=== PATIENT | male | born 1985 | race Caucasian/White ===

== ENCOUNTER 2023-10-26 07:44 | Emergency (ER) | payer OTHER, SELFPAY ==
[2023-10-26 07:47] VITALS: BP 111/87; PULSE 58; TEMP 36.6; O2SAT 98; BMI 27.1
--- NOTE | 2023-10-26 07:54 | XR_ITS ---
The [address] [address] Patient Name: ROBBIE HERRERA MRN: [id number] date: 1985 Sex: M Assigned Patient Location: ER Current Patient Location: ER Accession/Order Number: [id number] Exam Date: 10/26/2023 08:06 Report Date: 10/26/2023 08:27 At the request of: CAMRYN HAYES Procedure: XR wrist LT min 3V PROCEDURE: XR wrist LT min 3V HISTORY: pain ; radial side of wrist pain COMPARISON: None. FINDINGS: BONES:No fracture, acute abnormality, or significant arthropathy. SOFT TISSUES:No visible soft tissue swelling. EFFUSION:None visible. OTHER: Negative. XR/XR wrist LT min 3V IMPRESSION: 1. No acute abnormality or suspicious findings of the wrist. 2. Small, separate corticated ossification at base of first proximal phalanx suspected represent a remote, ununited fracture fragment. Electronically authenticated by: OVI NEWSOME Date: 10/26/2023 08:27
--- NOTE | 2023-10-26 08:16 | ED_ITS ---
HPI HPI - Extremity Injury (Upper) General Chief Complaint: Extremity Injury, Upper Stated Complaint: UPPER EXTREMITY INJURY Time Seen by Provider: 10/26/23 07:52 Source: patient Mode of arrival: walk-in History of Present Illness HPI narrative: 38-year-old male presents to the emergency department for left wrist pain. About 5 years ago he had a fracture and states he had surgery and hardware placed. About 6 months ago he was doing some push-ups and it started hurting and it has been bothering him to some degree since. Few days ago he was carrying some heavy items in his garden and it started hurting more. It hurts to bend it and the pain is moderate. He is right-handed. He did not fall. Related Data Previous Rx's ?Medication ?Instructions ?Recorded hydrocodone 5 mg-acetaminophen 325 1 tab PO Q6H PRN pain 3 days #12 10/26/23 mg tablet tabs ibuprofen 800 mg tablet 800 mg PO Q8H PRN pain #20 tabs 10/26/23 Allergies Allergy/AdvReac Type Severity Reaction Status Date / Time tramadol Allergy Unknown Vomiting Verified 10/26/23 07:52 Opioid HPI Opioid Management Most Recent Pain and Opioid Data: No Data to Display Review of Systems ROS Narrative A ten point review of systems is negative except as noted above. Exam Narrative Exam Narrative: Nurses note and vital signs reviewed and patient is not hypoxic. General: The patient appears well and in no apparent distress. Patient is resting comfortably on cart. Skin: Warm, dry, no pallor noted. There is no rash noted. Head: Normocephalic, atraumatic Eye: Normal conjunctiva, no drainage Ears, Nose, Mouth, and Throat: oral mucosa is moist. Nares patent. Cardiovascular: Regular Rate and Rhythm Respiratory: Patient is in no distress, no accessory muscle use Back: non-tender GI: Soft and nontender Musculoskeletal: He has no deformity or swelling in the left hand and wrist area. Range of motion of the left wrist causes discomfort but his fingers have full range of motion. Capillary refill brisk. Neurological: A&O, normal speech Psychiatric: Cooperative Constitutional Vital Signs, click to edit/add: Last Vital Signs Temp 98 F 10/26/23 07:47 Pulse 58 L 10/26/23 07:47 Resp 20 10/26/23 07:47 BP 111/87 10/26/23 07:47 Pulse Ox 98 10/26/23 07:47 Course Vital Signs Vital signs: Vital Signs Temperature 98 F 10/26/23 07:47 Pulse Rate 58 L 10/26/23 07:47 Respiratory Rate 20 10/26/23 07:47 Blood Pressure 111/87 10/26/23 07:47 Pulse Oximetry 98 10/26/23 07:47 Temperature 98 F 10/26/23 07:47 Pulse Rate 58 L 10/26/23 07:47 Respiratory Rate 20 10/26/23 07:47 Blood Pressure 111/87 10/26/23 07:47 Pulse Oximetry 98 10/26/23 07:47 MDM - Extremity Injury (Upper) MDM Narrative Medical decision making narrative: X-ray showed no acute findings. Splint applied, application checked by me and found to be appropriate, he is neurovascular intact. He has an established orthopedist with whom he will follow-up. Treatment diagnosis and follow-up were discussed with the patient. Differential Diagnosis Differential diagnosis: Likely sprain and strain of wrist and fracture of wrist Imaging Data wrist: Radiologist's impression: ITS Impressions Wrist X-Ray 10/26/23 07:54 IMPRESSION: 1. No acute abnormality or suspicious findings of the wrist. 2. Small, separate corticated ossification at base of first proximal phalanx suspected represent a remote, ununited fracture fragment. Electronically authenticated by: OVI NEWSOME Date: 10/26/2023 08:27 Discharge Plan Discharge Stand Alone Forms: Portal Instructions Chief Complaint: Extremity Injury, Upper Clinical Impression: Left wrist pain Patient Disposition: Home, Self-Care Time of Disposition Decision: 08:43 Condition: Good Mode of Transportation: Private Vehicle Prescriptions / Home Meds: New ibuprofen 800 mg tablet 800 mg PO Q8H PRN (Reason: pain) Qty: 20 0RF hydrocodone-acetaminophen 5-325 mg tablet 1 tab PO Q6H PRN (Reason: pain) 3 Days Qty: 12 0RF Print Language: Moroccan Instructions: Wrist Injury (ED) Additional Instructions: Follow-up with your established orthopedist in [place] Referrals: Physician,Non-Staff, [Physician] - 1 week
== END 2023-10-26 08:56 | disposition home or self-care (01) ==
PROVIDERS: Emergency Provider Emergency Medicine; PCP Nurse Practitioner Family
DX: M25.532 Pain in left wrist (principal); Z87.81 Personal history of (healed) traumatic fracture
CPT/HCPCS: 73110; 99283

== ENCOUNTER 2024-07-10 10:47 | Emergency (ER) | payer OTHER, SELFPAY ==
[2024-07-10 10:51] VITALS: BP 146/87; PULSE 73; TEMP 36.8; O2SAT 100; BMI 23.7
--- NOTE | 2024-07-10 11:01 | ECG_ITS ---
The [facility] Test Date: 2024-07-10 Pat Name: ROBBIE HERRERA Department: Room: - Gender: Male [employer]: : 1985 Requested By: ELLA RAMIREZ Order Number: [id number] Yue MD: JAMES WIN M.D. Measurements Intervals [employer] Rate: 78 P: 64 MO: 210 QRS: 83 QRSD: 86 T: 69 QT: 364 QTc: 397 Interpretive Statements 1100 Sinus rhythm 2231 First degree AV block 9150 abnormal ECG No previous ECG available for comparison Electronically Signed On 07-10-2024 17:29:47 EDT by JAMES WIN M.D.
[2024-07-10 11:06] VITALS: PULSE 70; O2SAT 99
[2024-07-10 11:08] LABS: Basophils Absolute Auto 0.1 10^3/uL (0.0-0.1); Basophils Percent Auto 1.2 % (0.2-2.0); Eosinophils Absolute Auto 0.1 10^3/uL (0.0-0.7); Eosinophils Percent Auto 1.4 % (0.9-7.0); Hematocrit 42.1 % (42.0-54.0); Hemoglobin 14.4 g/dL (14.0-18.0); Immature Granulocytes Abs Auto 0.01 10^3/uL (0.00-0.03); Immature Granulocytes Pct Auto 0.2 % (0.0-0.5); Lymphocytes Absolute Auto 2.4 10^3/uL (1.2-3.8); Lymphocytes Percent Auto 35.9 % (20.5-60.0); Mean Corpuscular HGB Conc 34.2 g/dL (29.9-35.2); Mean Corpuscular Volume 84.9 fL (80.0-94.0); Mean Platelet Volume 9.5 fL (9.5-13.5); Monocytes Absolute Auto 0.4 10^3/uL (0.3-0.8); Monocytes Percent Auto 6.1 % (1.7-12.0); Neutrophils Absolute Auto 3.7 10^3/uL (1.4-6.5); Neutrophils Percent Auto 55.2 % (43.0-75.0); Platelet Count 333 10^3/uL (150-450); Red Blood Count 4.96 10^6/uL (4.70-6.10); White Blood Count 6.6 10^3/uL (4.0-11.0)
--- NOTE | 2024-07-10 11:14 | ED_ITS ---
HPI - Chest Pain General Chief Complaint: Chest Pain Stated Complaint: CHEST PAIN Time Seen by Provider: 07/10/24 10:50 Mode of arrival: walk-in History of Present Illness HPI narrative: 38-year-old male to the emergency department chief complaint of intermittent episodes of chest discomfort. Reports he is under an increasing amount of stress recently. He reports he has been having episodes where he feels panicked, has pain in his chest, feels short of breath and feels numb and tingly. Related Data Previous Rx's ?Medication ?Instructions ?Recorded hydroxyzine HCl 25 mg tablet 25 mg PO Q8H PRN anxiety #30 tabs 07/10/24 Allergies Allergy/AdvReac Type Severity Reaction Status Date / Time tramadol Allergy Unknown Vomiting Verified 10/26/23 07:52 Review of Systems ROS Status of ROS 10 or more systems reviewed and unremark able except as noted in history and below PFSH PFSH Social History Little interest or pleasure in doing things: not at all Feeling down, depressed, or hopeless: not at all Exam Narrative Exam Narrative: VITALS: I have reviewed the triage vital signs. GENERAL: Well developed, well appearing adult in no acute distress. NEURO: Alert and oriented. Moves all extremities. Face is symmetric and expressive. EYES: PERRL. No scleral icterus or conjunctival injection. No discharge. HENT: Normocephalic, atraumatic. Hearing is grossly intact. Nares grossly patent and without discharge. Mucous membranes moist. NECK: No JVD. Patient moves neck without restriction. CARDIO: Rhythm regular. Normal rate. No murmur, rub, or gallop. Pulses equal bilaterally in the upper and lower extremity. No lower extremity edema. PULM: Lungs clear to auscultation in all monique. No wheezes, rales, or rhonchi. No conversational dyspnea. No splinting, stridor, or accessory muscle use. GI/: Abdomen is soft and non-tender. Normoactive bowel sounds. EXTREMITIES: Symmetric muscle bulk. No joint swelling. No clubbing, cyanosis, or deformity. SKIN: Warm and dry. Normal turgor. No rash or lesions appreciated. PSYCH: Mood, affect, and interaction is appropriate to the setting. Constitutional Vital Signs, click to edit/add: Last Vital Signs Temp 98.2 F 07/10/24 10:51 Pulse 73 07/10/24 10:51 Resp 18 07/10/24 10:51 BP 146/87 H 07/10/24 10:51 Pulse Ox 99 07/10/24 11:06 O2 Del Method Room Air 07/10/24 11:06 Course Vital Signs Vital signs: Vital Signs Temperature 98.2 F 07/10/24 10:51 Pulse Rate 73 07/10/24 10:51 Respiratory Rate 18 07/10/24 10:51 Blood Pressure 146/87 H 07/10/24 10:51 Pulse Oximetry 100 07/10/24 10:51 Oxygen Delivery Method Room Air 07/10/24 10:51 Temperature 98.2 F 07/10/24 10:51 Pulse Rate 73 07/10/24 10:51 Respiratory Rate 18 07/10/24 10:51 Blood Pressure 146/87 H 07/10/24 10:51 Pulse Oximetry 99 07/10/24 11:06 Oxygen Delivery Method Room Air 07/10/24 11:06 MDM - Chest Pain MDM Narrative Medical decision making narrative: Well-appearing 38-year-old male to the emergency department chief complaint of intermittent episodes of panic, chest pain, shortness of breath. Vital stable, the patient is afebrile. He has no cardiac history. Chest pain workup is initiated with chest x-ray, basic labs, troponin, EKG. Chest x-ray without acute findings. EKG is without acute ischemic pattern. Lab work is unremarkable. His troponin is low. Patient is low risk by heart score. Discussed findings with the patient. He reports that hydroxyzine worked well for him in the past when he had symptoms like this. Will be prescribed again. He is instructed follow-up with his PCP. Return precautions were discussed. All questions were answered. The patient was discharged home. Heart Score for Major Cardiac Event History: Example factors for history - pattern of chest pain, onset, duration, relation with exercise, stress or cold, localization, concomitant symptoms. reaction to sublingual nitrates, [] Highly suspicious +2 [] Moderately suspicious +1 [x] Slightly suspicious 0 EKG: [] Significant ST-Depression +2 [] Non specific repolarization disturbance +1 [x] Normal 0 Age: [] >= 65 +2 [] 45-65 + 1 [x] <45 0 Risk Factors: (HLD, HTN, DM, Cigarette Smoking, Pos Family Hx, Obesity) [] >3 risk factors or hx of atherosclerotic disease + 2 [x] 1-2 risk factors + 1 [] No risk factors known 0 Troponin: [] >= 3X normal + 2 [] 1-3X normal + 1 [x] <= Normal 0 [x] 0-3 Points 0.9 - 1.7% risk of major adverse cardiac event in 6 weeks [] 4-6 Points 12-16.6% risk of major adverse cardiac event in 6 weeks [] 7-10 Points 50-65% risk of major adverse cardiac event in 6 weeks [] 0-3 Points with 2 sets of negative cardiac markers <1% risk of major adverse cardiac event in 30 days. Medical Records Data Attestation: I reviewed the patient's medical records. Lab Data Attestation: I reviewed the patient's lab results. Labs: Lab Results 07/10/24 Range/Units 10:58 WBC 6.6 (4.0-11.0) 10^3/uL RBC 4.96 (4.70-6.10) 10^6/uL Hgb 14.4 (14.0-18.0) g/dL Hct 42.1 (42.0-54.0) % MCV 84.9 (80.0-94.0) fL MCH 29.0 (25.9-34.0) pg MCHC 34.2 (29.9-35.2) g/dL RDW 13.0 (11.0-15.0) % Plt Count 333 (150-450) 10^3/uL MPV 9.5 (9.5-13.5) fL Neut % (Auto) 55.2 (43.0-75.0) % Lymph % (Auto) 35.9 (20.5-60.0) % Mcdonough % (Auto) 6.1 (1.7-12.0) % Eos % (Auto) 1.4 (0.9-7.0) % Baso % (Auto) 1.2 (0.2-2.0) % Neut # (Auto) 3.7 (1.4-6.5) 10^3/uL Lymph # (Auto) 2.4 (1.2-3.8) 10^3/uL Mcdonough # (Auto) 0.4 (0.3-0.8) 10^3/uL Eos # (Auto) 0.1 (0.0-0.7) 10^3/uL Baso # (Auto) 0.1 (0.0-0.1) 10^3/uL Abs Immat Gran (auto) 0.01 (0.00-0.03) 10^3/uL Imm/Tot Granulo (auto) 0.2 (0.0-0.5) % Sodium 139 (136-145) mmol/L Potassium 3.7 (3.5-5.1) mmol/L Chloride 103 (98-107) mmol/L Carbon Dioxide 29.0 (21.0-32.0) mmol/L Anion Gap 10.7 BUN 17.0 (7.0-18.0) mg/dL Creatinine 0.95 (0.70-1.30) mg/dL Est GFR ( Amer) >60 (>=60 mL/min/1.73m^2) Est GFR (Non-Af Amer) >60 (>=60 mL/min/1.73m^2) BUN/Creatinine Ratio 17.9 Glucose 98 (74-106) mg/dL Calcium 9.7 (8.5-10.1) mg/dL Troponin I High Sens 4.7 (4.0-76.1) pg/mL Imaging Data Chest x-ray: Attestation: I personally reviewed and interpreted this imaging study as follows: My impression: No acute cardiopulmonary process ECG Data Attestation: I personally reviewed and interpreted this ECG as follows: (Normal sinus rhythm. No STEMI. Normal QTc) Discharge Plan Discharge Chief Complaint: Chest Pain Clinical Impression: Chest pain, Stress response Patient Disposition: Home, Self-Care Time of Disposition Decision: 12:09 Condition: Good Mode of Transportation: Private Vehicle Prescriptions / Home Meds: New hydroxyzine HCl 25 mg tablet 25 mg PO Q8H PRN (Reason: anxiety) Qty: 30 0RF Print Language: Iranian Instructions: Chest Pain (ED), Stress (ED), Panic Attack (ED) Additional Instructions: Call the office of your primary care doctor to arrange for follow-up within the above-stated timeframe. Your ED visit was focused on your acute issue and does not replace primary care. You should review your labs, imaging, and diagnoses from this ED visit with your primary care physician. There may be non-emergent/ incidental findings that need further evaluation. You should review your vital signs including blood pressure with your PCP. If you were prescribed medications you should discuss possible side-effects and drug interactions with your pharmacist. Call 911 or go to the nearest Emergency Department if you develop any new or worsening symptoms. Seek immediate medical attention if you develop: worsening chest pain, new chest pain, nausea, vomiting, weakness, numbness, tingling, excessive sweating, shortness of breath, difficulty breathing, loss of motion in your arms or legs, or any new or worsening symptoms. Referrals: ELLA RAMIREZ [Primary Care Provider] - 1 week
[2024-07-10 11:24] LABS: Anion Gap 10.7; BUN Creatinine Ratio 17.9; Calcium 9.7 mg/dL (8.5-10.1); Chloride 103 mmol/L (98-107); Estimated GFR (African America >60 (>=60 mL/min/1.73m^2); Estimated GFR (Non-African Ame >60 (>=60 mL/min/1.73m^2); Glucose 98 mg/dL (74-106); Potassium 3.7 mmol/L (3.5-5.1); Sodium 139 mmol/L (136-145); Troponin I High Sensitivity 4.7 pg/mL (4.0-76.1)
[2024-07-10 12:29] VITALS: BP 132/75; PULSE 68; O2SAT 98
== END 2024-07-10 12:30 | disposition home or self-care (01) ==
PROVIDERS: Emergency Provider Student in an Organized Health Care Education/Training Program; PCP Nurse Practitioner Family
DX: R07.9 Chest pain, unspecified (principal); F43.9 Reaction to severe stress, unspecified
CPT/HCPCS: 36415; 71045; 80048; 84484; 85025; 93005; 99285

== ENCOUNTER 2024-08-25 20:17 | Emergency (ER) | payer OTHER, BC, SELFPAY ==
[2024-08-25 20:27] VITALS: BP 122/69; PULSE 75; TEMP 36.7; O2SAT 96; BMI 21.7
--- NOTE | 2024-08-27 17:13 | ED.DENTAL1 ---
HPI - Dental/Oral General Chief complaint: Dental/Oral Stated complaint: DENTAL Source: patient Mode of arrival: walk-in History of Present Illness HPI Narrative: Left Before being seen after only a few minutes of waiting. The patient returned 5 hours later for assessment. Related Data Previous Rx's ?Medication ?Instructions ?Recorded hydrocodone 5 mg-acetaminophen 325 1 tab PO QID PRN pain #10 tabs 08/26/24 mg tablet penicillin V potassium 500 mg 500 mg PO BID 10 days #20 tabs 08/26/24 tablet Allergies Allergy/AdvReac Type Severity Reaction Status Date / Time tramadol Allergy Unknown Vomiting Verified 08/26/24 01:09 [facility] Social History Little interest or pleasure in doing things: not at all Feeling down, depressed, or hopeless: not at all Exam Narrative Exam Narrative: LWBS Constitutional Vital Signs, click to edit/add: Last Vital Signs Temp 98.0 F 08/25/24 20:27 Pulse 75 08/25/24 20:27 Resp 18 08/25/24 20:27 BP 122/69 08/25/24 20:27 Pulse Ox 96 08/25/24 20:27 O2 Del Method Room Air 08/25/24 20:27 Course Vital Signs Vital signs: Vital Signs Temperature 98.0 F 08/25/24 20:27 Pulse Rate 75 08/25/24 20:27 Respiratory Rate 18 08/25/24 20:27 Blood Pressure 122/69 08/25/24 20:27 Pulse Oximetry 96 08/25/24 20:27 Oxygen Delivery Method Room Air 08/25/24 20:27 Temperature 98.0 F 08/25/24 20:27 Pulse Rate 75 08/25/24 20:27 Respiratory Rate 18 08/25/24 20:27 Blood Pressure 122/69 08/25/24 20:27 Pulse Oximetry 96 08/25/24 20:27 Oxygen Delivery Method Room Air 08/25/24 20:27 MDM - Dental/Oral MDM Narrative Medical decision making narrative: LWBS Discharge Plan Discharge Patient Disposition: Left Without Being Seen Discharge Date/Time: 08/25/24 20:34
== END 2024-08-25 20:34 | disposition left against medical advice (07) ==
LOC: ER 20:25
PROVIDERS: Emergency Provider Emergency Medicine; PCP Nurse Practitioner Family
DX: Z53.21 Procedure and treatment not carried out due to patient leaving prior to being seen by health care provider (principal)

== ENCOUNTER 2024-08-26 01:03 | Emergency (ER) | payer BC, OTHER, SELFPAY ==
[2024-08-26 01:06] VITALS: BP 115/81; PULSE 64; TEMP 36.4; O2SAT 96; BMI 21.7
--- NOTE | 2024-08-26 01:08 | ED_ITS ---
HPI - Dental/Oral General Chief complaint: Dental/Oral Stated complaint: tooth pain Time Seen by Provider: 08/26/24 01:07 History of Present Illness HPI Narrative: You to the emergency department secondary to dental pain. Patient has dental pain both in the upper and lower teeth on the right side. He is an impacted wisdom teeth that are pressing on his molars and breaking his teeth. Patient states that he has an appointment mid September for the dentist but cannot get in any sooner. Pain is an 8-9 out of 10. He is not able to sleep. Over a month but it is gradually gotten worse. Patient states over the last couple of days it has been intolerable. Patient states that he has been trying to take Tylenol and ibuprofen for analgesic management and it is not helping. Right ear and right temporal area. He has a mild headache. Eating and drinking make it worse. Nothing makes it better. Teeth map: 2 1. 2. wisdom tooth about 50% impacted Related Data Previous Rx's ?Medication ?Instructions ?Recorded hydrocodone 5 mg-acetaminophen 325 1 tab PO QID PRN pa in #10 tabs 08/26/24 mg tablet penicillin V potassium 500 mg 500 mg PO BID 10 days #2 0 tabs 08/26/24 tablet Allergies Allergy/AdvReac Type Severity Reaction Status Date / Time tramadol Allergy Unknown Vomiting Verified 08/26/24 01:09 Review of Systems 2 ROS0 Narrative 10 Systems were reviewed, and unless not ed in the HPI, all other systems are reviewed, unremarkable, or noncontributory. PFS PFS Social History Little interest or pleasure in doing things: not at all Feeling down, depressed, or hopeless: not at all Exam Narrative Exam Narrative: Prior to examining the patient, I have washed with hospital approved and provided Antiseptic Hand Optical Instrument Repairer and have also applied gloves.? Prior to touching the patient, I asked for consent to examine the patient.? General: Alert and oriented, well nourished, mild distress. Eye: PERRL, EOMI, normal conjunctiva. HENT: Normocephalic, normal hearing, moist oral mucosa, no scleral icterus, 1, 2, 31 and 32 are significantly painful. 32 is more than 50% impacted. Soft sublingual early and submentally. TM are not red, dull, or bulging. Neck: Supple, non-tender, no carotid bruits, no JVD, no lymphadenopathy. Lungs: Clear to auscultation and percussion, non-labored respiration. Heart: Normal rate, regular rhythm, no murmur, gallop or edema. Musculoskeletal: Normal range of motion and strength, no tenderness or swelling. Skin: Skin is warm, dry and pink, no rashes or lesions. Neurologic: Awake, alert, and oriented X3, CN II-XII intact. Psychiatric: Cooperative, appropriate mood and affect.? Following the conclusion of the examination, I have washed my hands thoroughly after removing examination gloves. Constitutional Vital Signs, click to edit/add: Last Vital Signs Temp 97.5 F L 08/26/24 01:06 Pulse 64 08/26/24 01:06 Resp 16 08/26/24 01:06 BP 115/81 08/26/24 01:06 Pulse Ox 96 08/26/24 01:06 O2 Del Method Room Air 08/26/24 01:06 Course Course Hospital Course: Patient given first dose of antibiotic therapy and two intraoral injections. Vital Signs Vital signs: Vital Signs Temperature 97.5 F L 08/26/24 01:06 Pulse Rate 64 08/26/24 01:06 Respiratory Rate 16 08/26/24 01:06 Blood Pressure 115/81 08/26/24 01:06 Pulse Oximetry 96 08/26/24 01:06 Oxygen Delivery Method Room Air 08/26/24 01:06 Temperature 97.5 F L 08/26/24 01:06 Pulse Rate 64 08/26/24 01:06 Respiratory Rate 16 08/26/24 01:06 Blood Pressure 115/81 08/26/24 01:06 Pulse Oximetry 96 08/26/24 01:06 Oxygen Delivery Method Room Air 08/26/24 01:06 MDM - Dental/Oral MDM Narrative Medical decision making narrative: We did the patient very carefully. It was imperative that I rule out acute necrotizing ulcerative gingivitis as well as Antelmo's angina. Those are 2 life- threatening conditions. At this time I think the patient has likely periapical abscess associated with dental pain. There is nothing that requires emergent intervention or transfer at this time. Differential Diagnosis Differential diagnosis: Likely gingival abscess, dental caries, toothache, dental abscess and fracture of tooth Medical Records Attestation: I reviewed the patient's medical records. Discharge Plan Discharge Chief Complaint: Dental/Oral Clinical Impression: Pain, dental Patient Disposition: Home, Self-Care Time of Disposition Decision: 01:20 Condition: Good Mode of Transportation: Private Vehicle Prescriptions / Home Meds: New penicillin V potassium 500 mg tablet 500 mg PO BID 10 Days Qty: 20 0RF hydrocodone-acetaminophen 5-325 mg tablet 1 tab PO QID PRN (Reason: pain) Qty: 10 0RF Print Language: Macedonian Instructions: Toothache (ED) Additional Instructions: Establish care with a dentist. Return if you are having difficulty breathing or swallowing. Referrals: ELLA RAMIREZ [Primary Care Provider, Family Practice] - 1 week Discharge Date/Time: 08/26/24 01:48 Procedures ED Nerve Block Nerve Block Nerve Block 1: Time out performed: Yes Local anesthetic used: lidocaine 2% Location of anesthetic used: Maxillary N. Block at the second molar buccal gingival junction Intraoral nerve block: other Procedure successful: Yes Patient tolerated procedure: well and no complications Complications: none Nerve Block 2: Time out performed: Yes Local anesthetic used: lidocaine 2% Intraoral nerve block: inferior alveolar Procedure successful: Yes Patient tolerated procedure: well and no complications Complications: none
[2024-08-26] MEDS: LIDOCAINE HCL 2% 400 MG/20 ML MDV 5 ML INJ (01:41)
[2024-08-26] MEDS: PENICILLIN V POTASSIUM 250 MG TABLET 500 MG PO (01:45)
== END 2024-08-26 01:48 | disposition home or self-care (01) ==
PROVIDERS: Emergency Provider Emergency Medicine; PCP Nurse Practitioner Family
DX: K08.89 Other specified disorders of teeth and supporting structures (principal); K01.1 Impacted teeth
CPT/HCPCS: 64450; 99283

== ENCOUNTER 2024-11-01 11:57 | Outpatient (OUT) | payer BC, OTHER, SELFPAY ==
--- OUTSIDE RECORDS SUMMARY | 2023-10-01 06:30 | XMS_ITS ---
Author Organization [facility] [place] Address [address] [place] [address] Care Team Providers Care Program Professional Name Role Phone Sanjana James Primary Care Provider SANJANA JAMES Unavailable [phone] Allergies Allergen (clinical drug ingredient) Drug/Non Drug Allergy documented on EMR Reaction Allergy Type Onset Date Status tramadol traMADol HCl Unknown Drug Allergy Acti ve Reason For Referral Reason abdominal pain, N ,V Diagnosis 1 Abdominal pain (R10. 9) Referral [facility]upe Referring Provider First Name SANJANA Referring Provider Last Name ASHLEY Referring Provider Speciality Family Med icichristopher Referred Provider Yan Swenson Referred Provider Specialty Gastroentero logy Referral Priority Routine REASON FOR VISIT new patient, previous pcp mary pardo, patient is c/o stomach pain, n/v everyday Medications Medication SIG (Take, Route, Frequency, Duration) Notes Start Date End Date Status Ibuprofen 600 MG 1 tablet with food o r milk as needed Orally Three times a day for 14 days Not-Taking HYDROcodone-Acetaminophen 5-325 MG 1 tablet as needed Orally every 8 hrs for 7 days Not-Taking tiZANidine HCl 2 MG 1 tablet as needed Orally Three times a day for 14 days 11/04/2020 Not-Taking Famotidine 20 MG 1 tablet as needed Orally Once a day Not-Taking Cyclobenzaprine HCl 5 MG 1 tablet at bed time as needed Orally Once a day Not-Taking Ondansetron HCl 4 MG 1 tablet Orally Onc e a day as needed for 30 days 10/01/2023 Active Social History Tobacco Use: Social History Observation Description Date Details (start date - stop date) Current Smoker NA - NA Tobacco Use/Smoking Question Answer Notes Patient is a current smoker AUDIT-C (Standard) Question Answer Notes Did you have a drink containing alcohol in the p ast year? No Points 0 Interpretation Negative Problems Problem Type SNOMED Code ICD Code Onset Dates Problem Status W/U Status Risk Notes Problem Marijuana abuse, continuous (F12.10) Active confirmed Vital Signs Weight 195.8 lbs 10/01/2023 Height 72 in 10/01/2023 Blood pressure systolic 122 mm Hg 10/01/19 24 Blood pressure diastolic 80 mm Hg 024 BMI 26.55 kg/m2 10/01/2023 Encounters Encounter Location Date Provider Diagnosis [facility] [address] [facility] [place] [address] 10/01/2023 SANJANA JAMES Nausea & vomiting R11.2 and Abdominal pain R10.9 Assessments Encounter Date Diagnosis (ICD Code) Assessment Notes Treatment Notes Treatment Clinical Notes Section Notes 10/01/2023 Nausea & vomiting (ICD-10 - R11.2) discussed marijuana use 10/01/2023 Abdominal pain (ICD-10 - R10.9) discussed hx discussed IBS requesting GI referral Plan Of Treatment Medication Medication Name Sig Start Date Stop Date Notes Ondansetron HCl 4 MG 1 tablet Orally Onc e a day as needed for 30 days 10/01/2023 Treatment Notes Assessment Notes Nausea & vomiting discussed marijuana use Abdominal pain discussed hx discussed IBS requesting GI referral Referrals Referral Date Details 10/01/2023 10/01/2023, abdomina l pain, N ,V, Yan Swenson Next Appt Details Follow Up: prn,1 Year, Reaso n: Progress Notes * Tirso FINNEY ADOB:1985 (38 yo M)Acc No.[id number]:10/01/2023 New Patient Patient: Tirso FINK Provider: See James CNP :1985 A ge:38 Y S ex:Male Date:10/01/2023 Address:[address] [place] [address] Pcp:Sanjana James CNP Check In:10:16 AM ESTCheck O ut:10:50 AM EST Subjective: * Chief Complaints: * N ew patient, previous pcp mary pardo, patient is c/o stomach pain, n/v everyday * HPI: G eneral: stomach pain , nausea , vomiting since teen intermittent 1-2 times a day nausea, throws up 3-4 times a day stomach cramps and pain all over loose stools most of time has been told stomach virus bad acid reflux 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 * ROS: G eneral/Constitutional: Fever d enies. H eadache d enies. W eight loss?denies. O phthalmologic: Discharge d enies. E ye Pain d enies. I tching and redness d enies. E NT: Nasal discharge d enies. N patrice congestion d enies.?Sore throat d enies. C ardiovascular: Chest tightness/ heavy pressure d enies. R apid heart rate d enies. S welling of extremities d enies. C hest pain d enies. ? R espiratory: Productive cough d enies. C hest pain d enies. C ough d enies. S hortness of breath d enies. W heezing d enies. ? G astrointestinal: Abdominal pain a dmits and cramping , sometimes, aggravated with food. C onstipation d enies. D ecreased appetite d enies. D iarrhea l oose stools pretty consistent. N ausea a dmits daily. V omiting a dmits several days a week. G enitourinary: Urinary incontinence d enies. P ainful urination d enies. M usculoskeletal: Back pain d enies. N ольга pain d enies. M uscle aches d enies. S kin: Rash d enies. S kin lesion(s) d enies. ? 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 M other: alive. B rother(s): alive. S ister(s): alive. 4 brother(s) , 2 sister(s) . 2 son(s) , 6 daughter(s) - healthy. . * Social History: T obacco Use: T obacco Use/Smoking P atient is a c urrent smoker D rug/Alcohol: A ANA LUISA-C (Standard) D id you have a drink containing alcohol in the past year? N o P oints 0 I nterpretation N egative * Medications: N ot-Taking/PRNCyclobenzaprine HCl 5 MG Tablet 1 tablet at bedtime as needed Orally Once a day Famotidine 20 MG Tablet 1 tablet as needed Orally Once a day HYDROcodone-Acetaminophen 5-325 MG Tablet 1 tablet as needed Orally every 8 hrs Ibuprofen 600 MG Tablet 1 tablet with food or milk as needed Orally Three times a day tiZANidine HCl 2 MG Tablet 1 tablet as needed Orally Three times a day Medication List reviewed and reconciled with the patientNot-Taking/PRN Cyclobenzaprine HCl 5 MG Tablet 1 tablet at bedtime as needed Orally Once a day Not-Taking/PRN Famotidine 20 MG Tablet 1 tablet as needed Orally Once a day Not-Taking/PRN HYDROcodone-Acetaminophen 5-325 MG Tablet 1 tablet as needed Orally every 8 hrs Not-Taking/PRN Ibuprofen 600 MG Tablet 1 tablet with food or milk as needed Orally Three times a day Not-Taking/PRN tiZANidine HCl 2 MG Tablet 1 tablet as needed Orally Three times a day Medication List reviewed and reconciled with the patient * Allergies: t raMADol HClno[Allergies Verified] Objective: * Vitals: W t:195.8lbs, Ht: 72 in, BP:122/80mm Hg, BMI:26.55Index, Ht-cm: 182.88 cm, Wt-k.81 kg. * Examination: G eneral Examinations: GENERAL APPEARANCE: a lert and oriented, i n no acute distress. EYES: c onjunctiva normal, sclera non-icteric. NOSE: n ormal external appearance. LUNGS: c lear to auscultation bilaterally. CARDIO: r egular rate and rhythm, S1, S2 normal, no murmurs, no edema. ABDOMEN: s oft,, active bowel sounds, mild generalized tenderness with palpation. MUSCULOSKELETAL G ait and station normal. SKIN: w arm and dry. Assessment: * Assessment: 1. N ausea & vomiting - R11.2 (Primary) 2 . A bdominal pain - R10.9 Plan: * Treatment: 2. A bdominal pain Notes: discussed hx discussed IBS requesting GI referral Referral To:[facility] Reason:abdominal pain, N ,V * Procedure Codes: * Preventive Medicine: Screenings/Counseling: B MD ACTION PLAN Above Normal BMI Follow-up D ietary management education, guidance, and counseling T OBACCO ACTION PLAN Patient counselled on the dangers of tobacco use and urged to quit. . * Follow Up: p rn,1 Year * * Sign off status: Completed Visit Status: C HK (Check Out) true * Provider: See James CNP Date: 0 10/01/2023 Generated for Artie de jesus/oDra/eTransmitting on: 0 11/01/2024 12:02 PM EDT History and Physical Notes * Examination Category Sub-Category Detail Notes Category Not es General Examinations GENERAL APPEARANCE: alert a nd oriented, in no acute distress EYES: conjunctiva normal, sclera non-icteric EARS: NOSE: normal external appe arance THROAT: CARDIO: regular rate and rhy thm, S1, S2 normal, no murmurs, no edema LUNGS: clear to auscultatio n bilaterally ABDOMEN: soft,, active bowel sounds, mild generalized tenderness with palpation SKIN: warm and dry BACK: MUSCULOSKELETAL: Gait and station nor mal LYMPH NODES: Consultation Request Notes Referral Date Referring Provider Referred Provider Not es 10/01/2023 SANJANA JAMES Cameron abdominal p ain, N ,V
--- OUTSIDE RECORDS SUMMARY | 2024-10-16 11:30 | XMS_ITS ---
Author Organization The [facility] in [place] Address [address] [place] [address] Care Team Providers Care Extrusion Press Operator Name Role Phone Sanjana James Primary Care Provider [phone] REASON FOR VISIT colon issues Encounters Encounter Location Date Provider Diagnosis [place] [address] [place] [address] 10/16/2024 Sanjana James Plan Of Treatment No Information Progress Notes * LUZ MARINATirso Anaya ADOB:1985 (39 yo M)Acc No.[id number]:10/16/2024 UNLOCKED PROGRESS NOTE Progress Note Patient: Tirso FINK Provider: See James CNP (TTC) :1985 A ge:39 Y S ex:Male Date:10/16/2024 Address:[address] [place], [place] [id number] Subjective: * Chief Complaints: * 1 . Colon issues. * Medical History: Objective: * Vitals: Assessment: Plan: * Treatment: * * Electronic signature of Ludivina Mccollum NP, LAST CLEANER.SOFTWARE APPLICATIONS [id number] on 11/01/2024 at 12:01 PM EDT Sign off status: Pending Visit Status: C ANCPHONE (Cancelled Phone) * Provider: See James CNP (TTC) Date: 10/16/2024 Generated for Printi ng/Faxing/eTransmitting on: 11/01/2024 12:01 PM EDT
--- OUTSIDE RECORDS SUMMARY | 2024-11-01 07:30 | XMS_ITS ---
Author Organization [facility] in [place] Address [address] [place] [address] Care Team Providers Care Pipe Installer Name Role Phone Sanjana James Primary Care Provider [phone] Allergies Allergen (clinical drug ingredient) Drug/Non Drug Allergy documented on EMR Reaction Allergy Type Onset Date Status tramadol traMADol HCl projectile vomiting Drug Allergy Active REASON FOR VISIT Presents to office with [...] Status W/U Status Risk Notes Problem Anxiety (39643040) Anxiety (F41.9) Active confirmed Vital Signs Weight 158.6 lbs 11/01/2024 Height 72 in 11/01/2024 Blood pressure systolic 128 mm Hg 11/02/19 25 Blood pressure diastolic 62 mm Hg 025 BMI 21.51 kg/m2 11/01/2024 Procedures Procedure Date Ordered Date Performed Result Body Sit e CARDIO Stress Test - Treadmill Exercise 11/01/2024 N/A Holter Monitor - 3 days up to 14 days 11/01/2024 N/A Encounters Encounter Location Date Provider Diagnosis [facility] [address] [place] [address] 11/01/2024 Sanjana James Wellness examination Z00.00 ; Loss of consciousness R40.20 ; Intermittent chest pain R07.9 and Anxiety F41.9 Assessments Encounter Date Diagnosis (ICD Code) Assessment Notes Treatment Notes Treatment Clinical Notes Section Notes 11/01/2024 Wellness examination (ICD-10 - Z00.00) 11/01/2024 Loss of consciousness (ICD-10 - R40.20) requesting neurology referral 11/01/2024 Intermittent chest pain (ICD-10 - R07.9) requesting cardiology referral 11/01/2024 Anxiety (ICD-10 - F41.9) Plan Of Treatment Treatment Notes Assessment Notes Loss of consciousness requesting neurolo gy referral Intermittent chest pain requesting cardi ology referral Pending Test Test Name Order Date HEMOGLOBIN A1C (GLYCO) 11/01/2024 INSULIN, TOTAL 11/01/2024 LIPID PANEL (CHOL/TRIG/HDL/LDL) 11/02/19 25 URIC ACID 11/01/2024 VITAMIN D, 25 LEVEL (TOTAL) 11/01/2024 CARDIO Stress Test - Treadmill Exercise 11/01/2024 THYROID PANEL (T4/TSH/FREE T3) Holter Monitor - 3 days up to 14 days PSA, SCREENING 11/01/2024 CMP (COMP MET HATCH) w/eGFR CKD-EPI 2024 CBC WITH DIFF 11/01/2024 Progress Notes * Tirso FINNEY ADOB:1985 (39 yo M)Acc No.[id number]:11/01/2024 UNLOCKED PROGRESS NOTE Progress Note Patient: Tirso FINK Provider: See James ([facility]), PEDIATRIC GENETICIST :1985 A ge:39 Y S ex:Male Date:11/01/2024 Address:[address] [place] [address] Check In:11:22 AM ESTCheck O ut:11:49 AM [...] diagnosed in past marijuana [facility] cardiology, neurology lily. * Medical History: P neumonia, Sinus infection, Depression, Marijuana abuse, continuous. * Surgical History: F ibula repair 2017, Fractured Left hand 2019, C5-6 total disc arthroplasty 10/30/20. * Hospitalization/Major Diagno stic Procedure: n ольга injury- Yolis Guidry 2020. * Family History: F ather: alive, [...] Hg, BMI:21.51Index, Ht-cm: 182.88 cm, Wt-k.94 kg. Assessment: * Assessment: 1. W ellness examination - Z00.00 (Primary) 2 . L oss of consciousness - R40.20 3 . I ntermittent chest pain - R07.9 4 . A nxiety - F41.9 Plan: * Treatment: 2. L oss of consciousness Notes: requesting neurology referral 3. I ntermittent chest pain P rocedure: CARDIO Stress Test - Treadmill Exercise P rocedure: Holter Monitor - 3 days up to 14 days Notes: requesting cardiology referral?? * * Electronic signature of Ludivina Mccollum , AGUILAR, ICING MACHINE OPERATOR.[email or web address] on 11/01/2024 at 12:02 PM EDT Sign off status: Pending Visit Status: C HK (Check Out) * Provider: See James ([facility]C), PEDIATRIC GENETICIST Date: 11/01/2024 Generated for Artie de jesus/Dora/eTransmitting on: 11/01/2024 12:02 PM EDT History and Physical Notes * HPI (History of Present Illness) Category Sub-Category Detail Notes Category Not es General CP has been in hospital, Holter monitor and stress test in past pain last hours left side daily cervical spine surgery in 2019, helped back pain depression, anxiety has been diagnosed in past marijuana [facility] cardiology, neurology lily
--- OUTSIDE RECORDS SUMMARY | 2024-11-01 12:01 | XMS_ITS | Encounter Summary ---
Author Organization [facility] Address [address] [place] [address] Care Team Providers Care Geneticist Name Role Phone KaurXiomara cam Christina WAREHOUSE RECEIVING CLERK - DEBT MANAGEMENT COUNSELOR Primary Care Provide r Encounter Details Date Type Department Care Team (Late st Contact Info) Description 08/08/2020 Transcribe Orders [facility] [address] [place], [place] [id number] Kem Sapp MD Social History Tobacco Use Types Packs/Day Years Used Date Smoking Tobacco: Every Day Cigarettes 1 19.5 Started: 2005 Smokeless Tobacco: Never Alcohol Use Standard Drinks/Week Comments Yes 2 (1 standard drink = 0.6 oz pur e alcohol) Overall Financial Resource Strain (CARDIA) Answe r Date Recorded Difficulty of Paying Living Expenses Not hard at all 08/08/2020 PHQ-2 Answer Date Recorded PHQ-9 Total Score 13 08/08/2020 Hunger Vital Sign Answer Date Recorded Worried About Running Out of Food in the Last Ye ar Never true 08/08/2020 Ran Out of Food in the Last Year Never true 08/08/2020 PRAPARE - Transportation Answer Date Re corded In the past 12 months, has l ack of transportation kept you from medical appointments or from getting medications? No 07/25 In the past 12 months, has l ack of transportation kept you from meetings, work, or from getting things needed for daily living? No 08/08/2020 Sex and Gender Information Value Date Recorded Sex Assigned at Not on file Legal Sex Male 2:10 PM EST Gender Identity Not on file Sexual Orientation Not on file COVID-19 Exposure Response Date Recorded In the last month, have you been in contact with someone who was confirmed or suspected to have Coronavirus / COVID-19? No / Unsure 08/05/2020 12:37 PM EDT documented as of this encounter Plan of Treatment Not on file documented as of this encounter Visit Diagnoses Not on filedocumented in this encounter Additional Health Concerns Infection Onset Date Last Indicated Resolved Time C-diff Rule Out 09/17/2020 09/17/2020 09/18/2020 1 2:56 PM EDT COVID-19 04/14/2021 04/14/2021 04/28/2021 9:27 PM EST COVID-19 (Rule Out) 07/18/2021 07/18/2021 07/19/19 12:26 PM EDT COVID-19 (Rule Out) 11/13/2021 11/13/2021 11/14/19 22 9:27 AM EDT COVID-19 (Rule Out) 11/13/2021 11/13/2021 11/14/19 22 9:46 AM EDT COVID-19 (Rule Out) 03/17/2022 03/17/2022 03/17/20 22 8:32 AM EST COVID-19 03/17/2022 03/17/2022 03/31/2022 9:26 PM EST documented as of this encounter Care Teams Geneticist Relationship Specialty Start Date End Date Xiomara Kaur, WAREHOUSE RECEIVING CLERK - DEBT MANAGEMENT COUNSELOR [facility] Simone MAX [address] [place], [place] [id number] PCP - General Family Nurse Practitioner 05/05/22 documented as of this encounter
--- OUTSIDE RECORDS SUMMARY | 2024-11-01 12:01 | XMS_ITS | Patient Health Record ---
[facility] Address [address] [place] [address] Care Team Providers Care Telecommunication Engineer Name Role Phone Samantha Borges Primary Care Provider [phone] Dr. José Manuel Kwok Unavailable [phone] Reason For Referral No Information Encounters Encounter Location Date Provider Diagnosis [facility] [place] [place] [address] 10/06/2024 José Manuel Johnson [facility] [place] [place] [address] 10/06/2024 Samantha Borges [address] [place] [address] 09/26/2024 José Manuel [place] Encounter for dental examination and cleaning with abnormal findings Z01.21 ; Other dental procedure status Z98.818 ; Disturbances in tooth eruption K00.6 ; Dental caries on pit and fissure surface penetrating into dentin K02.52 ; Cracked tooth K03.81 and Partial loss of teeth, unspecified cause, class I K08.401 Assessments Encounter Date Diagnosis (ICD Code) Assessment Notes Treatment Notes Treatment Clinical Notes Section Notes 09/26/2024 Encounter for dental examination and cleaning with abnormal findings (ICD-10 - Z01.21) 09/26/2024 Other dental procedure status (ICD-10 - Z98.818) 09/26/2024 Disturbances in tooth eruption (ICD-10 - K00.6) 09/26/2024 Dental caries on pit and fissure surface penetrating into dentin (ICD-10 - K02.52) 09/26/2024 Cracked tooth (ICD-10 - K03.81) 09/26/2024 Partial loss of teeth, unspecified cause, class I (ICD-10 - K08.401) Plan Of Treatment Next Appt Details Provider Name:José Manuel [place], 0 01/12/2025 02:45:00 PM, [address], [place], [address], Provider Name:José Manuel [place], 0 01/15/2025 01:00:00 PM, [address], [place], [address], Provider Name:José Manuel [place], 0 01/16/2025 03:45:00 PM, [address], [place], [address], Insurance Providers Payer Name Payer Address Payer Phone Subscriber Number Group Number Insured Name Patient Relationship to Insured Coverage Start Date Coverage End Date [facility] [employer] [address] [address] [place] [address] [id number] ROBBIE HERRERA Self - patient is the insured 3 [employer] [facility] [address] [place] [address] [id number] ROBBIE HERRERA Self - patient is the insured 3
--- OUTSIDE RECORDS SUMMARY | 2024-11-01 12:01 | XMS_ITS | Patient Health Record ---
Author Organization [facility] in [place] Address [address] [place] [address] Care Team Providers Care Acquisitions Librarian Name Role Phone Sanjana James Primary Care Provider Allergies Allergen (clinical drug ingredient) Drug/Non Drug Allergy documented on EMR Reaction Allergy Type Onset Date Status tramadol traMADol HCl projectile vomiting Drug Allergy Active Results Component Value Reference Range Notes ECG 12 lead Reviewed date:07/11/2024 08:29:30 AM Interpretation: Performing Lab: Notes/Report: Source Facility: [place] [address] Electrocardiograph Report Signed Patient: ROBBIE FINNEY MR#: [id number] : 1985 Acct:[id number] Age/Sex: 38 / M ADM Date: 07/10/24 Loc: ER Attending Dr: Ordering Physician: Robbie Del Toro Date of Service: 07/10/24 Procedure(s): ECG 12 lead Accession Number(s): [id number] cc: [facility] Test Date: 2024-07-10 Pat Name: ROBBIE FINNEY Department: Room: - Gender: Male Ict Programmer: : 1985 Requested By: SANJANA JAMES Order Number: [id number] Yue MD: JAMES WIN M.D. Measurements Intervals [place] Rate: 78 P: 64 ME: 210 QRS: 83 QRSD: 86 T: 69 QT: 364 QTc: 397 Interpretive Statements 1100 Sinus rhythm 2231 First degree AV block 9150 abnormal ECG No previous ECG available for comparison Electronically Signed On 07-10-2024 17:29:47 EDT by JAMES WIN M.D. Dictated By: JAMES WIN Signed By: 07/10/241729 DD/ 53 TD/TT: Softball Winder: [place] [address] Electrocardiograph Report Signed Patient: ROBBIE FINNEY MR#: [id number] : 1985 Acct:[id number] Age/Sex: 38 / M ADM Date: 07/10/24 Loc: ER Attending Dr: Ordering Physician: Robbie Del Toro Date of Service: 07/10/24 Procedure(s): ECG 12 lead Accession Number(s): [id number] cc: [facility] Test Date: 2024-07-10 Pat Name: ROBBIE FINNEY Department: 74 Room: - Gender: Male Ict Programmer: : 1985 Requ ested By: SANJANA JAMES Order Number: [id number] Reading MD: JAMES WIN M.D. Measurements Intervals [place] Rate: 78 P: 64 ME: 210 QRS: 83 QRSD: 86 T: 69 QT: 364 QTc: 397 Interpretive Statements 1100 Sinus rhythm 2231 First degree AV block 9150 abnormal ECG No previous ECG avai lable for comparison Electronically Elizabeth d On 07-10-2024 17:29:47 EDT by JAMES WIN M.D. Dictated By: JAMES WIN Signed By: 07/10/241729 DD/ 53 TD/TT: Softball Winder: CBC AUTO DIFF Reviewed date:07/10/2024 01:10:02 PM Interpretation: Performing Lab: Notes/Report: [facility] , White Blood Count 6.6 4.0-11.0 10 3/uL Red Blood Count 4.96 4.70-6.10 10 6/uL Hemoglobin 14.4 14.0-18.0 g/dL Hematocrit 42.1 42.0-54.0 % Mean Corpuscular Volume 84.9 80.0-94.0 fL Mean Corpuscular Hemoglobin 29.0 25.9-34.0 pg Mean Corpuscular HGB Conc 34.2 29.9-35.2 g/dL Red Cell Distribution Width 13.0 11.0-15.0 % Platelet Count 333 150-450 10 3/uL Mean Platelet Volume 9.5 9.5-13.5 fL Neutrophils Percent Auto 55.2 43.0-75.0 % Lymphocytes Percent Auto 35.9 20.5-60.0 % Monocytes Percent Auto 6.1 1.7-12.0 % Eosinophils Percent Auto 1.4 0.9-7.0 % Basophils Percent Auto 1.2 0.2-2.0 % Immature Granulocytes Pct Auto 0.2 0.0-0.5 % Neutrophils Absolute Auto 3.7 1.4-6.5 10 3/uL Lymphocytes Absolute Auto 2.4 1.2-3.8 10 3/uL Monocytes Absolute Auto 0.4 0.3-0.8 10 3/uL Eosinophils Absolute Auto 0.1 0.0-0.7 10 3/uL Basophils Absolute Auto 0.1 0.0-0.1 10 3/uL Immature Granulocytes Abs Auto 0.01 0.00-0.03 10 3/uL Performing Lab: see note ML - [facility] LB Troponin I High Sensitivity Reviewed date:07/10/2024 01:10:02 PM Interpretation: Performing Lab: Notes/Report: [facility] , Troponin I High Sensitivity 4.7 4.0-76.1 pg/mL USED IN ISOLATION BUT SHOULD BE INTERPRETED IN CONJUNCTION WITH OTHER DIAGNOSTIC AND CLINICAL INFORMATION. CUT-OFF POINTS HAVE BEEN ESTABLISHED BASED ON THE FOURTH UNIVERSAL DEFINITION OF MYOCARDIAL INFARCTION. THE UPPER DIAGNOSIS. PERCENTILE OF cTnI DISTRIBUTION IN A REFERENCE POPULATION, REFERENCE LIMIT (URL) OF TROPONIN, DEFINED THE 99TH 99TH PERCENTILE = 76.2 PG/ML HAS BEEN CONFIRMED THE DECISION THRESHOLD FOR NE NOTE: HIGH-SENSITIVITY TROPONIN ASSAY IS NOT INTENDED TO BE Performing Lab: see note ML - [facility] LB PROF CHEM 8 (BAS METB) Reviewed date:07/10/2024 01:10:02 PM Interpretation: Performing Lab: Notes/Report: [facility] , Sodium 139 136-145 mmol/L Potassium 3.7 3.5-5.1 mmol/L Chloride 103 98-107 mmol/L Carbon Dioxide 29.0 21.0-32.0 mmol/L Anion Gap 10.7 Glucose 98 74-106 mg/dL Blood Urea Nitrogen 17.0 7.0-18.0 mg/dL Creatinine 0.95 0.70-1.30 mg/dL Estimated GFR ( Hillary >60 >=60 mL/min/1.73m 2 Estimated GFR (Non- Marva >60 >=60 mL/min/1.73m 2 BUN Creatinine Ratio 17.9 Calcium 9.7 8.5-10.1 mg/dL Performing Lab: see note ML - [facility] Reason For Referral No Information Social History Tobacco Use: Social History Observation [...] Problem Status W/U Status Risk Notes Problem [id number] Cervical disc herniation (M50.20) Active confirmed Problem 277314080 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 Problem Marijuana abuse, continuous (F12.10) Active confirmed Problem Anxiety (23213238) Anxiety (F41.9) Active confirmed Vital Signs Blood pressure diastolic 62 mm Hg 11/01/2024 Height 72 in 11/01/2024 Blood pressure systolic 128 mm Hg 11/01/2024 Weight 158.6 lbs 11/01/2024 BMI 21.51 kg/m2 11/01/2024 Procedures Procedure Date Ordered Date Performed Result Body Sit e CARDIO Stress Test - Treadmill Exercise 11/01/2024 N/A Holter Monitor - 3 days up to 14 days 11/01/2024 N/A Encounters Encounter Location Date Provider Diagnosis [facility] [address] [place] [address] 11/01/2024 Sanjana James Wellness examination Z00.00 ; [...] Anxiety (ICD-10 - F41.9) Plan Of Treatment Pending Test Test Name Order Date HEMOGLOBIN A1C (GLYCO) 11/01/2024 INSULIN, TOTAL 11/01/2024 LIPID PANEL (CHOL/TRIG/HDL/LDL) 11/02/19 25 URIC ACID 11/01/2024 VITAMIN D, 25 LEVEL (TOTAL) 11/01/2024 CARDIO Stress Test - Treadmill Exercise 11/01/2024 MRI Spine Cervical w/o Contrast 03/13/20 21 THYROID PANEL (T4/TSH/FREE T3) Holter Monitor - 3 days up to 14 days PSA, SCREENING 11/01/2024 CMP (COMP MET HATCH) w/eGFR CKD-EPI 2024 CBC WITH DIFF 11/01/2024 Insurance Providers Payer Name Payer Address Payer Phone Subscriber Number Group Number Insured Name Patient Relationship to Insured Coverage Start Date Coverage End Date [facility] [address] [place] [address] [id number] Robbie Finney Self - patient is the insured Medical (General) History Medical History History ICD Code pneumonia sinus infection depression Marijuana abuse, continuous F12.10 Surgical History Surgery Date(Month/Year) C5-6 total disc arthroplasty 10/30/20 Fractured Left hand 2018 Fibula repair 2017 Hospitalization History Reason Date(Month/Year) neck injury- Yolis Guidry 2020
--- OUTSIDE RECORDS SUMMARY | 2024-11-01 12:02 | XMS_ITS | Encounter Summary ---
Author Organization [facility] Address [address] [place] [address] Care Team Providers Care Mapping Supervisor Name Role Phone Xiomara Kaur EMBEDDED SYSTEMS DESIGNER - MANAGER DISTRIBUTION Primary Care Provide r Encounter Details Date Type Department Care Team (Late st Contact Info) Description 03/13/2021 Transcribe Orders Flynn Pre Access [address] [place] [address] Carlos Del Toor MD [address] [place] [address] Social History Tobacco Use Types Packs/Day Years Used Date Smoking Tobacco: Former Cigarettes 1 19.5 S tarted: 2005 Smokeless Tobacco: Never Alcohol Use Standard Drinks/Week Comments Yes 2 (1 standard drink = 0.6 oz pur e alcohol) Overall Financial Resource Strain (CARDIA) Answe r Date Recorded How hard is it for you to pa y for the very basics like food, housing, medical care, and heating? Not hard at all 09/16/2020 PHQ-2 Answer Date Recorded PHQ-9 Total Score 13 08/08/2020 Hunger Vital Sign Answer Date Recorded Within the past 12 months, y ou worried that your food would run out before you got the money to buy more. Never true 09/17/19 21 Within the past 12 months, t he food you bought just didn't last and you didn't have money to get more. Never true 09/16/2020 PRAPARE - Transportation Answer Date Re corded [...] have Coronavirus / COVID-19? No / Unsure 03/07/2021 12:09 PM EST documented as of this encounter Plan of Treatment Not on file documented as of this encounter Visit Diagnoses Not on filedocumented in this encounter Additional Health Concerns Infection Onset Date Last Indicated Resolved Time COVID-19 04/14/2021 04/14/2021 04/28/2021 9:27 PM EST COVID-19 (Rule Out) 07/18/2021 07/18/2021 07/19/19 12:26 PM EDT COVID-19 (Rule Out) 11/13/2021 11/13/2021 11/14/19 22 9:27 AM EDT COVID-19 (Rule Out) 11/13/2021 11/13/2021 11/14/19 22 9:46 AM EDT COVID-19 (Rule Out) 03/17/2022 03/17/2022 03/17/20 8:32 AM EST COVID-19 03/17/2022 03/17/2022 03/31/2022 9:26 PM EST documented as of this encounter Care Teams Mapping Supervisor Relationship Specialty Start Date End Date Xiomara Kaur, EMBEDDED SYSTEMS DESIGNER - MANAGER DISTRIBUTION [address] [place] [address] [facility] [address] [place] [address] PCP - General Family Nurse Practitioner 05/05/22 documented as of this encounter
--- OUTSIDE RECORDS SUMMARY | 2024-11-01 12:02 | XMS_ITS | Clinical Summary ---
Author Organization [facility] Address [address] [place] [address] Care Team Providers Care Houseperson Name Role Phone Xiomara Kaur FOOD PREPARATION WORKER - PELT DROPPER Primary Care Provide r Allergies Active Allergy Reactions Criticality Noted Date Comments Tramadol Nausea And Vomiting Low 10/24/2015 Medications dicyclomine (BENTYL) 10 MG capsule Take 1 capsule by mouth 4 times daily (before meals and nightly) 20 capsule 3 2 Active sildenafil (VIAGRA) 50 MG tabletIndications:E rectile dysfunction, unspecified erectile dysfunction type Take 1 tablet 30 minutes prior to sexual activity. Do not exceed more than 1 dose in 24 hours. 10 tablet 2 Active pantoprazole (PROTONIX) 40 MG tabletIndications:G astroesophageal reflux disease, unspecified whether esophagitis present Take 1 tablet by mouth every morning (before breakfast) 90 tablet 2 Active naproxen (NAPROSYN) 500 MG tablet Take 0.5 tablets by mouth 2 times daily (with meals) for 5 days 5 tablet 2 Active albuterol sulfate HFA (PROVENTIL HFA) 108 (90 Base) MCG/ACT inhaler Inhale 2 puffs into the lungs every 4 hours as needed for Wheezing or Shortness of Breath (Space out to every 6 hours as symptoms improve) Space out to every 6 hours as symptoms improve. 18 g 2 Active Sertraline HCl 150 MG CAPS TAKE 1 CAPSULE BY MOUTH ONCE DAILY 2 Active QUEtiapine (SEROQUEL) 50 MG tablet TAKE 1 TABLET BY MOUTH EVERY DAY AT BEDTIME 2 Active traZODone (DESYREL) 50 MG tablet TAKE 1 TO 2 TABLETS BY MOUTH AT BEDTIME NEEDED FOR SLEEP 2 Active hydrOXYzine HCl (ATARAX) 50 MG tablet 2 Active divalproex (DEPAKOTE ER) 250 MG extended release tablet 2 Active azithromycin (ZITHROMAX Z-SALVADOR) 250 MG tabletIndications:C ough, unspecified type Take 2 tablets (500mg) by mouth once daily on day 1. Take 1 tablet (250mg) by mouth once daily on days 2 - 5. 6 tablet 2 Active ondansetron (ZOFRAN-ODT) 4 MG disintegrating tabletIndications:V iral gastroenteritis Take 1 tablet by mouth every 8 hours as needed for Nausea or Vomiting 15 tablet 3 Active Active Problems Problem Noted Date Diagnosed Date Erectile dysfunction 11/13/2021 RUQ pain 11/13/2021 Dysphagia 11/13/2021 Nausea 11/13/2021 Acute COVID-19 11/13/2021 COVID-19 ruled out 11/13/2021 GERD (gastroesophageal reflux disease) Pneumonia Acute bronchitis Resolved Problems Problem Noted Date Diagnosed Date Resolved Date Lipid screening 11/13/2021 12/13/2021 Immunizations Immunization Administration Dates Next Due TDaP, ADACEL (age 10y-64y), BOOSTRIX (age 10y+), IM, 0.5mL 03/31/2020 Family History Medical History Relation Name Comments Cancer Father Heart Disease Father Heart Disease Sister Obesity Sister Relation Name Status Comments Father Alive Mother Alive Sister Alive Social History Tobacco Use Types Packs/Day Years Used Date Smoking Tobacco: Former Cigarettes 1 19.5 S tarted: 2006 Smokeless Tobacco: Never Tobacco Cessation:Counseling Given: Not Answered Alcohol Use Standard Drinks/Week Comments Yes 2 (1 standard drink = 0.6 oz pur e alcohol) AUDIT-C Answer Date Recorded Q1: How often do you have a drink containing alcohol? Never 03/17/2022 Q2: How many drinks containi ng alcohol do you have on a typical day when you are drinking? Patient does not drink 2 Q3: How often do you have si x or more drinks on one occasion? Never 03/17/2022 Overall Financial Resource Strain (CARDIA) Answe r Date Recorded How hard is it for you to pa y for the very basics like food, housing, medical care, and heating? Not hard at all 11/13/2021 PHQ-2 Answer Date Recorded PHQ-9 Total Score 0 08/06/2021 Hunger Vital Sign Answer Date Recorded Within the past 12 months, y ou worried that your food would run out before you got the money to buy more. Never true 11/14/19 22 Within the past 12 months, t he food you bought just didn't last and you didn't have money to get more. Never true 11/13/2021 PRAPARE - Transportation Answer Date Re corded [...] on file Sexual Orientation Not on file Last Filed Vital Signs Vital Sign Reading Time Taken Comments Blood Pressure 110/70 03/24/2022 11:37 AM EST Pulse 86 08/17/2022 9:48 AM EDT Temperature 36.8 C (98.2 F) 08/17/2022 9:48 AM EDT Respiratory Rate 18 03/24/2022 11:37 AM EST Oxygen Saturation 97% 08/17/2022 9:48 AM EDT Inhaled Oxygen Concentration - - Weight 95.3 kg (210 lb) 08/17/2022 9:48 AM EDT Height 182.9 cm (6') 08/17/2022 9:48 AM EDT Body Mass Index 28.48 08/17/2022 9:48 AM EDT Plan of Treatment Health Maintenance Due Date Last Done Comments Depression Screen 1998 Varicella vaccine (1 of 2 - 13+ 2-dose series) 09/02/1999 HIV screen 2001 Hepatitis C screen 2004 Hepatitis B vaccine (1 of 3 - 19+ 3-dose series) 2005 COVID-19 Vaccine (2023-2 5 season) 2023 Flu vaccine (#1) 11/24/2024 DTaP/Tdap/Td vaccine (2 - Td or Tdap) 03/31/2030 03/31/2020 Diabetes screen Discontinued 07/08/2023 HPV vaccine Aged Out No longer eligi ble based on patient's age to complete this topic Hepatitis A vaccine Aged Out No longe r eligible based on patient's age to complete this topic Hib vaccine Aged Out No longer eligi ble based on patient's age to complete this topic Meningococcal (ACWY) vaccine Aged Out No longer eligible based on patient's age to complete this topic Meningococcal B vaccine Aged Out No l onger eligible based on patient's age to complete this topic Pneumococcal 0-49 years Vaccine Aged Out No longer eligible based on patient's age to complete this topic Polio vaccine Aged Out No longer elig ible based on patient's age to complete this topic Procedures Procedure Name Priority Date/Time Associated Diagnosis Comments HEMOGLOBIN A1C Routine 07/08/2023 11:00 AM EDT from Last 3 Months or Most Recently Relevant to Health Maintenance Results * Hemoglobin A1C (07/08/2023 11:00 AM EDT) Hemoglobin A1C 5.5 4.0 - 6.0 % 07/08/2023 11:00 AM EDT [facility] Estimated Avg Glucose 111 mg/dL 07/08/2023 11:00 AM EDT Stellar Comment: The ADA and AACC recommend providing the estimated average glucose result to permit better patient understanding of their HBA1c result. 07/08/2023 11:0 0 AM EDT 07/08/2023 11:28 AM EDT Lucy Sloan FOOD PREPARATION WORKER - PELT DROPPER CHEMISTRY ORDERABLES Final Result [facility] [address] [id number], [facility] [phone] from Last 3 Months or Most Recently Relevant to Health Maintenance Insurance [facility] Member Subscriber Plan / Payer (Ef fective 2021-Present) Name:Tirso Finneyw Relation to Subscriber:Self Name:Tirso Finney Payer ID:Not on file Group ID:Not on file Type:Not on file Address: [address] Care Teams Houseperson Relationship Specialty Start Date End Date Xiomara Kaur, FOOD PREPARATION WORKER - PELT DROPPER [address] [place] [phone] PCP - General Family Nurse Practitioner 05/05/22
--- OUTSIDE RECORDS SUMMARY | 2024-11-01 12:02 | XMS_ITS | Encounter Summary ---
Author Organization [facility] Address [address] [place] [address] Care Team Providers Care Salvage Repairer Name Role Phone Xiomara Kaur HOGSHEAD WEIGHER - ONLINE HEALTH AND FITNESS COACH Primary Care Provide r Reason for Referral * Imaging (Routine) - Closed Specialty Diagnoses / Procedures Referred By Kadyac t Referred To Contact Radiology Diagnoses Radiculopathy, cervical region Procedures MRI CERVICAL SPINE WO CONTRAST Carlos Del Toro MD Phone: tel: fax: [address] [address] Phone: tel: Referral ID Status Reason Start Date Expiration Date Visits Re quested Visits Authorized [id number] Closed 03/19/2021 04/18/2021 1 1 * Imaging (Routine) - Closed Specialty Diagnoses / Procedures Referred By Contac t Referred To Contact Radiology Diagnoses Radiculopathy, unspecified spinal region Procedures MRI BRAIN WO CONTRAST Carlos Del Toro MD Phone: tel: fax: Referral ID Status Reason Start Date Expiration Date Visits Re quested Visits Authorized [id number] Closed 03/13/2021 03/13/2022 1 1 Encounter Details Date Type Department Care Team (Late st Contact Info) Description 03/13/2021 Transcribe Orders [facility] [address] [place] [id number] Carlos Del Toro MD [address] [place] [address] Radiculopathy, unspecified spinal region (Primary Dx) Social History Tobacco Use Types Packs/Day Years [...] as of this encounter Plan of Treatment Scheduled Orders Name Type Priority Associated Diagnoses Orde r Schedule MRI BRAIN WO CONTRAST Imaging Routine Radiculopathy, unspecified spinal region Expected: 03/13/2021, Expires: 03/13/2022 MRI CERVICAL SPINE WO CONTRAST Imaging Routine Radiculopathy, unspecified spinal region Expected: 03/13/2021, Expires: 03/13/2022 documented as of this encounter Visit Diagnoses Diagnosis Radiculopathy, unspecified spinal region- Primary documented in this encounter Additional Health Concerns Infection Onset Date Last Indicated Resolved Time COVID-19 04/14/2021 04/14/2021 04/28/2021 9:27 PM EST COVID-19 (Rule Out) 07/18/2021 07/18/2021 07/19/19 12:26 PM EDT COVID-19 (Rule Out) 11/13/2021 11/13/2021 11/14/19 9:27 AM EDT COVID-19 (Rule Out) 11/13/2021 11/13/2021 11/14/19 9:46 AM EDT COVID-19 (Rule Out) 03/17/2022 03/17/2022 03/17/20 8:32 AM EST COVID-19 03/17/2022 03/17/2022 03/31/2022 9:26 PM EST documented as of this encounter Care Teams Salvage Repairer Relationship Specialty Start Date End Date Xiomara Kaur, HOGSHEAD WEIGHER - ONLINE HEALTH AND FITNESS COACH [address] [place] [id number] PCP - General Family Nurse Practitioner 05/05/22 documented as of this encounter
[2024-11-01 12:22] LABS: Hematocrit 42.7 % (42.0-54.0); Hemoglobin 14.6 g/dL (14.0-18.0); Immature Granulocytes Abs Auto 0.01 10^3/uL (0.00-0.03); Immature Granulocytes Pct Auto 0.2 % (0.0-0.5); Lymphocytes Absolute Auto 1.8 10^3/uL (1.2-3.8); Mean Corpuscular HGB Conc 34.2 g/dL (29.9-35.2); Mean Corpuscular Hemoglobin 29.0 pg (25.9-34.0); Mean Corpuscular Volume 84.9 fL (80.0-94.0); Platelet Count 327 10^3/uL (150-450); Red Blood Count 5.03 10^6/uL (4.70-6.10); White Blood Count 6.3 10^3/uL (4.0-11.0)
[2024-11-01 12:49] LABS: Alanine Aminotransferase 40 U/L (16-63); Albumin Globulin Ratio 1.3; Albumin Level 4.0 g/dL (3.4-5.0); Alkaline Phosphatase 72 U/L (46-116); Anion Gap 13.6; Aspartate Amino Transferase 22 U/L (15-37); Blood Urea Nitrogen 12.0 mg/dL (7.0-18.0); Calcium 9.4 mg/dL (8.5-10.1); Carbon Dioxide 26.1 mmol/L (21.0-32.0); Chloride 106 mmol/L (98-107); Cholesterol 190 mg/dL (<=200); Estimated GFR (African America >60 (>=60 mL/min/1.73m^2); Estimated GFR (Non-African Ame >60 (>=60 mL/min/1.73m^2); Free T3 3.15 pg/mL (2.18-3.98); Globulin 3.2 g/dL; Glucose 111 mg/dL (74-106); HDL Cholesterol 54 mg/dL (40-60); Potassium 3.7 mmol/L (3.5-5.1); Sodium 142 mmol/L (136-145); Thyroid Stimulating Hormone 0.311 uIU/mL (0.358-3.740); Total Protein 7.2 g/dL (6.4-8.2); Triglycerides 59 mg/dL (<=150); Uric Acid 5.1 mg/dL (3.5-7.2); VLDL CHOLESTEROL 11.8 mg/dL
== END 2024-11-01 11:58 | disposition home or self-care (01) ==
PROVIDERS: PCP Nurse Practitioner Family; Visit Provider Nurse Practitioner Family
DX: Z00.00 Encounter for general adult medical examination without abnormal findings (principal)
CPT/HCPCS: 36415; 80053; 80061; 82306; 83036; 83525; 84436; 84443; 84481; 84550; 85025; G0103

== ENCOUNTER 2024-11-03 11:03 | Outpatient (REF) | payer BC, OTHER, SELFPAY ==
--- OUTSIDE RECORDS SUMMARY | 2024-10-16 11:30 | XMS_ITS ---
Author Organization The [facility] in [place] Address [address] [place] [address] Care Team Providers Care Obstetrical Anesthesiologist Name Role Phone Sanjana James Primary Care Provider [phone] REASON FOR VISIT colon issues Encounters Encounter Location Date Provider Diagnosis [place] [address] [place] [address] 10/16/2024 Sanjana James Plan Of Treatment No Information Progress Notes * LUZ MARINATirso Anaya ADOB:1985 (39 yo M)Acc No.[id number]:10/16/2024 UNLOCKED PROGRESS NOTE Progress Note Patient: Tirso FINK Provider: See James CNP (TTC) :1985 A ge:39 Y S ex:Male Date:10/16/2024 Address:[address] [place], [place] [id number] Subjective: * Chief Complaints: * 1 . Colon issues. * Medical History: Objective: * Vitals: Assessment: Plan: * Treatment: * * Electronic signature of Ludivina Mccollum NP, CREW MESS ATTENDANT.STATISTICAL [id number] on 11/03/2024 at 11:06 AM EDT Sign off status: Pending Visit Status: C ANCPHONE (Cancelled Phone) * Provider: See James CNP (TTC) Date: 0 10/16/2024 Generated for Printi ng/Faxing/eTransmitting on: 0 11/03/2024 11:06 AM EDT
--- OUTSIDE RECORDS SUMMARY | 2024-11-01 07:30 | XMS_ITS ---
Author Organization The [facility] in [place] Address [address] [place] [address] Care Team Providers Care Wafer Fab Technician Name Role Phone Sanjana James Primary Care Provider Allergies Allergen (clinical drug ingredient) Drug/Non Drug Allergy documented on EMR Reaction Allergy Type Onset Date Status tramadol traMADol HCl projectile vomiting Drug Allergy Active Reason For Referral Reason syncope, near syncop e Diagnosis 1 Loss of consciousnes s (R40.20) Referral Organization [facility] Referring Provider First Name Sanjana Referring Provider Last Name Erika Referring Provider Speciality [facility] markell Referred Provider Gloria Valle Referred Provider Specialty Neurology Referral Priority Routine Reason intermittent chest p ain Diagnosis 1 Intermittent chest p ain (R07.9) Referral Organization [facility] Referring Provider First Name Sanjana Referring Provider Last Name Erika Referring Provider Speciality [facility] markell Referred Provider Leodan Cruz Referred Provider Specialty Cardiovascul ar Disease Referral Priority Routine REASON FOR VISIT Presents to office with life with a entire page of complaints Social History Tobacco Use: Social History Observation [...] Problem Status W/U Status Risk Notes Problem Anxiety (70899862) Anxiety (F41.9) Active confirmed Problem Cannabis dependence (14460374) Marijuana dependence (F12.20) Active confirmed Vital Signs Blood pressure systolic 128 mm Hg 11/02/19 25 Blood pressure diastolic 62 mm Hg 025 Height 72 in 11/01/2024 Weight 158.6 lbs 11/01/2024 BMI 21.51 kg/m2 11/01/2024 Procedures Procedure Date Ordered Date Performed Result Body Sit e CARDIO Stress Test - Treadmill Exercise 11/01/2024 N/A Holter Monitor - 3 days up to 14 days 11/01/2024 N/A Encounters Encounter Location Date Provider Diagnosis [facility] [address] [place] [address] 11/01/2024 Sanjana James Intermittent chest p ain R07.9 ; Loss of consciousness R40.20 ; Anxiety F41.9 ; Marijuana dependence F12.20 and Wellness examination Z00.00 Assessments Encounter Date Diagnosis (ICD Code) Assessment Notes Treatment Notes Treatment Clinical Notes Section Notes 11/01/2024 Intermittent chest pain (ICD-10 - R07.9) requesting cardiology referral 11/01/2024 Loss of consciousness (ICD-10 - R40.20) requesting neurology referral 11/01/2024 Anxiety (ICD-10 - F41.9) significant mental health history has been on many meds in past, took himself off everything, partly due to [employer] concerns encouraged counseling, psych fu referral sheet given 11/01/2024 Marijuana dependence (ICD-10 - F12.20) discussed holding marijuana, may be having negative effects on mental health etc 11/01/2024 Wellness examination (ICD-10 - Z00.00) ROS done exam done Plan Of Treatment Treatment Notes Assessment Notes Intermittent chest pain requesting cardi ology referral Loss of consciousness requesting neurolo gy referral Anxiety significant mental health history has been on many meds in past, took himself off everything, partly due to [employer] concerns encouraged counseling, psych fu referral sheet given Marijuana dependence discussed holding m arijuana, may be having negative effects on mental health etc Wellness examination ROS done exam done Pending Test Test Name Order Date HEMOGLOBIN A1C (GLYCO) 11/01/2024 INSULIN, TOTAL 11/01/2024 LIPID PANEL (CHOL/TRIG/HDL/LDL) 11/02/19 25 URIC ACID 11/01/2024 VITAMIN D, 25 LEVEL (TOTAL) 11/01/2024 CARDIO Stress Test - Treadmill Exercise 11/01/2024 STOOL OCCULT BLOOD 11/01/2024 THYROID PANEL (T4/TSH/FREE T3) Holter Monitor - 3 days up to 14 days PSA, SCREENING 11/01/2024 CMP (COMP MET HATCH) w/eGFR CKD-EPI 2024 CBC WITH DIFF 11/01/2024 Referrals Referral Date Details 11/02/2024 11/02/2024, syncope, near syncope, Gloria Valle 11/02/2024 11/02/2024, intermit tent chest pain, Leodan Cruz Next Appt Details Follow Up: 2 Weeks,prn, Reas on: Progress Notes * Tirso FINNEY ADOB:1985 (39 yo M)Acc No.[id number]:11/01/2024 Progress Note Patient: Tirso FINK Provider: See James ([facility]), FRINGE WEAVER :1985 A ge:39 Y S ex:Male Date:11/01/2024 Address:[address] [place] [address] Check In:11:22 AM ESTCheck O ut:11:49 AM EST Subjective: * Chief Complaints: * 1 . Presents to office with life with a entire page of complaints. * HPI: G eneral: CP has been in hospital, Holter monitor and stress test in past pain last hours left side daily cervical spine surgery in 2019, helped back pain depression, anxiety has been diagnosed in past marijuana [facility] cardiology, neurology lily. * ROS: G eneral/Constitutional: Weakness A dmits. F atigue a dmits. A nxiety a dmits. S ignificant change in weight a dmits, loss. C hronic Pain A dmits. D izziness A dmits. F atigue a dmits. F eeling Poorly a dmits. . .. c oncentration issues, syncope, near syncope, fear, confusione, distortion of reality, etc. F ever d enies. H eadache d enies. W eight loss d enies. ? O phthalmologic: Discharge d enies. E ye [...] Productive cough d enies. C hest pain a dmits, intermittent, daily. C ough d enies. S hortness of breath d enies. W heezing d enies. G astrointestinal: Patient complaining of B RBPR. A norexia a dmits, no appetite. A bdominal pain a dmits. C onstipation d enies. D ecreased appetite d enies. D iarrhea d enies.?Nausea d enies. V omiting d enies. G enitourinary: Urinary incontinence d enies. P ainful urination d enies. M usculoskeletal: Patient complaining of e ntire body pain daily. B ack pain d enies. N ольга pain d enies. M uscle aches d enies. S kin: Rash d enies. S kin lesion(s) d enies. ? 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 * Surgical History: F ibula repair 2017, Fractured Left hand 2019, C5-6 total disc arthroplasty 10/30/20. * Hospitalization/Major Diagno stic Procedure: n ольга injury- [facility] 2020. * Family History: F ather: alive, diagnosed with Other malignant neoplasm of unspecified site. M other: alive. B rother(s): alive. S [...] 0 I nterpretation N egative * Medications: D iscontinued Cyclobenzaprine HCl 5 MG Tablet 1 tablet at bedtime as needed Orally Once a day , Discontinued Famotidine 20 MG Tablet 1 tablet as needed Orally Once a day , Discontinued HYDROcodone-Acetaminophen 5-325 MG Tablet 1 tablet as needed Orally every 8 hrs , Discontinued Ibuprofen 600 MG Tablet 1 tablet with food or milk as needed Orally Three times a day , Discontinued Ondansetron HCl 4 MG Tablet 1 tablet Orally Once a day as needed , Discontinued tiZANidine HCl 2 MG Tablet 1 tablet as needed Orally Three times a day , Medication List reviewed and reconciled with the patient * Allergies: t raMADol HCl: projectile vomiting. Objective: * Vitals: W t:158.6lbs, Ht: 72 in, BP:128/62mm Hg, BMI:21.51Index, Ht-cm: 182.88 cm, Wt-k.94 kg. * Examination: G eneral Examinations: GENERAL APPEARANCE: a lert and oriented, i n no acute distress, anxious. EYES: c onjunctiva normal, sclera non-icteric. NOSE: n ormal external appearance. LUNGS: c lear to auscultation bilaterally. CARDIO: r egular rate and rhythm, S1, S2 normal. ABDOMEN: s oft, nontender. MUSCULOSKELETAL: G ait and station normal. SKIN: w arm and dry. Assessment: * Assessment: 1. I ntermittent chest pain - R07.9 (Primary) 2 . L oss of consciousness - R40.20 3 . A nxiety - F41.9 4 . M arijuana dependence - F12.20 5 . W ellness examination - Z00.00 Plan: * Treatment: Notes: requesting cardiology referral? Referral To:Leodan Cruz??Cardiovascular Disease ?Reason:intermittent chest pain 2.?Loss of consciousness? Notes: requesting neurology referral? Referral To:Gloria Valle??Neurology ?Reason:syncope,near syncope 3.?Anxiety? Notes: significant mental health history has been on many meds in past, took himself off everything, partly due to big [employer] concerns encouraged counseling, psych fu referral sheet given??4.?Marijuana dependence? Notes: discussed holding marijuana, may be having negative effects on mental health etc??5.?Wellness examination?LAB: HEMOGLOBIN A1C (GLYCO) ?LAB: INSULIN, TOTAL ?LAB: LIPID PANEL (CHOL/TRIG/HDL/LDL) ?LAB: URIC ACID ?LAB: VITAMIN D, 25 LEVEL (TOTAL) ?LAB: STOOL OCCULT BLOOD ?LAB: THYROID PANEL (T4/TSH/FREE T3) ?LAB: PSA, SCREENING ?LAB: CMP (COMP MET HATCH) w/eGFR CKD-EPI ?LAB: CBC WITH DIFF Notes: ROS done exam done ?? * Follow Up: 2 Weeks,prn * * Sign off status: Completed Visit Status: C HK (Check Out) true * Provider: See James ([facility]), FRINGE WEAVER Date: 11/01/2024 Generated for Artie de jesus/Dora/eTransmitting on: 0 11/03/2024 11:06 AM EDT History and Physical Notes * HPI (History of Present Illness) Category Sub-Category Detail Notes Category Not es General CP has been in hospital, Holter monitor and stress test in past pain last hours left side daily cervical spine surgery in 2019, helped back pain depression, anxiety has been diagnosed in past marijuana [place] cardiology, neurology lily Examination Category Sub-Category Detail Notes Category Not es General Examinations GENERAL APPEARANCE: alert a nd oriented, in no acute distress, anxious EYES: conjunctiva normal, sclera non-icteric EARS: NOSE: normal external appe arance THROAT: CARDIO: regular rate and rhy thm, S1, S2 normal LUNGS: clear to auscultatio n bilaterally ABDOMEN: soft, nontender SKIN: warm and dry BACK: MUSCULOSKELETAL: Gait and station nor mal LYMPH NODES: Consultation Request Notes Referral Date Referring Provider Referred Provider Not es 11/02/2024 Sanjana James Nicole syncope, ne ar syncope 11/02/2024 Sanjana James Paul intermittent chest pain
--- OUTSIDE RECORDS SUMMARY | 2024-11-03 11:06 | XMS_ITS | Clinical Summary ---
Author Organization [facility] Address [address] [place] [address] Care Team Providers Care Plasterer Tender Name Role Phone Unavailable Primary Care Provider Unavailabl e Social History Tobacco Use Types Packs/Day Years Used Date Smoking Tobacco: Never Assessed Sex and Gender Information Value Date Recorded Sex Assigned at Not on file Legal Sex Male 1:40 PM EDT Gender Identity Not on file Sexual Orientation Not on file Plan of Treatment Upcoming Encounters Date Type Department Care Team (Late st Contact Info) Description 11/03/2024 1:00 PM EDT Office Visit [facility] [address] [place] [address] Deangelo Amaro MD [address] [place] [address] Health Maintenance Due Date Last Done Comments Depression Screening 1998 Varicella Vaccines (1 of 2 - 13+ 2-dose series) 09/02/1999 Hepatitis B Vaccines (1 of 3 - 19+ 3-dose series) 2005 Influenza Vaccine (#1) 2024 Adult Tetanus 03/31/2030 03/31/2020 Zoster Vaccines (1 of 2) 2036 HIB Vaccines Aged Out No longer eligi ble based on patient's age to complete this topic HPV Vaccines Aged Out No longer eligi ble based on patient's age to complete this topic IPV Vaccines Aged Out No longer eligi ble based on patient's age to complete this topic Meningococcal B Vaccine Aged Out No l onger eligible based on patient's age to complete this topic Meningococcal Vaccine Aged Out No sony rory eligible based on patient's age to complete this topic Pneumococcal Vaccine: Pediat rics (0 to 5 Years) and At-Risk Patients (6 to 64 Years) Aged Out No longer eligi ble based on patient's age to complete this topic Rotavirus Vaccines Aged Out No longer eligible based on patient's age to complete this topic
--- OUTSIDE RECORDS SUMMARY | 2024-11-03 11:06 | XMS_ITS | Patient Health Record ---
Author Organization [facility] [place] Address [address] [place] [address] Care Team Providers Care Open Soaper Tender Name Role Phone Sanjana James Primary Care Provider Allergies Allergen (clinical drug ingredient) Drug/Non Drug Allergy documented on EMR Reaction Allergy Type Onset Date Status tramadol traMADol HCl projectile vomiting Drug Allergy Active Results Component Value Reference Range Notes CBC AUTO DIFF Reviewed date:07/10/2024 01:10:02 PM Interpretation: Performing Lab: Notes/Report: [facility] , White Blood Count 6.6 4.0-11.0 10 [...] Performing Lab: see note ML - [facility] LB ECG 12 lead Reviewed date:07/11/2024 08:29:30 AM Interpretation: Performing Lab: Notes/Report: Source Facility: [facility]-[address] [place] [address] [place] [address] Electrocardiograph Report Signed Patient: ROBBIE FINNEY MR#: [id number] : 1985 Acct:[id number] Age/Sex: 38 / M ADM Date: 07/10/24 Loc: ER Attending Dr: Ordering Physician: Robbie Del Toro Date of Service: 07/10/24 Procedure(s): ECG 12 lead Accession Number(s): [id number] cc: [facility] Test Date: 2024-07-10 Pat Name: ROBBIE FINNEY Department: Room: - Gender: Male Surgical Brace Maker: : 1985 Requested By: SANJANA JAMES Order Number: [id number] Yue MD: JAMES WIN M.D. Measurements Intervals [place] Rate: 78 P: 64 KS: 210 QRS: 83 QRSD: 86 T: 69 QT: 364 QTc: 397 Interpretive Statements 1100 Sinus rhythm 2231 First degree AV block 9150 abnormal ECG No previous ECG available for comparison Electronically Signed On 07-10-2024 17:29:47 EDT by JAMES WIN M.D. Dictated By: JAMES WIN Signed By: 07/10/24 1730 DD/ 1054 TD/TT: Customer Service Officer: [place] [address] Electrocardiograph Report Signed Patient: ROBBIE FINNEY MR#: [id number] : 1985 Acct:[id number] Age/Sex: 38 / M ADM Date: 07/10/24 Loc: ER Attending Dr: Ordering Physician: Robbie Del Toro Date of Service: 07/10/24 Procedure(s): ECG 12 lead Accession Number(s): [id number] cc: [facility] Test Date: 2024-07-10 Pat Name: ROBBIE FINNEY Department: 74 Room: - Gender: Male Surgical Brace Maker: : 1985 Requ ested By: SANJANA JAMES Order Number: [id number] Reading MD: JAMES WIN M.D. Measurements Intervals [place] Rate: 78 P: 64 KS: 210 QRS: 83 QRSD: 86 T: 69 QT: 364 QTc: 397 Interpretive Statements 1100 Sinus rhythm 2231 First degree AV block 9150 abnormal ECG No previous ECG avai lable for comparison Electronically Elizabeth d On 07-10-2024 17:29:47 EDT by JAEMS WIN M.D. Dictated By: JAMES WIN Signed By: 07/10/24 1730 DD/ 1054 TD/TT: Customer Service Officer: CBC AUTO DIFF Reviewed date:11/02/2024 10:39:37 AM Interpretation: Performing Lab: Notes/Report: [facility] , White Blood Count 6.3 4.0-11.0 10 3/uL Red Blood Count 5.03 4.70-6.10 10 6/uL Hemoglobin 14.6 14.0-18.0 g/dL Hematocrit 42.7 42.0-54.0 % Mean Corpuscular Volume 84.9 80.0-94.0 fL Mean Corpuscular Hemoglobin 29.0 25.9-34.0 pg Mean Corpuscular HGB Conc 34.2 29.9-35.2 g/dL Red Cell Distribution Width 13.6 11.0-15.0 % Platelet Count 327 150-450 10 3/uL Mean Platelet Volume 9.3 9.5-13.5 fL Neutrophils Percent Auto 63.2 43.0-75.0 % Lymphocytes Percent Auto 28.5 20.5-60.0 % Monocytes Percent Auto 6.5 1.7-12.0 % Eosinophils Percent Auto 0.8 0.9-7.0 % Basophils Percent Auto 0.8 0.2-2.0 % Immature Granulocytes Pct Auto 0.2 0.0-0.5 % Neutrophils Absolute Auto 4.0 1.4-6.5 10 3/uL Lymphocytes Absolute Auto 1.8 1.2-3.8 10 3/uL Monocytes Absolute Auto 0.4 0.3-0.8 10 3/uL Eosinophils Absolute Auto 0.1 0.0-0.7 10 3/uL Basophils Absolute Auto 0.1 0.0-0.1 10 3/uL Immature Granulocytes Abs Auto 0.01 0.00-0.03 10 3/uL Performing Lab: see note ML - [facility] FREE T3 Reviewed date:11/02/2024 10:39:37 AM Interpretation: Performing Lab: Notes/Report: [facility] , Free T3 3.15 2.18-3.98 pg/mL Performing Lab: see note - [facility] GLYCOHEMOGLOBIN A1C Reviewed date:11/02/2024 10:39:37 AM Interpretation: Performing Lab: Notes/Report: [facility] , Glycohemoglobin A1C 5.3 4.5-6.2 % ACTION SUGGESTED > 7.0 ADA RECOMMENDED LIMIT 4.0 - 6.0 ADA THERAPEUTIC TARGET < 7.0 Estimated Average Glucose 105 Performing Lab: see note - [facility] INSULIN Reviewed date:11/02/2024 10:37:51 AM Interpretation: Performing Lab: Notes/Report: [facility] , Insulin 4.9 2.6-24.9 uIU/mL Office Automation Clerk: [place] PhD, Phone: [phone] Performed at: [facility] [address] [phone] Performing Lab: see note - [facility] LB LIPID PROFILE Reviewed date:11/02/2024 10:39:37 AM Interpretation: Performing Lab: Notes/Report: [facility] , Triglycerides 59 <=150 mg/dL Cholesterol 190 <=200 mg/dL HDL Cholesterol 54 40-60 mg/dL > or =60 mg/dl - LOW CARDIOVASCULAR RISK <40 mg/dl - HIGH CARDIOVASCULAR RISK LDL Cholesterol Calculated 124.2 130-159 mg/dl BORDERLINE HIGH 100-129 mg/dl NEAR OR ABOVE OPTIMAL 160-189 mg/dl HIGH >190 mg/dl VERY HIGH <100 mg/dl OPTIMAL VLDL CHOLESTEROL 11.8 Chol HDL Ratio 3.5 3.3 - 4.4 LOW RISK >11.0 HIGH RISK 4.4 - 7.1 AVERAGE RISK 7.1 - 11.0 MODERATE RISK Performing Lab: see note ML - [facility] PROF 14(COMP METB) Reviewed date:11/02/2024 10:39:37 AM Interpretation: Performing Lab: Notes/Report: [facility] , Sodium 142 136-145 mmol/L Potassium 3.7 3.5-5.1 mmol/L Chloride 106 98-107 mmol/L Carbon Dioxide 26.1 21.0-32.0 mmol/L Anion Gap 13.6 Glucose 111 74-106 mg/dL Blood Urea Nitrogen 12.0 7.0-18.0 mg/dL Creatinine 0.61 0.70-1.30 mg/dL Estimated GFR ( Hillary >60 >=60 mL/min/1.73m 2 Estimated GFR (Non- Marva >60 >=60 mL/min/1.73m 2 BUN Creatinine Ratio 19.7 Calcium 9.4 8.5-10.1 mg/dL Bilirubin Total 0.6 0.2-1.0 mg/dL Aspartate Amino Transferase 22 15-37 U/L Alanine Aminotransferase 40 16-63 U/L Alkaline Phosphatase 72 46-116 U/L Total Protein 7.2 6.4-8.2 g/dL Albumin Level 4.0 3.4-5.0 g/dL Globulin 3.2 Albumin Globulin Ratio 1.3 Performing Lab: see note ML - [facility] LB PSA SCREENING Reviewed date:11/02/2024 10:39:37 AM Interpretation: Performing Lab: Notes/Report: [facility] , Prostate Specific Antigen Scrn 1.30 <=4.00 ng/mL Performing Lab: see note ML - [facility] LB T4 Reviewed date:11/02/2024 10:39:37 AM Interpretation: Performing Lab: Notes/Report: [facility] , T4 Thyroxine 8.00 4.50-12.10 ug/dL Performing Lab: see note ML - [facility] LB TSH Reviewed date:11/02/2024 10:39:37 AM Interpretation: Performing Lab: Notes/Report: [facility] , Thyroid Stimulating Hormone 0.311 0.358-3.740 uIU/mL Performing Lab: see note ML - [facility] LB URIC ACID SERUM Reviewed date:11/02/2024 10:39:37 AM Interpretation: Performing Lab: Notes/Report: [facility] , Uric Acid 5.1 3.5-7.2 mg/dL Performing Lab: see note ML - [facility] LB VITAMIN D 25 [place] Reviewed date:11/02/2024 10:39:37 AM Interpretation: Performing Lab: Notes/Report: [facility] , Vitamin D 32.7 30-100 ng/mL Vit D sufficient 20-<30 ng/mL Vit D insufficient <20 ng/mL Vit D deficient >100 ng/mL Potential Toxicity Performing Lab: see note ML - [facility] LB Troponin I High Sensitivity Reviewed date:07/10/2024 01:10:02 PM Interpretation: Performing Lab: Notes/Report: [facility] , Troponin I High Sensitivity 4.7 4.0-76.1 pg/mL CUT-OFF POINTS HAVE BEEN ESTABLISHED BASED ON THE FOURTH WITH OTHER DIAGNOSTIC AND CLINICAL INFORMATION. UNIVERSAL DEFINITION OF MYOCARDIAL INFARCTION. THE UPPER USED IN ISOLATION BUT SHOULD BE INTERPRETED IN CONJUNCTION DIAGNOSIS. PERCENTILE OF cTnI DISTRIBUTION IN A REFERENCE POPULATION, REFERENCE LIMIT (URL) OF TROPONIN, DEFINED THE 99TH 99TH PERCENTILE = 76.2 PG/ML HAS BEEN CONFIRMED THE DECISION THRESHOLD FOR ME NOTE: HIGH-SENSITIVITY TROPONIN ASSAY IS NOT INTENDED TO BE Performing Lab: see note ML - [facility] LB PROF CHEM 8 (BAS METB) Reviewed date:07/10/2024 01:10:02 PM Interpretation: Performing Lab: Notes/Report: [facility] , Sodium 139 136-145 mmol/L Potassium 3.7 [...] mg/dL Performing Lab: see note ML - [facility] LB Reason For Referral Reason syncope, near syncop e Diagnosis 1 Loss of consciousnes s (R40.20) Referral Organization [facility] Referring Provider First Name Sanjana Referring Provider Last Name Erika Referring Provider [facility] markell Referred Provider Gloria Valle Referred Provider Specialty Neurology Referral Priority Routine Reason intermittent chest p ain Diagnosis 1 Intermittent chest p ain (R07.9) Referral Organization [facility] Referring Provider First Name Sanjana Referring Provider Last Name Erika Referring Provider [facility] markell Referred Provider Leodan Cruz Referred Provider Specialty Cardiovascul ar Disease Referral Priority Routine Social History Tobacco Use: Social History Observation [...] Problem Status W/U Status Risk Notes Problem 068477582 Cervical disc herniation (M50.20) Active confirmed Problem 659508307 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 Problem Cannabis dependence (07213051) Marijuana dependence (F12.20) Active confirmed Problem Cannabis abuse (97688001) Marijuana abuse, continuous (F12.10) Active confirmed Problem Anxiety (68070934) Anxiety (F41.9) Active confirmed Vital Signs Blood [...] Encounters Encounter Location Date Provider Diagnosis [facility] [address] [place] [address] 11/02/2024 Sanjana James Abnormal TSH R94.6 a nd Screening for colon cancer Z12.11 [facility] [address] [place] [address] 11/01/2024 Sanjana James Intermittent chest p ain R07.9 ; Loss of consciousness R40.20 ; Anxiety F41.9 ; Marijuana dependence F12.20 and Wellness examination Z00.00 Assessments Encounter Date Diagnosis (ICD Code) Assessment Notes Treatment Notes Treatment Clinical Notes Section Notes 11/01/2024 Intermittent chest pain (ICD-10 - R07.9) requesting cardiology referral 11/01/2024 Loss of consciousness (ICD-10 - R40.20) requesting neurology referral 11/02/2024 Abnormal TSH (ICD-10 - R94.6) 11/02/2024 Screening for colon cancer (ICD-10 - Z12.11) 11/01/2024 Anxiety (ICD-10 - F41.9) significant mental [...] ROS done exam done Plan Of Treatment Pending Test Test Name Order Date HEMOGLOBIN A1C (GLYCO) 11/01/2024 INSULIN, TOTAL 11/01/2024 LIPID PANEL (CHOL/TRIG/HDL/LDL) 11/02/19 25 URIC ACID 11/01/2024 VITAMIN D, 25 LEVEL (TOTAL) 11/01/2024 FECAL OCCULT BLOOD 11/02/2024 CARDIO Stress Test - Treadmill Exercise 11/01/2024 MRI Spine Cervical w/o Contrast 03/13/20 21 STOOL OCCULT BLOOD 11/01/2024 THYROID PANEL (T4/TSH/FREE T3) 5 THYROID PANEL (T4/TSH/FREE T3) 5 Holter Monitor - 3 days up to 14 days PSA, SCREENING 11/01/2024 CMP (COMP MET HATCH) w/eGFR CKD-EPI 2024 CBC WITH DIFF 11/01/2024 Insurance Providers Payer Name Payer Address Payer Phone Subscriber Number Group Number Insured Name Patient Relationship to Insured Coverage Start Date Coverage End Date [employer] [place] [employer] [address] [facility] [place] [address] [id number] Sharmin Robbie Self - patient is the insured Medical (General) History Medical History History ICD Code pneumonia sinus infection depression Marijuana abuse, continuous F12.10 Surgical History Surgery Date(Month/Year) Fractured Left hand 2018 Fibula repair 2016 C5-6 total disc arthroplasty 10/30/20 Hospitalization History Reason Date(Month/Year) neck injury- [facility] 2020
--- OUTSIDE RECORDS SUMMARY | 2024-11-03 11:06 | XMS_ITS | Encounter Summary ---
Author Organization [facility] Address [address] [place] [address] Care Team Providers Care Analyst Name Role Phone KaurXiomara cam Christina MANAGER SERVICES - ATTENDING AMBULATORY CARE Primary Care Provide r Encounter Details Date Type Department Care Team (Late st Contact Info) Description 08/08/2020 Transcribe Orders [facility] Pre Access [address] [place], [place] [id number] Kem Sapp MD Social History Tobacco Use [...] documented as of this encounter Care Teams Analyst Relationship Specialty Start Date End Date Xiomara Kaur, MANAGER SERVICES - ATTENDING AMBULATORY CARE [facility] Simone MAX [address] [place], [place] [id number] PCP - General Family Nurse Practitioner 05/05/22 documented as of this encounter
--- OUTSIDE RECORDS SUMMARY | 2024-11-03 11:06 | XMS_ITS | Patient Health Record ---
Author Organization [facility] es Address [address] [place] [address] Care Team Providers Care Fixing Machine Operator Name Role Phone Samantha Borges Primary Care Provider [phone] Dr. José Manuel Kwok Unavailable [phone] Reason For Referral No Information Encounters Encounter Location Date Provider Diagnosis [address] [place] [address] 09/26/2024 José Manuel Johnson Encounter for dental examination and cleaning with abnormal findings Z01.21 ; Other dental procedure status Z98.818 ; Disturbances in tooth eruption K00.6 ; Dental caries on pit and fissure surface penetrating into dentin K02.52 ; Cracked tooth K03.81 and Partial loss of teeth, unspecified cause, class I K08.401 [facility] [address] [place] [address] 10/06/2024 José Manuel Johnson [place] [address] [place] [address] 10/06/2024 Samantha Borges Assessments Encounter Date Diagnosis (ICD Code) Assessment [...] 02:45:00 PM, [address] [place], [place], [address], Provider Name:José Manuel Johnson, 0 01/15/2025 01:00:00 PM, [address] [place], [place], [address], Provider Name:José Manuel Johnson, 0 01/16/2025 03:45:00 PM, [address], [place], [address], Insurance Providers Payer Name Payer Address Payer Phone Subscriber Number Group Number Insured Name Patient Relationship to Insured Coverage Start Date Coverage End Date [facility] [place] [employer] [address] [address] [place] [address] [id number] ROBBIE HERRERA Self - patient is the insured 3 Dental Wrap [facility] [place] [address] [place] [address] [id number] ROBBIE HERRERA Self - patient is the insured 3
--- OUTSIDE RECORDS SUMMARY | 2024-11-03 11:07 | XMS_ITS | Encounter Summary ---
Author Organization [facility] Address [address] [place] [address] Care Team Providers Care Special Education Preschool Teacher Name Role Phone Xiomara Kaur DIRECT MARKETING MANAGER - DRIVER LICENSE REVIEWING OFFICER Primary Care Provide r Reason for Referral * Imaging (Routine) - Closed Specialty Diagnoses / Procedures Referred By Kadyac t Referred To Contact Radiology Diagnoses Radiculopathy, cervical region Procedures MRI CERVICAL SPINE WO CONTRAST Carlos Del Toro MD Phone: tel: fax: [address] [address] Phone: tel: Referral ID Status Reason Start Date Expiration Date Visits Re quested Visits Authorized [id number] Closed 03/19/2021 04/18/2021 1 1 * Imaging (Routine) - Closed Specialty Diagnoses / Procedures Referred By Contac t Referred To Contact Radiology Diagnoses Radiculopathy, unspecified spinal region Procedures MRI BRAIN WO CONTRAST Carlos Del Toro MD Phone: tel: fax: Referral ID Status Reason Start Date Expiration Date Visits Re quested Visits Authorized [id number] Closed 03/13/2021 03/13/2022 1 1 Encounter Details Date Type Department Care Team (Late st Contact Info) Description 03/13/2021 Transcribe Orders [facility] Pre Access [address] [place] [address] Carlos Del Toro MD [address] [place] [address] Radiculopathy, unspecified spinal region (Primary Dx) Social [...] documented as of this encounter Care Teams Special Education Preschool Teacher Relationship Specialty Start Date End Date Xiomara Kaur, DIRECT MARKETING MANAGER - DRIVER LICENSE REVIEWING OFFICER [address] [place] [address] PCP - General Family Nurse Practitioner 05/05/22 documented as of this encounter
--- OUTSIDE RECORDS SUMMARY | 2024-11-03 11:07 | XMS_ITS | Clinical Summary ---
Author Organization [facility] Address [address] [place] [address] Care Team Providers Care Lathe Operator Contact Lens Name Role Phone Xiomara Kaur FOREIGN LANGUAGES DEPARTMENT CHAIR - AIR BREAKER OPERATOR Primary Care Provide r Allergies Active Allergy [...] - 6.0 % 07/08/2023 11:00 AM EDT [facility] Estimated Avg Glucose 111 mg/dL 07/08/2023 11:00 AM EDT [facility] Comment: The ADA and AACC recommend providing the estimated average glucose result to permit better patient understanding of their HBA1c result. 07/08/2023 11:0 0 AM EDT 07/08/2023 11:28 AM EDT Lucy Sloan FOREIGN LANGUAGES DEPARTMENT CHAIR - AIR BREAKER OPERATOR CHEMISTRY ORDERABLES Final Result [facility] [address] [id number], [facility] [phone] from Last 3 Months or Most Recently Relevant to Health Maintenance Insurance [facility] Member Subscriber Plan / Payer (Ef fective 2021-Present) Name:Tirso Finneyw Relation to Subscriber:Self Name:Tirso Finney Payer ID:Not on file Group ID:Not on file Type:Not on file Address: [address] Care Teams Lathe Operator Contact Lens Relationship Specialty Start Date End Date Xiomara Kaur, FOREIGN LANGUAGES DEPARTMENT CHAIR - AIR BREAKER OPERATOR [address] [facility] [place] [phone] PCP - General Family Nurse Practitioner 05/05/22
--- OUTSIDE RECORDS SUMMARY | 2024-11-03 11:07 | XMS_ITS | Encounter Summary ---
Author Organization [facility] Address [address] [place] [address] Care Team Providers Care Track Template Maker Name Role Phone Xiomara Kaur PRESS OFFBEARER - RENTAL REPRESENTATIVE Primary Care Provide r Encounter Details Date Type Department Care Team (Late st Contact Info) Description 03/13/2021 Transcribe Orders Flynn Pre Access [address] [place] [address] Carlos Del Toro MD [address] [place] [address] Social History Tobacco Use Types Packs/Day Years [...] documented as of this encounter Care Teams Track Template Maker Relationship Specialty Start Date End Date Xiomara Kaur, PRESS OFFBEARER - RENTAL REPRESENTATIVE [address] [place] [address] [facility] [address] [place] [address] PCP - General Family Nurse Practitioner 05/05/22 documented as of this encounter
== END 2024-11-03 11:04 | disposition home or self-care (01) ==
LOC: LAB 11:03
PROVIDERS: PCP Nurse Practitioner Family; Visit Provider Nurse Practitioner Family
DX: Z00.00 Encounter for general adult medical examination without abnormal findings (principal)
CPT/HCPCS: G0328

== ENCOUNTER 2025-01-09 12:09 | Emergency (ER) | payer OTHER, SELFPAY ==
--- OUTSIDE RECORDS SUMMARY | 2024-10-16 11:30 | XMS_ITS ---
Author Organization The [facility] in [place] Address [address] [place] [address] Care Team Providers Care Surface Miner Name Role Phone None, Unknown or Primary Care Provider Unavailab Sanjana Roe Unavailable [phone] REASON FOR VISIT colon issues Encounters Encounter Location Date Provider Diagnosis [facility] [address] [place] [address] 10/16/2024 Sanjana James Plan Of Treatment No Information Progress Notes * Tirso FINNEY ADOB:1985 (39 yo M)Acc No.[id number]:10/16/2024 UNLOCKED PROGRESS NOTE Progress Note Patient: Tirso FINK Provider: See James CNP (TTC) :1985 A ge:39 Y S ex:Male Date:10/16/2024 Address:[address] [place], [place] [id number] Pcp:Unknown or None Subjective: * Chief Complaints: * 1 . Colon issues. * Medical History: Objective: * Vitals: Assessment: Plan: * Treatment: * * Electronic signature of Ludivina Mccollum NP, INSTRUMENT REPAIR TECHNICIAN.[email or web address] [id number] on 01/09/2025 at 12:14 PM EDT Sign off status: Pending Visit Status: C ANCPHONE (Cancelled Phone) * Provider: See James CNP (TTC) Date: 0 10/16/2024 Generated for Printi ng/Fabatoolg/eTransmitting on: 0 01/09/2025 12:14 PM EDT
--- OUTSIDE RECORDS SUMMARY | 2025-01-09 12:14 | XMS_ITS | Clinical Summary ---
Author Organization [facility] Address [address] [facility], [address] [place] [address] Care Team Providers Care Program Review Director Name Role Phone KaurXiomara cam Christina TRANSIT SPECIALIST - EDGER FEEDER Primary Care Provide r Allergies Active Allergy [...] Used Date Smoking Tobacco: Former Cigarettes 1 19.7 S tarted: 2006 Smokeless Tobacco: Never Tobacco [...] of 3 - 19+ 3-dose series) 2005 Flu vaccine (#1) 11/24/2024 COVID-19 Vaccine (1 - 2023-2 5 season) 2024 DTaP/Tdap/Td vaccine (2 - Td or Tdap) 03/31/2030 03/31/2020 Diabetes screen Discontinued 07/08/2023 HPV vaccine (No Doses Required) Completed Hepatitis A vaccine Aged Out No longe [...] - 6.0 % 07/08/2023 11:00 AM EDT [facility] Estimated Avg Glucose 111 mg/dL 07/08/2023 11:00 AM EDT [facility] Comment: The ADA and AACC recommend providing the estimated average glucose result to permit better patient understanding of their HBA1c result. 07/08/2023 11:0 0 AM EDT 07/08/2023 11:28 AM EDT us Lucy Sloan TRANSIT SPECIALIST - EDGER FEEDER CHEMISTRY ORDERABLES Final Result [facility] [address] [place] [address], [facility] [phone] from Last 3 Months or Most Recently Relevant to Health Maintenance Insurance [facility] Member Subscriber Plan / Payer (Ef fective 2021-Present) Name:Tirso Finney Relation to Subscriber:Self Name:Tirso Finney Payer ID:[id number] (NAIC) Group ID:Not on file Type:Not on file Address: [address] Care Teams Program Review Director Relationship Specialty Start Date End Date Xiomara Kaur, TRANSIT SPECIALIST - EDGER FEEDER [address] [facility] [address] [place] [address] PCP - General Family Nurse Practitioner 05/05/22
--- OUTSIDE RECORDS SUMMARY | 2025-01-09 12:14 | XMS_ITS | Encounter Summary ---
Author Organization [facility] Address [address] [facility], [address] [place] [address] Care Team Providers Care Taper/Finisher Name Role Phone Xiomara Kaur TEST PREPARATION TUTOR - MULTINEEDLE SHIRRER Primary Care Provide r Encounter Details Date Type Department Care Team (Late st Contact Info) Description 08/08/2020 Transcribe Orders Flynn Pre Access [address] [place] [phone] Kem Sapp MD Social History Tobacco Use Types Packs/Day Years Used Date Smoking Tobacco: Every Day Cigarettes 1 19.7 Started: 2005 Smokeless Tobacco: Never Alcohol Use [...] documented as of this encounter Care Teams Taper/Finisher Relationship Specialty Start Date End Date Xiomara Kaur, TEST PREPARATION TUTOR - MULTINEEDLE SHIRRER [address] [place], [place] [phone] PCP - General Family Nurse Practitioner 05/05/22 documented as of this encounter
--- OUTSIDE RECORDS SUMMARY | 2025-01-09 12:14 | XMS_ITS | Patient Health Record ---
Author Organization [facility] Address [address] [place] [address] Care Team Providers Care Ophthalmic Technologist Name Role Phone Samantha Borges Primary Care Provider [phone] Dr. José Manuel Kwok Unavailable [phone] Reason For Referral No Information Encounters Encounter Location Date Provider Diagnosis [facility] [place] [place] [address] 10/06/2024 José Manuel Johnson [facility] [place] [place] [address] 10/06/2024 Samantha Borges [address] [place] [address] 09/26/2024 José Manuel Johnson Encounter for dental [...] Name:José Manuel Johnson, 0 01/12/2025 02:45:00 PM, [address] [place], [address], Provider Name:José Manuel Johnson, 0 01/15/2025 01:00:00 PM, [address] [place] [place], [address], Provider Name:José Manuel Johnson, 0 01/16/2025 03:45:00 PM, [address] [place], [address], Insurance Providers Payer Name Payer Address Payer Phone Subscriber Number Group Number Insured Name Patient Relationship to Insured Coverage Start Date Coverage End Date [facility] [place] [employer] [address] [address] [place] [address] [id number] ROBBIE HERRERA Self - patient is the insured 3 [employer] [facility] [place] [address] [place] [address] [id number] ROBBIE HERRERA Self - patient is the insured 3
--- OUTSIDE RECORDS SUMMARY | 2025-01-09 12:14 | XMS_ITS | Encounter Summary ---
Author Organization [facility] Address [address] [facility], [address] [place] [address] Care Team Providers Care Specialty Foods Cook Name Role Phone KaurXiomara Christina LOANS OFFICER - VAN DRIVER Primary Care Provide r Encounter Details Date Type Department Care Team (Late st Contact Info) Description 03/13/2021 Transcribe Orders [facility] Pre Access [address] [place] [phone] Carlos Del Toro MD [address] [place] [address] Social History Tobacco Use Types Packs/Day Years Used Date Smoking Tobacco: Former Cigarettes 1 19.7 S tarted: 2005 Smokeless Tobacco: Never Alcohol [...] documented as of this encounter Care Teams Specialty Foods Cook Relationship Specialty Start Date End Date Xiomara Kaur, LOANS OFFICER - VAN DRIVER [address] [place] [address] [place] [address] PCP - General Family Nurse Practitioner 05/05/22 documented as of this encounter
--- OUTSIDE RECORDS SUMMARY | 2025-01-09 12:14 | XMS_ITS | Encounter Summary ---
Author Organization Andrew [facility] Address [address] [facility], [address] [place] [address] Care Team Providers Care Marketing Consultant Name Role Phone Vincent Xiomara M MOTORCYCLE DESIGNER - GASOLINE TRACTOR OPERATOR Primary Care Provide r Reason for Referral * Imaging (Routine) - Closed Specialty Diagnoses / Procedures Referred By Contac t Referred To Contact Radiology Diagnoses Radiculopathy, cervical region Procedures MRI CERVICAL SPINE WO CONTRAST Carlos Del Toro MD Phone: tel: fax: [address] [address] Phone: tel: Referral ID Status Reason Start Date Expiration Date Visits Re quested Visits Authorized [id number] Closed 03/19/2021 04/18/2021 1 1 * Imaging (Routine) - Closed Specialty Diagnoses / Procedures Referred By Contac t Referred To Contact Radiology Diagnoses Radiculopathy, unspecified spinal region Procedures MRI BRAIN WO CONTRAST Carlos Del Toro MD Phone: tel: fax: Referral ID Status Reason Start Date Expiration Date Visits Re quested Visits Authorized [id number] Closed 03/13/2021 03/13/2022 1 1 Encounter Details Date Type Department Care Team (Late st Contact Info) Description 03/13/2021 Transcribe Orders Flynn Pre Access [address] [place] [address] Carlos Del Toro MD [address] [facility] [address] [facility] [place] [address] Radiculopathy, unspecified spinal region (Primary Dx) Social History Tobacco Use Types Packs/Day Years Used Date Smoking Tobacco: Former Cigarettes 1 19.7 S tarted: 2006 Smokeless Tobacco: Never Alcohol Use Standard Drinks/Week [...] documented as of this encounter Care Teams Marketing Consultant Relationship Specialty Start Date End Date Xiomara Kaur, MOTORCYCLE DESIGNER - GASOLINE TRACTOR OPERATOR [address] [place], [place] [phone] PCP - General Family Nurse Practitioner 05/05/22 documented as of this encounter
--- OUTSIDE RECORDS SUMMARY | 2025-01-09 12:14 | XMS_ITS | Clinical Summary ---
Author Organization [facility] Address [address] [place] [address] Care Team Providers Care Commercial Teller Name Role Phone Sanjana James ALVIN Primary Care Provider [phone] Allergies Active Allergy Reactions Criticality Noted Date Comments Tramadol Nausea And Vomiting Low 10/24/2015 Medications No known medications Active Problems Problem Noted Date Diagnosed Date Chest pain 11/05/2024 Syncope and collapse 11/05/2024 Pure hypercholesterolemia 11/05/2024 Cigarette nicotine dependence without complicati on 11/05/2024 Acute bronchitis 11/03/2024 GERD (gastroesophageal reflux disease) Pneumonia 11/03/2024 Acute COVID-19 11/13/2021 COVID-19 ruled out 11/13/2021 Dysphagia 11/13/2021 Erectile dysfunction 11/13/2021 Nausea 11/13/2021 RUQ pain 11/13/2021 Encounters Date Type Department Care Team Description 11/28/2024 Orders Only [facility] [address] [place] [address] Jennifer Jackson MA Other chest pain (Primary Dx) 11/03/2024 1:00 PM EDT Office Visit [facility] [address] [place] [address] Deangelo Amaro MD Chest pain, unspecified type (Primary Dx); Syncope and collapse; Pure hypercholesterolemia; Cigarette nicotine dependence without complication from Last 3 Months Family History Medical History Relation Name Comments Coronary artery disease Father Hypertension Father Relation Name Status Comments Father Social History Tobacco Use Types Packs/Day Years Used Date Smoking Tobacco: Every Day Cigars Started: 2019 Smokeless Tobacco: Former Comments:To smoke 2 to 3 pac ks/day, quit 5 years ago Alcohol Use Standard Drinks/Week Comments Not Currently 0 (1 standard drink = 0.6 oz pur e alcohol) Quit 2 years ago Sex and Gender Information Value Date Recorded Sex Assigned at Not on file Legal Sex Male 1:40 PM EDT Gender Identity Not on file Sexual Orientation Not on file Last Filed Vital Signs Vital Sign Reading Time Taken Comments Blood Pressure 123/85 11/03/2024 1:26 PM EDT Pulse 80 11/03/2024 1:26 PM EDT Temperature - - Respiratory Rate - - Oxygen Saturation - - Inhaled Oxygen Concentration - - Weight 71.2 kg (157 lb) 11/03/2024 1:10 PM EDT Height 182.9 cm (6') 11/03/2024 1:10 PM EDT Body Mass Index 21.29 11/03/2024 1:10 PM EDT Plan of Treatment Health Maintenance Due Date Last Done Comments Depression Screening 1998 Varicella Vaccines (1 of 2 - 13+ 2-dose series) 09/02/1999 Hepatitis B Vaccines (1 of 3 - 19+ 3-dose series) 2005 Pneumococcal Vaccine: Pediat rics (0 to 5 Years) and At-Risk Patients (6 to 64 Years) (1 of 2 - PCV) 2005 COVID-19 Vaccine ( - 2023-2 5 season) 2024 Influenza Vaccine (#1) 2024 Adult Tetanus 03/31/2030 [...] Procedure Name Priority Date/Time Associated Diagnosis Comments ECG 12-LEAD Routine 11/03/2024 5:51 PM EDT Chest pain, unspecified type ECG 12 LEAD UNIT PERFORMED Routine 11/03/2024 1:09 PM EDT Chest pain, unspecified type from Last 3 Months Results * ECG 12 lead (11/03/2024 5:51 PM EDT) Narrative Deangelo Amaro MD - 11/03/2024 5:51 PM EDT normal sinus rhythm, heart rate 75 bpm, normal EKG Deangelo Amaro MD ECG ORDERABLES Final Result * ECG 12 lead unit performed (11/03/2024 1:09 PM EDT) Deangelo Amaro MD ECG ORDERABLES Final Result from Last 3 Months Insurance [employer] MED[employer] [facility] Care Teams Commercial Teller Relationship Specialty Start Date End Date Sanjana James CNP [address] [place] [address] PCP - General Family Medicine 11/03/24
--- OUTSIDE RECORDS SUMMARY | 2025-01-09 12:14 | XMS_ITS | Patient Health Record ---
Author Organization [facility] in [place] Address [address] [place] [address] Care Team Providers Care Prop Attendant Name Role Phone None, Unknown or Primary Care Provider Unavailab Sanjana Roe Unavailable [phone] Allergies Allergen (clinical drug ingredient) Drug/Non Drug Allergy documented on EMR Reaction Allergy Type Onset Date Status tramadol traMADol HCl projectile vomiting Drug Allergy Active Results Component Value Reference Range Notes CBC AUTO DIFF Reviewed date:07/10/2024 01:10:02 PM Interpretation: Performing Lab: Notes/Report: [facility] , White Blood Count 6.6 4.0-11.0 10 [...] Performing Lab: see note ML - [facility] LB ECG 12 lead Reviewed date:07/11/2024 08:29:30 AM Interpretation: Performing Lab: Notes/Report: Source Facility: [place] [address] [place] [address] Electrocardiograph Report Signed Patient: ROBBIE FINNEY MR#: [id number] : 1985 Acct:[id number] Age/Sex: 38 / M ADM Date: 07/10/24 Loc: ER Attending Dr: Ordering Physician: Robbie Del Toro Date of Service: 07/10/24 Procedure(s): ECG 12 lead Accession Number(s): [id number] cc: [facility] Test Date: 2024-07-10 Pat Name: ROBBIE FINNEY Department: Room: - Gender: Male Processing Associate: : 1985 Requested By: SANJANA RAMIREZ Order Number: [id number] Reading MD: JAMES WIN M.D. Measurements Intervals [place] Rate: 78 P: 64 UT: 210 QRS: 83 QRSD: 86 T: 69 QT: 364 QTc: 397 Interpretive Statements 1100 Sinus rhythm 2231 First degree AV block 9150 abnormal ECG No previous ECG available for comparison Electronically Signed On 07-10-2024 17:29:47 EDT by JAMES WIN M.D. Dictated By: JAMES WIN Signed By: 07/10/24 1730 DD/ 1054 TD/TT: Public Safety Director: LIPID PROFILE Reviewed date:11/02/2024 10:39:37 AM Interpretation: Performing Lab: Notes/Report: [facility] , Triglycerides 59 <=150 mg/dL Cholesterol 190 <=200 mg/dL HDL Cholesterol 54 40-60 mg/dL > or =60 mg/dl - LOW CARDIOVASCULAR RISK <40 mg/dl - HIGH CARDIOVASCULAR RISK LDL Cholesterol Calculated 124.2 <100 mg/dl OPTIMAL 100-129 mg/dl NEAR OR ABOVE OPTIMAL 130-159 mg/dl BORDERLINE HIGH 160-189 mg/dl HIGH >190 mg/dl VERY HIGH VLDL CHOLESTEROL 11.8 Chol HDL Ratio 3.5 3.3 - 4.4 LOW RISK 4.4 - 7.1 AVERAGE RISK 7.1 - 11.0 MODERATE RISK >11.0 HIGH RISK Performing Lab: see note - [facility] PROF 14(COMP METB) Reviewed date:11/02/2024 10:39:37 AM Interpretation: Performing Lab: Notes/Report: [facility] , Sodium 142 136-145 mmol/L Potassium 3.7 [...] Globulin Ratio 1.3 Performing Lab: see note - [facility] LB T4 Reviewed date:11/02/2024 10:39:37 AM Interpretation: Performing Lab: Notes/Report: [facility] , T4 Thyroxine 8.00 4.50-12.10 ug/dL Performing Lab: see note ML - [facility] LB TSH Reviewed date:11/02/2024 10:39:37 AM Interpretation: Performing Lab: Notes/Report: [facility] , Thyroid Stimulating Hormone 0.311 0.358-3.740 u IU/mL Performing Lab: see note - [facility] LB URIC ACID SERUM Reviewed date:11/02/2024 10:39:37 AM Interpretation: Performing Lab: Notes/Report: [facility] , Uric Acid 5.1 3.5-7.2 mg/dL Performing Lab: see note - [facility] LB VITAMIN D 25 [place] Reviewed date:11/02/2024 10:39:37 AM Interpretation: Performing Lab: Notes/Report: [facility] , Vitamin D 32.7 <20 ng/mL Vit D deficient 20-<30 ng/mL Vit D insufficient 30-100 ng/mL Vit D sufficient >100 ng/mL Potential Toxicity Performing Lab: see note - [facility] LB Occult Blood* Reviewed date:11/03/2024 01:32:57 PM Interpretation: Performing Lab: Notes/Report: [facility] , Occult Blood Negative Performing Lab: see note - [facility] PSA SCREENING Reviewed date:11/02/2024 10:39:37 AM Interpretation: Performing Lab: Notes/Report: [facility] , Prostate Specific Antigen Scrn 1.30 <=4.00 ng/mL Performing Lab: see note - [facility] INSULIN Reviewed date:11/02/2024 10:37:51 AM Interpretation: Performing Lab: Notes/Report: [facility] , Insulin 4.9 2.6-24.9 uIU/mL Performed at: - [facility] [address] [id number] Work Distributor: [place] PhD, Phone: [phone] Performing Lab: see note - [facility] LB GLYCOHEMOGLOBIN A1C Reviewed date:11/02/2024 10:39:37 AM Interpretation: Performing Lab: Notes/Report: [facility] , Glycohemoglobin A1C 5.3 4.5-6.2 % ADA RECOMMENDED LIMIT 4.0 - 6.0 ADA THERAPEUTIC TARGET < 7.0 ACTION SUGGESTED > 7.0 Estimated Average Glucose 105 Performing Lab: see note - [facility] LB FREE T3 Reviewed date:11/02/2024 10:39:37 AM Interpretation: Performing Lab: Notes/Report: [facility] , Free T3 3.15 2.18-3.98 pg/mL Performing Lab: see note ML - [facility] LB CBC AUTO DIFF Reviewed date:11/02/2024 10:39:37 AM Interpretation: Performing Lab: Notes/Report: [facility] , White Blood Count 6.3 4.0-11.0 10 [...] Performing Lab: see note ML - [facility] LB Troponin I High Sensitivity Reviewed date:07/10/2024 01:10:02 PM Interpretation: Performing Lab: Notes/Report: [facility] , Troponin I High Sensitivity 4.7 4.0-76.1 pg/m L CUT-OFF POINTS HAVE BEEN ESTABLISHED BASED ON THE FOURTH UNIVERSAL DEFINITION OF MYOCARDIAL INFARCTION. THE UPPER REFERENCE LIMIT (URL) OF TROPONIN, DEFINED THE 99TH PERCENTILE OF cTnI DISTRIBUTION IN A REFERENCE POPULATION, HAS BEEN CONFIRMED THE DECISION THRESHOLD FOR DC DIAGNOSIS. 99TH PERCENTILE = 76.2 PG/ML NOTE: HIGH-SENSITIVITY TROPONIN ASSAY IS NOT INTENDED TO BE USED IN ISOLATION BUT SHOULD BE INTERPRETED IN CONJUNCTION WITH OTHER DIAGNOSTIC AND CLINICAL INFORMATION. Performing Lab: see note ML - [facility] PROF CHEM 8 (BAS METB) Reviewed date:07/10/2024 01:10:02 PM Interpretation: Performing Lab: Notes/Report: [facility] , Sodium 139 136-145 mmol/L Potassium 3.7 [...] Performing Lab: see note ML - [facility] Reason For Referral Reason syncope, near syncop e Diagnosis 1 Loss of consciousnes s (R40.20) Referral Organization [facility] Referring Provider First Name Sanjana Referring Provider Last Name Erika Referring Provider [facility] Referred Provider Gloria Valle Referred Provider Specialty Neurology Referral Priority Routine Reason intermittent chest p ain Diagnosis 1 Intermittent chest p ain (R07.9) Referral Organization [facility] Referring Provider First Name Sanjana Referring Provider Last Name Erika [facility] Leodan Cruz Referred Provider Specialty Cardiovascul ar Disease Referral Priority Routine Diagnosis 1 Abdominal pain (R10. 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 Problem Cannabis dependence (71246388) Marijuana dependence (F12.20) Active confirmed Problem Cannabis abuse (97094998) Marijuana abuse, continuous (F12.10) Active confirmed Problem Anxiety (97566719) Anxiety (F41.9) Active confirmed Vital Signs Blood [...] N/A Encounters Encounter Location Date Provider Diagnosis [address] [address] 11/01/2024 Sanjana Erika Intermittent chest p ain R07.9 ; Loss of consciousness R40.20 ; Anxiety F41.9 ; Marijuana dependence F12.20 and Wellness examination Z00.[address] [address] 11/02/2024 Sanjana Erika Abnormal TSH R94.6 a nd Screening for colon cancer Z12.[address] [address] 11/03/2024 Sanjana Erika Abdominal pain R10.[address] [address] 11/27/2024 Sanjana Erika Abnormal TSH R94.6 Assessments Encounter Date Diagnosis (ICD Code) Assessment Notes Treatment Notes Treatment Clinical Notes Section Notes 11/01/2024 Intermittent chest pain (ICD-10 - R07.9) requesting cardiology referral 11/01/2024 Loss of consciousness (ICD-10 - R40.20) requesting neurology referral 11/02/2024 Screening for colon cancer (ICD-10 - Z12.11) 11/02/2024 Abnormal TSH (ICD-10 - R94.6) 11/03/2024 Abdominal pain (ICD-10 - R10.9) 11/27/2024 Abnormal TSH (ICD-10 - R94.6) 11/01/2024 Anxiety (ICD-10 - F41.9) significant mental [...] T3) 5 THYROID PANEL (T4/TSH/FREE T3) 5 THYROID PANEL (T4/TSH/FREE T3) Holter Monitor - 3 days up to 14 days PSA, SCREENING 11/01/2024 CMP (COMP MET HATCH) w/eGFR CKD-EPI 2024 CBC WITH DIFF 11/01/2024 Insurance Providers Payer Name Payer Address Payer Phone Subscriber Number Group Number Insured Name Patient Relationship to Insured Coverage Start Date Coverage End Date [employer] [place] [employer] [address] [place] [phone] [id number] Robbie Finney Self - patient is the insured Medical (General) History Medical History History ICD Code pneumonia sinus infection depression Marijuana abuse, continuous F12.10 Surgical History Surgery Date(Month/Year) Fractured Left hand 2018 Fibula repair 2016 C5-6 total disc arthroplasty 10/30/20 Hospitalization History Reason Date(Month/Year) neck injury- [facility] 2020
[2025-01-09 12:16] VITALS: BP 133/81; PULSE 107; TEMP 36.9; O2SAT 97; BMI 21.7
--- NOTE | 2025-01-09 12:44 | CT_ITS ---
[address] [address] Patient Name: ROBBIE HERRERA MRN: [id number] date: 1985 Sex: M Assigned Patient Location: ER Current Patient Location: ER Accession/Order Number: [id number] Exam Date: 01/09/2025 13:06 Report Date: 01/09/2025 13:45 At the request of: TIFFANIE JAIMES MD Procedure: CT lumbar spine wo con CT CERVICAL, THORACIC AND LUMBAR SPINE WITHOUT CONTRAST WITH 3-D RECONSTRUCTIONS CLINICAL DATA: Patient awoke with severe low back pain. History of compression fracture and recent riding lawnmower. COMPARISON: None Spiral images were obtained through the cervical, thoracic and lumbar spine without contrast. Sagittal, coronal and 3-D volume rendered reconstructions were reviewed. This CT exam was performed using one or more following dose reduction techniques: Automated exposure control, adjustment of the mA and/or kV according to patient size, or use of iterative reconstruction technique. CERVICAL: There is slight dextroscoliotic curvature. There is also straightening of the normal cervical lordosis. There is an artificial disc at C5-6 with some associated streak artifact. There is also minor hypertrophy at that level. No acute compression fractures or displacement are seen. The remaining disc spaces are uniform. There is no additional hypertrophy or significant central or foraminal stenosis. The atlantoaxial relationship is maintained. There is no prevertebral soft tissue swelling. There are multiple small shotty cervical lymph nodes. THORACIC: There is subtle upper thoracic reverse S-shaped scoliotic curvature. Alignment is maintained on the sagittal reconstructions. There are no acute compression fractures. The disc spaces are uniform. There is no prominent endplate spurring. The imaged ribs are intact. There are a few small mediastinal lymph nodes in the field of view. There is obstructive lung disease with airspace lucencies and subpleural blebs. There is no consolidation, pleural effusion, pneumothorax or nodularity in the field of view. LUMBAR: There is subtle levoscoliotic curvature. Alignment is maintained on the sagittal reconstructions. No acute compression fractures are seen. The disc spaces are uniform. There is minimal endplate spurring. No significant disc disease or stenosis is identified. The imaged pelvic bones and sacrum are intact. The SI joints are maintained. There are no paraspinal soft tissue abnormalities. There is no evidence of hydronephrosis within the ghzdd-gj-egxt. The urinary bladder wall appears slightly thickened however this is not fully distended. CT/CT thoracic spine wo con IMPRESSION: SUBTLE SCOLIOSIS AND MINOR DEGENERATIVE CHANGES. CERVICAL ARTIFICIAL DISC. NO ACUTE COMPRESSION FRACTURES. INCIDENTAL OBSTRUCTIVE LUNG DISEASE. Impression dictated by: Fatou Stack M.D. 01/09/2025 1:45 PM Dictation Location: [place] [address] Electronically authenticated by: [id number] Y Date: 01/09/2025 13:45
--- NOTE | 2025-01-09 12:44 | CT_ITS ---
[address] [address] Patient Name: ROBBIE HERRERA MRN: [id number] date: 1985 Sex: M Assigned Patient Location: ER Current Patient Location: ER Accession/Order Number: [id number] Exam Date: 01/09/2025 13:06 Report Date: 01/09/2025 13:45 At the request of: TIFFANIE JAIMES MD Procedure: CT lumbar spine wo con CT CERVICAL, THORACIC AND LUMBAR SPINE WITHOUT CONTRAST WITH 3-D RECONSTRUCTIONS CLINICAL DATA: Patient awoke with severe low back pain. History of compression fracture and recent riding lawnmower. COMPARISON: None Spiral images were obtained through the cervical, thoracic and lumbar spine without contrast. Sagittal, coronal and 3-D volume rendered reconstructions were reviewed. This CT exam was performed using one or more following dose reduction techniques: Automated exposure control, adjustment of the mA and/or kV according to patient size, or use of iterative reconstruction technique. CERVICAL: There is slight dextroscoliotic curvature. There is also straightening of the normal cervical lordosis. There is an artificial disc at C5-6 with some associated streak artifact. There is also minor hypertrophy at that level. No acute compression fractures or displacement are seen. The remaining disc spaces are uniform. There is no additional hypertrophy or significant central or foraminal stenosis. The atlantoaxial relationship is maintained. There is no prevertebral soft tissue swelling. There are multiple small shotty cervical lymph nodes. THORACIC: There is subtle upper thoracic reverse S-shaped scoliotic curvature. Alignment is maintained on the sagittal reconstructions. There are no acute compression fractures. The disc spaces are uniform. There is no prominent endplate spurring. The imaged ribs are intact. There are a few small mediastinal lymph nodes in the field of view. There is obstructive lung disease with airspace lucencies and subpleural blebs. There is no consolidation, pleural effusion, pneumothorax or nodularity in the field of view. LUMBAR: There is subtle levoscoliotic curvature. Alignment is maintained on the sagittal reconstructions. No acute compression fractures are seen. The disc spaces are uniform. There is minimal endplate spurring. No significant disc disease or stenosis is identified. The imaged pelvic bones and sacrum are intact. The SI joints are maintained. There are no paraspinal soft tissue abnormalities. There is no evidence of hydronephrosis within the gerwt-sy-fhly. The urinary bladder wall appears slightly thickened however this is not fully distended. CT/CT cervical spine wo con IMPRESSION: SUBTLE SCOLIOSIS AND MINOR DEGENERATIVE CHANGES. CERVICAL ARTIFICIAL DISC. NO ACUTE COMPRESSION FRACTURES. INCIDENTAL OBSTRUCTIVE LUNG DISEASE. Impression dictated by: Fatou Stack M.D. 01/09/2025 1:45 PM Dictation Location: [place] [address] Electronically authenticated by: [id number] Y Date: 01/09/2025 13:45
--- NOTE | 2025-01-09 12:45 | CT_ITS ---
[address] [address] Patient Name: ROBBIE HERRERA MRN: [id number] date: 1985 Sex: M Assigned Patient Location: ER Current Patient Location: ER Accession/Order Number: [id number] Exam Date: 01/09/2025 13:06 Report Date: 01/09/2025 13:45 At the request of: TIFFANIE JAIMES MD Procedure: CT lumbar spine wo con CT CERVICAL, THORACIC AND LUMBAR SPINE WITHOUT CONTRAST WITH 3-D RECONSTRUCTIONS CLINICAL DATA: Patient awoke with severe low back pain. History of compression fracture and recent riding lawnmower. COMPARISON: None Spiral images were obtained through the cervical, thoracic and lumbar spine without contrast. Sagittal, coronal and 3-D volume rendered reconstructions were reviewed. This CT exam was performed using one or more following dose reduction techniques: Automated exposure control, adjustment of the mA and/or kV according to patient size, or use of iterative reconstruction technique. CERVICAL: There is slight dextroscoliotic curvature. There is also straightening of the normal cervical lordosis. There is an artificial disc at C5-6 with some associated streak artifact. There is also minor hypertrophy at that level. No acute compression fractures or displacement are seen. The remaining disc spaces are uniform. There is no additional hypertrophy or significant central or foraminal stenosis. The atlantoaxial relationship is maintained. There is no prevertebral soft tissue swelling. There are multiple small shotty cervical lymph nodes. THORACIC: There is subtle upper thoracic reverse S-shaped scoliotic curvature. Alignment is maintained on the sagittal reconstructions. There are no acute compression fractures. The disc spaces are uniform. There is no prominent endplate spurring. The imaged ribs are intact. There are a few small mediastinal lymph nodes in the field of view. There is obstructive lung disease with airspace lucencies and subpleural blebs. There is no consolidation, pleural effusion, pneumothorax or nodularity in the field of view. LUMBAR: There is subtle levoscoliotic curvature. Alignment is maintained on the sagittal reconstructions. No acute compression fractures are seen. The disc spaces are uniform. There is minimal endplate spurring. No significant disc disease or stenosis is identified. The imaged pelvic bones and sacrum are intact. The SI joints are maintained. There are no paraspinal soft tissue abnormalities. There is no evidence of hydronephrosis within the olcjl-oh-tmvy. The urinary bladder wall appears slightly thickened however this is not fully distended. CT/CT lumbar spine wo con IMPRESSION: SUBTLE SCOLIOSIS AND MINOR DEGENERATIVE CHANGES. CERVICAL ARTIFICIAL DISC. NO ACUTE COMPRESSION FRACTURES. INCIDENTAL OBSTRUCTIVE LUNG DISEASE. Impression dictated by: Fatou Stack M.D. 01/09/2025 1:45 PM Dictation Location: [place] [address] Electronically authenticated by: [id number] Y Date: 01/09/2025 13:45
--- OUTSIDE RECORDS SUMMARY | 2025-01-09 13:00 | XMS_ITS | CCD ---
Author Organization [facility] Care Team Providers Care Buckle Sewer Machine Name Role Phone Robert Moreira Attending Unavailable Katie Wells Primary Care Unavail able Unavailable Unavailable Unavailable Unavailable Primary Care Provider Unavailabl e Unavailable Primary Care Provider Unavailabl e Vincent RUFFIN - Xiomara ESQUIVEL Primary Care Provide r Vincent RUFFIN [place] ESQUIVEL Primary Care Provide r Vincent RUFFIN [place]ara ESQUIVEL Primary Care Provide r Vincent RUFFIN Coco ESQUIVELh Christina Primary Care Provide r Suzi Vázquez CNP Primary Care Provider [phone] Suzi Vázquez CNP Primary Care Provider KATIE WELLS Referring Unavailable XIOMARA BARNETT Primary Care Unavailable KATIE WELLS Referring Unavailable XIOMARA BARNETT Primary Care Unavailable XIOMARA BARNETT Primary Care Unavailable GAB, ESTELA U Attending Unavailable KATIE WELLS Referring Unavailable XIOMARA BARNETT Primary Care Unavailable LUCY MIRANDA Referring Unavailable XIOMARA BARNETT Primary Care Unavailable Jesus Manuel Arias Attending Unavailab Jesus Manuel Lopez Admitting Unavailab RUBI Osborn Attending Unavailable ELLA RAMIREZ Primary Care Physician [phone] Mariah Gordon Admitting Unavailable Mariah Gordon Referring Unavailable Mariah Gordon Attending Unavailable Mariah Gordon Attending Unavailable Mariah Gordon Admitting Unavailable Mariah Gordon Referring Unavailable Mariah Gordon Attending Unavailable Allergies Allergy Classification Reported Allergen(s) Allergy Type Date of Onset Reaction(s) Facility Opioid Agonists (7 sources) traMADol Drug Allergy 6 Nausea And Vomiting [facility] (1 source) Naproxen; Translations: [naproxen] Drug Allergy [facility] Repository (20 sources) traMADol; Translations: [traMADol] Drug Allergy 6 Nausea And Vomiting, Vomiting (disorder) [facility] Repository Medications Current Medications Medication Drug Class(es) Dates Sig (Normalized) Sig (Original) acetaminophen 500 mg oral tablet (3 sources) Start: 03-07-2021 End: 07-18-2021 take 1 tablet by mouth every six hours as needed for pain acetaminophen (TYLENOL) 500 MG tablet Take 1 tablet by mouth every 6 hours as needed for Pain 30 tablet 0 03/07/2021 07/18/2021 Discontinued (LIST CLEANUP) take 1 tablet by fatuma th every six hours as needed for pain acetaminophen (TYLENOL) 500 MG tablet Ta ke 500 mg by mouth every 6 hours as needed for Pain 0 Active acetaminophen 325 mg / HYDROcodone bitartrate 5 mg oral tablet (3 sources) Opioid Agonist Start: 01-09-2022 End: 01-12-2022 HYDROcodone-acetaminophen (NORCO) 5-325 MG per tablet Indications: Left wrist sprain, initial encounter Take 1 tablet by mouth every 6 hours as needed for Pain for up to 3 days. Intended supply: 3 days. Take lowest dose possible to manage pain 12 tablet 0 01/09/2022 01/12/2022 Active Start: 08-04-2020 End: 08-04-2020 HYDROcodone-acetaminophen (N ORCO) 5-325 MG per tablet 2 tablet Start: 03-31-2020 End: 03-31-2020 HYDROcodone-acetaminophen (N ORCO) 5-325 MG per tablet 1 tablet amoxicillin 875 mg / clavulanate 125 mg oral tablet (1 source) Penicillin-class Antibacterial Start: 09-18-2020 End: 09-28-2020 take 1 tablet by mouth twice daily amoxicillin-clavulanate (AUGMENTIN) 875-125 MG per tablet Take 1 tablet by mouth 2 times daily for 10 days 20 tablet 0 09/18/2020 09/28/2020 Active aspirin 325 mg oral tablet (3 sources) Platelet Aggregation Inhibitor, Nonsteroidal Anti-inflammatory Drug End: 07-18-2021 take 1 tablet by mouth once daily aspirin 325 MG tablet Take 325 mg by mouth daily 0 07/18/2021 Discontinued (LIST CLEANUP) cyclobenzaprine hydrochloride 10 mg oral tablet (2 sources) Muscle Relaxant Start: 01-09-2022 End: 01-19-2022 take 1 tablet by mouth once daily as needed for muscle spasms cyclobenzaprine (FLEXERIL) 10 MG tablet Take 1 tablet by mouth nightly as needed for Muscle spasms 10 tablet 0 01/09/2022 01/19/2022 Active Start: 10-19-2019 End: 10-29-2019 take 1 tablet by mouth twice daily as needed for muscle spasms cyclobenzaprine (FLEXERIL) 5 MG tablet Take 1 tablet by mouth 2 times daily as needed for Muscle spasms 10 tablet 0 10/19/2019 10/29/2019 Active dicyclomine hydrochloride 10 mg oral capsule (6 sources) Anticholinergic Start: 08-05-2021 take 1 capsule by mouth four times daily before mealtime dicyclomine (BENTYL) 10 MG capsule Take 1 capsule by mouth 4 times daily (before meals and nightly) 20 capsule 3 08/05/2021 Active Start: 07-18-2021 End: 07-18-2021 dicyclomine (BENTYL) injecti on 20 mg lidocaine 0.05 mg/mg medicated patch (4 sources) Antiarrhythmic, Amide Local Anesthetic Start: 08-04-2020 End: 08-14-2020 lidocaine (LIDODERM) 5 % Place 1 patch onto the skin daily for 10 days 12 hours on, 12 hours off. 10 patch 0 08/04/2020 08/14/2020 Active Start: 04-10-2020 lidocaine visc ous hcl (XYLOCAINE) 2 % SOLN solution Take 15 mLs by mouth as needed for Dental Pain 200 mL 0 04/10/2020 Active Start: 04-10-2020 lidocaine visc ous hcl (XYLOCAINE) 2 % solution 15 mL methylPREDNISolone 4 mg oral tablet (3 sources) Corticosteroid Start: 10-01-2020 End: 10-07-2020 methylPREDNISolone (MEDROL, SALVADOR,) 4 MG tablet Take by mouth. 1 kit 0 10/01/2020 10/07/2020 Active Start: 08-06-2020 End: 08-12-2020 methylPREDNISolone (MEDROL, SALVADOR,) 4 MG tablet Take daily as directed until complete first dose 08/06/2020 21 tablet 0 08/06/2020 08/12/2020 Active Start: 08-05-2020 End: 08-05-2020 methylPREDNISolone sodium (S PAULINE-MEDROL) injection 125 mg ondansetron 4 mg oral tablet (15 sources) Serotonin-3 Receptor Antagonist Start: 05-04-2023 End: 05-27-2023 Ondansetron HCl 4 MG Oral Tablet 05/27/2023 Provider: Suzi Vázquez CNP Start: 11-13-2021 take 1 tablet by fatuma th every eight hours as needed for nausea ondansetron (ZOFRAN ODT) 4 MG disintegrating tablet Indications: Nausea Take 1 tablet by mouth every 8 hours as needed for Nausea or Vomiting 42 tablet 1 11/13/2021 Active Start: 07-18-2021 take 1 tablet by fatuma th every eight hours as needed for nausea ondansetron (ZOFRAN ODT) 4 MG disintegrating tablet Take 1 tablet by mouth every 8 hours as needed for Nausea or Vomiting 12 tablet 0 07/18/2021 Active Start: 07-18-2021 End: 07-18-2021 ondansetron (ZOFRAN) injecti on 4 mg Start: 09-16-2020 End: 09-19-2020 take 1 tablet by mouth three times daily as needed for nausea ondansetron (ZOFRAN-ODT) 4 MG disintegrating tablet Take 1 tablet by mouth 3 times daily as needed for Nausea or Vomiting 21 tablet 0 09/16/2020 09/19/2020 Discontinued (Therapy completed) pantoprazole 40 mg delayed release oral tablet (10 sources) Proton Pump Inhibitor Start: 09-04-2022 End: 05-27-2023 Pantoprazole Sodium 40 MG Oral Tablet Delayed Release 05/27/2023 Provider: Suzi Vázquez CNP Start: 11-13-2021 take 1 tablet by fatuma th once daily before breakfast pantoprazole (PROTONIX) 40 MG tablet Indications: Gastroesophageal reflux disease, unspecified whether esophagitis present Take 1 tablet by mouth every morning (before breakfast) 90 tablet 0 11/13/2021 Active predniSONE 50 mg oral tablet (2 sources) Start: 01-09-2022 End: 01-14-2022 take 1 tablet by mouth once daily predniSONE (DELTASONE) 50 MG tablet Take 1 tablet by mouth daily for 5 days 5 tablet 0 01/09/2022 01/14/2022 Active Start: 09-19-2020 End: 09-24-2020 take 1 tablet by mouth once daily predniSONE (DELTASONE) 20 MG tablet Take 1 tablet by mouth daily for 5 days 5 tablet 0 09/19/2020 09/24/2020 Active promethazine hydrochloride 12.5 mg oral tablet (2 sources) Phenothiazine Start: 08-05-2021 End: 08-12-2021 take 1 tablet by mouth four times daily as needed for nausea promethazine (PHENERGAN) 12.5 MG tablet Take 1 tablet by mouth 4 times daily as needed for Nausea 20 tablet 0 08/05/2021 08/12/2021 Active Start: 08-05-2021 End: 08-05-2021 promethazine (PHENERGAN) tab let 25 mg sildenafil 50 mg oral tablet (4 sources) Phosphodiesterase 5 Inhibitor Start: 11-13-2021 sildenafil (VIAGRA) 50 MG tablet Indications: Erectile dysfunction, unspecified erectile dysfunction type Take 1 tablet 30 minutes prior to sexual activity. Do not exceed more than 1 dose in 24 hours. 10 tablet 0 11/13/2021 Active Completed/Discontinued Medications Medication Drug Class(es) Dates Sig (Normalized) Sig (Original) acetaminophen 300 mg / codeine phosphate 30 mg oral tablet (3 sources) Opioid Agonist Start: 06-29-2022 End: 09-04-2022 Acetaminophen-Co deine 300-30 MG Oral Tablet 06/29/2022 - 09/04/2022 Provider: Ruby Daniel DMD Acetaminophen / Dextromethorphan / Pseudoephedrine (7 sources) alpha-Adrenergic Agonist, Uncompetitive R-ebwtqm-D-aspartat e Receptor Antagonist, Sigma-1 Agonist Start: 07-13-2019 End: 05-04-2022 Tylenol Cold Max 10-5-325 MG Oral Tablet 07/13/2019 - 05/04/2022 Provider: Start: 07-13-2019 Tylenol Cold M ax 10-5-325 MG Oral Tablet 07/13/2019 Provider: acetaminophen 325 mg / oxyCODONE hydrochloride 10 mg oral tablet (3 sources) Opioid Agonist Start: 10-01-2020 End: 10-01-2020 oxyCODONE-acetaminophen (PERCOCET) 10-325 MG per tablet 1 tablet Start: 10-01-2020 End: 10-04-2020 take 1 tablet by mouth every six hours as needed for pain oxyCODONE-acetaminophen (PERCOCET) 5-325 MG per tablet Indications: Cervical radiculopathy at C5 , Pain in right arm , Cervical disc herniation Take 1 tablet by mouth every 6 hours as needed for Pain for up to 3 days. 10 tablet 0 10/01/2020 10/04/2020 Active Start: 04-10-2020 End: 04-10-2020 oxyCODONE-acetaminophen (PER COCET) 5-325 MG per tablet 1 tablet Acetaminophen Extra Strength 500 MG Oral Tablet (3 sources) Start: 07-22-2022 End: 09-04-2022 Acetaminophen Extra Strength 500 MG Oral Tablet 07/22/2022 - 09/04/2022 Provider: Dante Benson DDS amoxicillin 500 mg oral capsule (20 sources) Penicillin-class Antibacterial Start: 06-25-2022 End: 09-04-2022 Amoxicillin 500 MG Oral Capsule 06/25/2022 - 09/04/2022 Provider: Suzi Vázquez CNP Start: 04-10-2020 End: 04-10-2020 amoxicillin (AMOXIL) capsule 1,000 mg Start: 02-15-2020 End: 05-04-2022 Amoxicillin 500 MG Oral Tabl et 04/23/2020 - 05/04/2022 Provider: Júnior Ibarra DDS Start: 07-13-2019 End: 05-04-2022 Amoxicillin 875 MG Oral Tabl et 07/13/2019 - 05/04/2022 Provider: Suzi Vázquez CNP calcium chloride 0.0014 meq/ml / potassium chloride 0.004 meq/ml / sodium chloride 0.103 meq/ml / sodium lactate 0.028 meq/ml injectable solution (1 source) Start: 07-18-2021 End: 07-18-2021 lactated ringers infusion 1,000 mL celecoxib 100 mg oral capsule (6 sources) Nonsteroidal Anti-inflammatory Drug Start: 08-08-2020 End: 09-19-2020 take 1 capsule by mouth twice daily celecoxib (CELEBREX) 100 MG capsule Indications: Acute midline low back pain with right-sided sciatica Take 1 capsule by mouth 2 times daily 30 capsule 1 08/08/2020 09/19/2020 Discontinued (Therapy completed) chlorhexidine gluconate 1.2 mg/ml mouthwash (3 sources) Start: 06-29-2022 End: 09-04-2022 Chlorhexidine Gluconate 0.12% Mouth/Throat Solution 06/29/2022 - 09/04/2022 Provider: Ruby Daniel DMD clindamycin 300 mg oral capsule (3 sources) Lincosamide Antibacterial Start: 06-29-2022 End: 09-04-2022 Clindamycin HCl 300 MG Oral Capsule 06/29/2022 - 09/04/2022 Provider: Ruby Daniel DMD dexamethasone phosphate 10 mg/ml injectable solution (2 sources) Corticosteroid Start: 10-01-2020 End: 10-01-2020 dexamethasone (DECADRON) injection 10 mg Start: 09-19-2020 End: 09-19-2020 dexamethasone (DECADRON) inj ection 8 mg diazePAM 5 mg oral tablet (1 source) Benzodiazepine Start: 08-05-2020 End: 08-05-2020 diazePAM (VALIUM) tablet 5 mg famotidine 20 mg oral tablet (10 sources) Histamine-2 Receptor Antagonist End: 09-19-2020 take 1 tablet by mouth twice daily as needed famotidine (PEPCID) 20 MG tablet Take 20 mg by mouth 2 times daily as needed 0 09/19/2020 Discontinued (Therapy completed) 12 hr guaiFENesin 600 mg extended release oral tablet (4 sources) Start: 09-16-2020 End: 10-01-2020 take 1 tablet by mouth twice daily guaiFENesin (MUCINEX) 600 MG extended release tablet Take 1 tablet by mouth 2 times daily for 15 days 30 tablet 0 09/16/2020 09/19/2020 Discontinued (Therapy completed) hydrOXYzine hydrochloride 50 mg oral tablet (20 sources) Antihistamine Start: 05-04-2022 End: 05-27-2023 hydrOXYzine HCl 50 MG Oral Tablet 06/25/2022 - 09/04/2022 Provider: Suzi Vázquez CNP ibuprofen 800 mg oral tablet (18 sources) Nonsteroidal Anti-inflammatory Drug Start: 06-25-2022 End: 05-04-2023 Ibuprofen 800 MG Oral Tablet 06/25/2022 - 05/04/2023 Provider: Suzi Vázquez CNP Start: 12-11-2021 End: 12-11-2021 ibuprofen (ADVIL;MOTRIN) tab let 400 mg Start: 07-18-2021 ibuprofen (ADV IL;MOTRIN) tablet 400 mg Start: 02-15-2020 End: 05-04-2022 Ibuprofen 800 MG Oral Tablet 02/15/2020 - 05/04/2022 Provider: Júnior Ibarra DDS Start: 02-15-2020 End: 05-04-2022 take 1 tablet by mouth every six hours as needed for pain ibuprofen (ADVIL;MOTRIN) 800 MG tablet Take 1 tablet by mouth every 6 hours as needed for Pain 30 tablet 0 03/07/2021 07/18/2021 Discontinued (LIST CLEANUP) Start: 07-11-2019 End: 07-11-2019 ibuprofen (ADVIL;MOTRIN) tab let 600 mg End: 10-19-2019 take 1 tablet by mouth every six hours as needed for pain ibuprofen (ADVIL;MOTRIN) 200 MG tablet Take 200 mg by mouth every 6 hours as needed for Pain 0 10/19/2019 Discontinued (Therapy completed) iopamidol (ISOVUE-370) 76 % injection 75 mL (2 sources) Start: 08-05-2021 End: 08-05-2021 iopamidol (ISOVUE-370) 76 % injection 75 mL Start: 09-19-2020 End: 09-19-2020 iopamidol (ISOVUE-370) 76 % injection 75 mL 1 ml ketorolac tromethamine 15 mg/ml cartridge (2 sources) Nonsteroidal Anti-inflammatory Drug, Cyclooxygenase Inhibitor Start: 08-05-2021 End: 08-05-2021 ketorolac (TORADOL) injection 30 mg Start: 09-19-2020 End: 09-19-2020 ketorolac (TORADOL) injectio n 30 mg loratadine 10 mg oral tablet (12 sources) End: 09-19-2020 take 1 tablet by mouth once daily as needed loratadine (CLARITIN) 10 MG tablet Take 10 mg by mouth daily as needed 0 09/19/2020 Discontinued (Therapy completed) naproxen 500 mg oral tablet (11 sources) Nonsteroidal Anti-inflammatory Drug Start: 08-04-2020 End: 09-19-2020 take 1 tablet by mouth twice daily at mealtime naproxen (NAPROSYN) 500 MG tablet Take 1 tablet by mouth 2 times daily (with meals) for 30 doses 60 tablet 0 08/04/2020 09/19/2020 Discontinued (Therapy completed) Start: 12-10-2019 take 1 tablet by fatuma th twice daily naproxen (NAPROSYN) 500 MG tablet Take 1 tablet by mouth 2 times daily 14 tablet 0 12/10/2019 Active Start: 07-24-2018 End: 10-19-2019 take 1 tablet by mouth twice daily naproxen (NAPROSYN) 500 MG tablet Take 1 tablet by mouth 2 times daily 15 tablet 0 07/24/2018 10/19/2019 Discontinued (Therapy completed) 2 ml orphenadrine citrate 30 mg/ml injection (2 sources) Muscle Relaxant Start: 08-04-2020 End: 08-04-2020 orphenadrine (NORFLEX) injection 60 mg Start: 10-19-2019 End: 10-19-2019 orphenadrine (NORFLEX) injec tion 60 mg QUEtiapine 50 mg oral tablet (19 sources) Atypical Antipsychotic Start: 05-04-2022 End: 05-27-2023 QUEtiapine Fumarate 50 MG Oral Tablet 06/25/2022 - 09/04/2022 Provider: Suzi Vázquez CNP sertraline 100 mg oral tablet (19 sources) Serotonin Reuptake Inhibitor Start: 05-04-2022 End: 05-27-2023 Sertraline HCl 100 MG Oral Tablet 06/25/2022 - 09/04/2022 Provider: Suzi Vázquez CNP Start: 05-04-2022 End: 05-04-2023 Sertraline HCl 150 MG Oral C apsule 05/04/2022 - 05/04/2023 Provider: 50 ml sodium chloride 9 mg/m l injection (2 sources) Start: 08-05-2021 End: 08-05-2021 0.9 % sodium chloride bolus Start: 09-19-2020 End: 09-19-2020 0.9 % sodium chloride bolus tiZANidine 4 mg oral tablet (8 sources) Central alpha-2 Adrenergic Agonist Start: 08-04-2020 End: 09-19-2020 take 1 tablet by mouth every eight hours as needed for pain tiZANidine (ZANAFLEX) 4 MG tablet Take 1 tablet by mouth every 8 hours as needed (Back pain) 12 tablet 0 08/04/2020 09/19/2020 Discontinued (Therapy completed) traZODone hydrochloride 50 mg oral tablet (19 sources) Serotonin Reuptake Inhibitor Start: 05-04-2022 End: 05-27-2023 traZODone HCl 50 MG Oral Tablet 06/25/2022 - 09/04/2022 Provider: Suzi Vázquez CNP 24 hr divalproex sodium 250 mg extended release oral tablet (18 sources) Mood Stabilizer, Anti-epileptic Agent Start: 05-04-2022 End: 05-04-2023 take 1 tablet by mouth every twenty-four hours Depakote ER 250 MG Oral Tablet Extended Release 24 Hour 06/25/2022 - 09/04/2022 Provider: Suzi Vázquez CNP Problems Active Problems Problem Classification Problem Date Documented Da te Episodic/Chronic Abdominal pain (8 sources) Chronic abdominal pain; Translations: [Unspecified abdominal pain] Onset: 2 Episodic Acute bronchitis (14 sources) Acute bronchitis; Translations: [Acute bronchitis, unspecified] 08-08-2020 Episodic Adjustment disorders (12 sources) Adjustment disorder with anxious mood; Translations: [Adjustment disorder with anxiety] Onset: 0 07-13-2019 Chronic Anxiety disorders (6 sources) Generalized anxiety disorder; Translations: [Generalized anxiety disorder] Onset: 4 05-04-2023 Chronic Blindness and vision defects (1 source) Sudden visual loss, left eye; Translations: [Sudden visual loss of left eye] Episodic Conditions associated with dizziness or vertigo (2 sources) Lightheadedness; Translations: [Dizziness and giddiness] Episodic Disorders of teeth and jaw (5 sources) Infection of tooth; Translations: [Toothache] Onset: 0 Episodic Esophageal disorders (14 sources) Gastroesophageal reflux disease; Translations: [Gastro-esophageal reflux disease without esophagitis] 08-08-2020 Chronic Fever of unknown origin (1 source) Fever; Translations: [Fever, unspecified] Episodic Gastrointestinal hemorrhage (4 sources) Hematochezia; Translations: [Melena] Onset: 3 Episodic Immunizations and screening for infectious disease (5 sources) Contact with or exposure to other viral diseases; Translations: [COVID-19 ruled out] Onset: 2 Episodic Miscellaneous mental health disorders (2 sources) Psychosomatic factor in physical condition; Translations: [Psychological and behavioral factors associated with disorders or diseases classified elsewhere] Onset: 5 Chronic Mood disorders (11 sources) Bipolar disorder; Translations: [Bipolar disorder, unspecified] Onset: 3 05-04-2023 Chronic Nausea and vomiting (7 sources) Nausea, vomiting and diarrhea; Translations: [Nausea with vomiting, unspecified] Onset: 2 Episodic Nonspecific chest pain (2 sources) Chest pain, unspecified; Translations: [Chest pain, unspecified] Onset: 5 Episodic Open wounds of extremities (1 source) Laceration of lower limb; Translations: [Laceration of right lower extremity, initial encounter] Episodic Other aftercare (2 sources) Other medical terminologist (current) drug therapy; Translations: [Other detention (current) drug therapy] Onset: 4 Episodic Other connective tissue disease (1 source) Pain in right arm; Translations: [Pain in right arm] Episodic Other gastrointestinal disorders (1 source) Diarrhea; Translations: [Diarrhea, unspecified] Episodic Other gastrointestinal disorders (4 sources) Dysphagia; Translations: [Dysphagia, unspecified] Onset: 2 11-13-2021 Episodic Other liver diseases (2 sources) Elevated liver enzymes level; Translations: [Abnormal levels of other serum enzymes] Episodic Other male genital disorders (4 sources) Male erectile dysfunction, unspecified; Translations: [Impotence of organic origin] Onset: 2 11-13-2021 Chronic Other nutritional; endocrine; and metabolic disorders (9 sources) Finding of body mass index; Translations: [Body mass index (observable entity)] Onset: 3 Episodic Other screening for suspected conditions (not mental disorders or infectious disease) (10 sources) Clinical finding absent; Translations: [Suspected ingested foreign body not found after observation] Onset: 2 Resolved: 2 Episodic Other skin disorders (1 source) Disorder of skin pigmentation; Translations: [Other specified disorders of pigmentation] Onset: 5 Episodic Other skin disorders (1 source) Decorative tattoo 11-15-2024 Episodic Other upper respiratory disease (1 source) Vocal cords swelling; Translations: [Other diseases of vocal cords] Episodic Pneumonia (except that caused by tuberculosis or sexually transmitted disease) (14 sources) Pneumonia; Translations: [Pneumonia, unspecified organism] 08-08-2020 Episodic Residual codes; unclassified (1 source) Tobacco user 11-15-2024 Episodic Spondylosis; intervertebral disc disorders; other back problems (1 source) Prolapsed cervical intervertebral disc; Translations: [Other cervical disc displacement, unspecified cervical region] Chronic Spondylosis; intervertebral disc disorders; other back problems (2 sources) Cervical radiculopathy; Translations: [Radiculopathy, cervical region] Episodic Sprains and strains (4 sources) Sprain of ligament of elbow; Translations: [Low back strain] Episodic Substance-related disorders (2 sources) Cannabis dependence; Translations: [Cannabis dependence, uncomplicated] Onset: 5 Chronic Suicide and intentional self-inflicted injury (1 source) Suicidal thoughts; Translations: [Suicidal ideations] Episodic Superficial injury; contusion (1 source) Contusion of neck; Translations: [Contusion of unspecified part of neck, initial encounter] Episodic Syncope (4 sources) Syncope; Translations: [Syncope and collapse] Onset: 5 Episodic Unclassified (1 source) Contusion of left knee; Translations: [Contusion of left knee, initial encounter] Unclassified (1 source) Contusion of right knee; Translations: [Contusion of right knee, initial encounter] Unclassified (2 sources) Generalized Body Aches; Translations: [Generalized Body Aches] Onset: 2 Viral infection (6 sources) Viral disease; Translations: [Disease caused by 2019-nCoV] Onset: 2 Episodic Past or Other Problems Problem Classification Problem Date Documented Da te Episodic/Chronic Other lower respiratory disease (3 sources) Cough; Translations: [Cough] Onset: 03-17-2022 Episodic Other non-traumatic joint disorders (2 sources) Pain in elbow; Translations: [Elbow Pain] Onset: 03-17-2022 Episodic Other upper respiratory infections (5 sources) Upper respiratory infection; Translations: [Pharyngitis] Onset: 07-13-2019 Episodic Unclassified (3 sources) Finding of body mass index; Translations: [Body Mass Index] Onset: 07-13-2019 Unclassified (3 sources) History AND physical examination; Translations: [Routine History and Physical] Onset: 07-13-2019 Results Test Name Value Interpretation Reference Range Facility Reminderson 12-19-2024 Reminders Reminders From: Matilda Cordoba To: [facility] - Reminders/Recalls; Sent: 12/19/2024 15:23:00 EDT Show up: 11/03/2034 15:22:00 EDT Subject: Ambulatory Reminder- colonoscopy 10 years Due Date/Time: 12/04/2034 15:22:00 EDT Reminder/Recall Colonoscopy 12/04/24 Dr Gordon 10 year recall Normal [facility] Result Letter Officeon 12-19 Result Letter Office Result Letter Offic e December 19, 2024 TIRSO FINNEY [address] [place] [id number] : 1985 Below is a summary of the results of your recent colonoscopy. Your results have been sent to Reno Ramirez CNP along with recommendations on when the procedure should be repeated. Type of polyp no polyps identified Based on your results we are recommending you repeat the procedure in 10 years You will be placed in our reminder system and will receive a reminder letter prior to your next due date. EGD results: - hiatal hernia - Reflux esophagitis Protonix 40 mg #30 with 2 refills was sent to [facility]. Please contact the office with any further questions or concerns or if you wish to make an appointment to follow up with Dr Gordon. [facility] [phone] Normal [facility] Surgical Pathology Reporton 12-11-2024 Surgical Pathology Report [address] [id number]- Surgical Pathology Report Collected Date/Time: 12/05/2024 11:11 EDT Pathologist: Merritt GIL PhD, Evejuan r Conde Received Date/Time: 12/05/2024 12:11 EDT Evan GIL, Mariah Gordon MD, Mariah Mariano Surgical Pathology Report - 12/11/2024 13:27 EDT - Auth (Verified) Final Diagnosis A: STOMACH, BIOPSY: - MILD CHRONIC ANTRITIS, NONSPECIFIC. - NO H. PYLORI MICROORGANISMS IDENTIFIED WITH IMMUNOSTAIN. B: DUODENUM, BIOPSY: - DUODENAL MUCOSA WITHIN NORMAL LIMITS. (Electronic Signature) Arturo Bang MD PhD 12/11/2024 13:27 Clinical Information Abdominal pain, BRBPR Pre-Op Diagnosis: Abdominal pain, BRBPR Procedure: EGD Post-Op Diagnosis: 1. Hiatal hernia 2. Reflux esophagitis 3. Erosive gastropathy Specimen(s) Received A.Gastric biopsy B.Duodenal biopsy Gross Description A: Received in formalin labeled with patient name, number, and gastric biopsy are two fragments of joseph/pink tissue measuring 0.2 and 0.4 cm. The specimen is entirely submitted in one cassette. B: Received in formalin labeled with patient name, number, and duodenal biopsy are four fragments of joseph/pink tissue ranging from less than 0.1 cm up to 0.5 cm in greatest dimension. Specimen is entirely submitted in one cassette. (DC) DC:MCA Microscopic Description The use of one or more reagents in the above tests is regulated as an analyte specific reagent (ASR). The test or tests are ordered following initial H&E microscopic examination. The performance characteristics were determined by the [facility]. They have not been cleared or approved by the US Food and Drug Administration. The FDA has determined that such clearance or approval is not necessary. These tests are used for clinical purposes. They should not be regarded as investigational or for research. Appropriate positive and negative controls are performed and are acceptable. This report was transcribed using voice recognition technology and might contain unintended computerized unit support representative errors. Microscopic examination performed unless gross only specified. Quality was accessed and acceptable. Normal [facility] Comment on above: Performed By: #### [id number] #### [facility] Laboratory [address] [place] [id number] Main OR Intraoperative Recor don 12-08-2024 Main OR Intraoperative Record Main OR Intraoperative Record IntraOp Document Type FT Summary Primary Physician: Mariah Gordon MD Finalized Date/Time: 12/08/24 08:22:09 Pt. Name: TIRSO FINNEY /Sex: 1985 Male Med Rec #: [id number] Physician: Mariah Gordon MD Financial #: [id number] Pt. Type: O Room/Bed: / Admit/Disch: 12/05/24 10:02:37 - 12/05/24 23:59:59 Institution: Case Times FT Entry 1 Patient Times In Room 12/05/24 11:00:00 Out Room 12/05/24 11:22:00 Procedure Times Start 12/05/24 11:04:00 Stop 12/05/24 11:19:00 Anesthesia Times Start 12/05/24 11:00:00 Stop 12/05/24 11:22:00 Time at Cecum 12/05/24 11:11:00 Last Modified By: Boston MENJIVAR, Sandra Sullivan 12/05/24 11:22:04 General Comments: EGD end time at 1107./GABYRN Colonoscopy start time at 1109./GABY,RN Case Attendance FT Entry 1 Entry 2 Entry 3 Case Attendee Padma GONZALEZ, Dennis Mead RN, Elida Zuniga Role Performed Anesthesiologist School Psychology Specialist - Primary Staff - Other Carton Forming Machine Helper Time In 12/05/24 11:00:00 12/05/24 11:00:00 12/05/24 11:00:00 Time Out 12/05/24 11:22:00 12/05/24 11:22:00 12/05/24 11:22:00 Procedure EGD AND COLONOSCOPY(.) EGD AND COLONOSCOPY(.) EGD AND COLONOSCOPY(.) Comments Dr. Wolfe is supervising Last Modified By: Boston MENJIVAR, Sandra Mead RN, Sandra Silva RN 12/05/24 11:22:09 12/05/24 11:22:09 12/05/24 11:22:09 Entry 4 Entry 5 Case Attendee Ron LAU, Dina Gordon MD, Mariah Vasquez Role Performed Scrub - Primary Surgeon - Primary Time In 12/05/24 11:00:00 12/05/24 11:00:00 Time Out 12/05/24 11:22:00 12/05/24 11:22:00 Procedure EGD AND COLONOSCOPY(.) EGD AND COLONOSCOPY(.) Comments Last Modified By: Sandra Mead RN, RN, Kristin N 12/05/24 11:22:09 12/05/24 11:22:09 Perioperative Protocols FT Pre-Care Text: Implements protective measures prior to operative or invasive procedure, confirms identity before the operative or invasive procedure, verifies operative procedure, surgical site, and laterality Entry 1 Procedure(s) EGD AND COLONOSCOPY(.) Patient Identity Birthday, ID Band Verified (select at Check, Patient least 2): Participation Consents / H and P Anesthesia Consent, Operative Site N/A Verified H&P, Surgery/Procedure Marking Verified Consent Surgical Site Yes Laterality Verified n/a Verified Procedure Verified Yes Correct Patient Yes Position Verified Availability Equipment, Medication Prep Dry n/a Verified (If Applicable) PreOp Antibiotic No Time Out Dennis Thomas Given Participants Boston Gonzalez RN, Kristin N, Elida Altamirano Mouchli MD, Ron Diamond CST, Alexandria M Time Out Complete 12/05/24 11:01:00 Outcomes Met? Yes Last Modified By: Sandra Mead RN 12/05/24 11:22:25 Post-Care Text: The patient is free from signs and symptoms of injury caused by extraneous objects Allergy Information FT Pre-Care Text: Verifies allergies Entry 1 Allergies Reviewed? Yes Allergies Reviewed Self/Patient With Outcomes Met? Yes Last Modified By: Sandra Mead RN 12/05/24 11:02:12 Post-Care Text: The patient received appropriate medication(s) safely administered during the perioperative period Surgical Procedures FT Entry 1 Procedure Description Procedure EGD AND COLONOSCOPY Modifiers . Surgeon Description EGD with esophagitis, hiatal hernia, gastropathy, inlet patches. Colonoscopy Primary Procedure Yes Primary Surgeon Mariah Gordon MD Start 12/05/24 11:04:00 Stop 12/05/24 11:19:00 Anesthesia Type General Surgical Service Gastroenterology Wound Class 2 - Clean-Contaminated Last Modified By: Sandra Mead RN 12/05/24 11:20:22 General Case Data FT Pre-Care Text: Classifies surgical wound, implements aseptic technique, initiates traffic control Entry 1 Case Information OR ENDO 1 FT Case Level Level 2 Wound Class 2 - Clean-Contaminated Specialty Gastroenterology ASA Class 2 Preop Diagnosis Abdominal pain, BRBPR Postop Same As Preop No Postop Diagnosis EGD- Erosive Outcomes Met? Yes gastropathy, hiatal hernia, esophagitis. Colonoscopy- hemmoroids. Last Modified By: Sandra Mead RN 12/05/24 11:22:55 Post-Care Text: The patient is free from signs and symptoms of infection Skin Assessment (Pre Procedure) FT Pre-Care Text: Implements protective measures to prevent skin/ tissue injury due to thermal or mechanical sources Evaluates for signs and symptoms of physical injury to skin and tissue Entry 1 Skin Integrity Intact, Banning, Warm, & Skin Abnormality No Dry Outcomes Met? Yes Last Modified By: Sandra Mead RN 12/05/24 11:02:44 Post-Care Text: The patient is free from signs and symptoms of injury caused by extraneous objects Patient Positioning FT Pre-Care Text: Identifies physical alterations that require additional precautions for procedure-specific positioning, verifies presence (more content not included)... Normal [facility] Discharge Instructionson Discharge Instructions Discharge Instructions MEAGANJason TIRSO A :1985 Visit Date:12/05/2024 Inpatient Discharge Instructions Your Care Team Admitting Physician - Mariah Gordon MD. Referring Physician - Mariah Gordon MD. Reason for Your Visit ABDOMINAL PAIN, BRBPR Your Diagnosis Erosive gastropathy Gastropathy Hemorrhoids, internal Hernia, hiatal Tests Performed Pathology Tissue Exam -- Results Pending -- Please visit your patient portal for your results or contact your primary care physician. This Is Your Medications List pantoprazole (Pantoprazole [address] Tab) Procedure History Colonoscopy (12/05/2024), Esophagogastroduodenoscopy (12/05/2024). What to do next Instructions From Your Doctor No qualifying data available. New Follow Up Appointments after Discharge Follow Up with Evan GIL, DON Diamond, MED When: Comments: Call for any problems. Call the office in about one week to schedule a follow up appointment to go over results. Where: [address], [address] [place] [phone] Medications What How Much When Instructions Next Dose New pantoprazole (Pantoprazole [address] Tab) 1 Tablets By Mouth Every day Refills: 2 Pickup at [facility]/pharmacy #[id number] Pharmacy Information [facility]/pharmacy #[id number]: [address], [place] [phone] Test Results No qualifying data available. Allergies traMADol (Vomiting) Problems Ongoing - Any problem that you are currently receiving treatment for. Nausea Stress-related physiological response affecting medical condition Syncope Tattoo Tetrahydrocannabinol (THC) dependence Education Materials Hiatal Hernia A hiatal hernia occurs when part of the stomach slides above the muscle that separates the abdomen from the chest (diaphragm). A person can be born with a hiatal hernia (congenital), or it may develop over time. In almost all cases of hiatal hernia, only the top part of the stomach pushes through the diaphragm. Many people have a hiatal hernia with no symptoms. The larger the hernia, the more likely it is that you will have symptoms. In some cases, a hiatal hernia allows stomach acid to flow back into the tube that carries food from your mouth to your stomach (esophagus). This may cause heartburn symptoms. The development of heartburn symptoms may mean that you have a condition called gastroesophageal reflux disease (GERD). What are the causes? This condition is caused by a weakness in the opening (hiatus) where the esophagus passes through the diaphragm to attach to the upper part of the stomach. A person may be born with a weakness in the hiatus, or a weakness can develop over time. What increases the risk? This condition is more likely to develop in: ??? Older people. Age is a major risk factor for a hiatal hernia, especially if you are over the age of 50. ??? women. ??? People who are overweight. ??? People who have frequent constipation. What are the signs or symptoms? Symptoms of this condition usually develop in the form of GERD symptoms. Symptoms include: ??? Heartburn. ??? Upset stomach (indigestion). ??? Trouble swallowing. ??? Coughing or wheezing. Wheezing is making high-pitched whistling sounds when you breathe. ??? Sore throat. ??? Chest pain. ??? Nausea and vomiting. How is this diagnosed? This condition may be diagnosed during testing for GERD. Tests that may be done include: ??? X-rays of your stomach or chest. ??? An upper gastrointestinal (GI) series. This is an X-ray exam of your GI tract that is taken after you swallow a chalky liquid that shows up clearly on the X-ray. ??? Endoscopy. This is a procedure to look into your stomach using a thin, flexible tube that has a tiny camera and light on the end of it. How is this treated? This condition may be treated by: ??? Dietary and lifestyle changes to help reduce GERD symptoms. ??? Medicines. These may include: ? Puie-big-jvutfbc antacids. ? Medicines that make your stomach empty more quickly. ? Medicines that block the production of stomach acid (H2 blockers). ? Stronger medicines to reduce stomach acid (proton pump inhibitors). ??? Surgery to repair the hernia, if other treatments are not helping. If you have no symptoms, you may not need treatment. Follow these instructions at home: Lifestyle and activity ??? Do not use any products that contain nicotine or tobacco. These products include cigarettes, chewing tobacco, and vaping devices, such as e-cigarettes. If you need help quitting, ask your health care provider. ??? Try to achieve and maintain a healthy body weight. ??? Avoid putting pressure on your abdomen. Anything that puts pressure on your abdomen increases the amount of acid that may be pushed up into your esophagus. ? Avoid bending over, especially after eating. ? Raise the head o (more content not included)... Normal [facility] Comment on above: Result Comment: Samantha paiz Signed By: Xiomara Mccormick I\.andrei\Date and Time Signed: 12/05/24 11:30 EDT H&P Updateon 12-05-2024 H&P Update H&P Update Patient: TIRSO FINNEY Age: 39 years Sex: Male : 1985 Associated Diagnoses: None Author: Mariah Gordon MD Preoperative Information Chief compliant/Indication for procedure: Abdominal pain, nausea, bleeding Chief Complaint as above Review of Systems All systems reviewed, negative except as mentioned above Health Status Allergies: Allergic Reactions (Selected) Severity Not Documented TraMADol- Vomiting. Current medications: (Selected) Inpatient Medications Ordered Sodium Chloride 0.9% IV Luisa 1000 mL 1,000 mL: 1,000 mL, IV, 20 mL/hr, Routine, Start date 12/05/24 10:24:00 EDT, 50 hour(s), Total volume (mL): 1,000, 70.9 kg, 1.9, m2 Problem list: All Problems Nausea / SNOMED CT 4767296690 / Confirmed Stress-related physiological response affecting medical condition / SNOMED CT 81586674 / Confirmed Syncope / SNOMED CT 506268411 / Confirmed Tattoo / SNOMED CT 0462550137 / Confirmed Tetrahydrocannabinol (THC) dependence / SNOMED CT 941828688 / Confirmed Tobacco use / SNOMED CT 5214396379 / Confirmed, Active Problems (6) Nausea Stress-related physiological response affecting medical condition Syncope Tattoo Tetrahydrocannabinol (THC) dependence Tobacco use Histories Past Medical History: No active or resolved past medical history items have been selected or recorded. Family History: No family history items have been selected or recorded. Procedure history: No active procedure history items have been selected or recorded. Physical Examination Vital Signs (last 24 hrs) Last Charted Temp Temporal 36.7 DegC (DEC 05:) Heart Rate Monitored 63 bpm (DEC 05:) SBP 99 mmHg (DEC 05:) DBP L 57 mmHg (DEC 05:) General: in Nad Abdomen: Soft, NTND Impression and Plan Diagnosis: Abdominal pain, nausea, bleeding -EGD and colonoscopy Normal [facility] Comment on above: Result Comment: Elec tronically Signed By: Evan GIL, Mariah Gunter\.br\Date and Time Signed: 12/05/24 10:29 EDT Main OR PACU I Recordon 11-24 Main OR PACU I Record Main OR PACU I Record PACU Phase I Document Type FT Summary Primary Physician: Mariah Gordon MD Finalized Date/Time: 12/05/24 11:54:12 Pt. Name: TIRSO FINNEY Rima Knapp/Sex: 1985 Male Med Rec #: [id number] Physician: Mariah Gordon MD Financial #: [id number] Pt. Type: O Room/Bed: / Admit/Disch: 12/05/24 10:02:37 - Institution: Case Times PACU I FT Pre-Care Text: Identifies barriers to communication and implements measures to provide psychological support Develops individualized plan of care, and ensures continuity of care Maintains patient's dignity and privacy, and maintains patient confidentiality Identifies and reports philosophical, cultural, and spiritual beliefs and values Identifies individual values and wishes concerning care Implements aseptic technique, and administers prescribed antibiotic therapy and immunizing agents as ordered Evaluates postoperative tissue perfusion Implements thermoregulation measures, and monitors body temperature Evaluates postoperative respiratory status Evaluates postoperative cardiac status Evaluates postoperative neurological status Assesses pain control, collaborated in initiating patient-controlled analgesia and implements alternative methods of pain control Verifies allergies, administers prescribed medications and solutions, evaluates response to medications Entry 1 In PACU I 12/05/24 11:25:00 Discharge from PACU 12/05/24 11:50:00 I Outcomes Met? Yes Last Modified By: Xiomara Mccormick I 12/05/24 11:53:46 Post-Care Text: The patient demonstrates knowledge of the expected response to the operative or invasive procedure The patient's care is consistent with the individualized perioperative plan of care The patient's right to privacy is maintained The patient's value system, lifestyle, ethnicity, and culture are considered, respected, and incorporated into the perioperative plan of care The patient participates in decisions affecting his or her perioperative plan of care The patient is free from signs and symptoms of infection The patient has wound/tissue perfusion consistent with or improved from baseline levels established preoperatively The patient is at or returning to normothermia at the conclusion of the immediate postoperative period The patient's respiratory function is consistent with or improved from baseline levels established preoperatively The patient's cardiovascular status is consistent with or improved from baseline levels established preoperatively The patient's cardiovascular status is consistent with or improved from baseline levels established preoperatively The patient demonstrates and/or reports adequate pain control throughout the perioperative period The patient received appropriate medication(s), safely administered during the perioperative period Acuity Level PACU I FT Entry 1 Start Time 12/05/24 11:25:00 Stop Time 12/05/24 11:50:00 Acuity Level Acuity Level I Last Modified By: Xiomara Mccormick I 12/05/24 11:53:56 Finalized By: Xiomara Mccormick I Document Signatures Signed By: Xiomara Mccormick I 12/05/24 11:54 Normal [facility] Main OR Preoperative Recordo n 12-05-2024 Main OR Preoperative Record Main OR Preoperative Record Holding Area Document Type FT Summary Primary Physician: Mariah Gordon MD Finalized Date/Time: 12/05/24 10:23:52 Pt. Name: JAVIERTIRSO/Sex: 1985 Male Med Rec #: [id number] Physician: Mariah Gordon MD Financial #: [id number] Pt. Type: O Room/Bed: / Admit/Disch: 12/05/24 10:02:37 - Institution: Case Times Holding FT Pre-Care Text: Verifies consent for planned procedure, identifies individual values and wishes concerning care, includes family members in perioperative teaching Secures patient's records' belongings, and valuables, maintains patient's dignity and privacy, and maintains patient confidentiality Entry 1 In Holding 12/05/24 10:22:00 Outcomes Met? Yes Last Modified By: Gia Strange RN 12/05/24 10:22:09 Post-Care Text: The patient participates in decisions affecting his or her perioperative plan of care The patient's right to privacy is maintained Surgery Checklist FT Entry 1 Patient Birthday, ID Band Procedure History and Physical, Identification: Check, Patient Verification: Surgical Consent, With Participation Patient NPO after Midnight: No Date/Time: 12/05/24 03:00:00 Personal Items right fibula metal Limitations: none Comment: Complaints of Pain: No Pain Comment: denies Operative Site n/a Availability Equipment Marking: Verified: Does Patient Smoke Yes If Yes to Smoking. vapes daily Cigars or Cigarettes. How much per day? Patient states Yes Comment - Adult Eunice postop adult Supervision supervision available Case Cancelled in No Holding Area see comments below for reason Last Modified By: Gia Strange RN 12/05/24 10:23:47 General Comments: PT. NPO since bowel prep finished at 0300/AW RN Finalized By: Gia Strange RN Document Signatures Signed By: Gia Strange RN 12/05/24 10:23 Normal [facility] Operative Reporton Operative Report Operative Report Patient: TIRSO FINNEY Age: 39 years Sex: Male : 1985 Associated Diagnoses: None Author: Mariah Gordon MD Pre-Procedure Procedure Date 12/05/2024 11:23:00 . Procedure Type: Colonoscopy. Procedure provider Performed by Mariah Gordon MD. Current history and physical Documented on chart. No active procedure history items have been selected or recorded.. Past Medical History No active or resolved past medical history items have been selected or recorded.. Family History No family history items have been selected or recorded.. Procedure History No active procedure history items have been selected or recorded.. Colorectal neoplasm risk assessment Average risk. Informed Consent After discussing the rationale, risks and benefits, and alternatives to this procedure, the patient provided signed consent for the procedure. Pre-procedure diagnosis: Diagnostic: Abdominal pain. Medications (Selected) Inpatient Medications Ordered Lactated Ringers IV Luisa 1000 mL 1,000 mL: 1,000 mL, IV, 100 mL/hr, Routine, Start date 12/05/24 10:29:00 EDT, 10 hour(s), Total volume (mL): 1,000, 70.9 kg, 1.9, m2 Sodium Chloride 0.9% IV Luisa 1000 mL 1,000 mL: 1,000 mL, IV, 20 mL/hr, Routine, Start date 12/05/24 10:24:00 EDT, 50 hour(s), Total volume (mL): 1,000, 70.9 kg, 1.9, m2 Zofran 4 mg/2 mL Injection: 4 mg = 2 mL, Injection, IV Push, Once PRN Nausea/Vomiting, Routine, Start date 12/05/24 10:29:00 EDT, 12/05/24 10:29:00 EDT promethazine additive 12.5 mg + Sodium Chloride 0.9% IV Luisa 50 mL (INT) 50 mL: Injection, IV Piggyback, Once PRN Nausea/Vomiting, Routine, Start date 12/05/24 10:29:00 EDT, 151.5 mL/hr, Infuse over 20 minute(s) ASA Classification: Class II. . Monitoring: See anesthesia record. . Procedure The procedure was performed in the hospital. See anesthesia record for sedation given during procedure. The patient was positioned starting in the left lateral decubitus position. Endoscope type used was a pediatric-size. The endoscope was lubricated then introduced through the anus. The scope was advanced to the terminal ileum. No difficulties encountered during the procedure. The bowel preparation quality was good and was adequate (see polyps greater than or equal to 6 millimeters). The patient tolerated the procedure well. Time to Cecum: 2 min Withdrawal time: 8 min Findings 1. Small internal hemorrhoids 2. Normal colon 3. Normal terminal ileum Images Procedure images: [id number]__[id number]__[id number]_[id number]__[id number]__[id number] [id number]__[id number].jpg . Post-Procedure Complications: none. Estimated blood loss: none. Specimens: none. Devices/ implants: none left in place. Impression and Plan small hemorrhoids Recommendations: Repeat colonoscopy:: In 10 years. Follow-up:: in clinic as scheduled. Diet:: Previous. Medication resumption:: Continue current medications, Avoid NSAIDs. Return to activities:: After 24 hours. Education and Follow-up: Counseled: Patient, Family. Jeane [facility] Comment on above: Result Comment: Elec tronically Signed By: Mariah Gordon MD\.br\Date and Time Signed: 12/05/24 11:23 EDT Other Comment: Edwina de jesus Attachment - attachment storage system not supported [id number] Can be viewed in source systemMissing Attachment - attachment storage system not supported [id number] Can be viewed in source systemMissing Attachment - attachment storage system not supported [id number] Can be viewed in source systemMissing Attachment - attachment storage system not supported [id number] Can be viewed in source systemMissing Attachment - attachment storage system not supported [id number] Can be viewed in source systemMissing Attachment - attachment storage system not supported [id number] Can be viewed in source system Operative Report Operative Report Patient: TIRSO FINNEY Age: 39 years Sex: Male : 1985 Associated Diagnoses: None Author: Mariah Gordon MD Pre-Procedure Procedure Date 12/05/2024 11:21:00 . Procedure Type: Esophagogastroduodenoscopy with biopsy. Procedure provider Performed by Mariah Gordon MD. Current history and physical Documented on chart. Informed Consent After discussing the rationale, risks and benefits, and alternatives to this procedure, the patient provided signed consent for the procedure. Pre-procedure diagnosis: Abdominal pain Nausea. Medications (Selected) Inpatient Medications Ordered Lactated Ringers IV Luisa 1000 mL 1,000 mL: 1,000 mL, IV, 100 mL/hr, Routine, Start date 12/05/24 10:29:00 EDT, 10 hour(s), Total volume (mL): 1,000, 70.9 kg, 1.9, m2 Sodium Chloride 0.9% IV Luisa 1000 mL 1,000 mL: 1,000 mL, IV, 20 mL/hr, Routine, Start date 12/05/24 10:24:00 EDT, 50 hour(s), Total volume (mL): 1,000, 70.9 kg, 1.9, m2 Zofran 4 mg/2 mL Injection: 4 mg = 2 mL, Injection, IV Push, Once PRN Nausea/Vomiting, Routine, Start date 12/05/24 10:29:00 EDT, 12/05/24 10:29:00 EDT promethazine additive 12.5 mg + Sodium Chloride 0.9% IV Luisa 50 mL (INT) 50 mL: Injection, IV Piggyback, Once PRN Nausea/Vomiting, Routine, Start date 12/05/24 10:29:00 EDT, 151.5 mL/hr, Infuse over 20 minute(s) Anticoagulant/antiplatelet None. ASA Classification: Class II. . Monitoring: See anesthesia record. . Procedure The procedure was performed in the hospital. See anesthesia record for sedation given during procedure. The patient was positioned starting in the left lateral decubitus position and with safety measures. Endoscope type used was an adult-size, introduced orally, advanced to the 2nd portion of the duodenum. No difficulty was encountered during the procedure. Views were excellent. The patient tolerated the procedure well. Findings 1. Normal esophagus. Hiatal hernia. Reflux esophagitis. 2. Erythema in the antrum, mild patchy with scattered erosions. Otherwise normal stomach. Biopsies of the stomach were taken to rule out H. pylori. 3. Normal duodenum. Biopsies obtained Images Procedure images: [id number]_hd_video_2024__T10 [id number].jpg Rec1_hd_video__T10 [id number].jpg Rec1_hd_video__T10 _[id number].jpg Rec1_hd_video__T10 _[id number].jpg Rec1_hd_video__T10 _[id number].jpg Rec1_hd_video__T10 _[id number].jpg Rec1_hd_video__0 _[id number].jpg . Post-Procedure Complications: none. Estimated blood loss: minimal. Specimens: sent to pathology. Devices/ implants: none left in place. Impression and Plan hiatal hernia Reflux esophagitis Erosive gastropathy Recommendations: -Resume previous diet -Resume home medications -Protonix 40 mg daily -Await pathology results, follow in GI clinic in 1-2 after discharge Normal [facility] Comment on above: Result Comment: Elec tronically Signed By: Evan GIL, Mariah Gunter\.br\Date and Time Signed: 12/05/24 11:22 EDT Other Comment: Edwina de jesus Attachment - attachment storage system not supported [id number] Can be viewed in source systemMissing Attachment - attachment storage system not supported [id number] Can be viewed in source systemMissing Attachment - attachment storage system not supported [id number] Can be viewed in source systemMissing Attachment - attachment storage system not supported [id number] Can be viewed in source systemMissing Attachment - attachment storage system not supported [id number] Can be viewed in source systemMissing Attachment - attachment storage system not supported [id number] Can be viewed in source systemMissing Attachment - attachment storage system not supported [id number] Can be viewed in source system Ambulatory Visit Summaryon 0 11-15-2024 Ambulatory Visit Summary Ambulatory Visit Summary TIRSO FINNEY :1985 Visit Date:11/15/2024 Ambulatory Visit Instructions Your Diagnosis Abdominal pain BRBPR (bright red blood per rectum) Nausea Tattoo Tetrahydrocannabinol (THC) dependence Syncope Stress-related physiological response affecting medical condition Your Care Team Attending Physician - Mariah Gordon MD Primary Care Physician - ELLA RAMIREZ CNP Discharge Vitals Heart Rate (Peripheral) 68 Respiratory Rate 16 Blood Pressure 118/82 Height 184 cm Height 72 in Weight 70.9 kg Weight 156.308 lb BMI 20.94 Allergies traMADol (Vomiting) Problems Ongoing - Any problem that you are currently receiving treatment for. Nausea Stress-related physiological response affecting medical condition Syncope Tattoo Tetrahydrocannabinol (THC) dependence Patient Survey You may receive a survey via text or e-mail asking about your office visit. Please share your experience with us by completing your survey. We appreciate your feedback and thank you for choosing us for your care. Patient Portal You may access all of your results and other medical record information on our secure patient portal. If you are not signed up for this yet, please contact [employer] Management at [phone] to get signed up today. Language Information Language assistance services are available as needed. Jeane Ansari [facility] Gastroenterology Office/Clin ic Noteon 11-15-2024 Gastroenterology Office/Clinic Note Gastroenterology Office/Clinic Note Chief Complaint ref by socorro- abd pain and BRBPR HPI Staff NEW, 39 year old male who presents today for a referral by Socorro for complaints of abdominal pain and BRBPR. Denies Blood Thinners Denies GLP-1 Agonists Denies Family history of colon cancer Abdominal pain: When did you first have this pain: on going Quality (sharp, dull): cramping, sharp Constant or comes or go: comes and goes location and radiation: generalized Relation to food: no Improving or worsening factors factors: Zofran was helping Rectal bleeding: Onset of symptoms: few years ago Bright red or dark red? varies Every BM or less often? sometimes on toilet paper and sometimes in stool Hx hemorrhoids? yes Associated symptoms: occasional constipation Improving/worsening factors: sometimes last 2 weeks Labs 11/01/24 CBC/CMP normal Occult Blood negative History of Present Illness I have reviewed HPI staff note, most recent labs and imaging, I agree with the above documentation with the following additions/exceptions : pt with abd pain all over of abd since he was born was put on Zofran and gas pills Zofran helped but got chest pain from it bowel movements are mushy mushy x 2 years some incomplete evacuation 4 time today started to have rectal bleeding 4 years ago on toilet paper and in the stool JAZMIN did not show hemorrhoids no anal pain nausea but no vomiting - used to vomit daily bloating flatulence THC smokes but not every day CT scan in 2019 Stress Syncopal episode not too long ago Review of Systems PHQ Score Initial Depression Screen Score: 0 SCORE All systems reviewed, negative except as mentioned above Physical Exam Vitals & Measurements HR: 68(Peripheral) RR: 16 BP: 118/82 HT: 72 in HT: 184 cm WT: 156.308 lb WT: 70.9 kg BMI: 20.94 General: alert, no acute distress HEENT: atraumatic normocephalic Cardiovascular: regular rate and rhythm, normal peripheral perfusion Respiratory: Lungs CTA, respirations non labored Extremities: no deformity, no trauma Abdomen: Benign, soft, tender nondistended groin : no pain in both sides Assessment/Plan 1. Abdominal pain (R10.9: Unspecified abdominal pain) Ordered: Colonoscopy (Hospital Procedure) EGD Endoscopy (Hospital Procedure) 2. BRBPR (bright red blood per rectum) (K62.5: Hemorrhage of anus and rectum) Ordered: Colonoscopy (Hospital Procedure) EGD Endoscopy (Hospital Procedure) 3. Nausea (R11.0: Nausea) 4. Tattoo (L81.8: Other specified disorders of pigmentation) 5. Tetrahydrocannabinol (THC) dependence (F12.20: Cannabis dependence, uncomplicated) 6. Syncope (R55: Syncope and collapse) 7. Stress-related physiological response affecting medical condition (F54: Psychological and behavioral factors associated with disorders or diseases classified elsewhere) Schedule upper endoscopy to evaluate chronic nausea and abdominal pain Schedule colonoscopy to evaluate lower abdominal pain and rectal bleeding Might benefit from vasovagal reflexes evaluation and neurology evaluation Might benefit from neuromodulator Advised to keep stress under good control Advised to avoid NSAIDs and take Tylenol if needed since cardiology recommended starting NSAIDs for abdominal pain Follow-up No qualifying data available Problem List/Past Medical History Ongoing Nausea Stress-related physiological response affecting medical condition Syncope Tattoo Tetrahydrocannabinol (THC) dependence Historical No qualifying data Medications No active medications Allergies traMADol (Vomiting) Social History Tobacco Cigars or pipes daily within last 30 days Tobacco Use:. Current vaping or e-cigarette use Smokeless Tobacco Use:., 11/15/2024 [facility] Comment on above: Result Comment: Elec tronically Signed By: Evan GIL, Mariah Gunter\.br\Date and Time Signed: 11/15/24 14:19 EDT Provider Letteron 11-15-2024 Provider Letter Provider Letter November 15, 2024 [address]SO [address]NEY [address] [place] [id number] : 1985 To Whom It May Concern, Please excuse above patient from work. Date of Illness: From: 11/15/24 To: 11/15/24 May Return to Work On: 11/16/24 Comments: If there are any questions, concern or any issues feel free to contact our office at [phone] Sincerely, Mariah Gordon MD [facility] Normal [facility] Office Visiton 11-03-2024 Follow-up visit [id number] Tirso Finney 1985 M Date Provider Department Center 11/03/2024 [id number] COLLAZO Family History Problem Relation Age of Onset Coronary artery disease Father Hypertension Father Family Status - Relation Status Age at Father Level of Service:42091 [place] OFFICE/OUTPATIENT NEW MODERATE MDM 45 MINUTES Reason for Visit and Comments: Chest Pain [815691] - Says chest pain radiates to his left arm and back. He describes it as a burning . He states episodes are becoming longer and more frequent. Had exercise stress test in 2018. Echo was done in 2020. Syncope [506] - Admits to syncopal episode 2 days ago. Dizziness [346354] Normal [facility] Bilirubin, Directon 07-08-19 24 Bilirubin.indirect [Mass/Vol] mg/dL Normal 0.00-0.30 [facility] Comment on above: Performed By: #### L IPRF, TSH, VALPC, GLYHGB, CDP, CP, DBILI #### [employer] [address] [place] [address] [phone] Youth Care Specialist: Gus Cazares MD CBC with Diffon 07-08-2023 Abs. Basophil 0.07 k/uL Normal 0.00-0.20 [facility] Comment on above: Performed By: #### L IPRF, TSH, VALPC, GLYHGB, CDP, CP, DBILI #### [facility] [place] [address] Youth Care Specialist: Gus Cazares MD Abs.Imm.Granulocyte 0.08 k/uL Normal 0.00-0.30 [facility] Comment on above: Performed By: #### L IPRF, TSH, VALPC, GLYHGB, CDP, CP, DBILI #### [facility] [address] [place] [address] Youth Care Specialist: Gus Cazares MD Abs.Neutrophil (Seg) 3.99 k/uL Normal 1.50-8.10 [facility] Comment on above: Performed By: #### L IPRF, TSH, VALPC, GLYHGB, CDP, CP, DBILI #### [address] [address] Youth Care Specialist: Gus Cazaers MD Basophils/100 WBC (Bld) 1 % Normal 0-2 [facility] Comment on above: Performed By: #### L IPRF, TSH, VALPC, GLYHGB, CDP, CP, DBILI #### [place] [address] Youth Care Specialist: Gus Cazares MD Eosinophils (Bld) [#/Vol] 0.05 10*3/uL Normal 0.00-0.44 [facility] Comment on above: Performed By: #### L IPRF, TSH, VALPC, GLYHGB, CDP, CP, DBILI #### [place] [address] Youth Care Specialist: Gus Cazares MD Eosinophils/100 WBC (Bld) 1 % Normal 1-4 [facility] Comment on above: Performed By: #### L IPRF, TSH, VALPC, GLYHGB, CDP, CP, DBILI #### [place] [address] Youth Care Specialist: Gus Cazares MD Erythrocyte distribution width (RBC) [Ratio] 15.0 % High 11.8-14.4 [facility] Comment on above: Performed By: #### L IPRF, TSH, VALPC, GLYHGB, CDP, CP, DBILI #### [facility] [address] [place] [address] Youth Care Specialist: Gus Cazares MD Hematocrit (Bld) [Volume fraction] 44.7 % Normal 40.7-50.3 [facility] Comment on above: Performed By: #### L IPRF, TSH, VALPC, GLYHGB, CDP, CP, DBILI #### [address] [address] Youth Care Specialist: Gus Cazares MD Hemoglobin (Bld) [Mass/Vol] 14.4 g/dL Normal 13.0-17.0 [facility] Comment on above: Performed By: #### L IPRF, TSH, VALPC, GLYHGB, CDP, CP, DBILI #### [address] [address] Youth Care Specialist: Gus Cazares MD Immature granulocytes/100 WBC (Bld) 1 % High 0 [facility] Comment on above: Performed By: #### L IPRF, TSH, VALPC, GLYHGB, CDP, CP, DBILI #### [address] [address] Youth Care Specialist: Gus Cazares MD Lymphocytes (Bld) [#/Vol] 1.37 10*3/uL Normal 1.10-3.70 [facility] Comment on above: Performed By: #### L IPRF, TSH, VALPC, GLYHGB, CDP, CP, DBILI #### [address] [address] Youth Care Specialist: Gus Cazares MD Lymphocytes/100 WBC (Bld) 23 % Low 24-43 [facility] Comment on above: Performed By: #### L IPRF, TSH, VALPC, GLYHGB, CDP, CP, DBILI #### [facility] [address] [place] [id number] Youth Care Specialist: Gus Cazares MD MCH (RBC) [Entitic mass] 28.1 pg Normal 25.2-33.5 [facility] Comment on above: Performed By: #### L IPRF, TSH, VALPC, GLYHGB, CDP, CP, DBILI #### [address] [address] Youth Care Specialist: Gus Cazares MD MCHC (RBC) [Mass/Vol] 32.2 g/dL Normal 28.4-34.8 [facility] Comment on above: Performed By: #### L IPRF, TSH, VALPC, GLYHGB, CDP, CP, DBILI #### [address] [address] Youth Care Specialist: Gus Cazares MD MCV (RBC) [Entitic vol] 87.1 fL Normal 82.6-102.9 [facility] Comment on above: Performed By: #### L IPRF, TSH, VALPC, GLYHGB, CDP, CP, DBILI #### [address] [address] Youth Care Specialist: Gus Cazares MD Monocytes (Bld) [#/Vol] 0.49 10*3/uL Normal 0.10-1.20 [facility] Comment on above: Performed By: #### L IPRF, TSH, VALPC, GLYHGB, CDP, CP, DBILI #### [address] [address] Youth Care Specialist: Gus Cazares MD Monocytes/100 WBC (Bld) 8 % Normal 3-12 [facility] Comment on above: Performed By: #### L IPRF, TSH, VALPC, GLYHGB, CDP, CP, DBILI #### [address] [address] Youth Care Specialist: Gus Cazares MD Neutrophil (Seg) 66 % High 36-65 [facility] Comment on above: Performed By: #### L IPRF, TSH, VALPC, GLYHGB, CDP, CP, DBILI #### [address] [address] Youth Care Specialist: Gus Cazares MD NRBC Automated 0.0 per 100 WBC Normal 0.0 [facility] Comment on above: Performed By: #### L IPRF, TSH, VALPC, GLYHGB, CDP, CP, DBILI #### [address] [address] Youth Care Specialist: Gus Cazares MD Platelet mean volume (Bld) [Entitic vol] 10.5 fL Normal 8.1-13.5 [facility] Comment on above: Performed By: #### L IPRF, TSH, VALPC, GLYHGB, CDP, CP, DBILI #### [address] [address] Youth Care Specialist: Gus Cazares MD Platelets (Bld) [#/Vol] 326 10*3/uL Normal 138-453 [facility] Comment on above: Performed By: #### L IPRF, TSH, VALPC, GLYHGB, CDP, CP, DBILI #### [place] [address] Youth Care Specialist: Gus Cazares MD RBC (Bld) [#/Vol] 5.13 10*6/uL Normal 4.21-5.77 [facility] Comment on above: Performed By: #### L IPRF, TSH, VALPC, GLYHGB, CDP, CP, DBILI #### [address] [address] Youth Care Specialist: Gus Cazares MD RBC morphology finding Nom (Bld) ANISOCYTOSIS PRESENT Normal [facility] Comment on above: Performed By: #### L IPRF, TSH, VALPC, GLYHGB, CDP, CP, DBILI #### [address] [address] Youth Care Specialist: Gus Cazares MD WBC (Bld) [#/Vol] 6.1 10*3/uL Normal 3.5-11.3 [facility] Comment on above: Performed By: #### L IPRF, TSH, VALPC, GLYHGB, CDP, CP, DBILI #### [address] [address] Youth Care Specialist: Gus Cazares MD Comp Metabolic Profon 2023 Albumin [Mass/Vol] 4.6 g/dL Normal 3.5-5.2 [facility] Comment on above: Performed By: #### L IPRF, TSH, VALPC, GLYHGB, CDP, CP, DBILI #### [address] [address] Youth Care Specialist: Gus Cazares MD Albumin/Glob Ratio 2.0 Normal 1.0-2.5 [facility] Comment on above: Performed By: #### L IPRF, TSH, VALPC, GLYHGB, CDP, CP, DBILI #### [address] [address] Youth Care Specialist: Gus Cazares MD Alkaline Phos 70 U/L Normal 40-129 [facility] Comment on above: Performed By: #### L IPRF, TSH, VALPC, GLYHGB, CDP, CP, DBILI #### [address] [address] Youth Care Specialist: Gus Cazares MD ALT [Catalytic activity/Vol] 25 U/L Normal 10-50 [facility] Comment on above: Performed By: #### L IPRF, TSH, VALPC, GLYHGB, CDP, CP, DBILI #### [address] [address] Youth Care Specialist: Gus Cazares MD Anion gap [Moles/Vol] 12 mmol/L Normal 9-16 [facility] Comment on above: Performed By: #### L IPRF, TSH, VALPC, GLYHGB, CDP, CP, DBILI #### [address] [address] Youth Care Specialist: Gus Cazares MD AST [Catalytic activity/Vol] 27 U/L Normal 10-50 [facility] Comment on above: Performed By: #### L IPRF, TSH, VALPC, GLYHGB, CDP, CP, DBILI #### [address] [address] Youth Care Specialist: Gus Cazares MD Bilirubin [Mass/Vol] 0.2 mg/dL Normal 0.00-1.20 [facility] Comment on above: Performed By: #### L IPRF, TSH, VALPC, GLYHGB, CDP, CP, DBILI #### [address] [address] Youth Care Specialist: Gus Cazares MD Calcium [Mass/Vol] 9.7 mg/dL Normal 8.6-10.4 [facility] Comment on above: Performed By: #### L IPRF, TSH, VALPC, GLYHGB, CDP, CP, DBILI #### [address] [address] Youth Care Specialist: Gus Cazares MD Chloride [Moles/Vol] 104 mmol/L Normal 98-107 [facility] Comment on above: Performed By: #### L IPRF, TSH, VALPC, GLYHGB, CDP, CP, DBILI #### [address] [address] Youth Care Specialist: Gus Cazares MD CO2 [Moles/Vol] 25 mmol/L Normal 20-31 [facility] Comment on above: Performed By: #### L IPRF, TSH, VALPC, GLYHGB, CDP, CP, DBILI #### [address] [address] Youth Care Specialist: Gus Cazares MD Creatinine [Mass/Vol] 0.6 mg/dL Low 0.70-1.20 [facility] Comment on above: Performed By: #### L IPRF, TSH, VALPC, GLYHGB, CDP, CP, DBILI #### [employer] [address] [place] [address] [phone] Youth Care Specialist: Gus Cazares MD GFR/1.73 sq M.predicted among non-blacks MDRD (S/P/Bld) [Vol rate/Area] mL/min/{1.73_m2} Normal >60 [facility] Comment on above: Result Comment: These results are not intended for use in patients <18 years of age. eGFR results are calculated without a race factor using the 2020 CKD-EPI equation. Careful clinical correlation is recommended, particularly when comparing to results calculated using previous equations. The CKD-EPI equation is less accurate in patients with extremes of muscle mass, extra-renal metabolism of creatine, excessive creatine ingestion, or following therapy that affects renal tubular secretion. Performed By: #### L IPRF, TSH, VALPC, GLYHGB, CDP, CP, DBILI #### [employer] [address] [place] [address] [phone] Youth Care Specialist: Gus Cazares MD Glucose [Mass/Vol] 126 mg/dL High 74-99 [facility] Comment on above: Performed By: #### L IPRF, TSH, VALPC, GLYHGB, CDP, CP, DBILI #### [employer] [address] [place] [address] [phone] Youth Care Specialist: Gus Cazares MD Potassium [Moles/Vol] 4.2 mmol/L Normal 3.7-5.3 [facility] Comment on above: Performed By: #### L IPRF, TSH, VALPC, GLYHGB, CDP, CP, DBILI #### [employer] [address] [place] [phone] Youth Care Specialist: Gus Cazares MD Protein [Mass/Vol] 7.4 g/dL Normal 6.6-8.7 [facility] Comment on above: Performed By: #### L IPRF, TSH, VALPC, GLYHGB, CDP, CP, DBILI #### [employer] [address] [place] [address] Youth Care Specialist: Gus Cazares MD Sodium [Moles/Vol] 141 mmol/L Normal 136-145 [facility] Comment on above: Performed By: #### L IPRF, TSH, VALPC, GLYHGB, CDP, CP, DBILI #### [address] [address] Youth Care Specialist: Gus Cazares MD Urea nitrogen [Mass/Vol] 16 mg/dL Normal 6-20 [facility] Comment on above: Performed By: #### L IPRF, TSH, VALPC, GLYHGB, CDP, CP, DBILI #### [facility] [address] [place] [phone] Youth Care Specialist: Gus Cazares MD Hemoglobin A1Con 07-08-2023 Glucose [Mass/Vol] 111 mg/dL Normal [facility] Comment on above: Result Comment: The ADA and AACC recommend providing the estimated average glucose result to permit better patient understanding of their HBA1c result. Performed By: #### L IPRF, TSH, VALPC, GLYHGB, CDP, CP, DBILI #### [address] [address] Youth Care Specialist: Gus Cazares MD HbA1c (Bld) [Mass fraction] 5.5 % Normal 4.0-6.0 [facility] Comment on above: Performed By: #### L IPRF, TSH, VALPC, GLYHGB, CDP, CP, DBILI #### [facility] [address] [place] [address] Youth Care Specialist: Gus Cazares MD Lipid Prof, Fastingon 2023 Cholesterol [Mass/Vol] 233 mg/dL High 0-199 [facility] Comment on above: Result Comment: Cholesterol Guidelines: <200 Desirable 200-240 Borderline >240 Undesirable Performed By: #### L IPRF, TSH, VALPC, GLYHGB, CDP, CP, DBILI #### [facility] [address] [place] [phone] Youth Care Specialist: Gus Cazares MD Cholesterol in HDL [Mass/Vol] 37 mg/dL Low >40 [facility] Comment on above: Result Comment: HDL Guidelines: <40 Undesirable 40-59 Borderline >59 Desirable Performed By: #### L IPRF, TSH, VALPC, GLYHGB, CDP, CP, DBILI #### [address] [address] Youth Care Specialist: Gus Cazares MD Cholesterol in LDL [Mass/Vol] 158 mg/dL High 0-100 [facility] Comment on above: Result Comment: LDL Guidelines: <100 Desirable 100-129 Near to/above Desirable 130-159 Borderline >159 Undesirable Direct (measured) LDL and calculated LDL are not interchangeable tests. Performed By: #### L IPRF, TSH, VALPC, GLYHGB, CDP, CP, DBILI #### [facility] [address] [place] [address] Youth Care Specialist: Gus Cazares MD Cholesterol in VLDL [Mass/Vol] 37 mg/dL Normal [facility] Comment on above: Performed By: #### L IPRF, TSH, VALPC, GLYHGB, CDP, CP, DBILI #### [address] [address] Youth Care Specialist: Gus Cazares MD Cholesterol.total/Ch olesterol in HDL [Mass ratio] 6.0 {ratio} Normal [facility] Comment on above: Performed By: #### L IPRF, TSH, VALPC, GLYHGB, CDP, CP, DBILI #### [address] [address] Youth Care Specialist: Gus Cazares MD Triglyceride,Fasting 187 mg/dL High 0-149 [facility] Comment on above: Result Comment: Triglyceride Guidelines: <150 Desirable 150-199 Borderline 200-499 High >499 Very high Based on AHA Guidelines for fasting triglyceride, January 2012. Performed By: #### L IPRF, TSH, VALPC, GLYHGB, CDP, CP, DBILI #### [facility] [address] [place] [phone] Youth Care Specialist: Gus Cazares MD Thyroid Stim. Horm.on 2023 Thyroid Stim. Horm. 0.61 uIU/mL Normal 0.27-4.20 [facility] Comment on above: Performed By: #### L IPRF, TSH, VALPC, GLYHGB, CDP, CP, DBILI #### [facility] [address] [place] [phone] Youth Care Specialist: Gus Cazares MD Valproic Acidon 07-08-2023 Valproic Acid 57 ug/mL Normal 50-125 [facility] Comment on above: Performed By: #### L IPRF, TSH, VALPC, GLYHGB, CDP, CP, DBILI #### [facility] [address] [place] [phone] Youth Care Specialist: Gus Cazares MD Date last dose, .URINE Normal [facility] Comment on above: Performed By: #### L IPRF, TSH, VALPC, GLYHGB, CDP, CP, DBILI #### [facility] [address] [place] [phone] Youth Care Specialist: Gus Cazares MD Dose amount .URINE Normal [facility] Comment on above: Performed By: #### L IPRF, TSH, VALPC, GLYHGB, CDP, CP, DBILI #### [facility] [address] [place] [phone] Youth Care Specialist: Gus Cazares MD Time last dose, .URINE Normal [facility] Comment on above: Performed By: #### L IPRF, TSH, VALPC, GLYHGB, CDP, CP, DBILI #### [facility] [address] [place] [phone] Youth Care Specialist: Gus Cazares MD CBCon 03-11-2023 Erythrocyte distribution width (RBC) [Ratio] 13.2 % Normal 11.8-14.4 [facility] Comment on above: Performed By: #### C BC #### [address] [place], [place] [phone] Youth Care Specialist: Carlos Ng MD Hematocrit (Bld) [Volume fraction] 41.2 % Normal 40.7-50.3 [facility] Comment on above: Performed By: #### C BC #### [address] [place], [place] [phone] Youth Care Specialist: Carlos Ng MD Hemoglobin (Bld) [Mass/Vol] 13.6 g/dL Normal 13.0-17.0 [facility] Comment on above: Performed By: #### C BC #### [address] [place], [place] [phone] Youth Care Specialist: Carlos Ng MD MCH (RBC) [Entitic mass] 28.0 pg Normal 25.2-33.5 [facility] Comment on above: Performed By: #### C BC #### [address] [place], [place] [id number] Youth Care Specialist: Carlos Ng MD MCHC (RBC) [Mass/Vol] 33.0 g/dL Normal 28.4-34.8 [facility] Comment on above: Performed By: #### C BC #### [address] [place], [place] 1060883 Youth Care Specialist: Carlos Ng MD MCV (RBC) [Entitic vol] 84.8 fL Normal 82.6-102.9 [facility] Comment on above: Performed By: #### C BC #### [address] [place], [place] 0109683 Youth Care Specialist: Carlos Ng MD NRBC Automated 0.0 per 100 WBC Normal 0.0 [facility] Comment on above: Performed By: #### C BC #### [facility] [address] [place] [address] Youth Care Specialist: Carlos Ng MD Platelet mean volume (Bld) [Entitic vol] 9.6 fL Normal 8.1-13.5 [facility] Comment on above: Performed By: #### C BC #### [facility] [address] [place] [address] Youth Care Specialist: Carlos Ng MD Platelets (Bld) [#/Vol] 283 10*3/uL Normal 138-453 [facility] Comment on above: Performed By: #### C BC #### [facility] [address] [place], [place] [id number] Youth Care Specialist: Carlos Ng MD RBC (Bld) [#/Vol] 4.86 10*6/uL Normal 4.21-5.77 [facility] Comment on above: Performed By: #### C BC #### [facility] [address] [place] [phone] Youth Care Specialist: Carlos Ng MD WBC (Bld) [#/Vol] 6.4 10*3/uL Normal 3.5-11.3 [facility] Comment on above: Performed By: #### C BC #### [facility] [address] [place], [facility]83 Youth Care Specialist: Carlos Ng MD Chlamydia/GC DNA, Uron 02-01 Chlamydia Probe, Ur Negative Normal NEG [facility] Comment on above: Result Comment: CHLA MYDIA TRACHOMATIS DNA not detected by nucleic acid amplification. This test is intended for medical purposes only and is not valid for the evaluation of suspected sexual abuse or for other forensic purposes. In certain contexts, culture may be required to meet applicable laws and regulations for diagnosis of C. trachomatis and N. gonorrhoeae infections. Per 2014 CDC recommendations, this test does not include confirmation of positive results by an alternative nucleic acid target. Performed By: #### U CGP #### [facility] [address] [place], [place] [id number] Youth Care Specialist: Gus Cazares MD #### UAMIC #### [facility] [address] [place] [address] Youth Care Specialist: Carlos Ng MD Gonorrhea Probe, Ur Negative Normal NEG [facility] Comment on above: Result Comment: NEIS SERIA GONORRHOEAE DNA not detected by nucleic acid amplification. This test is intended for medical purposes only and is not valid for the evaluation of suspected sexual abuse or for other forensic purposes. In certain contexts, culture may be required to meet applicable laws and regulations for diagnosis of C. trachomatis and N. gonorrhoeae infections. Per 2014 CDC recommendations, this test does not include confirmation of positive results by an alternative nucleic acid target. Performed By: #### U CGP #### [place] [address] [place] [address] Youth Care Specialist: Gus Cazares MD #### UAMIC #### [address] [place] [address] Youth Care Specialist: Carlos Ng MD Basic Metabolic Profon 01-30 Anion gap [Moles/Vol] 10 mmol/L Normal 9-17 [facility] Comment on above: Performed By: #### C DP, BMP #### [facility] [address] [place], [facility]83 Youth Care Specialist: Carlos Ng MD BUN/CRE Ratio 11 Normal 9-20 [facility] Comment on above: Performed By: #### C DP, BMP #### [facility] [address] [place] [address] Youth Care Specialist: Carlos Ng MD Calcium [Mass/Vol] 9.8 mg/dL Normal 8.6-10.4 [facility] Comment on above: Performed By: #### C DP, BMP #### [facility] [address] [place] [address] Youth Care Specialist: Carlos Ng MD Chloride [Moles/Vol] 100 mmol/L Normal 98-107 [facility] Comment on above: Performed By: #### C DP, BMP #### [facility] [address] [place], [place] 1946383 Youth Care Specialist: Carlos Ng MD CO2 [Moles/Vol] 28 mmol/L Normal 20-31 [facility] Comment on above: Performed By: #### C DP, BMP #### [facility] [address] [place] [address] Youth Care Specialist: Carlos Ng MD Creatinine [Mass/Vol] 0.9 mg/dL Normal 0.7-1.2 [facility] Comment on above: Performed By: #### C DP, BMP #### [facility] [address] [place] [address] Youth Care Specialist: Carlos Ng MD GFR/1.73 sq M.predicted among non-blacks MDRD (S/P/Bld) [Vol rate/Area] mL/min/{1.73_m2} Normal >60 [facility] Comment on above: Result Comment: These results are not intended for use in patients <18 years of age. eGFR results are calculated without a race factor using the 2020 CKD-EPI equation. Careful clinical correlation is recommended, particularly when comparing to results calculated using previous equations. The CKD-EPI equation is less accurate in patients with extremes of muscle mass, extra-renal metabolism of creatine, excessive creatine ingestion, or following therapy that affects renal tubular secretion. Performed By: #### C DP, BMP #### [facility] [address] [place] [address] Youth Care Specialist: Carlos Ng MD Glucose [Mass/Vol] 146 mg/dL High 70-99 [facility] Comment on above: Performed By: #### C DP, BMP #### [facility] [address] [place] 9[address]83 Youth Care Specialist: Carlos Ng MD Potassium [Moles/Vol] 3.9 mmol/L Normal 3.7-5.3 [facility] Comment on above: Performed By: #### C DP, BMP #### [facility] [address] [place], [place] 4440783 Youth Care Specialist: Carlos Ng MD Sodium [Moles/Vol] 138 mmol/L Normal 135-144 [facility] Comment on above: Performed By: #### C DP, BMP #### [facility] [address] [place], [place] 6776583 Youth Care Specialist: Carlos Ng MD Urea nitrogen [Mass/Vol] 10 mg/dL Normal 6-20 [facility] Comment on above: Performed By: #### C DP, BMP #### [facility] [address] [place], [place] 8112183 Youth Care Specialist: Carlos Ng MD CBC with Diffon 01-30-2023 Abs. Basophil 0.07 k/uL Normal 0.00-0.20 [facility] Comment on above: Performed By: #### C DP, BMP #### [address] [place], [place] 6417083 Youth Care Specialist: Carlos Ng MD Abs.Imm.Granulocyte 0.10 k/uL Normal 0.00-0.30 [facility] Comment on above: Performed By: #### C DP, BMP #### [facility] [address] [place], [place] 865[address]83 Youth Care Specialist: Carlos Ng MD Abs.Neutrophil (Seg) 3.27 k/uL Normal 1.50-8.10 [facility] Comment on above: Performed By: #### C DP, BMP #### [facility] [address] [place], [place] 098[address]83 Youth Care Specialist: Carlos Ng MD Basophils/100 WBC (Bld) 1 % Normal 0-2 [facility] Comment on above: Performed By: #### C DP, BMP #### [address] [place] [address] Youth Care Specialist: Carlos Ng MD Eosinophils (Bld) [#/Vol] 0.08 10*3/uL Normal 0.00-0.44 [facility] Comment on above: Performed By: #### C DP, BMP #### [address] [place], [place] 6547283 Youth Care Specialist: Carlos Ng MD Eosinophils/100 WBC (Bld) 1 % Normal 1-4 [facility] Comment on above: Performed By: #### C DP, BMP #### [address] [place] [address]83 Youth Care Specialist: Carlos Ng MD Erythrocyte distribution width (RBC) [Ratio] 13.3 % Normal 11.8-14.4 [facility] Comment on above: Performed By: #### C DP, BMP #### [address] [place] [address]83 Youth Care Specialist: Carlos Ng MD Hematocrit (Bld) [Volume fraction] 40.3 % Low 40.7-50.3 [facility] Comment on above: Performed By: #### C DP, BMP #### [address] [place], [facility]83 Youth Care Specialist: Carlos Ng MD Hemoglobin (Bld) [Mass/Vol] 13.6 g/dL Normal 13.0-17.0 [facility] Comment on above: Performed By: #### C DP, BMP #### [address] [place], [place] 7613[address] Youth Care Specialist: Carlos Ng MD Immature granulocytes/100 WBC (Bld) 2 % High 0 [facility] Comment on above: Performed By: #### C DP, BMP #### [facility] [address] [place], [facility]83 Youth Care Specialist: Carlos Ng MD Lymphocytes (Bld) [#/Vol] 2.51 10*3/uL Normal 1.10-3.70 [facility] Comment on above: Performed By: #### C DP, BMP #### [address] [place], [facility]83 Youth Care Specialist: Carlos Ng MD Lymphocytes/100 WBC (Bld) 38 % Normal 24-43 [facility] Comment on above: Performed By: #### C DP, BMP #### [address] [place], [facility]83 Youth Care Specialist: Carlos Ng MD MCH (RBC) [Entitic mass] 28.2 pg Normal 25.2-33.5 [facility] Comment on above: Performed By: #### C DP, BMP #### [address] [place], [facility]83 Youth Care Specialist: Carlos gN MD MCHC (RBC) [Mass/Vol] 33.7 g/dL Normal 28.4-34.8 [facility] Comment on above: Performed By: #### C DP, BMP #### [address] [place], [facility]83 Youth Care Specialist: Carlos Ng MD MCV (RBC) [Entitic vol] 83.4 fL Normal 82.6-102.9 [facility] Comment on above: Performed By: #### C DP, BMP #### [address] [place] [address] Youth Care Specialist: Carlos Ng MD Monocytes (Bld) [#/Vol] 0.54 10*3/uL Normal 0.10-1.20 [facility] Comment on above: Performed By: #### C DP, BMP #### [address] [place], [place] 9449383 Youth Care Specialist: Carlos Ng MD Monocytes/100 WBC (Bld) 8 % Normal 3-12 [facility] Comment on above: Performed By: #### C DP, BMP #### [facility] [address] [place], [place] [address] Youth Care Specialist: Carlos Ng MD Neutrophil (Seg) 50 % Normal 36-65 [facility] Comment on above: Performed By: #### C DP, BMP #### [facility] [address] [place], [place] 8362683 Youth Care Specialist: Carlos Ng MD NRBC Automated 0.0 per 100 WBC Normal 0.0 [facility] Comment on above: Performed By: #### C DP, BMP #### [address] [place], [place] [phone] Youth Care Specialist: Carlos Ng MD Platelet mean volume (Bld) [Entitic vol] 9.1 fL Normal 8.1-13.5 [facility] Comment on above: Performed By: #### C DP, BMP #### [address] [place], [place] 9539583 Youth Care Specialist: Carlos Ng MD Platelets (Bld) [#/Vol] 291 10*3/uL Normal 138-453 [facility] Comment on above: Performed By: #### C DP, BMP #### [address] [place], [place] 9773983 Youth Care Specialist: Carlos Ng MD RBC (Bld) [#/Vol] 4.83 10*6/uL Normal 4.21-5.77 [facility] Comment on above: Performed By: #### C DP, BMP #### [address] [place], [place] [phone] Youth Care Specialist: Carlos Ng MD WBC (Bld) [#/Vol] 6.6 10*3/uL Normal 3.5-11.3 [facility] Comment on above: Performed By: #### C DP, BMP #### [facility] [address] [place], [place] 2040983 Youth Care Specialist: Carlos Ng MD Cult,Urineon 01-30-2023 Cult,Urine Specimen Description .VOIDED URINE Culture NO GROWTH Report Status FINAL 01/30/2023 Normal [facility] Comment on above: Performed By: #### U RC #### [place] [address] [place], [place] 8205808 Youth Care Specialist: Gus Cazares MD [facility] [address] [place] [address] [place] [address] Youth Care Specialist: Carlos Ng MD Specimen Rejectionon 023 Reason for rejection Unable to perform t esting: Specimen clotted. Normal [facility] Comment on above: Performed By: #### C DP, BMP #### [facility] [address] [place], [place] 504[address]83 Youth Care Specialist: Carlos Ng MD Source of sample .BLOOD Normal [facility] Comment on above: Performed By: #### C DP, BMP #### [address] [place], [place] 6485683 Youth Care Specialist: Carlos Ng MD Test ordered ALL TESTS Normal [facility] Comment on above: Performed By: #### C DP, BMP #### [facility] [address] [place], [place] 0328483 Youth Care Specialist: Carlos Ng MD Urinalysis w/ Microon 2022 Bilirubin, SemiQt,Ur Negative Normal NEG [facility] Comment on above: Performed By: #### U CGP #### [facility] [address] [place], [place] 5114308 Youth Care Specialist: Gus Cazares MD #### UAMIC #### [facility] [address] [place] [address] [address] [place], [place] 6480783 Youth Care Specialist: Carlos Ng MD Blood, Urine Negative Normal NEG [facility] Comment on above: Performed By: #### U CGP #### [address] [address] Youth Care Specialist: Gus Cazares MD #### UAMIC #### [address] [place], [place] 577[address]83 Youth Care Specialist: Carlos Ng MD Clarity (U) Clear Normal CLEAR [facility] Comment on above: Performed By: #### U CGP #### [address] [address] Youth Care Specialist: Gus Cazares MD #### UAMIC #### [address] [place], [place] 1448583 Youth Care Specialist: Carlos Ng MD Color (U) Yellow Normal YEL [facility] Comment on above: Performed By: #### U CGP #### [address] [address] Youth Care Specialist: Gus Cazares MD #### UAMIC #### [address] [place], [place] 8856883 Youth Care Specialist: Carlos Ng MD Epithelial cells LM Ql (Urine sed) 0 TO 2 Normal 0-5 [facility] Comment on above: Performed By: #### U CGP #### [address] [address] Youth Care Specialist: Gus Cazares MD #### UAMIC #### [address] [place], [place] 2712[address] Youth Care Specialist: Carlos Ng MD Glucose Ql (U) Negative Normal NEG [facility] Comment on above: Performed By: #### U CGP #### [address] [address] Youth Care Specialist: Gus Cazares MD #### UAMIC #### [address] [place], [place] 4405983 Youth Care Specialist: Carlos Ng MD Ketones Ql (U) Negative Normal NEG [facility] Comment on above: Performed By: #### U CGP #### [address] [address] Youth Care Specialist: Gus Cazares MD #### UAMIC #### [address] [place], [place] 092[address]83 Youth Care Specialist: Carlos Ng MD Leukocyte esterase Test strip Ql (U) Negative Normal NEG [facility] Comment on above: Performed By: #### U CGP #### [address] [address] Youth Care Specialist: Gus Cazares MD #### UAMIC #### [address] [place] [address] Youth Care Specialist: Carlos Ng MD Nitrite,Ur Negative Normal NEG [facility] Comment on above: Performed By: #### U CGP #### [address] [address] Youth Care Specialist: Gus Cazares MD #### UAMIC #### [address] [place], [place] 6707883 Youth Care Specialist: Carlos Ng MD PH,Ur 8.0 Normal 5.0-9.0 [facility] Comment on above: Performed By: #### U CGP #### [address] [address] Youth Care Specialist: Gus Cazares MD #### UAMIC #### [address] [place] [phone] Youth Care Specialist: Carlos Ng MD Protein Ql (U) Negative Normal NEG [facility] Comment on above: Performed By: #### U CGP #### [address] [place] [place] [address] Youth Care Specialist: Gus Cazares MD #### UAMIC #### [facility] [address] [place] [address] [address]. [place] [phone] Youth Care Specialist: Carlos Ng MD Spec. Manito,Ur 1.010 Normal 1.010-1.02 0 [facility] Comment on above: Performed By: #### U CGP #### [address] [address] Youth Care Specialist: Gus Cazares MD #### UAMIC #### [facility] [address] [place] [address] [place] [phone] Youth Care Specialist: Carlos Ng MD Urine RBC's 0 TO 2 Normal 0-2 [facility] Comment on above: Performed By: #### U CGP #### [address] [address] Youth Care Specialist: Gus Cazares MD #### UAMIC #### [address] [place] [phone] Youth Care Specialist: Carlos Ng MD Urine WBC's 0 TO 2 Normal 0-5 [facility] Comment on above: Performed By: #### U CGP #### [address] [address] Youth Care Specialist: Gus Cazares MD #### UAMIC #### [address] [place] [phone] Youth Care Specialist: Carlos Ng MD Urobilinogen,Ur Normal Normal 0.0-1.0 [facility] Comment on above: Performed By: #### U CGP #### [facility] [address] [facility], [place] 9[address] Youth Care Specialist: Gus Cazares MD #### UAMIC #### [facility] [address] [place], [place] 2835183 Youth Care Specialist: Carlos Ng MD Flu A/B Ag Detectionon 03-17 Flu A Ag Detection Negative Normal NEG [facility] Comment on above: Result Comment: for Influenza A Antigen Performed By: #### F LUABA #### [address] [place] [address] Youth Care Specialist: Carlos Ng MD Flu B Ag Detection Negative Normal NEG [facility] Comment on above: Result Comment: for Influenza B Antigen. Performed By: #### F LUABA #### [address] [place] [address] Youth Care Specialist: Carlos Ng MD [id number] 03-17-2022 SARS-CoV-2 (COVID-19) RNA WIL+probe Ql (Unsp spec) Detected Abnormal NOTDET [facility] Comment on above: Result Comment: Rapid NAAT: The specimen is POSITIVE for SARS-Cov-2, the novel coronavirus associated with COVID-19. This test has been authorized by the FDA under an Emergency Use Authorization (EUA) for use by authorized laboratories. The ID NOW COVID-19 assay is designed to detect the virus that causes COVID-19 in patients with signs and symptoms of infection who are suspected of COVID-19. An individual without symptoms of COVID-19 and who is not shedding SARS-CoV-2 virus would expect to have a negative (not detected) result in this assay. Fact sheet for Healthcare Providers: https://www.fda.gov/media/400501/download Fact sheet for Patients: https://www.fda.gov/media/230108/download Methodology: Isothermal Nucleic Acid Amplification Results reported to the appropriate Health Department Performed By: #### C OVRB #### [address] [place] [address] Youth Care Specialist: Carlos Ng MD XR CHEST PORTABLEon 03-17-20 XR CHEST PORTABLE EXAMINATION: THREE XRAY VIEWS OF THE LEFT ELBOW; ONE XRAY VIEW OF THE CHEST 03/17/2022 8:46 am COMPARISON: None. HISTORY: ORDERING SYSTEM PROVIDED HISTORY: pain TECHNOLOGIST PROVIDED HISTORY: pain 36-year-old male with pain FINDINGS: Chest: AP portable upright view of the chest Trachea midline. No pneumothorax. No acute focal airspace consolidation or pleural effusions. Cardiac and mediastinal contours within normal limits. No acute osseous abnormality identified. Left elbow: Osseous alignment is normal. Joint spaces are well maintained. No acute fracture or gross dislocation is seen. The radial head and radial neck appear intact. Mild distal triceps tendon enthesopathy at the olecranon. There is no significant elevation of the posterior fat pad or sail sign to suggest a joint effusion. IMPRESSION: Chest: No acute focal airspace consolidation. Left elbow: No acute fracture or dislocation. Interpreted by: Tr Burdick MD Signed by: Tr Burdick MD 03/17/22 Final result Normal [facility] XR ELBOW LEFT (MIN 3 VIEWS)o n 03-17-2022 XR ELBOW LEFT (MIN 3 VIEWS) EXAMINATION: THREE XRAY VIEWS OF THE LEFT ELBOW; ONE XRAY VIEW OF THE CHEST 03/17/2022 8:46 am COMPARISON: None. HISTORY: ORDERING SYSTEM PROVIDED HISTORY: pain TECHNOLOGIST PROVIDED HISTORY: pain 36-year-old male with pain FINDINGS: Chest: AP portable upright view of the chest Trachea midline. No pneumothorax. No acute focal airspace consolidation or pleural effusions. Cardiac and mediastinal contours within normal limits. No acute osseous abnormality identified. Left elbow: Osseous alignment is normal. Joint spaces are well maintained. No acute fracture or gross dislocation is seen. The radial head and radial neck appear intact. Mild distal triceps tendon enthesopathy at the olecranon. There is no significant elevation of the posterior fat pad or sail sign to suggest a joint effusion. IMPRESSION: Chest: No acute focal airspace consolidation. Left elbow: No acute fracture or dislocation. Interpreted by: Tr Burdick MD Signed by: Tr Burdick MD 03/17/22 Final result Normal [facility] Valproic Acid Level, Totalon 01-29-2022 Valproic Acid Lvl 53 ug/mL 50 - 125 ug/mL [facility] [employer] No Panel Informationon 01-09 No acute osseous abnormality identified in the hand or wrist. [facility] EXAMINATION: 3 XRAY VIEWS OF THE LEFT WRIST; THREE XRAY VIEWS OF THE LEFT HAND 01/09/2022 3:36 pm COMPARISON: None. HISTORY: ORDERING SYSTEM PROVIDED HISTORY: pain TECHNOLOGIST PROVIDED HISTORY: pain FINDINGS: HAND: No fracture or malalignment identified. The joint spaces are maintained. No discrete soft tissue abnormality identified. WRIST: No fracture or malalignment identified. The joint spaces are maintained. No discrete soft tissue abnormality identified. [facility] Kem Wilks MD - 01/09/2022 EXAMINATION: 3 XRAY VIEWS OF THE LEFT WRIST; THREE XRAY VIEWS OF THE LEFT HAND 01/09/2022 3:36 pm COMPARISON: None. HISTORY: ORDERING SYSTEM PROVIDED HISTORY: pain TECHNOLOGIST PROVIDED HISTORY: pain FINDINGS: HAND: No fracture or malalignment identified. The joint spaces are maintained. No discrete soft tissue abnormality identified. WRIST: No fracture or malalignment identified. The joint spaces are maintained. No discrete soft tissue abnormality identified. IMPRESSION: No acute osseous abnormality identified in the hand or wrist. [facility] [employer] Work Phone: No Panel InformationOrdered By: Kem Wilks on 01-09-2022 [facility] [employer] Work Phone: XR HAND LEFT (MIN 3 VIEWS)on 01-09-2022 Radiology Study observation (narrative) [facility] [employer] Work Phone: XR WRIST LEFT (MIN 3 VIEWS)o n 01-09-2022 Radiology Study observation (narrative) [facility] [employer] Work Phone: CBC with Auto Differentialon 12-11-2021 Absolute Eos # [facility] [employer] Absolute Immature Granulocyte 0.06 [facility] [employer] Absolute Lymph # 1.17 [facility] [employer] Absolute Sublette # 0.53 [facility] [employer] Basophils (Bld) [#/Vol] 0.08 10*3/uL [facility] Basophils/100 WBC (Bld) 1 % 0 - 2 % [facility] Eosinophils/100 WBC (Bld) 0 % Low 1 - 4 % [facility] Hematocrit (Bld) [Volume fraction] 44.4 % 40.7 - 50.3 % [facility] Hemoglobin (Bld) [Mass/Vol] 14.6 g/dL 13 - 17 g/dL [facility] Immature granulocytes/100 WBC (Bld) 1 % High 0 [facility] Interpretation and review of laboratory results Abnormal [facility] Lymphocytes/100 WBC (Bld) 11 % Low 24 - 43 % [facility] MCH (RBC) [Entitic mass] 28.7 pg 25.2 - 33.5 pg [facility] MCHC (RBC) [Mass/Vol] 32.9 g/dL 28.4 - 34.8 g/dL [facility] MCV (RBC) [Entitic vol] 87.2 fL 82.6 - 102.9 fL [facility] Monocytes/100 WBC (Bld) 5 % 3 - 12 % [facility] NRBC Automated 0.0 0.0 per 100 WBC [facility] Platelet distribution width (Bld) [Ratio] 12.9 % 11.8 - 14.4 % [facility] Platelet mean volume (Bld) [Entitic vol] 9.3 fL 8.1 - 13.5 fL [facility] Platelets (Bld) [#/Vol] 287 10*3/uL [facility] RBC (Bld) [#/Vol] 5.09 10*6/uL 4.21 - 5.77 m/uL [facility] Segmented neutrophils/100 WBC (Bld) 82 % High 36 - 65 % [facility] Segs Absolute 9.08 High [facility] WBC (Bld) [#/Vol] 10.9 10*3/uL [facility] CMPon 12-11-2021 Albumin [Mass/Vol] 5.1 g/dL 3.5 - 5.2 g/dL [facility] Albumin/Globulin [Mass ratio] 2.1 {ratio} 1 - 2.5 [facility] ALP (Bld) [Catalytic activity/Vol] 72 U/L 40 - 129 U/L [facility] ALT [Catalytic activity/Vol] 37 U/L 5 - 41 U/L [facility] Anion gap [Moles/Vol] 11 mmol/L 9 - 17 mmol/L [facility] AST [Catalytic activity/Vol] 30 U/L NINF - 40 U/L [facility] Bilirubin [Mass/Vol] 0.33 mg/dL 0.3 - 1 .2 mg/dL [facility] Calcium [Mass/Vol] 10.2 mg/dL 8.6 - 10. 4 mg/dL [facility] Chloride [Moles/Vol] 100 mmol/L 98 - 10 7 mmol/L [facility] CO2 [Moles/Vol] 28 mmol/L 20 - 31 mmol/L [facility] Creatinine [Mass/Vol] 0.83 mg/dL 0.7 - 1.2 mg/dL [facility] Free PSA/Total PSA [Mass fraction] 7.5 g/dL 6.4 - 8.3 g/dL [facility] GFR >60 60 - PI NF mL/min [facility] GFR Non- >60 60 - PINF mL/min [facility] Glucose [Mass/Vol] 109 mg/dL High 70 - 99 mg/dL [facility] Interpretation and review of laboratory results Abnormal [facility] Potassium [Moles/Vol] 4.2 mmol/L 3.7 - 5.3 mmol/L [facility] Sodium [Moles/Vol] 139 mmol/L 135 - 144 mmol/L [facility] Urea nitrogen (BldV) [Mass/Vol] 14 mg/dL 6 - 20 mg/dL [facility] Urea nitrogen/Creatinine (Bld) [Mass ratio] 17 9 - 20 [facility] COVID-19, Rapidon 12-11-2021 SARS-CoV-2 (COVID-19) RNA WIL+probe Ql (Unsp spec) Not detected Not Detected [facility] Comment on above: Rapid NAAT: The specimen is NEGATIVE for SARS-CoV-2, the novel coronavirus associated with COVID-19. The ID NOW COVID-19 assay is designed to detect the virus that causes COVID-19 in patients with signs and symptoms of infection who are suspected of COVID-19. An individual without symptoms of COVID-19 and who is not shedding SARS-CoV-2 virus would expect to have a negative (not detected) result in this assay. Negative results should be treated as presumptive and, if inconsistent with clinical signs and symptoms or necessary for patient management, should be tested with an alternative molecular assay. Negative results do not preclude SARS-CoV-2 infection and should not be used as the sole basis for patient management decisions. Fact sheet for Healthcare Providers: https://www.fda.gov/media/431934/download Fact sheet for Patients: https://www.fda.gov/media/042134/download Methodology: Isothermal Nucleic Acid Amplification Specimen Description .NASOPHARYNGEAL SWAB [facility] Drug screen multi urineon Amphetamine Screen, Ur Negative NEGATIVE [facility] Barbiturate Screen, Ur Negative NEGATIVE [facility] Benzodiazepine Screen, Urine Negative NEGATIVE [facility] Buprenorphine Urine Negative NEGATIVE [facility] Cannabinoid Scrn, Ur Positive Abnormal NEGATIVE [facility] Cocaine Metabolite, Urine Negative NEGATIVE [facility] Interpretation and review of laboratory results Abnormal [facility] Methadone Screen, Urine Negative NEGATIVE [facility] Methamphetamine, Urine Negative NEGATIVE [facility] Opiates, Urine Negative NEGATIVE [facility] Oxycodone Screen, Ur Negative NEGATIVE [facility] Phencyclidine, Urine Negative NEGATIVE [facility] Propoxyphene, Urine Negative NEGATIVE [facility] Tricyclic Antidepressants, Urine Negative NEGATIVE [facility] Comment on above: Drug screen results are to be used for medical purposes only. All positive results are unconfirmed. Testing for employment or legal uses should be sent to a reference laboratory for confirmation. [facility] ETOHon 12-11-2021 Ethanol [Mass/Vol] mg/dL NINF - 10 mg/dL [facility] Ethanol percent <0.010 NINF - 0.010 % [facility] Laboratory - Chemistry and C hemistry - challengeon 12-11-2021 GFR/1.73 sq M.predicted MDRD (S/P/Bld) [Vol rate/Area] [facility] Comment on above: Average GFR for 30-3 9 years old: 107 mL/min/1.73sq m Chronic Kidney Disease: <60 mL/min/1.73sq m Kidney failure: <15 mL/min/1.73sq m eGFR calculated using average adult body mass. Additional eGFR calculator available at: http://www.Dryad/multiple_crcl_2012.htm Stage 1: Some kidney damage normal GFR Stage 2: Mild kidney damage GFR 60-89 Stage 3: Moderate kidney damage GFR 30-59 Stage 4: Severe kidney damage GFR 15-29 Stage 5: Severe kidney damage GFR <15 ESRD - chronic treatment by dialysis or transplant COVID-19, Rapidon 11-13-2021 SARS-CoV-2 (COVID-19) RNA WIL+probe Ql (Unsp spec) Not detected Not Detected [facility] Comment on above: Rapid NAAT: The specimen is NEGATIVE for SARS-CoV-2, the novel coronavirus associated with COVID-19. The ID NOW COVID-19 assay is designed to detect the virus that causes COVID-19 in patients with signs and symptoms of infection who are suspected of COVID-19. An individual without symptoms of COVID-19 and who is not shedding SARS-CoV-2 virus would expect to have a negative (not detected) result in this assay. Negative results should be treated as presumptive and, if inconsistent with clinical signs and symptoms or necessary for patient management, should be tested with an alternative molecular assay. Negative results do not preclude SARS-CoV-2 infection and should not be used as the sole basis for patient management decisions. Fact sheet for Healthcare Providers: https://www.fda.gov/media/635741/download Fact sheet for Patients: https://www.fda.gov/media/598242/download Methodology: Isothermal Nucleic Acid Amplification Specimen Description .NASOPHARYNGEAL SWAB [facility] CBC with Auto Differentialon 08-05-2021 Absolute Eos # 0.08 [facility] Absolute Immature Granulocyte 0.04 [facility] Absolute Lymph # 1.39 [facility] alth Absolute Sublette [facility] Basophils (Bld) [#/Vol] 0.09 10*3/uL [facility] Basophils/100 WBC (Bld) 1 % 0 - 2 % [facility] Eosinophils/100 WBC (Bld) 1 % 1 - 4 % [facility] Hematocrit (Bld) [Volume fraction] 43.3 % 40.7 - 50.3 % [facility] Hemoglobin.gastroint estinal spec 1 Ql (Stl) 14.2 g/dL 13.0 - 17.0 g/dL [facility] Immature granulocytes/100 WBC (Bld) 1 % High 0 [facility] Interpretation and review of laboratory results Abnormal [facility] Lymphocytes/100 WBC (Bld) 21 % Low 24 - 43 % [facility] MCH (RBC) [Entitic mass] 29.5 pg 25.2 - 33.5 pg [facility] MCHC (RBC) [Mass/Vol] 32.8 g/dL 28.4 - 34.8 g/dL [facility] MCV (RBC) [Entitic vol] 89.8 fL 82.6 - 102.9 fL [facility] Monocytes/100 WBC (Bld) 7 % 3 - 12 % [facility] NRBC Automated 0.0 0.0 per 100 WBC [facility] Platelet distribution width (Bld) [Ratio] 12.9 % 11.8 - 14.4 % [facility] Platelet mean volume (Bld) [Entitic vol] 9.3 fL 8.1 - 13.5 fL [facility] Platelets (Bld) [#/Vol] 307 10*3/uL [facility] RBC (Bld) [#/Vol] 4.82 10*6/uL 4.21 - 5.77 m/uL [facility] Segmented neutrophils/100 WBC (Bld) 69 % High 36 - 65 % [facility] Segs Absolute 4.[address] [facility] h WBC (Bld) [#/Vol] 6.6 10*3/uL [facility] CT ABDOMEN PELVIS W IV CONTR AST Additional Contrast? Noneon 08-05-[address] evidence for a cute intra-or pelvic pathology. [facility] RIS CONSOLIDATED EXAMINATION: CT OF THE ABDOMEN AND PELVIS WITH CONTRAST 08/05/2021 10:43 am TECHNIQUE: CT of the abdomen and pelvis was performed with the administration of intravenous contrast. Multiplanar reformatted images are provided for review. Dose modulation, iterative reconstruction, and/or weight based adjustment of the mA/kV was utilized to reduce the radiation dose to as low as reasonably achievable. COMPARISON: None. HISTORY: ORDERING SYSTEM PROVIDED HISTORY: LLQ pain TECHNOLOGIST PROVIDED HISTORY: LLQ pain Decision Support Exception - unselect if not a suspected or confirmed emergency medical condition->Emergency Medical Condition (MA) FINDINGS: Lower Chest: Clear Organs: The pancreas, adrenal glands, kidneys, spleen, gallbladder are normal. There is a tiny low-density area in the right lobe of the liver measuring 8 mm. This is too small to characterize but statistically likely represents a small cyst or hemangioma GI/Bowel: No dilated large or small bowel loops are seen in the appendix is normal Pelvis: The bladder is unremarkable in appearance there is no evidence for free air or free fluid Peritoneum/Retroperitoneum: Negative for aneurysm Bones/Soft Tissues: No acute abnormality [facility] RIS CONSOLIDATED Troy Mercedes MD - 08/05/2021 EXAMINATION: CT OF THE ABDOMEN AND PELVIS WITH CONTRAST 08/05/2021 10:43 am TECHNIQUE: CT of the abdomen and pelvis was performed with the administration of intravenous contrast. Multiplanar reformatted images are provided for review. Dose modulation, iterative reconstruction, and/or weight based adjustment of the mA/kV was utilized to reduce the radiation dose to as low as reasonably achievable. COMPARISON: None. HISTORY: ORDERING SYSTEM PROVIDED HISTORY: [facility] pain TECHNOLOGIST PROVIDED HISTORY: LLQ pain Decision Support Exception - unselect if not a suspected or confirmed emergency medical condition->Emergency Medical Condition (MA) FINDINGS: Lower Chest: Clear Organs: The pancreas, adrenal glands, kidneys, spleen, gallbladder are normal. There is a tiny low-density area in the right lobe of the liver measuring 8 mm. This is too small to characterize but statistically likely represents a small cyst or hemangioma GI/Bowel: No dilated large or small bowel loops are seen in the appendix is normal Pelvis: The bladder is unremarkable in appearance there is no evidence for free air or free fluid Peritoneum/Retroperitoneum: Negative for aneurysm Bones/Soft Tissues: No acute abnormality IMPRESSION: No CT evidence for acute intra-or pelvic pathology. [facility] Phone: Radiology Study observation (narrative) [facility] Phone: CT ABDOMEN PELVIS W IV CONTR AST Additional Contrast? NoneOrdered By: Troy Mercedes on 08-05-2021 [facility]: Comprehensive Metabolic Pane sony 08-05-2021 Albumin [Mass/Vol] 4.9 g/dL 3.5 - 5.2 g/dL [facility] Albumin/Globulin [Mass ratio] 2.2 {ratio} [facility] ALP (Bld) [Catalytic activity/Vol] 81 U/L 40 - 129 U/L [facility] ALT [Catalytic activity/Vol] 102 U/L High 5 - 41 U/L [facility] Anion gap [Moles/Vol] 9 mmol/L 9 - 17 mmol/L [facility] AST [Catalytic activity/Vol] 65 U/L High <40 [facility] Bilirubin [Mass/Vol] 0.28 mg/dL Low 0.3 - 1 .2 mg/dL [facility] Calcium [Mass/Vol] 9.9 mg/dL 8.6 - 10. 4 mg/dL [facility] Chloride [Moles/Vol] 105 mmol/L 98 - 10 7 mmol/L [facility] CO2 [Moles/Vol] 27 mmol/L 20 - 31 mmol/L [facility] Creatinine [Mass/Vol] 0.66 mg/dL Low 0.70 - 1.20 mg/dL [facility] Free PSA/Total PSA [Mass fraction] 7.1 g/dL 6.4 - 8.3 g/dL [facility] GFR >60 >60 mL/min [facility] GFR Non- >60 >60 mL/min [facility] Glucose [Mass/Vol] 107 mg/dL High 70 - 99 mg/dL [facility] Interpretation and review of laboratory results Abnormal [facility] Potassium [Moles/Vol] 4.2 mmol/L 3.7 - 5.3 mmol/L [facility] Sodium [Moles/Vol] 141 mmol/L 135 - 144 mmol/L [facility] Urea nitrogen (BldV) [Mass/Vol] 14 mg/dL 6 - 20 mg/dL [facility] Urea nitrogen/Creatinine (Bld) [Mass ratio] 21 High [facility] Laboratory - Chemistry and C hemistry - challengeon 08-05-2021 GFR/1.73 sq M.predicted MDRD (S/P/Bld) [Vol rate/Area] [facility] Comment on above: Average GFR for 30-3 9 years old: 107 mL/min/1.73sq m Chronic Kidney Disease: <60 mL/min/1.73sq m Kidney failure: <15 mL/min/1.73sq m eGFR calculated using average adult body mass. Additional eGFR calculator available at: http://www.Dryad/multiple_crcl_2012.htm Stage 1: Some kidney damage normal GFR Stage 2: Mild kidney damage GFR 60-89 Stage 3: Moderate kidney damage GFR 30-59 Stage 4: Severe kidney damage GFR 15-29 Stage 5: Severe kidney damage GFR <15 ESRD - chronic treatment by dialysis or transplant Lactic Acidon 08-05-2021 Lactate [Moles/Vol] 1 mmol/L 0.5 - 2. 2 mmol/L [facility] Lipaseon 08-05-2021 Lipase [Catalytic activity/Vol] 30 U/L 13 - 60 U/L [facility] No Panel Informationon 08-05 [facility] POCT occult blood stoolOrder ed By: Belkys Watson on 08-05-2021 Hemoglobin.gastroint estinal Ql (Stl) Negative [facility] Interpretation and review of laboratory results Normal [facility] Urinalysis with Microscopico n 08-05-2021 - [facility] Bilirubin Urine Negative NEGATIVE [facility] lth Color, UA Yellow Yellow [facility] Epithelial Cells UA None [facility] Glucose, Ur Negative NEGATIVE [facility] Ketones Ql (U) Negative NEGATIVE [facility] th Leukocyte esterase Test strip Ql (U) Negative NEGATIVE [facility] Nitrite, Urine Negative NEGATIVE [facility] th pH, UA 7.5 [facility] Protein, UA Negative NEGATIVE [facility] RBC, UA None [facility] Specific [place], UA 1.015 [facility] Turbidity UA Clear Clear [facility] Urine Hgb Negative NEGATIVE [facility] Urobilinogen, Urine Normal Normal [facility] WBC, UA None [facility] XR ANKLE RIGHT (MIN 3 VIEWS) on 08-05-2021 Postsurgical changes . PN RIS CONSOLIDATED EXAMINATION: THREE XRAY VIEWS OF THE RIGHT ANKLE 08/05/2021 11:02 am COMPARISON: None. HISTORY: ORDERING SYSTEM PROVIDED HISTORY: post operative pain TECHNOLOGIST PROVIDED HISTORY: post operative pain FINDINGS: Fusion demonstrated of the distal fibula with a single screw fixating the fibula and tibia, the hardware is intact. There is no fracture or dislocation. There are minimal degenerative changes. [facility] RIS CONSOLIDATED Andrzej Osborne MD - 08/05/2021 EXAMINATION: THREE XRAY VIEWS OF THE RIGHT ANKLE 08/05/2021 11:02 am COMPARISON: None. HISTORY: ORDERING SYSTEM PROVIDED HISTORY: post operative pain TECHNOLOGIST PROVIDED HISTORY: post operative pain FINDINGS: Fusion demonstrated of the distal fibula with a single screw fixating the fibula and tibia, the hardware is intact. There is no fracture or dislocation. There are minimal degenerative changes. IMPRESSION: Postsurgical changes. [facility]: Radiology Study observation (narrative) [facility]: XR ANKLE RIGHT (MIN 3 VIEWS) Ordered By: Andrzej Osborne on 08-05-2021 [facility]: COVID-19, Rapidon 07-18-2021 SARS-CoV-2 (COVID-19) RNA WIL+probe Ql (Unsp spec) Not detected Not Detected [facility] Comment on above: Rapid NAAT: The specimen is NEGATIVE for SARS-CoV-2, the novel coronavirus associated with COVID-19. The ID NOW COVID-19 assay is designed to detect the virus that causes COVID-19 in patients with signs and symptoms of infection who are suspected of COVID-19. An individual without symptoms of COVID-19 and who is not shedding SARS-CoV-2 virus would expect to have a negative (not detected) result in this assay. Negative results should be treated as presumptive and, if inconsistent with clinical signs and symptoms or necessary for patient management, should be tested with an alternative molecular assay. Negative results do not preclude SARS-CoV-2 infection and should not be used as the sole basis for patient management decisions. Fact sheet for Healthcare Providers: https://www.fda.gov/media/228620/download Fact sheet for Patients: https://www.[place].gov/media/624509/download Methodology: Isothermal Nucleic Acid Amplification Specimen Description .NASOPHARYNGEAL SWAB [facility] Comprehensive Metabolic Pane l w/ Reflex to MGon 07-18-2021 Albumin [Mass/Vol] 4.9 g/dL 3.5 - 5.2 g/dL [facility] Albumin/Globulin [Mass ratio] 2.0 {ratio} [facility] ALP (Bld) [Catalytic activity/Vol] 85 U/L 40 - 129 U/L [facility] ALT [Catalytic activity/Vol] 211 U/L High 5 - 41 U/L [facility] Anion gap [Moles/Vol] 7 mmol/L Low 9 - 17 mmol/L [facility] AST [Catalytic activity/Vol] 92 U/L High <40 [facility] Bilirubin [Mass/Vol] 0.48 mg/dL 0.3 - 1 .2 mg/dL [facility] Calcium [Mass/Vol] 10.0 mg/dL 8.6 - 10. 4 mg/dL [facility] Chloride [Moles/Vol] 104 mmol/L 98 - 10 7 mmol/L [facility] CO2 [Moles/Vol] 28 mmol/L 20 - 31 mmol/L [facility] Creatinine [Mass/Vol] 0.73 mg/dL 0.70 - 1.20 mg/dL [facility] Free PSA/Total PSA [Mass fraction] 7.4 g/dL 6.4 - 8.3 g/dL [facility] GFR >60 >60 mL/min [facility] GFR Non- >60 >60 mL/min [facility] Glucose [Mass/Vol] 110 mg/dL High 70 - 99 mg/dL [facility] Interpretation and review of laboratory results Abnormal [facility] Potassium [Moles/Vol] 4.4 mmol/L 3.7 - 5.3 mmol/L [facility] Sodium [Moles/Vol] 139 mmol/L 135 - 144 mmol/L [facility] Urea nitrogen (BldV) [Mass/Vol] 12 mg/dL 6 - 20 mg/dL [facility] Urea nitrogen/Creatinine (Bld) [Mass ratio] 16 [facility] Laboratory - Chemistry and C hemistry - challengeon 07-18-2021 GFR/1.73 sq M.predicted MDRD (S/P/Bld) [Vol rate/Area] [facility] Comment on above: Average GFR for 30-3 9 years old: 107 mL/min/1.73sq m Chronic Kidney Disease: <60 mL/min/1.73sq m Kidney failure: <15 mL/min/1.73sq m eGFR calculated using average adult body mass. Additional eGFR calculator available at: http://www.Dryad/multiple_crcl_2012.htm Stage 1: Some kidney damage normal GFR Stage 2: Mild kidney damage GFR 60-89 Stage 3: Moderate kidney damage GFR 30-59 Stage 4: Severe kidney damage GFR 15-29 Stage 5: Severe kidney damage GFR <15 ESRD - chronic treatment by dialysis or transplant COVID-19, Rapidon 04-14-2021 Interpretation and review of laboratory results Abnormal [facility] SARS-CoV-2 (COVID-19) RNA WIL+probe Ql (Unsp spec) Detected Abnormal Not Detected [facility] Comment on above: Rapid NAAT: The specimen is POSITIVE for SARS-Cov-2, the novel coronavirus associated with COVID-19. This test has been authorized by the FDA under an Emergency Use Authorization (EUA) for use by authorized laboratories. The ID NOW COVID-19 assay is designed to detect the virus that causes COVID-19 in patients with signs and symptoms of infection who are suspected of COVID-19. An individual without symptoms of COVID-19 and who is not shedding SARS-CoV-2 virus would expect to have a negative (not detected) result in this assay. Fact sheet for Healthcare Providers: https://www.fda.gov/media/222481/download Fact sheet for Patients: https://www.fda.gov/media/909276/download Methodology: Isothermal Nucleic Acid Amplification Results reported to the appropriate Health Department Specimen Description .NASOPHARYNGEAL SWAB [facility] No Panel Informationon 04-14 Negative chest and a bdomen. [facility] RIS CONSOLIDATED EXAMINATION: TWO XRAY VIEWS OF THE ABDOMEN; ONE XRAY VIEW OF THE CHEST 04/14/2021 4:42 am COMPARISON: None. HISTORY: ORDERING SYSTEM PROVIDED HISTORY: possible foreign body TECHNOLOGIST PROVIDED HISTORY: Please obtain AP and Lateral possible foreign body FINDINGS: Heart size and pulmonary vasculature are normal. The lungs are clear and normally expanded. No pneumothorax or pleural effusion. Surrounding osseous and soft tissue structures show no acute or concerning abnormality. No radiopaque foreign body. AP and lateral supine views of the abdomen show normal bowel gas pattern and soft tissue planes. Surrounding osseous and soft tissue structures are unremarkable. No radiopaque foreign body. [facility] RIS Curt Barrera - 04/14/2021 EXAMINATION: TWO XRAY VIEWS OF THE ABDOMEN; ONE XRAY VIEW OF THE CHEST 04/14/2021 4:42 am COMPARISON: None. HISTORY: ORDERING SYSTEM PROVIDED HISTORY: possible foreign body TECHNOLOGIST PROVIDED HISTORY: Please obtain AP and Lateral possible foreign body FINDINGS: Heart size and pulmonary vasculature are normal. The lungs are clear and normally expanded. No pneumothorax or pleural effusion. Surrounding osseous and soft tissue structures show no acute or concerning abnormality. No radiopaque foreign body. AP and lateral supine views of the abdomen show normal bowel gas pattern and soft tissue planes. Surrounding osseous and soft tissue structures are unremarkable. No radiopaque foreign body. IMPRESSION: Negative chest and abdomen. [facility] Phone: No Panel InformationOrdered By: Curt Becerril on 04-14-2021 [facility]: XR ABDOMEN (2 VIEWS)on 04-14 Radiology Study observation (narrative) [facility]: XR CHEST PORTABLEon 04-14-20 Radiology Study observation (narrative) [facility] Phone: MRI CERVICAL SPINE WO CONTRA STOrdered By: Sharif He on 10-01-2020 Right lateralized di sc herniation with extrusion of disc material superiorly to the behind the C5 vertebral body. There is cord impingement on the right and posterior displacement the cord. No signal abnormality in the cord substance. High likelihood of impingement on the exiting C6 nerve root compression. no other abnormality noted on MRI of the cervical spine [facility]: EXAMINATION: MRI OF THE CERVICAL SPINE WITHOUT CONTRAST 10/01/2020 2:31 pm TECHNIQUE: Multiplanar multisequence MRI of the cervical spine was performed without the administration of intravenous contrast. COMPARISON: None. HISTORY: ORDERING SYSTEM PROVIDED HISTORY: tingling - numbness, weakness TECHNOLOGIST PROVIDED HISTORY: tingling - numbness, weakness Decision Support Exception - unselect if not a suspected or confirmed emergency medical condition->Emergency Medical Condition (MA) FINDINGS: BONES/ALIGNMENT: There is normal alignment of the spine. The vertebral body heights are maintained. The bone marrow signal appears unremarkable. SPINAL CORD: No abnormal cord signal is seen. SOFT TISSUES: No paraspinal mass identified. C2-C3: There is no significant disc protrusion, spinal canal stenosis or neural foraminal narrowing. C3-C4: There is no significant disc protrusion, spinal canal stenosis or neural foraminal narrowing. C4-C5: There is no significant disc protrusion, spinal canal stenosis or neural foraminal narrowing. C5-C6: Right lateralized disc herniation with impingement on the right side of the cord posterior displacement of the cord. There is extrusion superiorly with disc material posterior to the C 5 vertebral body. There is severe effacement of the foraminal zone and subarticular zone with minimal effacement of the central canal. There is severe effacement neural foramina high likelihood of impingement on the exiting right C6 nerve root. No signal abnormality noted in the cord substance. C6-C7: There is no significant disc protrusion, spinal canal stenosis or neural foraminal narrowing. C7-T1: There is no significant disc protrusion, spinal canal stenosis or neural foraminal narrowing. [employer] Work Phone: Peter, Mhpn Incoming R adiant Results From [employer]/[facility] - 10/01/2020 3:25 PM EDT EXAMINATION: MRI OF THE CERVICAL SPINE WITHOUT CONTRAST 10/01/2020 2:31 pm TECHNIQUE: Multiplanar multisequence MRI of the cervical spine was performed without the administration of intravenous contrast. COMPARISON: None. HISTORY: ORDERING SYSTEM PROVIDED HISTORY: tingling - numbness, weakness TECHNOLOGIST PROVIDED HISTORY: tingling - numbness, weakness Decision Support Exception - unselect if not a suspected or confirmed emergency medical condition->Emergency Medical Condition (MA) FINDINGS: BONES/ALIGNMENT: There is normal alignment of the spine. The vertebral body heights are maintained. The bone marrow signal appears unremarkable. SPINAL CORD: No abnormal cord signal is seen. SOFT TISSUES: No paraspinal mass identified. C2-C3: There is no significant disc protrusion, spinal canal stenosis or neural foraminal narrowing. C3-C4: There is no significant disc protrusion, spinal canal stenosis or neural foraminal narrowing. C4-C5: There is no significant disc protrusion, spinal canal stenosis or neural foraminal narrowing. C5-C6: Right lateralized disc herniation with impingement on the right side of the cord posterior displacement of the cord. There is extrusion superiorly with disc material posterior to the C 5 vertebral body. There is severe effacement of the foraminal zone and subarticular zone with minimal effacement of the central canal. There is severe effacement neural foramina high likelihood of impingement on the exiting right C6 nerve root. No signal abnormality noted in the cord substance. C6-C7: There is no significant disc protrusion, spinal canal stenosis or neural foraminal narrowing. C7-T1: There is no significant disc protrusion, spinal canal stenosis or neural foraminal narrowing. IMPRESSION: Right lateralized disc herniation with extrusion of disc material superiorly to the behind the C5 vertebral body. There is cord impingement on the right and posterior displacement the cord. No signal abnormality in the cord substance. High likelihood of impingement on the exiting C6 nerve root compression. no other abnormality noted on MRI of the cervical spine [facility]rence Phone: Acc[facility]rence Phone: Basic Metabolic Panel w/ Ref pepper to MGOrdered By: Kolton Ty on 09-19-2020 Anion gap [Moles/Vol] 10 mmol/L 9 - 17 mmol/L [employer] Phone: Calcium [Mass/Vol] 9.8 mg/dL 8.6 - 10. 4 mg/dL [employer] Phone: Chloride [Moles/Vol] 105 mmol/L 98 - 10 7 mmol/L [employer] Phone: CO2 [Moles/Vol] 27 mmol/L 20 - 31 mmol/L [employer] Phone: Creatinine [Mass/Vol] 0.92 mg/dL 0.70 - 1.20 mg/dL [employer] Phone: GFR >60 >60 mL/min [employer] Work Phone: GFR Non- >60 >60 mL/min [employer] Work Phone: Glucose [Mass/Vol] 104 mg/dL High 70 - 99 mg/dL [employer] Work Phone: Interpretation and review of laboratory results Abnormal [employer] Work Phone: Potassium [Moles/Vol] 3.9 mmol/L 3.7 - 5.3 mmol/L [employer] Work Phone: Sodium [Moles/Vol] 142 mmol/L 135 - 144 mmol/L [employer] Work Phone: Urea nitrogen (BldV) [Mass/Vol] 11 mg/dL 6 - 20 mg/dL [employer] Work Phone: Urea nitrogen/Creatinine (Bld) [Mass ratio] 12 [employer] Work Phone: [employer] Work Phone: CBC Auto DifferentialOrdered By: Kolton Ty on 09-19-2020 Absolute Eos # 0.13 [employer] [facility] Work Phone: Absolute Immature Granulocyte 0.04 [employer] Work Phone: Absolute Lymph # 2.69 [employer] Work Phone: Absolute Sublette # 0.97 [employer] [facility] Work Phone: Basophils (Bld) [#/Vol] 0.10 10*3/uL [employer] Work Phone: Basophils/100 WBC (Bld) 1 % 0 - 2 % [employer] Work Phone: Differential Type NOT REPORTED [employer] Work Phone: Eosinophils/100 WBC (Bld) 1 % 1 - 4 % [employer] Work Phone: Hematocrit (Bld) [Volume fraction] 45.8 % 40.7 - 50.3 % [employer] Phone: Hemoglobin.gastroint estinal spec 1 Ql (Stl) 15.5 g/dL 13.0 - 17.0 g/dL [employer] Phone: Immature granulocytes/100 WBC (Bld) 0 % 0 [employer] Phone: Interpretation and review of laboratory results Abnormal [employer] Phone: Lymphocytes/100 WBC (Bld) 23 % Low 24 - 43 % [employer] Phone: MCH (RBC) [Entitic mass] 29.7 pg 25.2 - 33.5 pg [employer] Phone: MCHC (RBC) [Mass/Vol] 33.8 g/dL 28.4 - 34.8 g/dL [employer] Phone: MCV (RBC) [Entitic vol] 87.7 fL 82.6 - 102.9 fL [employer] Phone: Monocytes/100 WBC (Bld) 8 % 3 - 12 % [employer] Phone: NRBC Automated 0.0 0.0 per 100 WBC [employer] Phone: Platelet distribution width (Bld) [Ratio] 14.0 % 11.8 - 14.4 % [employer] Phone: Platelet Estimate NOT REPORTED [employer] Phone: Platelet mean volume (Bld) [Entitic vol] 9.3 fL 8.1 - 13.5 fL [employer] Phone: Platelets (Bld) [#/Vol] 311 10*3/uL [employer] Phone: RBC (Bld) [#/Vol] 5.22 10*6/uL 4.21 - 5.77 m/uL [employer] Phone: RBC (Bld) [#/Vol] NOT REPORTED [employer] Phone: Segmented neutrophils/100 WBC (Bld) 67 % High 36 - 65 % [employer] Work Phone: Segs [email or web address] Work Phone: WBC (Bld) [#/Vol] 11.9 10*3/uL High [employer] Work Phone: WBC (Bld) [#/Vol] NOT REPORTED [employer] Phone: [employer] Work Phone: CT SOFT TISSUE NECK W CONTRA STOrdered By: Kolton Ty on 09-19-2020 The larynx has an ir regular and asymmetric appearance with thickening of the right aryepiglottic fold and medialization of right true cord and asymmetric enlargement of right piriform sinus. These findings are usually suggestive of right-sided true cord paralysis but for this patient it may also be secondary to reported trauma. No discrete evidence of laryngeal fracture is noted. Clinical correlation and if appropriate direct visualization is recommended. No mass lesion or abnormal collection or vascular injury. Neck nodes are much more numerous than expected. However none of them meet criteria for pathologic enlargement. Findings may be reactive to infectious/inflammatory etiology. [employer] Phone: EXAMINATION: CT OF T HE NECK SOFT TISSUE WITH CONTRAST 09/19/2020 TECHNIQUE: CT of the neck was performed with the administration of intravenous contrast. Multiplanar reformatted images are provided for review. Dose modulation, iterative reconstruction, and/or weight based adjustment of the mA/kV was utilized to reduce the radiation dose to as low as reasonably achievable. COMPARISON: None. HISTORY: ORDERING SYSTEM PROVIDED HISTORY: left side neck trauma last night. TECHNOLOGIST PROVIDED HISTORY: left side neck trauma last night. Decision Support Exception - unselect if not a suspected or confirmed emergency medical condition->Emergency Medical Condition (MA) FINDINGS: PHARYNX/LARYNX: The palatine tonsils are normal in appearance. The tongue is normal in appearance. The larynx has an irregular and asymmetric appearance with thickening of the right aryepiglottic fold and medialization of right true cord and asymmetric enlargement of right piriform sinus. These findings are usually suggestive of right-sided true cord paralysis but for this patient it may also be secondary to reported trauma. No discrete evidence of laryngeal fracture is noted. No mass or abscess is seen. SALIVARY GLANDS/THYROID: The parotid and submandibular glands appear unremarkable. The thyroid gland appears unremarkable. LYMPH NODES: Neck nodes are much more numerous than expected. However none of them meet criteria for pathologic enlargement. SOFT TISSUES: No appreciable soft tissue swelling or mass is seen. BRAIN/ORBITS/SINUSES: The visualized portion of the intracranial contents appear unremarkable. The visualized portion of the orbits, paranasal sinuses and mastoid air cells demonstrate no acute abnormality. Neck vasculature: No evidence of intimal injury or dissection is noted. LUNG APICES/SUPERIOR MEDIASTINUM: No focal consolidation is seen within the visualized lung apices. No superior mediastinal lymphadenopathy or mass. The visualized portion of the trachea appears unremarkable. BONES: No aggressive appearing lytic or blastic bony lesion. No fracture [employer] Work Phone: Peter,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 cutaneous branch off the ulnar nerve was protected throughout the case. The extensor tendons were identified and were retracted medially and laterally to allow visualization of the periosteum over the metacarpal. The periosteum was incised longitudinally over the metacarpal, and this exposed the fracture site. Subperiosteal dissection was then performed for further exposure. There was some soft tissue present within the fracture site which was likely hindering appropriate reduction. There was some comminution dorsally, as well as ulnarly. The fracture site was debrided and was able to be manipulated and reduced appropriately. A 0.045 mm K wire was placed for provisional fixation. The proximal fragment was further exposed, and this demonstrated that the fracture was not intra-articular. The joint remained reduced. A small mini fragment plate was placed on the metacarpal and was evaluated both directly and under x-ray. This demonstrated that the proximal fragment was too small for plate and screw fixation. Therefore, 2 additional 0.045 mm K wires were placed across the fracture site. One of the K wires was advanced from distal to proximal and passed into the hamate bone for improved stability of the fracture, as again, the proximal fragment was small. The fixation was visualized directly, as well as under fluoroscopy. This demonstrated excellent reduction of the fracture and improved rotation of the digit. Rotation under direct visualization also demonstrated compareable rotation to the right hand. The comminution ulnarly was left in place. A dorsal piece of bone which was previously excised as it was hindering reduction was placed back into its anatomical position. The fracture was stressed, and this demonstrated excellent stability at the fracture site with the 3 K wires. The wound was copiously irrigated with normal saline. The periosteum was able to be closed with 3-0 Vicryl suture. The tendons remained in their appropriate location. The tourniquet was deflated, and all bleeding was controlled with bipolar cautery. The fingers were well perfused. Subcutaneous closure was performed with 3-0 Vicryl suture. Skin was closed with 3-0 nylon sutures. The K wires were bent and cut just outside the skin. Pin covers were placed over the K wires. 10 mL of 0.25% plain Marcaine were injected for local anesthetic. The wound and pin sites were dressed with Xeroform gauze, 4 x 4's, web roll, and an ulnar gutter splint. The patient tolerated the procedure well and without complications. He was taken to the PACU for recovery. The patient was examined in the PACU. He admitted to some mild burning pain. Sensation and perfusion were intact within all digits. Postoperative plan: Patient should keep the splint clean, dry, and intact. Ice and elevation as needed. He was given a prescription for Crystal for pain control. He is to be nonweightbearing of the left upper extremity. He is to follow-up in 2 weeks for reevaluation. We will plan to pull the pins out in the office in 4-6 weeks pending radiographic healing. These instructions were discussed with the patient's ex-, who is with him today. Discharge instructions were also provided. Tourniquet Time 53 minutes at 250 mmHg left upper arm Sponge/Needle Count All accounted for Fluid Count Per anesthesia Electronically signed by Robert Moreira DO 08/01/18 10:09 EDT Normal [facility] XR Finger 5th Digit Lefton 0 08-01-2018 XR Finger 5th Digit Left Procedure: XR Finger 5th Digit Left Clinical information: Lt 5th digit in OR Technique: 6 fluoroscopic spot films of the left hand were obtained during surgery. The fluoroscopy time was 2 minutes 6 seconds. Findings: 3 metallic wires have been inserted through the base of the fifth metacarpal bone, stabilizing a fracture at this site. The fracture fragment are maintained in near-normal anatomic alignment. . Impression: Postop appearance right fifth metacarpal. This report has been created using voice recognition software. It may contain minor errors which are inherent in voice recognition technology. Final Dictated by: Luther Richardson MD Dictated DT/TM: 08/01/2018 4:27 pm Signed by: Luther Richardson MD Signed (Electronic Signature): 08/01/2018 4:29 pm (If Report Is Signed, Electronically Signed in Other Vendor System) Normal [facility] Vital Signs Date Time Vital Sign Value Performing Clinician [place] 05-27-2023 18:27-0500 Body height 182.88 cm Suzi Vázquez CNP Work Phone: [facility] Work Phone: 05-27-2023 18:27-0500 Body mass index (BMI) [Ratio] 28.1 kg/m2 Suzi Vázquez CNP Work Phone: [facility] Work Phone: 05-27-2023 18:27-0500 Body surface area Derived from formula 2.2 m2 Suzi Vázquez CNP Work Phone: [facility] Work Phone: 05-27-2023 18:27-0500 Body temperature 98.7 [degF] Suzi Vázquez CNP Work Phone: [facility] Work Phone: 05-27-2023 18:27-0500 Body weight 93.9 kg Suzi Gurpreet ESQUIVEL Work Phone: [facility] Work Phone: 05-27-2023 18:27-0500 Diastolic blood pressure 76 mm[Hg] Suzi Vázquez CNP Work Phone: [facility] Work Phone: 05-27-2023 18:27-0500 Heart rate 92 /min Suzi Gurpreet ESQUIVEL Work Phone: [facility] Work Phone: 05-27-2023 18:27-0500 Systolic blood pressure 119 mm[Hg] Suzi Vázquez CNP Work Phone: [facility] Work Phone: 05-04-2023 13:07-0500 Body height 182.88 cm Suzi Vázquez CNP Work Phone: [facility] Work Phone: 05-04-2023 13:07-0500 Body mass index (BMI) [Ratio] 27 kg/m2 Szui Vázquez CNP Work Phone: [facility] Work Phone: 05-04-2023 13:07-0500 Body surface area Derived from formula 2.1 m2 Suzi Vázquez CNP Work Phone: [facility] Work Phone: 05-04-2023 13:07-0500 Body weight 90.27 kg Suzi Vázquez CNP Work Phone: [facility] Work Phone: 05-04-2023 13:07-0500 Diastolic blood pressure 80 mm[Hg] Suzi Vázquez CNP Work Phone: [facility] Work Phone: 05-04-2023 13:07-0500 Heart rate 81 /min Suzi Vázquez CNP Work Phone: [facility] Work Phone: 05-04-2023 13:07-0500 SaO2% (BldA) [Mass fraction] 98 % Suzi Vázquez CNP Work Phone: [facility] Work Phone: 05-04-2023 13:07-0500 Systolic blood pressure 133 mm[Hg] Suzi Vázquez CNP Work Phone: [facility] Work Phone: 09-04-2022 16:38-0400 Body height 182.88 cm Suzi Vázquez CNP Work Phone: [facility] Work Phone: 09-04-2022 16:38-0400 Body mass index (BMI) [Ratio] 27 kg/m2 Suzi Vázquez CNP Work Phone: [facility] Work Phone: 09-04-2022 16:38-0400 Body surface area Derived from formula 2.1 m2 Suzi Vázquez CNP Work Phone: [facility] Work Phone: 09-04-2022 16:38-0400 Body temperature 98.2 [degF] Suzi Vázquez CNP Work Phone: [facility] Work Phone: 09-04-2022 16:38-0400 Body weight 90.27 kg Suzi Vázquez CNP Work Phone: [facility] Work Phone: 09-04-2022 16:38-0400 Diastolic blood pressure 93 mm[Hg] Suzi Vázquez CNP Work Phone: [facility] Work Phone: 09-04-2022 16:38-0400 Heart rate 89 /min Suzi Vázquez CNP Work Phone: [facility] Work Phone: 09-04-2022 16:38-0400 SaO2% (BldA) [Mass fraction] 98 % Suzi Vázquez CNP Work Phone: [facility] Work Phone: 09-04-2022 16:38-0400 Systolic blood pressure 134 mm[Hg] Suzi Vázquez CNP Work Phone: [facility] Work Phone: 07-22-2022 14:43-0400 Diastolic blood pressure 84 mm[Hg] Suzi Vázquez ACCT EXEC Work Phone: [facility] Work Phone: 07-22-2022 14:43-0400 Systolic blood pressure 133 mm[Hg] Suzi Vázquez ACCT EXEC Work Phone: [facility] Work Phone: 07-17-2022 11:44-0400 Diastolic blood pressure 86 mm[Hg] Suzi Vázquez CNP Work Phone: [facility] Work Phone: 07-17-2022 11:44-0400 Systolic blood pressure 133 mm[Hg] Suzi Vázquez CNP Work Phone: [facility] Work Phone: 06-29-2022 13:04-0500 Diastolic blood pressure 82 mm[Hg] Suzi Vázquez CNP Work Phone: [facility] Work Phone: 06-29-2022 13:04-0500 Systolic blood pressure 121 mm[Hg] Suzi Vázquez CNP Work Phone: [facility] Work Phone: 05-04-2022 16:57-0500 Body height 182.88 cm Suzi Vázquez CNP Work Phone: [facility] Work Phone: 05-04-2022 16:57-0500 Body mass index (BMI) [Ratio] 27.5 kg/m2 Suzi Vázquez CNP Work Phone: [facility] Work Phone: 05-04-2022 16:57-0500 Body surface area Derived from formula 2.1 m2 Suzi Vázquez CNP Work Phone: [facility] Work Phone: 05-04-2022 16:57-0500 Body temperature 97.8 [degF] Suzi Vázquez CNP Work Phone: [facility] Work Phone: 05-04-2022 16:57-0500 Body weight 92.08 kg Suzi Vázquez CNP Work Phone: [facility] Work Phone: 05-04-2022 16:57-0500 Diastolic blood pressure 90 mm[Hg] Suzi Richarder ACCT EXEC Work Phone: [facility] Work Phone: 05-04-2022 16:57-0500 Heart rate 82 /min Suzi Vázquez ACCT EXEC Work Phone: [facility] Work Phone: 05-04-2022 16:57-0500 SaO2% (BldA) [Mass fraction] 98 % Suzi Vázquez ACCT EXEC Work Phone: [facility] Work Phone: 05-04-2022 16:57-0500 Systolic blood pressure 136 mm[Hg] Suzi Richarder ACCT EXEC Work Phone: [facility] Work Phone: 01-09-2022 15:15-0400 Body mass index (BMI) [Ratio] 24.82 kg/m2 Xiomara Malloryn MEDIA ASSOCIATE - ACCT EXEC Work Phone: [facility] [employer] 01-09-2022 15:15-0400 Body temperature 98.01 [degF] Xiomara Malloryn MEDIA ASSOCIATE - ACCT EXEC Work Phone: [facility] [employer] 01-09-2022 15:15-0400 Body weight 83.01 kg Xiomara Malloryn MEDIA ASSOCIATE - ACCT EXEC Work Phone: [facility] [employer] 01-09-2022 15:15-0400 Diastolic blood pressure 75 mm[Hg] Xiomara Barnett MEDIA ASSOCIATE - ACCT EXEC Work Phone: [facility] [employer] 01-09-2022 15:15-0400 Heart rate 91 /min Xiomaranara Barnett MEDIA ASSOCIATE - ACCT EXEC Work Phone: [facility] [employer] 01-09-2022 15:15-0400 Respiratory rate 16 /min Xiomara Barnett MEDIA ASSOCIATE - ACCT EXEC [facility] 01-09-2022 15:15-0400 SaO2% (BldA) [Mass fraction] 99 % Xiomara Barnett APRN - ACCT EXEC [facility] 01-09-2022 15:15-0400 Systolic blood pressure 157 mm[Hg] Xiomara Barnett APRN - ACCT EXEC [facility] 12-11-2021 16:23-0400 Body temperature 97.2 [degF] Xiomara Barnett APRN - ACCT EXEC Work Phone: [facility] [employer] 12-11-2021 16:23-0400 Diastolic blood pressure 72 mm[Hg] Xiomara Barnett MEDIA ASSOCIATE - ACCT EXEC Work Phone: [facility] [employer] 12-11-2021 16:23-0400 Heart rate 87 /min Xiomara Barnett APRN - ACCT EXEC [facility] 12-11-2021 16:23-0400 Respiratory rate 24 /min Xiomara Barnett APRN - ACCT EXEC [facility] 12-11-2021 16:23-0400 SaO2% (BldA) [Mass fraction] 100 % Xiomara aBrnett APRN - ACCT EXEC Work Phone: [facility] [employer] 12-11-2021 16:23-0400 Systolic blood pressure 147 mm[Hg] Xiomara Barnett APRN - ACCT EXEC Work Phone: [facility] [employer] 08-05-2021 12:45-0400 Diastolic blood pressure 70 mm[Hg] Belkys Nunez MD Work Phone: [employer] 08-05-2021 12:45-0400 Heart rate 64 /min Belkys Nunez MD Work Phone: [employer] 08-05-2021 12:45-0400 Systolic blood pressure 115 mm[Hg] Belkys Nunez MD Work Phone: [employer] 08-05-2021 09:48-0400 Body temperature 98.01 [degF] Belkys Nunez MD Work Phone: [employer] 08-05-2021 09:48-0400 Respiratory rate 16 /min Belkys Nunez MD Work Phone: [employer] 08-05-2021 09:48-0400 SaO2% (BldA) [Mass fraction] 99 % Belkys Nunez MD Work Phone: [employer] 07-18-2021 11:41-0400 Body temperature 97.3 [degF] Geraldo De La Rosa MD [employer] 07-18-2021 11:41-0400 Diastolic blood pressure 85 mm[Hg] Geraldo De La Rosa MD [employer] 07-18-2021 11:41-0400 Heart rate 77 /min Geraldo De La Rosa MD [employer] 07-18-2021 11:41-0400 Respiratory rate 16 /min Geraldo De La Rosa MD [employer] 07-18-2021 11:41-0400 Systolic blood pressure 142 mm[Hg] Geraldo De La Rosa MD [employer] 04-14-2021 05:39-0500 Diastolic blood pressure 101 mm[Hg] Ana Laura Buchanan MD Work Phone: [employer] 04-14-2021 05:39-0500 Heart rate 96 /min Ana Laura Buchanan MD Work Phone: [employer] 04-14-2021 05:39-0500 Respiratory rate 16 /min Ana Laura Buchanan MD Work Phone: [employer] 04-14-2021 05:39-0500 SaO2% (BldA) [Mass fraction] 97 % Ana Laura Buchanan MD Work Phone: [employer] 04-14-2021 05:39-0500 Systolic blood pressure 140 mm[Hg] Ana Laura Buchanan MD Work Phone: [employer] 10-01-2020 17:02-0400 Diastolic blood pressure 85 mm[Hg] Sharif He MD Work Phone: [employer] Work Phone: 10-01-2020 17:02-0400 Heart rate 80 /min Sharif He MD Work Phone: [employer] Work Phone: 10-01-2020 17:02-0400 Respiratory rate 16 /min Sharif He MD Work Phone: [employer] Work Phone: 10-01-2020 17:02-0400 Systolic blood pressure 130 mm[Hg] Sharif He MD Work Phone: [employer] Work Phone: 10-01-2020 15:04-0400 SaO2% (BldA) [Mass fraction] 99 % Sharif He MD Work Phone: [employer] Work Phone: 10-01-2020 13:48-0400 Body temperature 98.29 [degF] Sharif He MD Work Phone: [employer] Work Phone: 09-19-2020 16:37-0400 Diastolic blood pressure 70 mm[Hg] Xiomara Barnett MEDIA ASSOCIATE - ACCT EXEC Work Phone: [employer] Work Phone: 09-19-2020 16:37-0400 Heart rate 76 /min Xiomaranara Barnett MEDIA ASSOCIATE - ACCT EXEC Work Phone: [employer] Work Phone: 09-19-2020 16:37-0400 Respiratory rate 10 /min Xiomaranara Barnett MEDIA ASSOCIATE - ACCT EXEC Work Phone: [employer] Work Phone: 09-19-2020 16:37-0400 Systolic blood pressure 130 mm[Hg] Xiomara Barnett MEDIA ASSOCIATE - ACCT EXEC Work Phone: [employer] Work Phone: 09-19-2020 16:15-0400 SaO2% (BldA) [Mass fraction] 97 % Xiomara Barnett MEDIA ASSOCIATE [employer] Work Phone: [facility] [employer] Work Phone: 09-19-2020 15:43-0400 Body temperature 98.01 [degF] Xiomara Barnett APRN [employer] Work Phone: [facility] [employer] Work Phone: 08-05-2020 12:36-0400 Body Temperature 97.9 [degF] [facility] Work Phone: 08-05-2020 12:36-0400 BP Diastolic 70 mm[Hg] [facility] [employer] Phone: 08-05-2020 12:36-0400 BP Systolic 131 mm[Hg] [facility]ys [facility]une[facility] Work Phone: 08-05-2020 12:36-0400 Pulse (Heart Rate) 71 /min [facility] [employer] Phone: 08-05-2020 12:36-0400 Pulse Oximetry 97 % [facility]ys Nunez [facility] [employer] Phone: 08-05-2020 12:36-0400 Respiratory Rate 20 /min [facility] Work Phone: 08-04-2020 20:46-0400 BMI (Body Mass Index) 24.41 kg/m2 [employer] [facility] Work Phone: 08-04-2020 20:46-0400 Body Temperature 98.4 [degF] [facility] Work Phone: 08-04-2020 20:46-0400 Body weight 81.65 kg [facility] [facility] Work Phone: 08-04-2020 20:46-0400 BP Diastolic 77 mm[Hg] [employer] Work Phone: 08-04-2020 20:46-0400 BP Systolic 116 mm[Hg] [employer] Work Phone: 08-04-2020 20:46-0400 Height 182.9 cm [employer] Work Phone: 08-04-2020 20:46-0400 Pulse (Heart Rate) 87 /min [employer] Work Phone: 08-04-2020 20:46-0400 Pulse Oximetry 98 % [employer] Phone: 08-04-2020 20:46-0400 Respiratory Rate 16 /min [employer] Phone: 04-10-2020 13:01-0500 Body Temperature 97.81 [degF] [employer] [facility] [place] [employer] 04-10-2020 13:01-0500 BP Diastolic 85 mm[Hg] [employer] , [place] 04-10-2020 13:01-0500 BP Systolic 144 mm[Hg] [employer] , [place] 04-10-2020 13:01-0500 Pulse (Heart Rate) 79 /min [facility] 04-10-2020 13:01-0500 Pulse Oximetry 100 % [employer] , [place] 04-10-2020 13:01-0500 Respiratory Rate 18 /min [employer], [place] 03-31-2020 04:04-0500 Body Temperature 98.1 [degF] [employer] [facility] [place] [employer] 03-31-2020 04:04-0500 BP Diastolic 97 mm[Hg] Andrzej [facility]- [place] , [place] 03-31-2020 04:04-0500 BP Systolic 111 mm[Hg] [employer] [facility]- [employer] , [place] 03-31-2020 04:04-0500 Pulse (Heart Rate) 76 /min Andrzej [employer]- [employer] [place] 03-31-2020 04:04-0500 Pulse Oximetry 99 % Andrzej [facility] [place] , [place] 03-31-2020 04:04-0500 Respiratory Rate 18 /min [facility] [place] 12-10-2019 14:51-0400 Body Temperature 98.01 [degF] [facility] [place] 12-10-2019 14:51-0400 BP Diastolic 68 mm[Hg] [facility] , [place] 12-10-2019 14:51-0400 BP Systolic 139 mm[Hg] [facility] , [place] 12-10-2019 14:51-0400 Pulse (Heart Rate) 89 /min [facility] 12-10-2019 14:51-0400 Pulse Oximetry 97 % [facility] [place] [facility] [place] 12-10-2019 14:51-0400 Respiratory Rate 18 /min [facility] 10-19-2019 21:11-0400 Body Temperature 98.6 [degF] Stan Talley [facility] [place] 10-19-2019 21:11-0400 BP Diastolic 83 mm[Hg] [facility] [place] , [place] 10-19-2019 21:11-0400 BP Systolic 139 mm[Hg] [facility] [place] 10-19-2019 21:11-0400 Pulse (Heart Rate) 84 /min Stan Talley [facility] 10-19-2019 21:11-0400 Pulse Oximetry 98 % [facility] [place] [facility] [place] 10-19-2019 21:11-0400 Respiratory Rate 16 /min Stan Talley [facility] [place] 07-13-2019 19:02-0400 BMI (Body Mass Index) 23.1 kg/m2 [facility] Work Phone: 07-13-2019 19:02-0400 Body weight 77.11 kg [facility] Work Phone: 07-13-2019 19:02-0400 BSA (Body Surface Area) 1.99 m2 [facility] Work Phone: 07-13-2019 19:02-0400 Height 182.88 cm [facility] Work Phone: 07-11-2019 11:45-0400 BP Diastolic 60 mm[Hg] [facility] [place] 07-11-2019 11:45-0400 BP Systolic 99 mm[Hg] Kevin Hannah [employer] [facility] , [place] 07-11-2019 11:45-0400 Pulse (Heart Rate) 65 /min [facility] [place] 07-11-2019 09:22-0400 Body Temperature 98.4 [degF] Kevin Hannah [employer] [facility], [place] 07-11-2019 09:22-0400 Pulse Oximetry 96 % [facility] [place] 07-11-2019 09:22-0400 Respiratory Rate 18 /min [facility] [place] Encounters Encounter Date Encounter Type Care Provider Facility Start: 12-05-2024 End: 12-05-2024 ambulatory Mariah [place] [place] Start: 12-04-2024 End: 12-04-2024 ambulatory Mariah Gordon [place] [place] Start: 11-15-2024 End: 11-15-2024 ambulatory Mariah Gordon [facility] Start: 11-15-2024 End: 11-15-2024 Patient encounter procedure Mariah Gordon [facility] Start: 11-06-2024 ambulatory Mariah Gordon Facilit y:[facility] Start: 11-03-2024 End: 11-03-2024 ambulatory [facility] Start: 07-08-2023 End: 07-09-2023 ambulatory LUCY MIRANDA [facility] Start: 06-21-2023 ambulatory Jesus Manuel Arias Facility:[facility] Start: 05-27-2023 End: 05-27-2023 [facility] visit, estab pt Niki BADILLOW Work Phone: [facility] Work Phone: Start: 05-04-2023 End: 05-04-2023 FQHC visit, estab pt Shannon WILSON Work Phone: [facility] Work Phone: Start: 03-11-2023 End: 03-12-2023 ambulatory [facility]STOPHER D [facility] Start: 01-30-2023 End: 01-31-2023 ambulatory CHRISTOPHER D SEARS [facility] Start: 01-29-2023 End: 01-29-2023 ambulatory CHRISTOPHER D SEARS [facility] Start: 09-04-2022 End: 09-04-2022 Patient encounter procedure Suzi Vázquez ACCT EXEC Work Phone: [facility] Work Phone: Start: 09-04-2022 End: 05-04-2023 FQHC visit, estab pt Kyler Rosario ACCT EXEC Work Phone: [facility] Work Phone: Start: 07-22-2022 End: 07-22-2022 General Dante Benson DDS Work Phone: [facility] Work Phone: Start: 07-17-2022 End: 07-17-2022 General Dante Benson DDS Work Phone: [facility] Work Phone: Start: 06-29-2022 limited oral evaluation - problem focused Ruby Daniel DMD Work Phone: [facility] Start: 06-29-2022 End: 06-29-2022 Emergency department patient visit Ruby Daniel DMD Work Phone: [facility] Work Phone: Start: 05-11-2022 Viscer and infrarena l abdom aorta 1 prosthesis Suzi Vázquez ACCT EXEC Work Phone: [facility] Start: 05-04-2022 End: 05-04-2022 Patient encounter procedure Suzi Vázquez ACCT EXEC Work Phone: [facility] Work Phone: Start: 05-04-2022 End: 05-04-2022 FQHC visit, estab pt Suzi Gurpreet ESQUIVEL Work Phone: [facility] Work Phone: Start: 03-17-2022 Emergency department patient visit LORENA Christina [facility] Start: 01-29-2022 End: 01-29-2022 Subsequent hospital visit by physician Xiomara Barnett APRN - ACCT EXEC Work Phone: [facility] Start: 01-09-2022 End: 01-09-2022 Emergency department patient visit Xiomarapenelope Barnett MEDIA ASSOCIATE - ACCT EXEC Work Phone: [facility] Comment on above: Left wrist sprain, i nitial encounter (Primary Dx); Cervical radiculopathy Start: 12-11-2021 End: 12-12-2021 Emergency department patient visit Xiomara Barnett MEDIA ASSOCIATE - ACCT EXEC Work Phone: [facility] Comment on above: Suicidal ideation (P rimary Dx) Start: 11-13-2021 End: 11-13-2021 Subsequent hospital visit by physician Xiomara Barnett APRN - ACCT EXEC Work Phone: [facility] Laboratory Comment on above: COVID-19 ruled out Start: 08-05-2021 End: 08-05-2021 Emergency department patient visit Belkys Nunez MD Work Phone: [facility] Comment on above: Chronic abdominal pa in (Primary Dx); Blood in stool; Elevated liver enzymes Start: 07-18-2021 End: 07-18-2021 Emergency department patient visit Geraldo De La Rosa MD [facility] Comment on above: Nausea vomiting and diarrhea (Primary Dx); Elevated liver enzymes Start: 04-14-2021 End: 04-14-2021 Emergency department patient visit Ana Laura Buchanan MD Work Phone: [facility] Comment on above: Suspected ingested f oreign body not found after observation (Primary Dx); COVID-19 virus infection Start: 10-01-2020 End: 10-01-2020 Emergency department patient visit Sharif He MD Work Phone: [facility] Comment on above: Cervical radiculopat hy at C5 (Primary Dx); Pain in right arm; Cervical disc herniation Start: 09-19-2020 End: 09-19-2020 Emergency department patient visit Xiomara Boudreauxtutu RUFFIN - ACCT EXEC Work Phone: [facility] Comment on above: Contusion of neck, i nitial encounter (Primary Dx); Vocal cords swelling Start: 09-16-2020 End: 09-18-2020 Subsequent hospital visit by physician Valerie Xr Dr Room 2 [facility] Laboratory Comment on above: Diarrhea, unspecifie d type Cough; Fever, unspecified fever cause Start: 08-15-2020 End: 08-15-2020 Subsequent hospital visit by physician [facility] Echo Room [facility] Echocardiography Comment on above: Syncope, unspecified syncope type; Lightheadedness Start: 08-05-2020 End: 08-05-2020 Emergency department patient visit Belkys Nunez Work Phone: [facility] Comment on above: Strain of lumbar reg ion, subsequent encounter (Primary Dx) Start: 08-04-2020 End: 08-04-2020 Emergency department patient visit Andrzejandre Guevarasain Work Phone: [facility] Comment on above: Strain of lumbar reg ion, initial encounter (Primary Dx) Start: 04-10-2020 End: 04-10-2020 Emergency department patient visit [facility] Comment on above: Sudden visual loss o f left eye (Primary Dx); Pain, dental; Dental infection Start: 03-31-2020 End: 03-31-2020 Emergency department patient visit Andrzej Gómez Work Phone: [facility] Comment on above: Contusion of right k nee, initial encounter (Primary Dx); Laceration of right lower extremity, initial encounter Start: 12-10-2019 End: 12-10-2019 Emergency department patient visit [facility] Comment on above: Sprain of right elbo w, initial encounter (Primary Dx) Start: 10-19-2019 End: 10-19-2019 Emergency department patient visit Stan Talley Work Phone: [facility] Comment on above: Contusion of left kn ee, initial encounter (Primary Dx) Start: 07-13-2019 End: 07-13-2019 [facility] Work Phone: Start: 07-13-2019 End: 07-13-2019 Telemedicine consultation with patient Suzi Vázquez Work Phone: [facility] Work Phone: Start: 07-11-2019 End: 07-11-2019 Emergency department patient visit Kevin Young Work Phone: [facility] Comment on above: Viral syndrome (Prim grace Dx) Start: 08-01-2018 End: 08-01-2018 Patient encounter procedure Robert Moreira Facility:[facility] Procedures Date Procedure Procedure Detail Performing Clinician Start: 05-27-2023 Current tobacco non- user cad cap copd pv dm Suzi Vázquez ACCT EXEC Work Phone: Start: 05-27-2023 Most recent diastoli c blood pressure < 80 mm hg Suzi Vázquez ACCT EXEC Work Phone: Start: 05-27-2023 Most recent systolic blood pressure <130 mm hg Suzi Vázquez ACCT EXEC Work Phone: Start: 05-27-2023 Psychotherapy w/shirley ent 30 minutes Niki Mariano LICENSED PHARMACIST Work Phone: Start: 05-04-2023 Hemoglobin glycosylated a1c Gia Nichols ACCT EXEC Work Phone: Start: 05-04-2023 Most recent diastoli c blood pressure 80-89 mm hg Gia Nichols ACCT EXEC Work Phone: Start: 05-04-2023 Most recent hemoglob in a1c level < 7.0% Gia Nichols ACCT EXEC Work Phone: Start: 05-04-2023 Most recent systolic blood press 130-139mm hg Gia Nichols ACCT EXEC Work Phone: Start: 05-04-2023 Pt-focused hlth risk assmt score doc stnd instrm Gia Nichols ACCT EXEC Work Phone: Start: 07-22-2022 extraction, erupted tooth or exposed root (elevation and/or forceps removal) Dante Benson DDS Work Phone: Start: 07-17-2022 extraction, erupted tooth or exposed root (elevation and/or forceps removal) Dante Benson DDS Work Phone: Start: 06-29-2022 intraoral - periapic al each additional radiographic image Ruby Fredy [facility] Work Phone: Start: 06-29-2022 intraoral - periapic al first radiographic image Juanjodeirdre Fredy DMD Work Phone: Start: 05-04-2022 Antibody hiv-1&hiv-2 single result Suzi Vázquez ACCT EXEC Work Phone: Start: 05-04-2022 Back Surgery Suzi steinberg ACCT EXEC Work Phone: Start: 05-04-2022 Hemoglobin glycosylated a1c Suzi Vázquez ACCT EXEC Work Phone: Start: 01-29-2022 Drug assay valproic dipropylacetic acid total Lucy Miranda MEDIA ASSOCIATE - [facility] Work Phone: Start: 01-09-2022 End: 01-09-2022 Radex wrist complete minimum 3 views Belkys Nunez MD Work Phone: Start: 12-11-2021 Assay of ethanol Kingsley Holman MEDIA ASSOCIATE - [facility] Work Phone: Start: 12-11-2021 Comprehensive metabo lic panel Jazmine Holman MEDIA ASSOCIATE - [facility] Work Phone: Start: 12-11-2021 COVID-19, RAPID Jazmine Holman MEDIA ASSOCIATE - ACCT EXEC Work Phone: Start: 12-11-2021 Drug tst prsmv instr mnt chem analyzers pr date Jazmine Holman MEDIA ASSOCIATE - ACCT EXEC Work Phone: Start: 11-13-2021 COVID-, RAPID Johan Meza MD Work Phone: Start: 08-05-2021 Radex ankle complete minimum 3 views Belkys Nunez MD Work Phone: Start: 08-05-2021 Urnls dip stick/tabl et reagent auto microscopy Belkys Nunez MD Work Phone: Start: 08-05-2021 Ct abdomen & pelvis w/contrast material Belkys Nunez MD Work Phone: Start: 08-05-2021 End: 08-05-2021 Comprehensive metabolic panel Belkys Nunez MD Work Phone: Start: 07-18-2021 Blood count complete auto&auto difrntl wbc Geraldo De La Rosa MD Start: 07-18-2021 COVID-, RAPID Geraldo hunt MD Start: 04-14-2021 Radiologic exam abdo men 2 views Ana Laura Buchanan MD Work Phone: Start: 04-14-2021 Radiologic exam ches t single view Ana Laura Buchanan MD Work Phone: Start: 04-14-2021 COVID-, RAPID Ana Laura Buchanan MD Work Phone: Start: 10-01-2020 Mri spinal canal cer vical w/o contrast matrl Sharif He MD Work Phone: Start: 09-19-2020 Ct soft tissue neck w/contrast material Kolton Ty PA-C Work Phone: Start: 09-19-2020 BASIC METABOLIC PANE L W/ REFLEX TO MG FOR LOW K Kolton Ty PA-C Work Phone: Start: 09-19-2020 Blood count complete auto&auto difrntl wbc Kolton [place] [employer] Work Phone: Start: 09-16-2020 Radiologic exam ches t 2 views Xiomara Barnett MEDIA ASSOCIATE - ACCT EXEC Work Phone: Start: 09-16-2020 Comprehensive metabo lic panel Xiomara Barnett MEDIA ASSOCIATE - ACCT EXEC Work Phone: Start: 08-15-2020 Echo tthrc r-t 2d w/wom-mode compl spec&colr d Xiomara Barnett MEDIA ASSOCIATE - ACCT EXEC Work Phone: Start: 08-04-2020 Ct lumbar spine w/o contrast material Andrzej Rima [employer] Work Phone: Start: 03-31-2020 Radiologic examinati on knee 3 views Andrzej Rima [employer] Work Phone: Start: 12-10-2019 Radex elbow complete minimum 3 views Curt Mcmillan Work Phone: Start: 10-19-2019 Radiologic examinati on knee 3 views Stan Talley Work Phone: Start: 07-14-2019 Patient gave verbal consent for telehealth Start: 07-13-2019 Operative procedure on ankle Start: 07-13-2019 Operative procedure on hand Start: 07-13-2019 Patient gave verbal consent for telehealth Start: 07-13-2019 PSYCHIATRIC DISORDERS Start: 07-13-2019 Psychotherapy w/shirley ent 30 minutes Shannon Gray Work Phone: Start: 07-13-2019 Pt tobacco screen rcvd tlk Suzi Vázquez Work Phone: Start: 07-11-2019 [employer] influenza Eta n E [employer]itches Work Phone: Start: 07-11-2019 [employer] streptococ cus group a Kevin E Eitches Work Phone: Plan of Treatment Date Care Activity Detail Author Start: 2036 Shingles Vaccine (1 of 2) Shingles Vaccine (1 of 2) [place], [place] Start: 03-31-2030 DTaP/Tdap/Td vaccine (2 - Td or Tdap) DTaP/Tdap/Td vaccine (2 - Td or Tdap) [facility] Start: 03-31-2030 DTaP/Tdap/Td vaccine (2 - Td) DTaP/Tdap/Td vaccine (2 - Td) [place], [place] Start: 03-31-2030 DTaP/Tdap/Td vaccine (3 - Td) DTaP/Tdap/Td vaccine (3 - Td) [facility] Work Phone: Start: 07-28-2023 Dental Comp Exam [facility] Work Phone: Start: 06-25-2023 FQHC visit, estab pt Medical E stablished Patient [facility] Work Phone: Start: 05-27-2023 End: 05-27-2023 Patient education based on identified need [facility] Start: 05-20-2023 FQHC visit, estab pt Medical E stablished Patient [facility] Work Phone: Start: 05-04-2023 End: 05-04-2023 Patient education based on identified need [facility] Start: 11-13-2022 Hepatitis C screening Hepatitis C sc miguel [facility] Comment on above: Postponed from 09/01 (Patient Refused) Start: 11-13-2022 HIV screening HIV screen [facility] Comment on above: Postponed from 09/01 (Patient Refused) Start: 10-16-2022 FQHC visit, estab pt Medical E stablished Patient [facility] Work Phone: Start: 09-04-2022 End: 09-04-2022 Patient education based on identified need [facility] Start: 08-06-2022 Depression Monitoring Depression [facility] Start: 05-18-2022 FQHC visit, estab pt Medical E stablished Patient [facility] Work Phone: Start: 05-04-2022 End: 05-04-2022 Patient education based on identified need [facility] Start: 05-04-2022 CBC W Auto Differential panel - Blood [facility] Start: 02-24-2022 COVID-19 Vaccine (#1) COVID-19 Vacci ne (#1) [facility] Comment on above: Postponed from 03/04 (Patient Refused) Start: 12-30-2021 End: 12-30-2021 Patient encounter procedure 12/30/2021 Office Visit Primary Care Xiomara Barnett, MEDIA ASSOCIATE - ACCT EXEC [address] [place] [address] [facility] Start: 12-25-2021 Influenza vaccination [facility] Start: 12-04-2021 Varicella vaccine (1 of 2 - 2-dose childhood series) Varicella vaccine (1 of 2 - 2-dose childhood series) [facility] Comment on above: Postponed from 09/01 (Not Indicated) Start: 11-24-2021 Influenza vaccination Flu vaccine (# 1) [facility] Start: 08-08-2021 Depression Monitoring Depression Mon [facility] Start: 08-08-2021 Varicella vaccine (1 of 2 - 2-dose childhood series) Varicella vaccine (1 of 2 - 2-dose childhood series) [facility] Comment on above: Postponed from 09/01 (Not Indicated) Start: 08-06-2021 End: 08-06-2021 Patient encounter procedure 08/06/2021 Office Visit Family Medicine Xiomara Barnett, MEDIA ASSOCIATE - ACCT EXEC [address] [place] [address] [facility] Start: 12-25-2020 Influenza vaccination [facility] Start: 10-08-2020 End: 10-08-2020 Patient encounter procedure 10/08/2020 Appointment Radiology [facility] CT Scan Start: 10-01-2020 End: 10-01-2020 Patient encounter procedure 10/01/2020 Office Visit General Surgery Tano Morel MD [address] [place] [address] [phone] [facility] Start: 09-27-2020 End: 09-27-2020 Patient encounter procedure 09/27/2020 Appointment Radiology [facility] CT Scan Start: 09-18-2020 End: 09-18-2020 Patient encounter procedure 09/18/2020 Office Visit Family Medicine Xiomara Barnett, MEDIA ASSOCIATE - ACCT EXEC [address] [place] [address] [phone] [facility] Start: 09-06-2020 End: 09-06-2020 Patient encounter procedure 09/06/2020 Office Visit Family Medicine Xiomara Barnett, MEDIA ASSOCIATE - ACCT EXEC [address] [place] [address] [phone] [facility] Start: 12-26-2019 Influenza vaccination [place], [place] Start: 07-26-2019 Telemedicine [facility] Work Phone: Start: 07-13-2019 End: 07-13-2019 Patient education based on identified need [facility] provided active and supportive listening and normalized emotions and feelings related to mood and stressors. ~[facility] discussed coping skills to implement for times of increased stress. ~ [facility] Start: 07-13-2019 End: 07-13-2019 Provider instructions for treatment Intervention and counseling on cessation of tobacco use, 3-10 minutes [facility] Start: 12-25-2018 Influenza vaccination Flu vaccine (# 1) [place], [place] Start: 2005 DTaP/Tdap/Td vaccine (1 - Tdap) DTaP/Tdap/Td vaccine (1 - Tdap) [place], [place] Start: 2002 COVID-19 Vaccine (1) COVID-19 Vaccin e (1) [facility] Work Phone: Start: 2001 HIV screen HIV screen [place], [place] Start: 2001 HIV screening HIV screen [facility] Start: 1998 COVID-19 Vaccine (1) COVID-19 Vaccin e (1) [employer] Phone: Start: 1992 Pneumococcal 0-64 years Vaccine (1 of 1 - PPSV23) Pneumococcal 0-64 years Vaccine (1 of 1 - PPSV23) [place], [place] Start: 1992 Pneumococcal 0-64 years Vaccine (1 of 2 - PPSV23) Pneumococcal 0-64 years Vaccine (1 of 2 - PPSV23) [employer] Phone: Start: 09-02-1991 COVID-19 Vaccine (1) COVID-19 Vaccin e (1) [employer] Start: 09-02-1987 Varicella vaccine (1 of 2 - 2-dose childhood series) Varicella vaccine (1 of 2 - 2-dose childhood series) [facility] [employer] [facility] Start: 1986 Hepatitis C screening Hepatitis C sc located within [facility] [employer] End: 04-14-2021 CT Head WO Contrast CT Head WO Contrast Imaging STAT Once for 1 Occurrences starting 04/14/2021 until 04/14/2021 [employer] Phone: Comment on above: Once for 1 Occurrenc es starting 04/14/2021 until 04/14/2021 Echo tthrc r-t 2d w/ wo m-mode complete rest&st ECHO REPORT Echocardiography Ordered: 08/15/2020 [employer] Phone: Comment on above: Ordered: 08/15/2020 Immunizations Immunization Date Immunization Notes Care Provider Fa adamty 03-31-2020 tetanus toxoid, redu jyothi diphtheria toxoid, and acellular pertussis vaccine, adsorbed Andrzej [employer] 03-31-2020 diphtheria, tetanus toxoids and acellular pertussis vaccine, unspecified formulation [place], [place] Payers Date Payer Category Payer Private Health Insurance [id number] 2024 Unknown [id number] 2024 Medicaid [id number] 2023 Self-pay 2020 Unknown HERBER SANTOS [id number] 2020-Present [address] [address] [place] [address] Indemnity [id number] 2018 Unknown 2014 Unknown [facility] xxxxxxxxxxxx 2014-Present [phone] [address] [place] [address] xxxxxxxxxxxx [id number] 2014 Unknown [id number] 1986 Unknown [id number] [id number] .196 1986 Unknown [id number] [id number] .173 1986 Unknown [id number] [id number] .173 1986 Unknown [id number] [id number] .173 1986 Unknown [id number] [id number] .173 1986 Unknown [id number] [id number] .175 1986 Unknown [id number] [id number] .727 1986 Unknown [id number] [id number] .727 1986 Unknown [id number] [id number] .727 Self-pay [id number] Unknown [id number] Social History Date Type Detail Facility Assertion Legal problem (finding) [facility] Family disruptio n (finding) [facility] Emotional stress (finding) [facility] Problem situatio n relating to social and personal history (finding) [facility] [facility] Social drinker (finding) [facility] Sexually active (finding) [facility] Gender identity finding (finding) [facility] Finding of sexua l orientation (finding) [facility] Tobacco user (finding) [facility] Tobacco smoking status Unknown if ever smoked [facility] Work Phone: Start: 07-11-2019 End: 11-15-2024 Tobacco smoking status NHIS Current every day smoker [employer] Start: 04-26-2005 History of tobacco use Cigarette Smoker [facility] [email or web address] [place], [place] Start: 07-11-2019 End: 01-09-2022 Cigarettes smoked current (pack per day) - Reported [facility] [email or web address] [place], [place] Start: 07-11-2019 End: 01-09-2022 Alcohol intake Current drinker of alcohol (finding) [facility] [email or web address] [place], [place] Start: 1985 Sex Assigned At Not on file [place], [place] Assertion Exposure to poll ution (event) [facility] Work Phone: Exposure to SARS-CoV-2 (event) Unable to assess [facility] [employer] [place] Start: 12-10-2019 End: 11-13-2021 Tobacco use and exposure Never used [facility] [place], [place] Start: 07-08-2021 End: 01-09-2022 Exposure to SARS-CoV-2 (event) Not sure [facility] [employer] [place] Start: 08-08-2020 End: 11-13-2021 History SDOH Financial 5 [facility] Work Phone: Start: 08-08-2020 End: 11-13-2021 History SDOH Food Worry 1 [employer] Phone: Start: 08-08-2020 History SDOH Transport Med 2 [employer] Phone: Start: 03-07-2021 End: 11-13-2021 Tobacco smoking status NHIS Ex-smoker [employer] Start: 04-26-2005 History of tobacco use Current smoker [employer] Phone: Assertion [facility] Assertion Finding of resid ence and accommodation circumstances (finding) [facility] Assertion Prescription of drug (procedure) [facility] Assertion Unemployed (finding) [facility] Assertion Lives alone (finding) [facility] Assertion Full-time employ ment (finding) [facility] Sexual Orientation [facility] Sex Assigned At Male [facility] Sex Male (finding) [facility] NEGATED: Highlighted row Assertion Finding relating to drug misuse behavior (finding) [facility] NEGATED: Highlighted row Assertion Exposure to pollution (event) [facility] NEGATED: Highlighted row Assertion [facility] NEGATED: Highlighted row Assertion Current drinker of alcohol (finding) [facility] Mental Status Date Assessment Result Facility Cognitive function The estimated intelligence was normal Intelligence finding (finding) [facility] Work Phone: Clinical Notes 08-15-2020 to 12-05-2024 Note Date & Type Note Facility 12-05-2024 Note Progress Note-Physic lynn Patient: TIRSO FINNEY Age: 39 years Sex: Male : 1985 Associated Diagnoses: None Author: Aiden GIL, Sarai Dickens Postoperative Information Postoperative disposition: Postoperative disposition: Home. Optimetrix number: Optimetrix number [id number]. Anesthetic utilized: Monitored anesthesia care. Health Status Allergies: Allergic Reactions (All) Severity Not Documented TraMADol- Vomiting. Current medications: (Selected) Inpatient Medications Ordered Lactated Ringers IV Luisa 1000 mL 1,000 mL: 1,000 mL, IV, 100 mL/hr, Routine, Start date 12/05/24 10:29:00 EDT, 10 hour(s), Total volume (mL): 1,000, 70.9 kg, 1.9, m2 Sodium Chloride 0.9% IV Luisa 1000 mL 1,000 mL: 1,000 mL, IV, 20 mL/hr, Routine, Start date 12/05/24 10:24:00 EDT, 50 hour(s), Total volume (mL): 1,000, 70.9 kg, 1.9, m2 Zofran 4 mg/2 mL Injection: 4 mg = 2 mL, Injection, IV Push, Once PRN Nausea/Vomiting, Routine, Start date 12/05/24 10:29:00 EDT, 12/05/24 10:29:00 EDT promethazine additive 12.5 mg + Sodium Chloride 0.9% IV Luisa 50 mL (INT) 50 mL: Injection, IV Piggyback, Once PRN Nausea/Vomiting, Routine, Start date 12/05/24 10:29:00 EDT, 151.5 mL/hr, Infuse over 20 minute(s) Prescriptions Prescribed Pantoprazole [address] Tab: 40 mg = 1 tab(s), Oral, Daily, # 30 tab(s), Refills(s) 2, Pharmacy: [facility]/pharmacy #[id number], 184, cm, 12/05/24 10:32:00 EDT, Height/Length Dosing, 70.9, kg, 12/05/24 10:32:00 EDT, Weight Dosing, Home Medications (1) Active Pantoprazole [address] Tab 40 mg = 1 tab(s), Oral, Daily Problem list: All Problems Nausea / SNOMED CT 6067192743 / Confirmed Stress-related physiological response affecting medical condition / SNOMED CT 48432582 / Confirmed Syncope / SNOMED CT 117993952 / Confirmed Tattoo / SNOMED CT 7611466222 / Confirmed Tetrahydrocannabinol (THC) dependence / SNOMED CT 123643756 / Confirmed Tobacco use / SNOMED CT 9928152935 / Confirmed Physical Examination Vital Signs 12/05/2024 11:45 EDT Heart Rate Monitored 61 bpm Systolic Blood Pressure 104 mmHg Diastolic Blood Pressure 64 mmHg Mean Arterial Pressure, Cuff 77 mmHg SpO2 98 % 12/05/2024 11:30 EDT SpO2 95 % 12/05/2024 11:30 EDT Heart Rate Monitored 83 bpm 12/05/2024 11:30 EDT Systolic Blood Pressure 110 mmHg Diastolic Blood Pressure 68 mmHg Mean Arterial Pressure, Cuff 82 mmHg 12/05/2024 11:25 EDT SpO2 99 % 12/05/2024 11:25 EDT Heart Rate Monitored 61 bpm 12/05/2024 11:25 EDT Temperature Temporal Artery 36.2 DegC LOW Respiratory Rate 18 br/min Systolic Blood Pressure 96 mmHg Diastolic Blood Pressure 56 mmHg LOW Mean Arterial Pressure, Cuff 69 mmHg 12/05/2024 11:20 EDT Heart Rate Monitored 64 bpm bpm 12/05/2024 11:18 EDT Systolic Blood Pressure 97 mmHg mmHg Diastolic Blood Pressure 59 mmHg mmHg 12/05/2024 11:15 EDT Heart Rate Monitored 68 bpm bpm Respiratory Rate 12 br/min br/min Systolic Blood Pressure 101 mmHg mmHg Diastolic Blood Pressure 63 mmHg mmHg SpO2 98 % % 12/05/2024 11:12 EDT Systolic Blood Pressure 103 mmHg mmHg Diastolic Blood Pressure 58 mmHg mmHg 12/05/2024 11:10 EDT Heart Rate Monitored 77 bpm bpm SpO2 97 % % 12/05/2024 11:09 EDT Systolic Blood Pressure 113 mmHg mmHg Diastolic Blood Pressure 74 mmHg mmHg 12/05/2024 11:06 EDT Systolic Blood Pressure 123 mmHg mmHg Diastolic Blood Pressure 94 mmHg mmHg 12/05/2024 11:05 EDT Heart Rate Monitored 71 bpm bpm SpO2 100 % % 12/05/2024 11:03 EDT Systolic Blood Pressure 96 mmHg mmHg Diastolic Blood Pressure 69 mmHg mmHg 12/05/2024 11:01 EDT Systolic Blood Pressure 104 mmHg mmHg Diastolic Blood Pressure 63 mmHg mmHg 12/05/2024 11:00 EDT Respiratory Rate 12 br/min br/min 12/05/2024 10:25 EDT Temperature Temporal Artery 36.7 DegC Heart Rate Monitored 63 bpm Respiratory Rate 17 br/min Systolic Blood Pressure 99 mmHg Diastolic Blood Pressure 57 mmHg LOW Blood Pressure Location Left arm SpO2 99 % Pain Assessment: Controlled, Pain Assessment 12/05/2024 11:25 EDT Numeric Pain Scale 0 = No pain . General: Awake, Alert, Appropriate. Respiratory: Adequate air exchange, Non-labored. Cardiovascular: Stable, Normal peripheral perfusion. Neurological: Neurologic exam at baseline. No changes.. Assessment Anesthetic outcome No anesthetic complications noted. No nausea/vomiting. Review / Management Condition: Stable. Plan Transfer/Discharge: Transfer/Discharge Discharge when meets criteria ( From PACU to Ambulatory Surgery Unit, and To home ). [facility] Comment on above: Result Comment: Elec tronically Signed By: Aiden GIL, Sarai Dickens\.br\Date and Time Signed: 12/05/24 16:03 EDT 12-05-2024 Note Patient Education - Text Endoscopy Care After Procedure Please read the instructions outlined below and refer to this sheet in the next few weeks. These discharge instructions provide you with general information on caring for yourself after you leave the hospital. Your doctor may also give you specific instructions. While your treatment has been planned according to the most current medical practices available, unavoidable complications occasionally occur. If you have any problems or questions after discharge, please call your doctor. ACTIVITY ??? You may resume your regular activity but move at a slower pace for the next 24 hours. ??? Take frequent rest periods for the next 24 hours. ??? Walking will help expel (get rid of) the air and reduce the bloated feeling in your abdomen. ??? No driving for 24 hours (because of the anesthesia (medicine) used during the test). ??? You may shower. ??? Do not sign any important legal documents or operate any machinery for 24 hours (because of the anesthesia used during the test). NUTRITION ??? Drink plenty of fluids. ??? You may resume your normal diet. ??? Begin with a light meal and progress to your normal diet. ??? Avoid alcoholic beverages for 24 hours or as instructed by your caregiver. MEDICATIONS ??? You may resume your normal medications unless your caregiver tells you otherwise. WHAT YOU CAN EXPECT TODAY ??? You may experience abdominal discomfort such as a feeling of fullness or ???gas??? pains. FOLLOW-UP ??? Your doctor will discuss the results of your test with you. seek immediate medical attention if any of the following occur: ??? Excessive nausea (feeling sick to your stomach) and/or vomiting. ??? Severe abdominal pain and distention (swelling). ??? Trouble swallowing. ??? Temperature over 100 F (37.8??? C). ??? Rectal bleeding or vomiting of blood. Document Released: 11/24/2004 Document Re-Released: 10/04/2006 ExitCare??? Patient Information ???2009 [employer]. Colonoscopy Care After Surgery Please read the instructions outlined below and refer to this sheet in the next few weeks. These discharge instructions provide you with general information on caring for yourself after you leave the hospital. Your doctor may also give you specific instructions. While your treatment has been planned according to the most current medical practices available, unavoidable complications occasionally occur. If you have any problems or questions after discharge, please call your doctor. ACTIVITY You may resume your regular activity, but move at a slower pace for the next 24 hours. Take frequent rest periods for the next 24 hours. Walking will help get rid of the air and reduce the bloated feeling in your abdomen (belly). No driving for 24 hours (because of the anesthesia (medicine) used during the test). You may shower. Do not sign any important legal documents or operate any machinery for 24 hours (because of the anesthesia used during the test). NUTRITION Drink plenty of fluids. You may resume your normal diet as instructed by your doctor. Begin with a light meal and progress to your normal diet. Heavy or fried foods are harder to digest and may make you feel nauseated (sick to your stomach). Avoid alcoholic beverages for 24 hours or as instructed. MEDICATIONS You may resume your normal medications unless your doctor tells you otherwise. WHAT YOU CAN EXPECT TODAY Some feelings of bloating in the abdomen. Passage of more gas than usual. Spotting of blood in your stool or on the toilet paper. FOLLOW-UP Your doctor will discuss the results of your test with you. SEEK IMMEDIATE MEDICAL ATTENTION IF: There is more than a spotting of blood in your stool. There is abdominal distention (your abdomen is swollen). There is vomiting. You have a temperature over 101.5 F. There is abdominal pain or discomfort that is severe or gets worse throughout the day. Gastroenterology Hiatal Hernia A hiatal hernia occurs when part of the stomach slides above the muscle that separates the abdomen from the chest (diaphragm). A person can be born with a hiatal hernia (congenital), or it may develop over time. In almost all cases of hiatal hernia, only the top part of the stomach pushes through the diaphragm. Many people have a hiatal hernia with no symptoms. The larger the hernia, the more likely it is that you will have symptoms. In some cases, a hiatal hernia allows stomach acid to flow back into the tube that carries food from your mouth to your stomach (esophagus). This may cause heartburn symptoms. The development of heartburn symptoms may mean that you have a condition called gastroesophageal reflux disease (GERD). What are the causes? This condition is caused by a weakness in the opening (hiatus) where the esophagus passes through the diaphragm to attach to the upper part of the stomach. A person may be born with a weaknes (more content not included)... [facility] 12-05-2024 Note Progress Note-Meeta bailey Patient: TIRSO FINNEY Age: 39 years Sex: Male : 1985 Associated Diagnoses: None Author: Aiden GIL, Sarai Dickens Preoperative Information Anesthesia Preop Info: Time patient last ate or drank 12/05/2024 00:00:00. Anesthesia history: Patient history: No prior anesthetic problems. Anesthesia results: Anesthesia results from flowsheet : Results 11/15/2024 13:46 EDT Peripheral Pulse Rate 68 bpm Respiratory Rate 16 br/min Systolic Blood Pressure 118 mmHg Diastolic Blood Pressure 82 mmHg . Informed consent: Signed by patient. Re-evaluation prior to induction: Initial evaluation reviewed: No significant change. Review of Systems Respiratory: Negative except as documented in history of present illness. Cardiovascular: Negative except as documented in history of present illness. Health Status Allergies: Allergic Reactions (Selected) Severity Not Documented TraMADol- Vomiting., Allergies (1) Active Severity Reaction traMADol Vomiting Current medications: (Selected) Inpatient Medications Ordered Sodium Chloride 0.9% IV Luisa 1000 mL 1,000 mL: 1,000 mL, IV, 20 mL/hr, Routine, Start date 12/05/24 10:24:00 EDT, 50 hour(s), Total volume (mL): 1,000, 70.9 kg, 1.9, m2, No qualifying data available , Medications (1) Active Scheduled: (0) Continuous: (1) Sodium Chloride 0.9% 1,000 mL 1,000 mL, IV, 20 mL/hr PRN: (0) Problem list: All Problems Nausea / SNOMED CT 1601577548 / Confirmed Stress-related physiological response affecting medical condition / SNOMED CT 02892250 / Confirmed Syncope / SNOMED CT 645418194 / Confirmed Tattoo / SNOMED CT 2063882818 / Confirmed Tetrahydrocannabinol (THC) dependence / SNOMED CT 011054165 / Confirmed Tobacco use / SNOMED CT 3697894503 / Confirmed, Active Problems (6) Nausea Stress-related physiological response affecting medical condition Syncope Tattoo Tetrahydrocannabinol (THC) dependence Tobacco use Histories Past Medical History: No active or resolved past medical history items have been selected or recorded. Family History: No family history items have been selected or recorded. Procedure history: No active procedure history items have been selected or recorded. Social History Social & Psychosocial Habits Tobacco 11/15/2024 Tobacco Use: Cigars or pipes daily wit Smokeless tobacco use: Current vaping or e-cigar . Physical Examination Vital Signs 12/05/2024 10:25 EDT Temperature Temporal Artery 36.7 DegC Heart Rate Monitored 63 bpm Respiratory Rate 17 br/min Systolic Blood Pressure 99 mmHg Diastolic Blood Pressure 57 mmHg LOW Blood Pressure Location Left arm SpO2 99 % Vital Signs (last 24 hrs) Last Charted Temp Temporal 36.7 DegC (DEC 05 10:25) Heart Rate Monitored 63 bpm (DEC 05 10:) SBP 99 mmHg (DEC 05 10:) DBP L 57 mmHg (DEC 05:) Airway: Mallampati classification: II (soft palate, fauces, uvula visible). Respiratory: Lungs are clear to auscultation, Respirations are non-labored. Cardiovascular: Regular rhythm. Review / Management Results review: No qualifying data available . Plan [place] [employer] Anesthesiologists (ASA) physical status classification: Class II. Anesthetic Preoperative Plan: Anesthesia General, and -TIVA. [facility] Comment on above: Result Comment: Elec tronically Signed By: Aiden GIL, Sarai Dickens\.br\Date and Time Signed: 12/05/24 10:29 EDT 11-03-2024 Note [facility] Note Reason for cardiology consult: Chest pain Chief Complaint: Chest pain HPI: Tirso Finney is a 39 y.o. male without prior cardiac history. He has history of ADHD and GERD as well as depression Patient is here today for evaluation of long-lasting chest pain. He went to the emergency room on 07/10/2024 due to chest pain, blood pressure was mildly elevated 146/87, troponin was negative and EKG was normal Patient reports that he had chest pain for years however it has been worse lately. Patient describes his chest pain as a burning in the left chest and tightness which goes down to the left arm and sometimes to the left back,, it occurs at rest or with exertion and it is worse when he is under stress, even when it occurs with exertion it is usually when he finishes the exertion not during it, it occurs every day and it can last for hours, also at times is associated with a feeling that his heart is pounding hard and fast, it was attributed frequently to anxiety, depression and stress, how over the patient reports that he stopped all his mental health drugs about a year ago and he felt a lot better. He reports that his chest wall is tender on palpation. Also he reports excessive physical activities in his job which he can do without the need to stop and the chest pain usually occurs after stopping. He reports that he is under a lot of stress going through custody peres of his kids He reports that he lost a lot of weight after he stopped his mental health drugs. He denies exertional dyspnea. He denies orthopnea or paroxysmal nocturnal dyspnea or palpitations. Denies legs edema legs comfort on exertion. 2 days ago he had a syncopal episode but at that day it was very hot and he worked a lot and he felt kind of weak and lightheadedness and he continued to walk but he felt worse and he told his significant other that he does not feel well, he went down to the floor and layed on it and he thinks that he was out for a minute or so. He reports drinking 2 cups of coffee a day, he denies any energy drinks, he drinks caffeine free tea and he reports that he drinks a lot of water and electrolytes at work He is a smoker, he used to smoke 2 to 3 packs/day but he quit about 5 years ago and now he smokes cigars probably 2 a day. He did not drink any alcohol for 2 years. He uses occasionally marijuana. He denies any other illicit drugs Regarding family history no obvious history of coronary artery disease but his father used to be a drug abuser. Cardiology ROS: GENERAL: Denies fever, chills, night sweats, weight loss. HEENT: Denies changes in vision, photophobia, changes in hearing, epistaxis, oral bleeding. CARDIOVASCULAR: Reports chest pain as described above, also he reports a syncopal episode few days ago as described above. He denies exertional dyspnea, orthopnea/PND, lower extremity edema RESPIRATORY: Denies SOB, coughing, wheezing GI: Denies abdominal pain, nausea/vomiting, heartburn, melena/hematochezia. RENAL: Denies dysuria, hematuria, flank pain. MSK: Denies muscle weakness/pain, arthralgias/joint pain. NEUROLOGIC: Denies LOC, weakness, numbness, headaches. SKIN: Denies abnormal rashes or bleeding. PSYCH: Denies significant anxiety, depression, sleep disturbances. Past Medical History He has a past medical history of ADHD, Depression, and Syncope. Surgical History He has a past surgical history that includes Spine surgery; Hand surgery; and Leg Surgery. Social History He reports that he has been smoking cigars. He started smoking about 5 years ago. He has quit using smokeless tobacco. He reports that he does not currently use alcohol. He reports current drug use. Drug: Marijuana. Family History Family History[1] Allergies Tramadol Medications Current Medications[2] Last Recorded Vitals Visit Vitals BP 123/85 (BP Location: Left arm, Patient Position: Standing) Pulse 80 Ht 1.829 m (6') Wt 71.2 kg (157 lb) BMI 21.29 kg/m??? Smoking Status Every Day BSA 1.9 m??? Physical Examination: GENERAL: alert and oriented x3, well developed, in no acute distress. HEAD: atraumatic, normocephalic. EYES: JEREMIAH, EOMI. NECK: trachea midline, no JVD present, no carotid bruits present. CARDIAC: S1, S2 present. RRR. No murmur, rubs, or gallops. RESPIRATORY: CTAB, no increased effort of breathing, no rales, rhonchi, or wheezing. ABDOMEN: soft, nontender, nondistended. EXTREMITIES: no lower extremity edema, peripheral pulses are 2+ bilaterally. No rash/skin discoloration present. NEURO: strength/sensation equal and symmetric in bilateral upper and lower extremities. PSYCH: appropriate mood, affect, and judgement. Chest wall is tender to palpation at his left breast area Labs: 11/02/2024 White blood count 6.3, hemoglobin 14.6, hematocrit 42.7, platelet 327 Sodium 142, potassium 3.7, BUN 12, creatinine 0.61, GFR above 60, g (more content not included)... [facility] 05-27-2023 Evaluation note Includes: Assessments for all patient encounters Findings Bipolar disorder NOS Established Shirley ent with Niki Mariano LICENSED PHARMACIST 05/27/2023 Last Documented On 4 7:06PM ; [facility] Generalized anxiety disorder Established Shirley ent with Niki Mariano LICENSED PHARMACIST 05/27/2023 Last Documented On 4 7:06PM ; [facility] [Body mass index [BMI] 28.0- 28.9, adult] assessment of body mass index Medical Established Patient with Suzi Gurpreet ACCT EXEC 05/27/2023 Last Documented On 4 6:57PM ; [facility] Bipolar disorder NOS Medical Established Patient with Suzi Gurpreet ACCT EXEC 05/27/2023 Last Documented On 4 6:57PM ; [facility] Generalized anxiety disorder Medical Est ablished Patient with Suzi Gurpreet ACCT EXEC 05/27/2023 Last Documented On 4 6:57PM ; [facility] Bipolar I disorder Established Patient with K aitlin Short LISWS 05/04/2023 Last Documented On 4 4:02PM ; [facility] Generalized anxiety disorder Establis hed Patient with Shannon Short LISWS 05/04/2023 Last Documented On 4 4:02PM ; [facility] [Z68.27 - Body mass index [B MT] 27.0-27.9, adult] assessment of body mass index Medical Established Patient with Gia Nichols ACCT EXEC 05/04/2023 Last Documented On 4 4:25PM ; [facility] Adjustment disorder with anxiety Medical Established Patient with Gia Nichols ACCT EXEC 05/04/2023 Last Documented On 4 4:25PM ; [facility] Diabetes Risk Test Score was two score 05/04/2023 Medical Established Patient with Gia Nichols ACCT EXEC 05/04/2023 Last Documented On 4 4:25PM ; [facility] [Body mass index [BMI] 27.0- 27.9, adult] assessment of body mass index Medical Established Patient with Kyler Rosario ACCT EXEC 09/04/2022 Last Documented On 3 4:53PM ; [facility] Bipolar disorder NOS Medical Established Patient with Kyler Rosario ACCT EXEC 09/04/2022 Last Documented On 3 4:53PM ; [facility] [Body mass index [BMI] 27.0- 27.9, adult] assessment of body mass index Medical Established Patient with Suzi Vázquez ACCT EXEC 05/04/2022 Last Documented On 3 11:30AM ; [facility] Diabetes Risk Test Score was two score 05/04/2022 Medical Established Patient with Suzi Vázquez ACCT EXEC 05/04/2022 Last Documented On 3 11:30AM ; [facility] Adjustment disorder with anxiety BH Tele behavioral Health with Shannon Isaac WILSON 07/13/2019 Last Documented On 0 11:02AM ; [facility] Body mass index [Body mass i ndex (BMI) 23.0-23.9, adult] Telemedicine with Suzi Vázquez ACCT EXEC 07/13/2019 Last Documented On 0 7:43AM ; [facility] Infection of tooth [Other sp ecified disorders of teeth and supporting structures] Telemedicine with Suzi Vázquez ACCT EXEC 07/13/2019 Last Documented On 0 7:43AM ; [facility] Routine history and physical Telemedicine with Usama malinmarguerite Richarder [facility] 07/13/2019 Last Documented On 0 7:43AM ; [facility] Upper respiratory infection [Acute upper respiratory infection, unspecified] Telemedicine with Suzi Vázquez ACCT EXEC 07/13/2019 Last Documented On 0 7:43AM ; [facility] Work Phone: [phone]) 697-921202-01-2024 History general Narrative - Reported Includes: Medical History in patient's chart Description Last Updated No Safety Measures 05/27/2023 Last Documented On 4 7:06PM ; [facility] No previous hospitalizations 05/27/2023 Last Documented On 4 6:57PM ; [facility] Not planning to have a baby in the next 12 months 05/04/2023 Last Documented On 4 4:25PM ; [facility] History of psychiatric disorders 023 Last Documented On 3 11:30AM ; [facility] History of anxiety disorder NOS 05/04/19 23 Last Documented On 3 11:30AM ; [facility] History of depression 05/04/2022 Last Documented On 3 11:30AM ; [facility] Psychiatric disorders 05/04/2022 Last Documented On 3 11:30AM ; [facility] Patient gave verbal consent for teleheal th 07/13/2019 Last Documented On 0 7:43AM ; [facility] Work Phone: 1([phone]) 276-922502-01-2024 Progress note* Progress note Date Encounter Last Documented by 05/27/2023 [facility] Patient Last docu mented on 05/27/2023; 7:06 PM, Niki WOODALL; [facility] Active Problems & Conditions - F31.9 - Bipolar Disorder Nos - F41.1 - Generalized Anxiety Disorder - Z00.01 - Routine History and Physical Subjective [facility] met with patient to assess mood and medications. Patient reports that his medicaitons are keeping his mood stable. At patients previous appointment he stated he was just out of alf and did not have stable transportaiton or housing and had plans to follow up with [facility]. Patient stated he has his own housing and transportation and is getting custody of his children. Patient is engaged in counseling at [facility] and will follow up with psychiatry in the next 3 months. Patient reports that his medicaiton does cause him stomach pains but they are tollerable. Chief Complaint The Chief Complaint is: Follow up for mood and medications. History of Present Illness Tirso Finney is a 37 year old male. - Anxiety relieved by medication - Depression - Energy level is good - No sleep disturbances Current Medication - Depakote ER 250 MG Oral Tablet Extended Release 24 Hour Take 1 tablet in the morning and 2 tablets at bed time, 30 days, 1 refills - hydrOXYzine HCl 50 MG Oral Tablet Take 1-2 tablets three times a day as needed for anxiety/sleep, 30 days, 0 refills - hydrOXYzine HCl 50 MG Oral Tablet Take 1-2 tablets three times a day as needed for anxiety/sleep, 30 days, 0 refills - Ondansetron HCl 4 MG Oral Tablet Take one tablet every 8 hours as needed for nausea, 5 days, 0 refills - Pantoprazole Sodium 40 MG Oral Tablet Delayed Release Take 1 tablet by mouth daily on an empty stomach, 30 days, 1 refills - Pantoprazole Sodium 40 MG Oral Tablet Delayed Release Take 1 tablet by mouth daily on an empty stomach, 30 days, 0 refills - QUEtiapine Fumarate 50 MG Oral Tablet Take 1 tablet by mouth nightly before bed, 30 days, 0 refills - QUEtiapine Fumarate 50 MG Oral Tablet Take 1 tablet by mouth nightly before bed, 30 days, 0 refills - Sertraline HCl 100 MG Oral Tablet Take 1 and 1/2 tablets by mouth daily, 30 days, 0 refills - Sertraline HCl 100 MG Oral Tablet Take 1 and 1/2 tablets by mouth daily, 30 days, 0 refills - traZODone HCl 50 MG Oral Tablet Take 1-2 tablets by mouth at bedtime, 30 days, 0 refills - traZODone HCl 50 MG Oral Tablet Take 1-2 tablets by mouth at bedtime, 30 days, 0 refills Past Medical/Surgical History Reported: No Safety Measures. Patient gave verbal consent for telehealth. : Not planning to have a baby in the next 12 months. Diagnoses: Psychiatric disorders. Depression Anxiety disorder NOS Surgical: - Back surgery - Hand surgery - Ankle surgery Social History Environmental Exposure: No secondhand cigarette smoke exposure. Alcohol: Not using alcohol. Drug Use: Not using drugs. Housing And Economic Circumstances: Lives alone. 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 Sexual: Sexually active, sexual orientation Straight (not lesbian or ayala), and gender identity Male. Allergies - tramadol Family History Paternal: Oncologic disorder Physical Findings General Appearance: - Normal Appearance. Neurological: - Cognitive Functions was Normal. - Estimated intelligence was normal. - Oriented to time, place, and person. - No hallucinations. - Judgement was not impaired. Speech: - Is Normal. - No articulation abnormalities. Psychiatric: - Mood is Euthymic. - Attitude Open. Appearance: - Normal. Demonstrated Behavior: - Motor Activity Normal Activity. - Eye Contact Appropriate. Affect: - Congruent with the mood. Thought Processes: - Not impaired. Thought Content: - Revealed no impairment. - Insight was intact. - No delusions. - No suicidal ideation. - No Passive thoughts of . - No suicidal plans. - No suicidal intent. - No homicidal ideations. - No homicidal plans. - No homicidal intent. Past Medical: - No repetitive self injurious behavior. Assessment - Bipolar disorder NOS [F31.9 - Bipolar disorder, unspecified] - Generalized anxiety disorder [F41.1 - Generalized anxiety disorder] Therapy - Brief solution-focused therapy. - Adherent with medications. - Plan - do not modify medication. Collaborated with patient and provider: Counseling/Education *[facility] offered active and supportive listening, normalized emotions and feelings, and processed current stressors. Plan *[facility] to follow-up with patient at next visit as scheduled. *Patient to follow up as needed/scheduled. *Patient will continue with individual therapy. [facility]02-01-2024 Progress note* Progress note Date Encounter Last Documented by 05/27/2023 Medical Established Patient Last documented on 05/27/2023; 6:57 PM, Suzi Vázquez CNP; [facility] Active Problems & Conditions - F31.9 - Bipolar Disorder Nos - F41.1 - Generalized Anxiety Disorder - Z00.01 - Routine History and Physical Chief Complaint The Chief Complaint is: Medication check and refill. Referred Here Not referred by urgent care clinic and not the emergency room. No prior encounters. History of Present Illness Tirso Finney is a 37 year old male. - Allergy list reviewed - Reviewed Medications Patient presents for mental health follow up States that mood is stable on current medication Patient is establishing with [facility], currently has to do counseling before seeing psychiatrist Patient is still having a lot of stomach pains after taking medication Current Medication - Depakote ER 250 MG Oral Tablet Extended Release 24 Hour Take 1 tablet in the morning and 2 tablets at bed time, 30 days, 1 refills - hydrOXYzine HCl 50 MG Oral Tablet Take 1-2 tablets three times a day as needed for anxiety/sleep, 30 days, 0 refills - Pantoprazole Sodium 40 MG Oral Tablet Delayed Release Take 1 tablet by mouth daily on an empty stomach, 30 days, 0 refills - QUEtiapine Fumarate 50 MG Oral Tablet Take 1 tablet by mouth nightly before bed, 30 days, 0 refills - Sertraline HCl 100 MG Oral Tablet Take 1 and 1/2 tablets by mouth daily, 30 days, 0 refills - traZODone HCl 50 MG Oral Tablet Take 1-2 tablets by mouth at bedtime, 30 days, 0 refills Past Medical/Surgical History Reported: Patient gave verbal consent for telehealth. Medical: No previous hospitalizations. : Not planning to have a baby in the next 12 months. Diagnoses: Psychiatric disorders. Depression Anxiety disorder NOS Surgical: - Back surgery - Hand surgery - Ankle surgery Social History Environmental Exposure: No secondhand cigarette smoke exposure. Behavioral: Not a current tobacco user. Tobacco use: Not using electronic cigarettes/vaping. Alcohol: Not using alcohol. Drug Use: Using marijuana daily. Sexual: Sexually active, sexual orientation Straight (not lesbian or ayala), and gender identity Male. Allergies - tramadol Family History Paternal: Oncologic disorder Review Of Systems Systemic: No systemic symptoms. Head: No headache. Otolaryngeal: No ear symptoms, no nasal symptoms, and no throat symptoms. Cardiovascular: No chest pain or discomfort. Pulmonary: No pulmonary symptoms. Gastrointestinal: Gastrointestinal symptoms. Genitourinary: No genitourinary symptoms. Musculoskeletal: No musculoskeletal symptoms. Neurological: Dizziness occasional since being out of medications. Psychological: No psychological symptoms. Skin: No skin symptoms. Physical Findings - Vitals taken 05/27/2023 06:27 pm BP-Sitting R119/76 mmHg BP Cuff SizeRegular Pulse Rate-Jnbdwgy12 bpm Temp-Oral98.7 F Qwdkms97 in Iekdhx100 lbs Body Mass Index28.1 kg/m2 Body Surface Area2.2 m2 Vital Signs: - Systolic blood pressure < 130 mmHg. - Systolic blood pressure 130 - 139 mmHg. - Diastolic Blood Pressure < 80 mmHg. - Diastolic blood pressure 80-89 mmHg. General Appearance: - Awake. - Alert. - In no acute distress. Eyes: General/bilateral: Pupils: - PERRLA. Lungs: - Respiration rhythm and depth was normal. - Clear to auscultation. Cardiovascular: Heart Rate And Rhythm: - Normal. Heart Sounds: - Normal. Abdomen: Auscultation: - Bowel sounds were normal. Musculoskeletal System: General/bilateral: - Normal movement of all extremities. Neurological: - Oriented to time, place, and person. Psychiatric: - Expression of emotions finding was normal. Skin: - General appearance was normal. Tests Laboratory-based Chemistry: Other Laboratory Tests: Screening for sexually transmitted infections was not performed. Assessment - Body mass index [Body mass index [BMI] 28.0-28.9, adult] - Bipolar disorder NOS [Bipolar disorder, unspecified] - Generalized anxiety disorder [Generalized anxiety disorder] Therapy - Patient refused flu vaccine. Discussed benefits of flu vaccine with Patient. Vaccinations - Did not receive dose of Reported: Patient has not received the Covid Vaccine Counseling/Education - Not requesting contraception Follow up in one month Plan StartCited- Anxiety disorder, unspecified hydrOXYzine HCl 50 MG tablet Take 1-2 tablets three times a day as needed for anxiety/sleep, 30 days, 0 refills EndCited StartCited- Gastro-esophageal reflux disease without esophagitis Pantoprazole Sodium 40 MG tablet Take 1 tablet by mouth daily on an empty stomach, 30 days, 1 refills EndCited StartCited- Nausea Ondansetron HCl 4 MG tablet Take one tablet every 8 hours as needed for nausea, 5 days, 0 refills EndCited StartCited- Other bipolar disorder QUEtiapine Fumarate 50 MG tablet Take 1 tablet by mouth nightly before bed, 30 days, 0 refills traZODone HCl 50 MG tablet Take 1-2 tablets by mouth at bedtime, 30 days, 0 refills Sertraline HCl 100 MG tablet Take 1 and 1/2 tablets by mouth daily, 30 days, 0 refills EndCited Notes - Patient is not interested in the COVID-19 vaccination at this time. User Defined 1 Not planning to have a baby in the next 12 months. [facility]02-01-2024 Instructions Includes: Instructions for all patient encounters Instructions to patient Intervention and counseling on cessation of tobacco use, 3-10 minutes Last Documented On 0 7:07PM ; [facility] Education and Decision Aids were provided during visit for: *[facility] offered active and supp ortive listening, normalized emotions and feelings, and processed ~current stressors Last Documented On 4 7:06PM ; [facility] Not requesting contraception ~ ~Follow up in one month ~ ~ Last Documented On 4 6:51PM ; [facility] offered active and suppo rtive listening and processed current stressors. ~[facility] encouraged patient to continue attending appointments with [facility] to get connected with psychiatry. ~[facility] discussed coping skills and supports to utilize. ~[facility] discussed community resources that may be able to assist with needs. Patient declines additional resources at this time Last Documented On 4 4:01PM ; [facility] Discussed nutritional needs teach healthy choices including fruits and vegetables Last Documented On 4 1:11PM ; [facility] Patient education about a pr oper diet Last Documented On 4 1:11PM ; [facility] Discussed concerns about exe rcise : promote physical activity Last Documented On 4 1:11PM ; [facility] Discussed nutritional needs teach healthy choices including fruits and vegetables Last Documented On 3 4:40PM ; [facility] Patient education about a pr oper diet Last Documented On 3 4:40PM ; [facility] Discussed concerns about exe rcise : promote physical activity Last Documented On 3 4:40PM ; [facility] Discussed nutritional needs teach healthy choices including fruits and vegetables Last Documented On 3 5:01PM ; [facility] Patient education about a pr oper diet Last Documented On 3 5:01PM ; [facility] Discussed concerns about exe rcise : promote physical activity ~ ~Follow up in two weeks Last Documented On 3 11:30AM ; [facility] provided active and supp ortive listening and normalized emotions and feelings related to mood and stressors. ~[facility] discussed coping skills to implement for times of increased stress. ~ Last Documented On 0 11:01AM ; [facility] Work Phone: [phone]) 790-896001-09-2024 Evaluation note Includes: Assessments for all patient encounters Findings Encounter Date Bipolar I disorder Established Patient with Sheila spencer Short LISWS 05/04/2023 Last Documented On 4 4:02PM ; [facility] Generalized anxiety disorder Establis hed Patient with Shannon Gray [facility]IS[facility] 05/04/2023 Last Documented On 4 4:02PM ; [facility] [Z68.27 - Body mass index [B MT] 27.0-27.9, adult] assessment of body mass index Medical Established Patient with Gia Simone [facility] 05/04/2023 Last Documented On 4 4:25PM ; [facility] Adjustment disorder with anxiety Medical Established Patient with Gia Simone [facility] 05/04/2023 Last Documented On 4 4:25PM ; [facility] Diabetes Risk Test Score was two score 05/04/2023 Medical Established Patient with Gia Nichols [facility] 05/04/2023 Last Documented On 4 4:25PM ; [facility] [Body mass index [BMI] 27.0- 27.9, adult] assessment of body mass index Medical Established Patient with Kyler Rosario [facility] 09/04/2022 Last Documented On 3 4:53PM ; [facility] Bipolar disorder NOS Medical Established Patient with Maritza Penyenny [facility] 09/04/2022 Last Documented On 3 4:53PM ; [facility] [Body mass index [BMI] 27.0- 27.9, adult] assessment of body mass index Medical Established Patient with Suzi Vázquez AC[facility] EXEC 05/04/2022 Last Documented On 3 11:30AM ; [facility] Diabetes Risk Test Score was two score 05/04/2022 Medical Established Patient with Suzi Vázquez ACCT EXEC 05/04/2022 Last Documented On 3 11:30AM ; [facility] Adjustment disorder with anxiety Tele behavioral Health with Shannon Gray LISWS 07/13/2019 Last Documented On 0 11:02AM ; [facility] Body mass index [Body mass i ndex (BMI) 23.0-23.9, adult] Telemedicine with Suzi Gurpreetidris ESQUIVEL 07/13/2019 Last Documented On 0 7:43AM ; [facility] Infection of tooth [Other sp ecified disorders of teeth and supporting structures] Telemedicine with Suzi Vázquez CNP 07/13/2019 Last Documented On 0 7:43AM ; [facility] Routine history and physical Telemedicine with Usama Vázquez CNP 07/13/2019 Last Documented On 0 7:43AM ; [facility] Upper respiratory infection [Acute upper respiratory infection, unspecified] Telemedicine with Suzi Gurpreet ESQUIVEL 07/13/2019 Last Documented On 0 7:43AM ; [facility] Work Phone: [phone]) 669-553701-09-2024 History general Narrative - Reported Includes: Medical History in patient's chart Description Last Updated Not planning to have a baby in the next 12 months 05/04/2023 Last Documented On 4 4:25PM ; [facility] History of psychiatric disorders 023 Last Documented On 3 11:30AM ; [facility] History of anxiety disorder NOS 05/04/19 23 Last Documented On 3 11:30AM ; [facility] History of depression 05/04/2022 Last Documented On 3 11:30AM ; [facility] Psychiatric disorders 05/04/2022 Last Documented On 3 11:30AM ; [facility] Patient gave verbal consent for teleheal th 07/13/2019 Last Documented On 0 7:43AM ; [facility] Work Phone: 1(750) 231-787701-09-2024 Progress note* Progress note Date Encounter Last Documented by 05/04/2023 Established Patient Last docu mented on 05/04/2023; 4:02 PM, Shannon WILSON; [facility] Active Problems & Conditions - F31.9 - Bipolar Disorder Nos - F41.1 - Generalized Anxiety Disorder - Z00.01 - Routine History and Physical Chief Complaint The Chief Complaint is: P met with patient to follow-up regarding mood and PHQ score of 4 and VEDA score of 11. Patient reports that he has been out of medications for the last few days and has noticed a significant difference in mood since. Patient reports that he has noticed mood changes and increased anxiety. Patient reports that he has had a lot of stressors in the last year within relationship and with his children. Patient reports continued stressors now that he is out of alf with not having his own place, no transportation and limited resources and supports. Patent reports that he did get reconnected with [facility] and is planning to see the nurse practitioner through them again. Patent reports no thoughts of harm toward self or others. History of Present Illness Tirso Finney is a 37 year old male. - Appetite not normal no Irritability. - Anxiety - Depression - Sleep disturbances - Loss of interest in activities - Energy level is fair - Feeling guilty - Not easily distracted - No social isolation - No impulsive behavior Current Medication - Depakote ER 250 MG Oral Tablet Extended Release 24 Hour Take 1 tablet in the morning and 2 tablets at bed time, 30 days, 1 refills - Depakote ER 250 MG Oral Tablet Extended Release 24 Hour Take 1 tablet in the morning and 2 tablets at bed time, 30 days, 1 refills - hydrOXYzine HCl 50 MG Oral Tablet Take 1-2 tablets three times a day as needed for anxiety/sleep, 30 days, 0 refills - hydrOXYzine HCl 50 MG Oral Tablet Take 1-2 tablets three times a day as needed for anxiety/sleep, 30 days, 1 refills - Ondansetron HCl 4 MG Oral Tablet take 1 tablet by mouth every 6 hours as needed for nausea, 4 days, 0 refills - Pantoprazole Sodium 40 MG Oral Tablet Delayed Release Take 1 tablet by mouth daily on an empty stomach, 30 days, 0 refills - Pantoprazole Sodium 40 MG Oral Tablet Delayed Release 0 days, 0 refills - QUEtiapine Fumarate 50 MG Oral Tablet Take 1 tablet by mouth nightly before bed, 30 days, 0 refills - QUEtiapine Fumarate 50 MG Oral Tablet Take 1 tablet at night, 30 days, 1 refills - Sertraline HCl 100 MG Oral Tablet Take 1 and 1/2 tablets by mouth daily, 30 days, 0 refills - traZODone HCl 50 MG Oral Tablet Take 1-2 tablets by mouth at bedtime, 30 days, 0 refills - traZODone HCl 50 MG Oral Tablet Take 1-2 tablets by mouth at bedtime, 30 days, 1 refills Social History Environmental Exposure: No secondhand cigarette smoke exposure. Personal: Family disruption, interpersonal problems, and recent emotional stress. Behavioral: Not a current tobacco user. Alcohol: Not using alcohol. Drug Use: Marijuana by prescription. Housing And Economic Circumstances: Living arrangements living arrangements: Work: Unemployed but looking for work. Physical Findings General Appearance: - Normal Appearance. Neurological: - Estimated intelligence was normal. - Oriented to time, place, and person. - No hallucinations. - Judgement was not impaired. Speech: - Is Normal. Psychiatric: - Mood is Euthymic. - Attitude Open. Demonstrated Behavior: - Motor Activity Normal Activity. - Eye Contact Appropriate. Affect: - Congruent with the mood. Thought Content: - Insight was intact. - No delusions. - No suicidal ideation. - No Passive thoughts of . - No suicidal plans. - No suicidal intent. - No homicidal ideations. - No homicidal plans. - No homicidal intent. Past Medical: - No repetitive self injurious behavior. Assessment - F31.9 - Bipolar disorder, unspecified - F41.1 - Generalized anxiety disorder Therapy - SBIRT Full Screen Neg. - Brief solution-focused therapy. - Adherent with medications. - Referral to mental health team. - Plan - do not modify medication PCP to continue medications that patient was most recently taking until he can get in with [facility] psychiatry team as planned. Patient agreeable to plan. Collaborated with patient and provider: Counseling/Education [facility] offered active and supportive listening and processed current stressors. [facility] encouraged patient to continue attending appointments with [facility] to get connected with psychiatry. P discussed coping skills and supports to utilize. P discussed community resources that may be able to assist with needs. Patient declines additional resources at this time. Plan - External referral/Resources provided [facility] discussed community resources that are available and patient states that he is aware. P encouraged patient to contact the office with any additional needs Patient to take medications as prescribed and contact the office with any questions or concerns. Patient to implement coping skills and positive supports as discussed. P to attempt to follow-up with patient at next visit as scheduled. Health Reminders - Assess Tobacco Use satisfied 05/04/2023. - VEDA-2 satisfied 05/04/2023. - PHQ9 / PHQA satisfied 05/04/2023. - SBIRT satisfied 05/04/2023. User Defined 1 Not afraid of someone you have a relationship with No. Has lack of transportation kept patient from medical appointments or from getting medications: No and lack of transportation has kept patient from beneficial non-medical activities: No. He has not had 5 or more drinks in a day within the past year. Do you feel stress - tense, restless, nervous, or anxious, or unable to sleep at night because your mind is troubled all the time - these days? Quite a bit. No misuse of prescription only drugs and not illicit. Does patient feel physically and emotionally safe where he/she lives: Yes, worried about losing housing: Yes, and What is the highest grade or level of school you have completed or the highest degree you have received? More than high school. In the past year, patient or family members in household were unable to get needed clothing: No, unable to get needed childhood teacher: No, and unable to get other needs No. In the past year, patient or family members in household were unable to get needed phone: Yes. In the past year, patient or family members in household were unable to get needed utilities: No, unable to get needed Medicine or Health Care: No, and In the past year, patient or family members in household were unable to get needed food: No. How often does patient see or talk to people that that he/she cares about and feels close to: 1 or 2 times a week, Little interest or pleasure in doing things in the last 2 weeks? 1 pt Several days, Feeling down, depressed, or hopeless in the last 2 weeks? 1 pt Several days, and [PHQ-2] Patient Health Questionnaire 2 item total score: 2 pts (Scale: 0-6) PHQ2. VEDA-2 score was three 05/04/2023, VEDA-7 score was eleven [VEDA-7] Feeling nervous, anxious or on edge? + 2 pt : More than half the days, [VEDA-7] Feeling nervous, anxious or on edge? + 2 pt : More than half the days, [VEDA-7] Not being able to stop or control worrying? + 1 pt : Several days, [VEDA-7] Not being able to stop or control worrying? + 1 pt : Several days, [VEDA-7] Worrying too much about different things? + 1 pt : Several days, [VEDA-7] Trouble relaxing? + 1 pt : Several days, [VEDA-7] Being so restless that it's hard to sit still? + 2 pt : More than half the days, [VEDA- 7] Becoming easily annoyed or irritable? + 2 pt : More than half the days, [VEDA-7] Feeling afraid as if something awful might happen? + 2 pt : More than half the days, Patient Health Questionnaire 9-Item total score was four 05/04/2023 If you checked off problems, how difficult is it for you to do your work? + : Somewhat difficult, [PHQ-9-1] Little interest or pleasure in doing things? + 1 pt : Several days, [PHQ-9-2] Feeling down, depressed, or hopeless? + 1 pt : Several days, [PHQ-9-3] Trouble falling or staying asleep or sleeping too much? + 0 pt : Not at all, [PHQ-9-4] Feeling tired or having little energy? + 1 pt : Several days, [PHQ-9-5] Poor appetite or overeating? + 0 pt : Not at all, [PHQ-9-6] Feeling bad about yourself-or that you are a failure + 1 pt : Several days, [PHQ-9-7] Trouble concentrating on things such as reading the newspaper + 0 pt : Not at all, [PHQ-9-8] Moving or speaking so slowly that other people have noticed. + 0 pt : Not at all, [PHQ-9-9] Thoughts that you would be better off or hurting yourself? + 0 pt : Not at all, and VEDA If you checked off problems, how difficult is it for you to do your work, take care of things, or get along? Very difficult. [facility]01-09-2024 Progress note* Progress note Date Encounter Last Documented by 05/04/2023 Medical Established Patient Last documented on 05/04/2023; 4:25 PM, Gia Nichols CNP; [facility] Active Problems & Conditions - F31.9 - Bipolar Disorder Nos - F41.1 - Generalized Anxiety Disorder - Z00.01 - Routine History and Physical Chief Complaint The Chief Complaint is: Pt here for medication refills, pt requesting Zofran for nausea. Pt did do intake process with [facility], waitinig to see their STOREPERSON. Pt complains of increased fatigue for the last month. Reason For Visit Visit for: medication refills. Referred Here No prior encounters. History of Present Illness - Allergy list reviewed - Reviewed Medications - Medication list reviewed Patient reports that he is out of medications. Patient reports that he was told several different diagnosis by several different Providers. Patient reports that he has been out of medication for about 4 days. Patient reports that he has been having mood swings and increased anxiety since being out medications. Patient verified that none of the medications have changed. He is established with [facility] for counseling and is planning to see Lucy Miranda soon and is expecting they will take over medications. Patient reports that stomach has been upset for a few days, nausea, cramps, dry heaves, and some diarrhea (very soft stools). Patient reports that symptoms started when he was out of medications Current Medication - Depakote ER 250 MG Oral Tablet Extended Release 24 Hour Take 1 tablet in the morning and 2 tablets at bed time, 30 days, 1 refills - hydrOXYzine HCl 50 MG Oral Tablet Take 1-2 tablets three times a day as needed for anxiety/sleep, 30 days, 1 refills - Pantoprazole Sodium 40 MG Oral Tablet Delayed Release 0 days, 0 refills - QUEtiapine Fumarate 50 MG Oral Tablet Take 1 tablet at night, 30 days, 1 refills - traZODone HCl 50 MG Oral Tablet Take 1-2 tablets by mouth at bedtime, 30 days, 1 refills Past Medical/Surgical History Reported: Patient gave verbal consent for telehealth. : Not planning to have a baby in the next 12 months. Diagnoses: Psychiatric disorders. Depression Anxiety disorder NOS Surgical: - Back surgery - Hand surgery - Ankle surgery Social History Environmental Exposure: No secondhand cigarette smoke exposure. Behavioral: Not a current tobacco user. Alcohol: Not using alcohol. Drug Use: Using marijuana. Sexual: Sexually active, sexual orientation Straight (not lesbian or ayala), and gender identity Male. Allergies - tramadol Family History Paternal: Oncologic disorder Review Of Systems Systemic: No systemic symptoms. Head: Headache. Otolaryngeal: No ear symptoms, no nasal symptoms, and no throat symptoms. Cardiovascular: No chest pain or discomfort. Pulmonary: No pulmonary symptoms. Gastrointestinal: Gastrointestinal symptoms see HPI. Genitourinary: No genitourinary symptoms. Musculoskeletal: No musculoskeletal symptoms. Neurological: Dizziness occasional since being out of medications. Psychological: No psychological symptoms. Skin: No skin symptoms. Physical Findings - Vitals taken 05/04/2023 01:07 pm BP-Sitting R133/80 mmHg Pulse Rate-Htubpws78 bpm Jbawxt20 in Vdvmdn772 lbs Body Mass Index27 kg/m2 Body Surface Area2.1 m2 Oxygen Drvgoatsei83 % Vital Signs: - Systolic blood pressure 130 - 139 mmHg. - Diastolic blood pressure 80-89 mmHg. General Appearance: - Awake. - Alert. - In no acute distress. Eyes: General/bilateral: Pupils: - PERRLA. Lungs: - Respiration rhythm and depth was normal. - Clear to auscultation. Cardiovascular: Heart Rate And Rhythm: - Normal. Heart Sounds: - Normal. Abdomen: Auscultation: - Bowel sounds were normal. Musculoskeletal System: General/bilateral: - Normal movement of all extremities. Neurological: - Oriented to time, place, and person. Psychiatric: - Expression of emotions finding was normal. Skin: - General appearance was normal. Tests Blood Analysis: Hemoglobin Studies: ValueDate Blood hemoglobin A1c 5.6%05/04/2023 Hemoglobin A1c level < 7.0%. Assessment - Z68.27 - Body mass index [BMI] 27.0-27.9, adult - Z13.1 - Encounter for screening for diabetes mellitus - F43.22 - Adjustment disorder with anxiety Therapy - Patient refused flu vaccine. Discussed benefits of flu vaccine with Patient. Vaccinations - Did not receive dose of Reported: Patient has not received the Covid Vaccine Counseling/Education - Discussed nutritional needs teach healthy choices including fruits and vegetables - Patient education about a proper diet - Discussed concerns about exercise: promote physical activity Plan StartCited- Anxiety disorder, unspecified hydrOXYzine HCl 50 MG tablet Take 1-2 tablets three times a day as needed for anxiety/sleep, 30 days, 0 refills EndCited StartCited- Other Pantoprazole Sodium 40 MG tablet Take 1 tablet by mouth daily on an empty stomach, 30 days, 0 refills Ondansetron HCl 4 MG tablet take 1 tablet by mouth every 6 hours as needed for nausea, 4 days, 0 refills EndCited StartCited- Other bipolar disorder Depakote ER 250 MG tablet Take 1 tablet in the morning and 2 tablets at bed time, 30 days, 1 refills QUEtiapine Fumarate 50 MG tablet Take 1 tablet by mouth nightly before bed, 30 days, 0 refills traZODone HCl 50 MG tablet Take 1-2 tablets by mouth at bedtime, 30 days, 0 refills Sertraline HCl 100 MG tablet Take 1 and 1/2 tablets by mouth daily, 30 days, 0 refills EndCited Patient to resume medications as previously prescribed. Patient to keep appointments with [facility]. Patient to follow up in 2 weeks for med check. Notes - Patient is not interested in the COVID-19 vaccination at this time. Health Reminders - Assess BMI satisfied 05/04/2023. - Assess Tobacco Use satisfied 05/04/2023. - Diabetes Risk Screening Needed satisfied 05/04/2023. - Follow Up Plan BMI Management satisfied 05/04/2023. User Defined 1 No (0 points) [Pre-DM]: Patient has not been diagnosed with gestational diabetes or given to a baby weighing 9 pounds or more, No (0 points) [Pre-DM]: No, patient has not been diagnosed with high blood pressure, No (0 points) [Pre-DM]: No, mother, father, sister, or brother does not have DM, Yes (0 point) [Pre-DM]: Yes, physically active, and Man (1 point) [Pre-DM]. Less than 40 years (0 points) [Pre-DM]. [id number] Reason for referral (narrative)* Date Encounter Description Provider Reason for Referral 05/04/23 Established Patient Shannon MACKENZIE S Referral To Mental Health Team; External referral/Resources provided - P discussed community resources that are available and patient states that he is aware. P encouraged patient to contact the office with any additional needs. 05/04/22 Medical Established Patient Suzi Gurpreet ESQUIVEL Referral To Mental Health Team; Referral To Mental Health Team 07/13/19 Telemedicine Suzi Richardidris ESQUIVEL Referral To Mental Health Team [facility] Work Phone: [phone]) 839-638201-09-2024 Instructions Includes: Instructions for all patient encounters Instructions to patient Intervention and counseling on cessation of tobacco use, 3-10 minutes Last Documented On 0 7:07PM ; [facility] Education and Decision Aids were provided during visit for: [facility] offered active and suppo rtive listening and processed current stressors. ~[facility] encouraged patient to continue attending appointments with [facility] to get connected with psychiatry. ~[facility] discussed coping skills and supports to utilize. ~[facility] discussed community resources that may be able to assist with needs. Patient declines additional resources at this time Last Documented On 4 4:01PM ; [facility] Discussed nutritional needs teach healthy choices including fruits and vegetables Last Documented On 4 1:11PM ; [facility] Patient education about a pr oper diet Last Documented On 4 1:11PM ; [facility] Discussed concerns about exe rcise : promote physical activity Last Documented On 4 1:11PM ; [facility] Discussed nutritional needs teach healthy choices including fruits and vegetables Last Documented On 3 4:40PM ; [facility] Patient education about a pr oper diet Last Documented On 3 4:40PM ; [facility] Discussed concerns about exe rcise : promote physical activity Last Documented On 3 4:40PM ; [facility] Discussed nutritional needs teach healthy choices including fruits and vegetables Last Documented On 3 5:01PM ; [facility] Patient education about a pr oper diet Last Documented On 3 5:01PM ; [facility] Discussed concerns about exe rcise : promote physical activity ~ ~Follow up in two weeks Last Documented On 3 11:30AM ; [facility] provided active and supp ortive listening and normalized emotions and feelings related to mood and stressors. ~[facility] discussed coping skills to implement for times of increased stress. ~ Last Documented On 0 11:01AM ; [facility] Work Phone: [phone] 656-123005-12-2023 Evaluation note Includes: Assessments for all patient encounters Findings Encounter Date [Body mass index [BMI] 27.0- 27.9, adult] assessment of body mass index Medical Established Patient with Kyler Rosario CNP 09/04/2022 Last Documented On 3 4:53PM ; [facility] Bipolar disorder NOS Medical Established Patient with Kyler Rosario ACCT EXEC 09/04/2022 Last Documented On 3 4:53PM ; [facility] [Body mass index [BMI] 27.0- 27.9, adult] assessment of body mass index Medical Established Patient with Suzi Vázquez CNP 05/04/2022 Last Documented On 3 11:30AM ; [facility] Diabetes Risk Test Score was two score 05/04/2022 Medical Established Patient with Suzi Vázquez ACCT EXEC 05/04/2022 Last Documented On 3 11:30AM ; [facility] Adjustment disorder with anxiety Tele behavioral Health with Shannon WILSON 07/13/2019 Last Documented On 0 11:02AM ; [facility] Body mass index [Body mass i ndex (BMI) 23.0-23.9, adult] Telemedicine with Suzi Vázquez CNP 07/13/2019 Last Documented On 0 7:43AM ; [facility] Infection of tooth [Other sp ecified disorders of teeth and supporting structures] Telemedicine with Suzi Vázquez CNP 07/13/2019 Last Documented On 0 7:43AM ; [facility] Routine history and physical Telemedicine with Usama Vázquez CNP 07/13/2019 Last Documented On 0 7:43AM ; [facility] Upper respiratory infection [Acute upper respiratory infection, unspecified] Telemedicine with Suzi Vázquez CNP 07/13/2019 Last Documented On 0 7:43AM ; [facility] Work Phone: 1([phone]) 533-685005-12-2023 Progress note* Progress note Date Encounter Last Documented by 09/04/2022 Medical Established Patient Last documented on 09/04/2022; 4:53 PM, Kyler Rosario ACCT EXEC; [facility] Active Problems & Conditions - F43.22 - Adjustment Disorder with Anxiety - Z00.01 - Routine History and Physical Chief Complaint The Chief Complaint is: Pt here for medication refills. Has appt 09/22/[address] Hodge. Referred Here No prior encounters. History of Present Illness Tirso Finney is a 37 year old male. - Reviewed Medications. pt very upset, disgruntled needs meds refilled- states has ran out and can't get into Dr. Hodge until September 22. Current Medication - Depakote ER 250 MG Oral Tablet Extended Release 24 Hour Take 1 tablet in the morning and 2 tablets at bed time, 30 days, 0 refills - hydrOXYzine HCl 50 MG Oral Tablet Take 1-2 tablets three times a day as needed for anxiety/sleep, 30 days, 0 refills - Ibuprofen 800 MG Oral Tablet Take one tablet every 8 hours as needed for pain, 10 days, 0 refills - Pantoprazole Sodium 40 MG Oral Tablet Delayed Release 0 days, 0 refills - QUEtiapine Fumarate 50 MG Oral Tablet Take 1 tablet at night, 30 days, 0 refills - Sertraline HCl 100 MG Oral Tablet Take 1.5 tablets daily, 30 days, 0 refills - Sertraline HCl 150 MG Oral Capsule Take 1 daily, 0 days, 0 refills - traZODone HCl 50 MG Oral Tablet Take 1-2 tablets by mouth at bedtime, 30 days, 0 refills Past Medical/Surgical History Reported: Patient gave verbal consent for telehealth. Diagnoses: Psychiatric disorders. Depression Anxiety disorder NOS Surgical: - Back surgery - Hand surgery - Ankle surgery Social History Environmental Exposure: No secondhand cigarette smoke exposure. Behavioral: Not a current tobacco user. Alcohol: Not using alcohol. Drug Use: Using marijuana. Sexual: Sexually active, sexual orientation Straight (not lesbian or ayala), and gender identity Male. Allergies - tramadol Family History Paternal: Oncologic disorder Review Of Systems Systemic: No fever, no chills, and no recent weight change. Head: No headache, no facial pain, and no sinus pain. Neck: No neck pain, no neck stiffness, and no lump or swelling in the neck. Eyes: No vision problems, no itching of the eyes, and no eye pain. No photophobia. Otolaryngeal: No hearing loss, no earache, no nasal discharge, no hoarseness, and no sore throat. Cardiovascular: No chest pain or discomfort, no palpitations, and the heart rate was not fast. Pulmonary: No dyspnea, no cough, and no wheezing. Gastrointestinal: No heartburn. No nausea, no vomiting, no abdominal pain, and no diarrhea. Genitourinary: No hematuria and no increase in urinary frequency. No dysuria. Musculoskeletal: No muscle aches, no localized joint pain, and no localized joint stiffness. Neurological: No dizziness and no vertigo. Psychological: Anxiety, depression, and sleep disturbances. Skin: No pruritus. No skin lesions and no rash. Physical Findings - Vitals taken 09/04/2022 04:38 pm BP-Sitting L134/93 mmHg Pulse Rate-Gskdfyd21 bpm Temp-Iyilebxi08.2 F Pbfcyu70 in Wxnhze627 lbs Body Mass Index27 kg/m2 Body Surface Area2.1 m2 Oxygen Pdyulgiexm61 % General Appearance: - Well developed. - Well nourished. - In no acute distress. Eyes: General/bilateral: Pupils: - PERRLA. Ears: General/bilateral: Tympanic Membrane: - Normal. Nose: General/bilateral: Discharge: - No nasal discharge. Sinus Tenderness: - No sinus tenderness. Pharynx: Oropharynx: - Normal. - Tonsils showed no abnormalities. Lymph Nodes: - Inguinal lymph nodes were not enlarged. Lungs: - Normal breath sounds/voice sounds. Cardiovascular: Heart Rate And Rhythm: - Normal. - No tachycardia present. Murmurs: - No murmurs were heard. Back: - No costovertebral angle tenderness. Abdomen: Auscultation: - Bowel sounds were normal. Palpation: - Abdominal non-tender. Neurological: - Oriented to time, place, and person. Gait And Stance: - Normal. Skin: - General appearance was normal. - Color and pigmentation were normal. - Moisture was normal. - No skin lesions. Assessment - Z68.27 - Body mass index [BMI] 27.0-27.9, adult - F31.9 - Bipolar disorder, unspecified Therapy - Patient refused flu vaccine. Discussed benefits of flu vaccine with Patient. Vaccinations - Did not receive dose of Reported: Patient has not received the Covid Vaccine Counseling/Education - Discussed nutritional needs teach healthy choices including fruits and vegetables - Patient education about a proper diet - Discussed concerns about exercise: promote physical activity Plan StartCited- Anxiety disorder, unspecified hydrOXYzine HCl 50 MG tablet Take 1-2 tablets three times a day as needed for anxiety/sleep, 30 days, 0 refills hydrOXYzine HCl 50 MG tablet Take 1-2 tablets three times a day as needed for anxiety/sleep, 30 days, 1 refills EndCited StartCited- Other bipolar disorder Depakote ER 250 MG tablet Take 1 tablet in the morning and 2 tablets at bed time, 30 days, 1 refills QUEtiapine Fumarate 50 MG tablet Take 1 tablet at night, 30 days, 1 refills Sertraline HCl 100 MG tablet Take 1.5 tablets daily, 30 days, 1 refills traZODone HCl 50 MG tablet Take 1-2 tablets by mouth at bedtime, 30 days, 1 refills EndCited Notes - Patient is not interested in the COVID-19 vaccination at this time. Practice Management Systolic blood pressure 130 - 139 mmHg and diastolic > or = 90 mmHg diastolic > or = 90 mmHg. [facility]05-12-2023 Instructions Includes: Instructions for all patient encounters Instructions to patient Intervention and counseling on cessation of tobacco use, 3-10 minutes Last Documented On 0 7:07PM ; [facility] Education and Decision Aids were provided during visit for: Discussed nutritional needs teach healthy choices including fruits and vegetables Last Documented On 3 4:40PM ; [facility] Patient education about a pr oper diet Last Documented On 3 4:40PM ; [facility] Discussed concerns about exe rcise : promote physical activity Last Documented On 3 4:40PM ; [facility] Discussed nutritional needs teach healthy choices including fruits and vegetables Last Documented On 3 5:01PM ; [facility] Patient education about a pr oper diet Last Documented On 3 5:01PM ; [facility] Discussed concerns about exe rcise : promote physical activity ~ ~Follow up in two weeks Last Documented On 3 11:30AM ; [facility] provided active and supp ortive listening and normalized emotions and feelings related to mood and stressors. ~P discussed coping skills to implement for times of increased stress. ~ Last Documented On 0 11:01AM ; [facility] Work Phone: 1(866) 840-787303-02-2023 Progress note* Progress note Date Encounter Last Documented by 06/25/2022 [Patient Encounter] Last nayla araya on 06/25/2022; 7:55 PM, Suzi Vázquez CNP; [facility] Active Problems & Conditions - F43.22 - Adjustment Disorder with Anxiety - Z00.01 - Routine History and Physical Current Medication - Depakote ER 250 MG Oral Tablet Extended Release 24 Hour Take 1 tablet in the morning and 2 tablets at bed time, 30 days, 1 refills - hydrOXYzine HCl 50 MG Oral Tablet Take 1-2 tablets three times a day as needed for anxiety/sleep, 30 days, 1 refills - QUEtiapine Fumarate 50 MG Oral Tablet Take 1 tablet at night, 30 days, 1 refills - Sertraline HCl 100 MG Oral Tablet Take 1.5 tablets daily, 30 days, 1 refills - Sertraline HCl 150 MG Oral Capsule Take 1 daily, 0 days, 0 refills - traZODone HCl 50 MG Oral Tablet Take 1-2 tablets by mouth at bedtime, 30 days, 1 refills Past Medical/Surgical History Reported: Patient gave verbal consent for telehealth. Diagnoses: Psychiatric disorders. Depression Anxiety disorder NOS Surgical: - Back surgery - Hand surgery - Ankle surgery Allergies - tramadol Family History Paternal: Oncologic disorder Plan StartCited- Anxiety disorder, unspecified hydrOXYzine HCl 50 MG tablet Take 1-2 tablets three times a day as needed for anxiety/sleep, 30 days, 0 refills EndCited StartCited- Cracked tooth Amoxicillin 500 MG capsule Take one tablet three times a day for 10 days, 10 days, 0 refills Ibuprofen 800 MG tablet Take one tablet every 8 hours as needed for pain, 10 days, 0 refills EndCited StartCited- Other bipolar disorder traZODone HCl 50 MG tablet Take 1-2 tablets by mouth at bedtime, 30 days, 0 refills Sertraline HCl 100 MG tablet Take 1.5 tablets daily, 30 days, 0 refills QUEtiapine Fumarate 50 MG tablet Take 1 tablet at night, 30 days, 0 refills Depakote ER 250 MG tablet Take 1 tablet in the morning and 2 tablets at bed time, 30 days, 0 refills EndCited [facility]01-16-2023 Instructions Includes: Instructions for all patient encounters Instructions to patient Intervention and counseling on cessation of tobacco use, 3-10 minutes Last Documented On 0 7:07PM ; [facility] Education and Decision Aids were provided during visit for: Discussed nutritional needs teach healthy choices including fruits and vegetables Last Documented On 3 5:01PM ; [facility] Patient education about a pr oper diet Last Documented On 3 5:01PM ; [facility] Discussed concerns about exe rcise : promote physical activity ~ ~Follow up in two weeks Last Documented On 3 11:30AM ; [facility] provided active and supp ortive listening and normalized emotions and feelings related to mood and stressors. ~[facility] discussed coping skills to implement for times of increased stress. ~ Last Documented On 0 11:01AM ; [facility] Work Phone: [phone]) 360-803801-09-2023 Evaluation note Includes: Assessments for all patient encounters Findings Encounter Date [Body mass index [BMI] 27.0- 27.9, adult] assessment of body mass index Medical Established Patient with Suzi Vázquez CNP 05/04/2022 Last Documented On 3 11:30AM ; [facility] Diabetes Risk Test Score was two score 05/04/2022 Medical Established Patient with Suzi Vázquez ACCT EXEC 05/04/2022 Last Documented On 3 11:30AM ; [facility] Adjustment disorder with anxiety BH Tele behavioral Health with Shannon WHITMANBETO 07/13/2019 Last Documented On 0 11:02AM ; [facility] Body mass index [Body mass i ndex (BMI) 23.0-23.9, adult] Telemedicine with Suzi Vázquez ACCT EXEC 07/13/2019 Last Documented On 0 7:43AM ; [facility] Infection of tooth [Other sp ecified disorders of teeth and supporting structures] Telemedicine with Suzi Vázquez ACCT EXEC 07/13/2019 Last Documented On 0 7:43AM ; [facility] Routine history and physical Telemedicine with Usama hi Richarder ACCT EXEC 07/13/2019 Last Documented On 0 7:43AM ; [facility] Upper respiratory infection [Acute upper respiratory infection, unspecified] Telemedicine with Suzi Vázquez ACCT EXEC 07/13/2019 Last Documented On 0 7:43AM ; [facility] Work Phone: [phone] History general Narrative - Reported Includes: Medical History in patient's chart Description Last Updated History of psychiatric disorders 023 Last Documented On 3 11:30AM ; [facility] History of anxiety disorder NOS 05/04/19 23 Last Documented On 3 11:30AM ; [facility] History of depression 05/04/2022 Last Documented On 3 11:30AM ; [facility] Psychiatric disorders 05/04/2022 Last Documented On 3 11:30AM ; [facility] Patient gave verbal consent for teleheal th 07/13/2019 Last Documented On 0 7:43AM ; [facility] Work Phone: 1([phone] 121-950301-09-2023 History general Narrative - Reported Includes: Medical History in patient's chart Description Last Updated History of psychiatric disorders 023 Last Documented On 3 11:30AM ; [facility] History of anxiety disorder NOS 05/04/19 23 Last Documented On 3 11:30AM ; [facility] History of depression 05/04/2022 Last Documented On 3 11:30AM ; [facility] Psychiatric disorders 05/04/2022 Last Documented On 3 11:30AM ; [facility] Patient gave verbal consent for teleheal th 07/13/2019 Last Documented On 0 7:43AM ; [facility] Work Phone: [phone] Progress note* Progress note Date Encounter Last Documented by 05/04/2022 Medical Established Patient Last documented on 05/11/2022; 11:30 AM, Suzi Vázquez CNP; [facility] Active Problems & Conditions - F43.22 - Adjustment Disorder with Anxiety - Z00.01 - Routine History and Physical Chief Complaint The Chief Complaint is: Pt here establish care , would like medication refills. Referred Here No prior encounters. History of Present Illness Tirso Finney is a 36 year old male. - Allergy list reviewed - Reviewed Medications Patient presents to establish care Patient states that he was following up at [facility] through court order, states that when he was done with court ordered program they dismissed him. States that he tried to get into Dr Mayo office last year but they were scheduled months out. Currently diagnosed with Bipolar schizophrenic, states that he ran out of Depakote ER Patient states that he has about 10-15 panic attacks per week, with multiple triggers Has a history of trauma States that he does hear voices but when he takes his medication they are gone. When the voices talk they tell him negative things States that he was on a higher dose of Seroquel in the past up to 150mg but states that it made him sleep walk and they had to wean him down to 50mg Current Medication - Depakote ER 250 MG Oral Tablet Extended Release 24 Hour Take 1 tablet in the morning and 2 tablets at bed time, 0 days, 0 refills - hydrOXYzine HCl 50 MG Oral Tablet Take 1 tablet 3 times a day as needed, 0 days, 0 refills - QUEtiapine Fumarate 50 MG Oral Tablet Take 1 tablet at night, 0 days, 0 refills - Sertraline HCl 150 MG Oral Capsule Take 1 daily, 0 days, 0 refills - traZODone HCl 50 MG Oral Tablet Take 1-2 tablets by mouth at bedtime, 0 days, 0 refills Past Medical/Surgical History Reported: Patient gave verbal consent for telehealth. Diagnoses: Psychiatric disorders. Depression Anxiety disorder NOS Surgical: - Back surgery - Hand surgery - Ankle surgery Social History Environmental Exposure: No secondhand cigarette smoke exposure. Behavioral: Not a current tobacco user. Alcohol: Not using alcohol. Drug Use: Using marijuana. Sexual: Sexually active, sexual orientation Straight (not lesbian or ayala), and gender identity Male. Allergies - tramadol Family History Paternal: Oncologic disorder Review Of Systems Head: No head symptoms. Otolaryngeal: No nose and sinus finding. Cardiovascular: No cardiovascular symptoms. Pulmonary: No pulmonary symptoms. Gastrointestinal: No gastrointestinal symptoms. Endocrine: No endocrine symptoms. Musculoskeletal: No musculoskeletal symptoms. Neurological: No neurological symptoms. Psychological: Psychological symptoms. Skin: No skin symptoms. Physical Findings - Vitals taken 05/04/2022 04:57 pm BP-Sitting L136/90 mmHg Pulse Rate-Jmzqgtx64 bpm Temp-Ehopgdpv99.8 F Qmfdxm08 in Pnkwns028 lbs Body Mass Index27.5 kg/m2 Body Surface Area2.1 m2 Oxygen Wyodbxohcz33 % General Appearance: - Not awake. - Not alert. Lungs: - Normal. Cardiovascular: Heart Rate And Rhythm: - Normal. Heart Sounds: - Normal. Abdomen: Visual Inspection: - Abdomen was normal on visual inspection. Musculoskeletal System: General/bilateral: - Normal movement of all extremities. Neurological: - Not oriented to time, place, and person. Psychiatric: - Expression of emotions finding was normal. Skin: - General appearance was normal. Tests Blood Analysis: Blood Endocrine Laboratory Tests: ValueDate Blood hemoglobin A1c 5.3%05/04/2022 Laboratory-based Chemistry: Immunology Studies: HIV test was negative. Assessment - Body mass index [Body mass index [BMI] 27.0-27.9, adult] - Diabetes Risk Test Score was two score 05/04/2022 [Encounter for screening for diabetes mellitus] Therapy - Patient refused flu vaccine. Discussed benefits of flu vaccine with Patient. - SBIRT Screen Pos. - Referral to mental health team and mental health team. Vaccinations - Did not receive dose of Reported: Patient has not received the Covid Vaccine Counseling/Education - Discussed nutritional needs teach healthy choices including fruits and vegetables - Patient education about a proper diet - Discussed concerns about exercise: promote physical activity Follow up in two weeks Plan StartCited- Anxiety disorder, unspecified hydrOXYzine HCl 50 MG tablet Take 1-2 tablets three times a day as needed for anxiety/sleep, 30 days, 1 refills EndCited StartCited- Encounter for general adult medical exam w abnormal findings Lab: B12/FOLATE PANEL Lab: CBC WITH DIFF Lab: COMP METABOLIC PROF Lab: IRON BINDING CAP. Lab: IRON Lab: LIPID PROFILE Lab: TSH W/REFLEX TO FT4 Lab: VITAMIN D 25 OH EndCited StartCited- Encounter for screening for diabetes mellitus In House Test/Screen/In House Lab: HbgA1c, In house EndCited StartCited- Encounter for screening for human immunodeficiency virus In House Test/Screen/In House Lab: Oral In House HIV EndCited StartCited- Other bipolar disorder Sertraline HCl 100 MG tablet Take 1.5 tablets daily, 30 days, 1 refills traZODone HCl 50 MG tablet Take 1-2 tablets by mouth at bedtime, 30 days, 1 refills QUEtiapine Fumarate 50 MG tablet Take 1 tablet at night, 30 days, 1 refills Depakote ER 250 MG tablet Take 1 tablet in the morning and 2 tablets at bed time, 30 days, 1 refills EndCited Notes - Patient is not interested in the COVID-19 vaccination at this time. Practice Management Hemoglobin A1c level < 7.0%, for blood pressure systolic < 140 mmHg systolic 130 - 139 mmHg systolic 130 - 139 mmHg, and diastolic > or = 90 mmHg diastolic > or = 90 mmHg. User Defined 1 He has not had 5 or more drinks in a day within the past year. No (0 points) [Pre-DM]: No, mother, father, sister, or brother does not have DM, No (0 points) [Pre-DM]: No, patient has not been diagnosed with high blood pressure, No (0 points) [Pre-DM]: Patient has not been diagnosed with gestational diabetes or given to a baby weighing 9 pounds or more, and Yes (0 point) [Pre-DM]: Yes, physically active. No illicit drug use. Man (1 point) [Pre-DM], Little interest or pleasure in doing things in the last 2 weeks? 2 pt More than half the days, Feeling down, depressed, or hopeless in the last 2 weeks? 2 pt More than half the days, and [PHQ-2] Patient Health Questionnaire 2 item total score: 4 pts (Scale: 0-6) PHQ2. PHQ-9: total score was 23 05/04/2022 If you checked off problems, how difficult is it for you to do your work? + : Very difficult, [PHQ-9-1] Little interest or pleasure in doing things? + 2 pt : More than half the days, [PHQ-9-2] Feeling down, depressed, or hopeless? + 2 pt : More than half the days, [PHQ-9-3] Trouble falling or staying asleep or sleeping too much? + 3 pt : Nearly every day, [PHQ-9-4] Feeling tired or having little energy? + 3 pt : Nearly every day, [PHQ-9-5] Poor appetite or overeating? + 3 pt : Nearly every day, [PHQ-9-6] Feeling bad about yourself-or that you are a failure + 3 pt : Nearly every day, [PHQ-9-7] Trouble concentrating on things such as reading the newspaper + 3 pt : Nearly every day, [PHQ-9-8] Moving or speaking so slowly that other people have noticed. + 3 pt : Nearly every day, [PHQ-9-9] Thoughts that you would be better off or hurting yourself? + 1 pt : Several days, and Less than 40 years (0 points) [Pre-DM]. [facility]01-09-2023 Reason for referral (narrative)* Date Encounter Description Provider Reason for Referral 05/04/22 Medical Established Patient Suzi Vázquez CNP Referral To Mental Health Team; Referral To Mental Health Team 03/19/20 Telemedicine Suzi Vázquez CNP Referral To Mental Health Team [facility] Work Phone: 1(369) 790-200909-16-2022 Hospital Discharge instructions* Discharge Instr - ALESSANDRA* Ta Ballesteros PA-C - 01/09/2022 4:10 PM EDT Continuity of Care Form Patient Name: Tirso Finney : 1985 Admit date: 01/09/2022 Discharge date: Code Status Order: No Order Advance Directives: Admitting Physician: No admitting provider for patient encounter. PCP: AUGUSTIN Parks CNP Discharging Nurse: Discharging Hospital Unit/Room#: 01/02 Discharging Unit Phone Number: Emergency Contact: No emergency contact information on file. Past Surgical History: Past Surgical History: Procedure Laterality Date FIBULA FRACTURE SURGERY 2017 HAND SURGERY Left 2019 NECK SURGERY Immunization History: Immunization History Administered Date(s) Administered Tdap (Boostrix, Adacel) 03/31/2020 Active Problems: Patient Active Problem List Diagnosis Code GERD (gastroesophageal reflux disease) K21.9 Pneumonia J18.9 Acute bronchitis J20.9 Erectile dysfunction N52.9 RUQ pain R10.11 Dysphagia R13.10 Nausea R11.0 Acute COVID-19 U07.1 COVID-19 ruled out Z20.822 Isolation/Infection: Isolation No Isolation Patient Infection Status Infection Onset Added Last Indicated Last Indicated By Review Planned Expiration Resolved Resolved By None active Resolved COVID-19 (Rule Out) 11/13/21 11/13/21 11/13/21 COVID-19, Rapid (Ordered) 11/13/21 Rule-Out Test Resulted COVID-19 (Rule Out) 11/13/21 11/13/21 11/13/21 COVID-19 (Ordered) 11/13/21 Rule- Out Test Canceled COVID-19 (Rule Out) 07/18/21 07/18/21 07/18/21 COVID-19, Rapid (Ordered) 07/18/21 Rule-Out Test Resulted COVID-19 04/14/21 04/14/21 04/14/21 COVID-19, Rapid 04/28/21 C-diff Rule Out 09/17/20 09/17/20 09/17/20 Gastrointestinal Panel, Molecular (Ordered) 09/18/20 Rule-Out Test Resulted COVID-19 (Rule Out) 05/14/20 05/14/20 05/14/20 COVID-19 Ambulatory (Ordered) 05/16/20 Rule-Out TestResulted Nurse Assessment: Last Vital Signs: BP (!) 157/75 Pulse 91 Temp 98 F (36.7 C) (Tympanic) Resp 16 Wt 183 lb (83 kg) SpO2 99% BMI 24.82 kg/m Last documented pain score (0-10 scale): Pain Level: 7 Last Weight: Wt Readings from Last 1 Encounters: 01/09/22 183 lb (83 kg) Mental Status: {IP PT MENTAL STATUS:} IV Access: { ALESSANDRA IV ACCESS:470564784} Nursing Mobility/ADLs: Walking {CHP DME ADLs:812983171} Transfer {CHP DME ADLs:129483449} Bathing {CHP DME ADLs:896755722} Dressing {CHP DME ADLs:186457579} Toileting {CHP DME ADLs:511799815} Feeding {CHP DME ADLs:063599731} Manager Med Surg {CHP DME ADLs:932672027} Med Delivery { ALESSANDRA MED Delivery:143794579} Wound Care Documentation and Therapy: Elimination: Continence: Bowel: {YES / NO:} Bladder: {YES / NO:} Urinary Catheter: {Urinary Catheter:373113886} Colostomy/Ileostomy/Ileal Conduit: {YES / NO:} Date of Last BM: No intake or output data in the 24 hours ending 01/09/22 1610 No intake/output data recorded. Safety Concerns: { ALESSANDRA Safety Concerns:488637567} Impairments/Disabilities: { ALESASNDRA Impairments/Disabilities:910381039} Nutrition Therapy: Current Nutrition Therapy: { ALESSANDRA Diet List:713819822} Routes of Feeding: {CHP DME Other Feedings:073647497} Liquids: {Blood Splatter Analyst liquid thickness:90168} Daily Fluid Restriction: {CHP DME Yes amt example:838035702} Last Modified Barium Swallow with Video (Video Swallowing Test): {Done Not Done Date:052356024} Treatments at the Time of Hospital Discharge: Respiratory Treatments: Oxygen Therapy: {Therapy; copd oxygen:08843} Ventilator: {[facility] Vent List:730399803} Rehab Therapies: {THERAPEUTIC INTERVENTION:1669356882} Weight Bearing Status/Restrictions: {[facility] Weight Bearin} Other Medical Equipment (for information only, NOT a DME order): {EQUIPMENT:765725287} Other Treatments: Patient's personal belongings (please select all that are sent with patient): {[facility] DME Belongings:306379317} RN SIGNATURE: {Esignature:215100205} CASE MANAGEMENT/SOCIAL WORK SECTION Inpatient Status Date: Readmission Risk Assessment Score: Readmission Risk Risk of Unplanned Readmission: 0 Discharging to Facility/ Agency Name: Address: Phone: Fax: Dialysis Facility (if applicable) Name: Address: Dialysis Schedule: Phone: Fax: [employer] 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 Update Admission H&P: {CHP DME Changes in HandP:913136926} PHYSICIAN SIGNATURE: {Esignature:317911735} * Attachments The following attachments cannot be sent through Care Everywhere. * Wrist Sprain (Belgian) * RICE: General Info (Belgian) documented in this encounterB[facility] [facility] Work Phone: [phone]) 764-362203-25-2022 Hospital Discharge instructions* Instructions* Geraldo De La Rosa MD - 07/18/2021 Your liver function tests were elevated today. I recommend getting these repeated by your primary care physician in the next 1 to 2 weeks. Return to the emergency department if you develop fever, have vomiting despite use of ondansetron, have blood in your vomit or stool, continue to have symptoms for more than the next 48 hours or haveother concerns. Your COVID-19 test today was negative. * Attachments The following attachments cannot be sent through Care Everywhere. * Nausea and Vomiting (Belgian) * Diarrhea (Belgian) documented in this encounterAccurence Phone: [phone]) 511-692612-20-2021 Hospital Discharge instructions* Instructions* Ana Laura Buchanan MD - 04/14/2021 Thank you for trusting us with your care today. Please make an appointment with your primary care doctor for reevalaution in 1-4 days. Please return to the emergency department for any new concerning or worsening symptoms. * Attachments The following attachments cannot be sent through Care Everywhere. * Coronavirus Disease (COVID-19): General Info (Belgian) documented in this encounterAccurence Phone: 1(870) 750-894204-22-2021 History of Present illness Narrative* Tonia Mendoza - 08/15/2020 2:00 PM EDT Explained policies and procedures of an echocardiogram/Doppler study. Explained Holter monitor and diary. documented in this encounterAccurence Phone: evaluation + Plan note Future Appointments Appointment Date:12/04/2024 10:00:00 AM Scheduled Provider: Location:[facility] Appointment Type:Surgery FT [facility] Evaluation note* Diagnosis Syncope, unspecified syncope type Lightheadedness Dizziness and giddiness documented in this encounter [employer] Phone: [email or web address] note* Diagnosis Syncope, unspecified syncope type Lightheadedness Dizziness and giddiness documented in this encounter [employer] Phone: evallacdvx note* Diagnosis Diarrhea, unspecified type documented in this encounter [employer] Phone: [email or web address] note* Diagnosis Cough Fever, unspecified fever cause documented in this encounter [employer] Phone: evaltiaupn note* Diagnosis Contusion of neck, initial encounter- Primary Vocal cords swelling documented in this encounter [employer] Phone: evaluation note* Diagnosis Cervical radiculopathy at C5- Primary Brachial neuritis or radiculitis nos Pain in right arm Cervical disc herniation Displacement of cervical intervertebral disc without myelopathy documented in this encounter [employer] Phone: evaluation note* Diagnosis Suspected ingested foreign body not found after observation- Primary COVID-19 virus infection documented in this encounter [employer] Phone: evaluation note* Diagnosis Nausea vomiting and diarrhea- Primary Nausea with vomiting Elevated liver enzymes Nonspecific elevation of levels of transaminase or lactic acid dehydrogenase (LDH) documented in this encounter [employer] Phone: [email or web address] note* Diagnosis Chronic abdominal pain- Primary Abdominal pain, unspecified site Blood in stool Elevated liver enzymes Nonspecific elevation of levels of transaminase or lactic acid dehydrogenase (LDH) documented in this encounter [employer] Phone: evalnhbrcm note* Diagnosis COVID-19 ruled out documented in this encounter [employer] Phone: evalvbrtpf note* Diagnosis Suicidal ideation- Primary documented in this encounter [employer] Phone: evaluvdrjg note* Diagnosis Left wrist sprain, initial encounter- Primary Cervical radiculopathy Brachial neuritis or radiculitis nos documented in this encounter [employer] Phone: History of Present illness Narrative History of Present Illness not supported for this document type No History of Present Illness [facility]ed[facility] Work Phone: Hospital course Narrative No data available for this section [facility] Hospital Discharge instructions* Attachments The following attachments cannot be sent through Care Everywhere. * Cervical Disc Disease (Belgian) * Cervical Radiculopathy (Belgian) documented in this encounterMer[facility] HospitalUCROO Phone: Hospital Discharge instructions* Instructions*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
--- NOTE | 2025-01-09 13:10 | ED.BACK1 ---
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 The patient have no incontinence of urine or stool he does not have any weakness or numbness or tingling The patient apparently has been having this pain every time he is mowing the lawn for the last few days The patient denies any other complaints Related Data Previous Rx's ?Medication ?Instructions ?Recorded orphenadrine citrate 100 mg 100 mg PO BID PRN muscle spasm #20 01/09/25 tablet,extended release tabs prednisone 20 mg tablet 40 mg (2 x 20 mg) PO DAILY 5 days 01/09/25 #10 tabs Allergies Allergy/AdvReac Type Severity Reaction Status Date / Time tramadol Allergy Unknown Vomiting Verified 01/09/25 12:15 Opioid HPI Opioid Management Most Recent Opioid Data: Last Pain Scale 10 Today, 13:16 Last MAR Pain Assessment Today, 13:16 Review of Systems ROS Status of ROS 10 or more systems reviewed and unremarkable except as noted in history and below PFSH [facility] Medical History (Updated 01/09/25 @ 13:55 by Ailyn Goldsmith MD) History of fibula fracture ?Z87.81 - Personal history of (healed) traumatic fracture (ICD-10) Surgical History (Updated 01/09/25 @ 12:23 by Carlos Davis) H/O cervical spine surgery ?Z98.890 - Other specified postprocedural states (ICD-10) Social History Little interest or pleasure in doing things: not at all Feeling down, depressed, or hopeless: not at all Exam Narrative Exam Narrative: Nurses notes and vital signs reviewed and patient is not hypoxic. General: Well-appearing and in no apparent distress. Skin: Warm, dry, no pallor noted. No rash. Head: Normocephalic, atraumatic. Neck: Supple, non-tender. Cardiovascular: Regular Rate and Rhythm without murmur, gallop or rub. Respiratory: No accessory muscle use or respiratory distress. Lungs are clear to auscultation, no wheezing, rales or rhonchi Chest Wall: no tenderness Back: There is midline tenderness upon palpation of the mid thoracic as well as the lumbar upper level as well as the lower cervical level. There is some paraspinal muscle tenderness Musculoskeletal: normal ROM, no calf or popliteal tenderness, no lower extremity edema/swelling GI: Abdomen is soft, non-distended. Normal bowel sounds. No masses appreciated. No tenderness to palpation. No rebound, guarding, or rigidity noted. Neurological: A&O x4. No cranial nerve dysfunction observed. No truncal ataxia. Moves all extremities. Sensation intact. Psychiatric: Cooperative and interactive. Normal mood and affect. Constitutional Vital Signs, click to edit/add: Last Vital Signs Temp 98.4 F 01/09/25 12:16 Pulse 107 H 01/09/25 12:16 Resp 20 01/09/25 12:16 BP 133/81 01/09/25 12:16 Pulse Ox 97 01/09/25 12:16 O2 Del Method Room Air 01/09/25 12:16 Course Vital Signs Vital signs: Vital Signs Temperature 98.4 F 01/09/25 12:16 Pulse Rate 107 H 01/09/25 12:16 Respiratory Rate 01/09/25 12:16 Blood Pressure 133/81 01/09/25 12:16 Pulse Oximetry 97 01/09/25 12:16 Oxygen Delivery Method Room Air 01/09/25 12:16 Temperature 98.4 F 01/09/25 12:16 Pulse Rate 107 H 01/09/25 12:16 Respiratory Rate 01/09/25 12:16 Blood Pressure 133/81 01/09/25 12:16 Pulse Oximetry 97 01/09/25 12:16 Oxygen Delivery Method Room Air 01/09/25 12:16 MDM - Back Pain/Injury MDM Narrative Medical decision making narrative: The patient CAT scan of the lumbar cervical as well as thoracic spine showed no acute pathology but the patient definitely have some obstructive lung disease which could be explained by the fact that he had history of smoking cigarettes The patient was informed of that finding and he will follow-up with his primary care, he was also advised against smoking cigarettes Patient was discharged home with prednisone as well as Norflex after he received Norflex and methylprednisone here in the ER The patient is to follow up with primary care physician in next 2-3 days or to return to the emergency department should any of the signs or symptoms worsen or new symptoms develop. The patient agrees with the following Diagnosis and Treatment plan and the patient will be discharged home. Discharge Plan Discharge Chief Complaint: Back Pain/Injury Clinical Impression: Back pain, Neck pain, Obstructive lung disease Patient Disposition: Home, Self-Care Time of Disposition Decision: 13:55 Condition: Good Prescriptions / Home Meds: New prednisone 20 mg tablet 40 mg PO DAILY 5 Days Qty: 10 0RF orphenadrine citrate 100 mg tablet extended release 100 mg PO BID PRN (Reason: muscle spasm) Qty: 20 0RF Print Language: Tanzanian Instructions: Acute Low Back Pain (ED), Acute Neck Pain (ED) Referrals: ELLA RAMIREZ [Primary Care Provider, Family Practice] - 1 week Discharge Date/Time: 01/09/25 14:08
[2025-01-09] MEDS: METHYLPREDNISOLONE SOD SUCC PF 40 MG/ML VIAL IM (13:16)
[2025-01-09] MEDS: OXYCODONE HCL/ACETAMINOPHEN 5MG/325MG 1 TAB PO (13:16)
[2025-01-09] MEDS: ORPHENADRINE 60 MG/2 ML VIAL IM (13:16)
== END 2025-01-09 14:08 | disposition home or self-care (01) ==
PROVIDERS: Emergency Provider Emergency Medicine; PCP Nurse Practitioner Family
DX: M54.50 Low back pain, unspecified (principal); M54.2 Cervicalgia; J44.9 Chronic obstructive pulmonary disease, unspecified; Z87.891 Personal history of nicotine dependence
CPT/HCPCS: 72125; 72128; 72131; 76376; 96372; 99284; J2360; J2919